=== PATIENT | female | born 1990 | race Caucasian/White ===

== ENCOUNTER 2020-09-20 05:58 | Emergency (ER) | payer BC, SELFPAY ==
[2020-09-20 06:14] VITALS: BP 116/81; PULSE 73; RESP 16; TEMP 36.6; O2SAT 100
--- NOTE | 2020-09-20 06:23 | ED.GENADULT ---
HPI - General Adult General Chief complaint: Anxiety Stated complaint: anxiety Time Seen by Provider: 09/20/20 06:18 History of Present Illness HPI narrative: Patient is a 30-year-old female who presents the emergency department with chief complaint of ingested maggot the patient reports that she was eating stirfry and realized that there was a maggot in the food the patient states that she thinks she may have swallowed it and the patient has no complaint right now other than feeling anxious that she swallowed a maggot. Related Data Allergies Allergy/AdvReac Type Severity Reaction Status Date / Time latex Allergy Intermediate Verified 09/16/19 12:46 dexamethasone Allergy Unknown Unknown Verified 09/16/19 12:46 Sulfa (Sulfonamide Allergy Unknown Unknown Verified 09/16/19 12:46 Antibiotics) Review of Systems Review of Systems: Narrative: A 10 system review of systems was completed on the patient and is negative except for what is stated in the HPI. Nursing and ancillary documentation was reviewed. [facility]LY [facility] Past Medical History Medical History Anemia Angina pectoris, unspecified Migraines Ovarian cyst Social History Social History Smoking status: Never smoker Alcohol intake: never Substance use: never Exam Narrative: Exam Narrative: GENERAL: Well-appearing, well-nourished, and in no acute distress. HEAD: Normocephalic, atraumatic. EYES: PERRLA and EOMI. ENT: Nares clear, no rhinorrhea or epistaxis. Mucous membranes moist. NECK: Supple. CHEST: Clear to auscultation. No respiratory distress. HEART: Regular rate and rhythm. No murmur heard. Normal peripheral pulses. ABDOMEN: Soft, nontender, nondistended, normal active bowel sounds. EXTREMITIES: Normal range of motion. No edema. SKIN: Warm, dry, no rash. NEURO: No focal deficits. Alert and oriented x3. PSYCH: Normal mood and affect. Course Vital Signs Vital signs: Vital Signs Temperature 36.6 C 09/20/20 06:14 Pulse Rate 73 09/20/20 06:14 Respiratory Rate 16 09/20/20 06:14 Blood Pressure 116/81 09/20/20 06:14 Pulse Oximetry 100 09/20/20 06:14 Temperature 36.6 C 09/20/20 06:14 Pulse Rate 73 09/20/20 06:14 Respiratory Rate 16 09/20/20 06:14 Blood Pressure 116/81 09/20/20 06:14 Pulse Oximetry 100 09/20/20 06:14 Medical Decision Making Vital Signs Vital Signs: Vital Signs Temperature 36.6 C 09/20/20 06:14 Pulse Rate 73 09/20/20 06:14 Respiratory Rate 16 09/20/20 06:14 Blood Pressure 116/81 09/20/20 06:14 Pulse Oximetry 100 09/20/20 06:14 Temperature 36.6 C 09/20/20 06:14 Pulse Rate 73 09/20/20 06:14 Respiratory Rate 16 09/20/20 06:14 Blood Pressure 116/81 09/20/20 06:14 Pulse Oximetry 100 09/20/20 06:14 Discharge Plan Discharge Clinical Impression: Ingestion of nontoxic substance Qualifiers: Encounter type: initial encounter Injury intent: accidental or unintentional Qualified Code(s): T65.91XA - Toxic effect of unspecified substance, accidental (unintentional), initial encounter Patient Disposition: Home, Self-Care Condition: Stable Instructions: Antibiotic Form Prescriptions: No Action ibuprofen 800 mg tablet 800 mg PO TID PRN (Reason: pain) Qty: 20 RF: 0 cyclobenzaprine 10 mg tablet 10 mg PO TID PRN (Reason: muscle spasm) Qty: 20 RF: 0 Follow-up/Referrals: PHYSICIAN,RECEIVING LEAD [Primary Care Provider] - Enoc Kingston MD [Physician] - 1 Week Time of Disposition: 06:26
[2020-09-20 06:48] VITALS: BP 118/75; PULSE 90; RESP 18; O2SAT 99
== END 2020-09-20 06:51 | disposition home or self-care (01) ==
LOC: ANHED 06:30
PROVIDERS: Emergency Provider Emergency Medicine
DX: T65.891A Toxic effect of other specified substances, accidental (unintentional), initial encounter (principal); Z86.2 Personal history of diseases of the blood and blood-forming organs and certain disorders involving the immune mechanism
CPT/HCPCS: 99281

== ENCOUNTER 2020-10-10 00:35 | Emergency (ER) | payer BC, SELFPAY ==
[2020-10-10 00:40] VITALS: BP 112/68; PULSE 102; RESP 12; TEMP 36.5; O2SAT 100
--- NOTE | 2020-10-10 00:59 | ED.GENADULT ---
HPI - General Adult General Chief complaint: Skin/Abscess/Foreign Body Stated complaint: Tobi-Wesley Rash Time Seen by Provider: 10/10/20 00:43 Source: RN notes reviewed History of Present Illness HPI narrative: Patient presents to emergency department from home for rash. Patient states that she was started on lamotrigine by her psychiatrist today and took her first dose today she was instructed to watch out for any sort of rashes states this evening she noted a small area of itching over her left elbow she states she looked and had small circular area in the region was concerned this could be the rash had warned her about and came to the ER for further evaluation she states she is only taken 1 dose which was today she denies any fevers or chills denies any chest pain or shortness of breath she denies any lesions in her mouth or groin she denies any other areas of rash other than this 1 spot on her left elbow Related Data Allergies Allergy/AdvReac Type Severity Reaction Status Date / Time latex Allergy Intermediate Verified 09/16/19 12:46 dexamethasone Allergy Unknown Unknown Verified 09/16/19 12:46 Sulfa (Sulfonamide Allergy Unknown Unknown Verified 09/16/19 12:46 Antibiotics) Review of Systems Review of Systems: Narrative: Gen.: Denies fevers or chills Eyes: Denies eye pain or visual change ENT: Denies congestion Respiratory: Denies shortness of breath or cough CV: Denies chest pain or palpitations GI: Denies abdominal pain nausea, emesis Musculoskeletal: Denies back pain or muscle pain Neuro: Denies numbness, tingling, weakness or focal weakness Skin: See HPI Except as documented, all other systems reviewed and negative [facility] Past Medical History Medical History Anemia Angina pectoris, unspecified Migraines Ovarian cyst Social History Social History Smoking status: Never smoker Alcohol intake: never Substance use: never Substance use type: does not use Gender identity (if verbalized by the patient): Female Exam Narrative: Exam Narrative: APPEARANCE: No acute distress, nontoxic, resting in bed EYES: EOMI HEENT: Normocephalic, atraumatic, OMM, no intraoral lesions or lesions on the lip RESPIRATORY: No respiratory distress Clear to auscultation bilaterally with no rhonchi wheezing or rales. CARDIOVASCULAR: Regular rate and rhythm without murmurs rubs or gallops. ABDOMINAL: Soft, nontender, nondistended, MUSCULOSKELETAl: Moves all extremities. No clubbing, cyanosis or edema. NEURO: Awake and alert. Following commands, speech normal, no focal deficits SKIN:: Warm, dry. The left posterior elbow with 1 small 0.5 cm circular area of erythema there is no vesicles or bullous appearance there is no target lesion , it is a simple small raised area no other rashes seen PSYCHIATRIC: Normal affect/mood, Course Course Emergency Course: Discussed with patient results of workup and diagnosis. Discussed need for follow-up with primary care, proper use of medication, and reasons to return to the emergency department. Patient understands and agrees to current treatment plan Vital Signs Vital signs: Vital Signs Temperature 97.7 F 10/10/20 00:40 Pulse Rate 102 H 10/10/20 00:40 Respiratory Rate 12 10/10/20 00:40 Blood Pressure 112/68 10/10/20 00:40 Pulse Oximetry 100 10/10/20 00:40 Temperature 97.7 F 10/10/20 00:40 Pulse Rate 102 H 10/10/20 00:40 Respiratory Rate 12 10/10/20 00:40 Blood Pressure 112/68 10/10/20 00:40 Pulse Oximetry 100 10/10/20 00:40 Medical Decision Making [facility] Narrative Medical decision making narrative: Patient presented for rash concern for Tobi Wesley syndrome took first dose today there is no intraoral lesions or lesions in the groin there is no vesicles or bullae had no target lesions it is a simple small raised red lesion bleed likely an insec
[2020-10-10] MEDS: LORATADINE 10 MG TABLET PO (01:13)
[2020-10-10 01:21] VITALS: BP 109/67; PULSE 91; RESP 18; O2SAT 99
== END 2020-10-10 01:23 | disposition home or self-care (01) ==
PROVIDERS: Emergency Provider Emergency Medicine
DX: R21 Rash and other nonspecific skin eruption (principal); Z86.2 Personal history of diseases of the blood and blood-forming organs and certain disorders involving the immune mechanism
CPT/HCPCS: 99283; A9270

== ENCOUNTER 2020-10-13 14:01 | Emergency (ER) | payer BC, SELFPAY ==
--- NOTE | ~2020-10-13 | CT_ITS ---
EXAMINATION: CT abdomen pelvis w con DATE: 10/13/2020 16:58 INDICATION: Appendicitis. Low abdominal pain. TECHNIQUE: Computed tomography (CT) of the abdomen and pelvis was performed with 100 mL Omnipaque 350 intravenous contrast. Automated exposure control and iterative reconstruction technique were employe d. The dose-length product was 213.24 mGy-cm. COMPARISON: None. FINDINGS: The visualized portions of the lung bases demonstrate minimal atelectasis. No pleural effus ion. Calcifications in the liver and spleen are consistent with old granulomatous disease. The gallbl adder, pancreas, adrenal glands, and left kidney are normal. There is a 7 mm cyst in right kidney. Th ere are no dilated loops of bowel. The appendix is normal. There are no pathologically enlarged lymph nodes. There is trace pelvic ascites. The bones are unremarkable. IMPRESSION: 1. No etiology for the patient's symptoms. Reviewed, dictated and finalized at location A.
--- NOTE | ~2020-10-13 | US_ITS ---
EXAMINATION: US pelvic complete w TV DATE: 10/13/2020 17:50 INDICATION: Bilateral lower pelvic pain TECHNIQUE: Multiple transabdominal and endovaginal sonographic images of the pelvis were obtained. COMPARISON: None. FINDINGS: The anteverted uterus measures 8.9 x 5.7 x 4.3 cm. The endometrial complex measures 13 mm in thickne ss in places with poorly defined margins between the endometrial complex in the junctional zone. Ther e is also heterogeneous myometrial echogenicity with scattered striated pattern of shadowing originat ing the myometrium along with a few 3 mm or smaller subendometrial cysts. Appearance suggests possibi lity of diffuse adenomyosis. The right ovary measures 2.7 x 1.9 x 2.0 cm. 7 mm anechoic follicle in t he right ovary. The left ovary measures 3.5 x 2.0 x 2.1 cm. There is normal vascular flow in the ovar ies. There is no free fluid in the pelvis. IMPRESSION: 1. Heterogeneous appearance of the myometrium with scattered tiny subendometrial cysts suggestive of diffuse adenomyosis. Reviewed, dictated and finalized at location A. IMPRESSION: 1. Heterogeneous appearance of the myometrium with scattered tiny subendometria l cysts suggestive of diffuse adenomyosis.
[2020-10-13 14:12] VITALS: BP 113/72; PULSE 97; RESP 18; TEMP 36.9; O2SAT 100
[2020-10-13 14:51] LABS: Basophils Percent Auto 0.5 % (0.2-1.2); Eosinophils Absolute Auto 0.1 K/mm3 (0-0.3); Eosinophils Percent Auto 0.8 % (0-4.4); Hematocrit 45.4 % (37.0-47.0); Hemoglobin 15.6 g/dL (12.0-15.0); Immature Granulocyte Absolute 0.01 K/mm3 (0.00-0.031); Immature Granulocyte Percent A 0.2 % (0-0.5); Lymphocytes Percent Auto 30.5 % (18.3-44.2); Mean Corpuscular HGB Conc 34.4 g/dl (32-36); Mean Corpuscular Hemoglobin 30.5 pg (26-34); Mean Corpuscular Volume 88.8 fl (80-100); Mean Platelet Volume 9.2 fl (7.4-10.4); Monocytes Absolute Auto 0.4 K/mm3 (0.1-0.6); Monocytes Percent Auto 6.8 % (2.6-8.5); Neutrophils Absolute Auto 3.6 K/mm3 (1.3-6.7); Neutrophils Percent Auto 61.2 % (45.5-73.1); Platelet Count Result 226 k/mm3 (150-375); Red Blood Count 5.11 M/mm3 (4.2-5.4); Red Cell Distribution Width 12.6 % (11.5-14.5); White Blood Count 5.9 K/mm3 (4.5-10.0)
[2020-10-13 15:00] LABS: Alanine Aminotransferase 10 U/L (4-35); Albumin Level 4.5 g/dL (3.5-5.1); Alkaline Phosphatase 53 U/L (38-126); Anion Gap 9 mmol/L (8-16); Aspartate Amino Transferase 26 U/L (14-36); Bilirubin,Total 1.6 mg/dL (0.2-1.3); Blood Urea Nitrogen 8 mg/dL (7-17); Calcium 9.5 mg/dL (8.4-10.2); Carbon Dioxide 26 mmol/L (22-30); Chloride 106 mmol/L (98-107); Estimated CRCL calculation 75 ml/min; Estimated Glomerular Filt Rate > 60; Glucose 69 mg/dL (65-105); Lipase 100 U/L (23-300); Potassium 3.7 mmol/L (3.4-5.0); Sodium 141 mmol/L (137-145)
[2020-10-13 15:21] LABS: Add Urine Microscopic? NO; Appearance Urine Clear (Clear); Bilirubin Urine Negative (Negative); Blood Urine Negative (Negative); Color Urine Yellow (Yellow); Glucose Urine UA Negative (Negative); Ketones Urine Negative (Negative); Leukocyte Esterase Ur Negative LEU/UL (Negative); Nitrate Urine Negative (Negative); Protein Urine Negative (Negative); Specific Grav Ur 1.017 (1.001-1.035); Urobilinogen Urine Negative mg/dL (<2.0)
--- NOTE | 2020-10-13 16:44 | ED.GENADULT ---
HPI - General Adult General Chief complaint: Abdominal Pain Stated complaint: Lower Abd Pain Time Seen by Provider: 10/13/20 16:07 Source: patient, family and RN notes reviewed Mode of arrival: ambulatory Limitations: no limitations History of Present Illness HPI narrative: Patient is a 30-year-old female who presents to emergency department for evaluation of lower abdominal pain in the lower quadrants that intensified today is a sharp stabbing pain denies any vomiting diarrhea rectal bleeding or vaginal discharge. Patient on arrival to emergency department is in the room in no distress but gets bouts of intensifying pain. Patient denies similar occurrence in the past has not taken anything for her symptoms Related Data Allergies Allergy/AdvReac Type Severity Reaction Status Date / Time latex Allergy Intermediate Rash Verified 10/13/20 16:08 dexamethasone Allergy Unknown Unknown Verified 10/13/20 16:08 Sulfa (Sulfonamide Allergy Unknown Unknown Verified 10/13/20 16:08 Antibiotics) Review of Systems Review of Systems: All systems reviewed & are unremarkable except as noted in HPI and below PMFSH Past Medical History Medical History Anemia Angina pectoris, unspecified Migraines Ovarian cyst Social History Social History Smoking status: Never smoker Alcohol intake: never Substance use: never Substance use type: does not use Gender identity (if verbalized by the patient): Female Exam Narrative: Exam Narrative: GENERAL: Well-appearing, well-nourished, uncomfortable and in no acute distress. HEAD: Normocephalic, atraumatic. EYES: PERRLA and EOMI. ENT: Nares clear, no rhinorrhea or epistaxis. Mucous membranes moist. CHEST: Clear to auscultation. No respiratory distress. No wheezes rales or rhonchi HEART: Regular rate and rhythm. No murmur heard. Normal peripheral pulses. ABDOMEN: Soft, tenderness in the right lower quadrant with voluntary guarding, nondistended, normal active bowel sounds. EXTREMITIES: Normal range of motion. No edema. SKIN: Warm, dry, no rash. NEURO: No focal deficits. Alert and oriented x3. Cranial nerves II through XII grossly intact PSYCH: Normal mood and affect. Course Course Emergency Course: Patient evaluated in the emergency department will be discharged with follow-up with gynecology given the ultrasound findings patient agrees with this plan is resting in the room in no distress afebrile nontoxic-appearing without emesis felt appropriate for outpatient reevaluation Vital Signs Vital signs: Vital Signs Temperature 98.5 F 10/13/20 14:12 Pulse Rate 97 10/13/20 14:12 Respiratory Rate 18 10/13/20 14:12 Blood Pressure 113/72 10/13/20 14:12 Pulse Oximetry 100 10/13/20 14:12 Temperature 98.5 F 10/13/20 14:12 Pulse Rate 97 10/13/20 14:12 Respiratory Rate 18 10/13/20 14:12 Blood Pressure 113/72 10/13/20 14:12 Pulse Oximetry 100 10/13/20 14:12 Medical Decision Making MDM Narrative Medical decision making narrative: Patient evaluated emergency department likely the cystic structures seen on ultrasound in the uterus is the cause of her pain she will be referred to gynecology is hemodynamically stable afebrile nontoxic-appearing agreeing with this plan Vital Signs Vital Signs: Vital Signs Temperature 98.5 F 10/13/20 14:12 Pulse Rate 97 10/13/20 14:12 Respiratory Rate 18 10/13/20 14:12 Blood Pressure 113/72 10/13/20 14:12 Pulse Oximetry 100 10/13/20 14:12 Temperature 98.5 F 10/13/20 14:12 Pulse Rate 97 10/13/20 14:12 Respiratory Rate 18 10/13/20 14:12 Blood Pressure 113/72 10/13/20 14:12 Pulse Oximetry 100 10/13/20 14:12 Lab Data Result diagrams: 10/13/20 14:16 10/13/20 14:15 Labs: Lab Results 10/13/20 10/13/20 10/13/20 Range/Units 14:15 14:16 15:14 WBC
[2020-10-13] MEDS: SODIUM CHLORIDE 0.9% IV 1,000 ML 999 ML IV CONT (17:06)
[2020-10-13] MEDS: FAMOTIDINE 20 MG/2 ML VIAL IV PUSH (17:06)
== END 2020-10-13 18:49 | disposition home or self-care (01) ==
PROVIDERS: Emergency Medicine; Emergency Provider Emergency Medicine
DX: R10.2 Pelvic and perineal pain (principal); Z86.2 Personal history of diseases of the blood and blood-forming organs and certain disorders involving the immune mechanism
CPT/HCPCS: 36415; 74177; 76830; 76856; 80053; 81003; 81025; 83690; 85025; 96361; 96365; 96375; 99284; J0131; J7030; Q9967

== ENCOUNTER 2021-10-13 17:16 | Emergency (ER) | payer BC, SELFPAY ==
--- NOTE | ~2021-10-13 | XR_ITS ---
XR chest 2V DATE: 10/13/2021 17:39 INDICATION: Midsternal sharp chest pain today worse on inspiration TECHNIQUE: PA and Lateral views COMPARISON: 03/24/2019 2 view chest FINDINGS: Normal heart size. No hilar or mediastinal enlargement. No pulmonary infiltrate or consolid ation, pleural effusion or pulmonary vascular congestion or pneumothorax. Minimal dextroscoliosis of the thoracic spine. IMPRESSION: No active cardiopulmonary disease Reviewed, dictated and finalized at location A.
[2021-10-13 17:20] VITALS: BP 104/72; PULSE 83; RESP 18; TEMP 37; O2SAT 98
--- NOTE | 2021-10-13 17:23 | ECG_ITS ---
Measurements Intervals [place] Rate: 63 P: 57 NC: 135 QRS: 44 QRSD: 81 T: 41 QT: 386 QTc: 397 Interpretive Statements SINUS RHYTHM COMPARED TO ECG 03/24/2019 15:25:03 NO SIGNIFICANT CHANGES Electronically Signed On 10-13-2021 22:20:43 CDT by Maryan Luna M.D.
[2021-10-13 17:34] LABS: Basophils Percent Auto 0.4 % (0.2-1.2); Eosinophils Absolute Auto 0.1 K/mm3 (0-0.3); Eosinophils Percent Auto 1.4 % (0-4.4); Hematocrit 42.1 % (37.0-47.0); Hemoglobin 13.9 g/dL (12.0-15.0); Immature Granulocyte Absolute 0.01 K/mm3 (0.00-0.031); Immature Granulocyte Percent A 0.2 % (0-0.5); Lymphocytes Absolute Auto 1.92 K/mm3 (0.9-3.2); Lymphocytes Percent Auto 37.1 % (18.3-44.2); Mean Corpuscular Hemoglobin 29.6 pg (26-34); Mean Corpuscular Volume 89.6 fl (80-100); Mean Platelet Volume 8.9 fl (7.4-10.4); Monocytes Absolute Auto 0.4 K/mm3 (0.1-0.6); Monocytes Percent Auto 8.3 % (2.6-8.5); Neutrophils Absolute Auto 2.7 K/mm3 (1.3-6.7); Neutrophils Percent Auto 52.6 % (45.5-73.1); Platelet Count Result 198 k/mm3 (150-375); Red Cell Distribution Width 13.2 % (11.5-14.5); White Blood Count 5.2 K/mm3 (4.5-10.0)
[2021-10-13 17:42] VITALS: PULSE 69
[2021-10-13 17:44] VITALS: BP 111/89; PULSE 71; RESP 15; O2SAT 100
[2021-10-13 17:44] LABS: Alanine Aminotransferase 29 U/L (6-35); Albumin Level 4.4 g/dL (3.5-5.1); Alkaline Phosphatase 52 U/L (38-126); Anion Gap 8 mmol/L (8-16); Aspartate Amino Transferase 40 U/L (14-36); Bilirubin,Total 1.8 mg/dL (0.2-1.3); Blood Urea Nitrogen 7 mg/dL (7-17); Calcium 8.6 mg/dL (8.4-10.2); Carbon Dioxide 24 mmol/L (22-30); Chloride 107 mmol/L (98-107); Estimated CRCL calculation 84 ml/min; Estimated Glomerular Filt Rate > 60; Glucose 75 mg/dL (65-110); Lipase 103 U/L (23-300); Potassium 3.6 mmol/L (3.4-5.0); Sodium 139 mmol/L (137-145)
[2021-10-13 17:47] LABS: Partial Thromboplastin Time 31.3 SECONDS (22.3-36.8)
[2021-10-13 17:56] LABS: Troponin I < 0.012 ng/mL (0.000-0.034)
--- NOTE | 2021-10-13 18:18 | ED.CHESTPAIN ---
HPI - Chest Pain General Chief Complaint: Chest Pain <TG Bonilla Last Filed: 10/13/21 19:39> Stated Complaint: chest pain <TG Bonilla Last Filed: 10/13/21 19:39> Time Seen by Provider: 10/13/21 17:44 <TG Bonilla Last Filed: 10/13/21 19:39> Source: patient <TG Bonilla Last Filed: 10/13/21 19:39> Mode of arrival: ambulatory <TG Bonilla Last Filed: 10/13/21 19:39> Limitations: no limitations <TG Bonilla Last Filed: 10/13/21 19:39> History of Present Illness HPI narrative: This is a 31-year-old female that presents to the emergency department for chest pain today. Reports she was at her son's dentist appointment. She had bent down forward and felt a sharp pain in her middle of her chest. Reports the pain has improved, but been constant since onset. She has not taken anything for pain. Reports family history of coronary artery disease which concerned her and prompted her to be seen. Denies shortness of breath, or lower extremity edema. <TG Bonilla Last Filed: 10/13/21 19:39> Related Data Home Medications: Home Medications Medication Instructions Recorded Confirmed No Home Medications 10/13/21 10/13/21 <TG Bonilla Last Filed: 10/13/21 19:39> Allergies/Adverse Reactions: Allergies Allergy/AdvReac Type Severity Reaction Status Date / Time latex Allergy Intermediate Rash Verified 10/13/20 16:08 dexamethasone Allergy Unknown Anaphylaxis Verified 10/13/21 17:43 Sulfa (Sulfonamide Allergy Unknown Unknown Verified 10/13/20 16:08 Antibiotics) <TG Bonilla Last Filed: 10/13/21 19:39> Review of Systems Review of Systems: CONSTITUTIONAL: Denies fever CARDIOVASCULAR: Reports chest pain. Denies edema. RESPIRATORY: Denies cough or dyspnea. GASTROINTESTINAL: Denies abdominal pain, nausea, vomiting <TG Bonilla Last Filed: 10/13/21 19:39> All systems reviewed & are unremarkable except as noted in HPI and below <Patricia Diaz PA-C - Last Filed: 10/13/21 19:39> PMFSH Past Medical History Medical History: Medical History Anemia Angina pectoris, unspecified Migraines Ovarian cyst <Patricia Diaz PA-C - Last Filed: 10/13/21 19:39> Social History Social History: Social History Smoking status: Never smoker Alcohol intake: never Substance use: never Substance use type: does not use Gender identity (if verbalized by the patient): Female <Patricia Diaz PA-C - Last Filed: 10/13/21 19:39> Exam Narrative: GENERAL: Well-appearing, well-nourished, and in no acute distress. HEAD: Normocephalic, atraumatic. EYES: EOMI. CHEST: Clear to auscultation. No respiratory distress. No wheezes rales or rhonchi. Tender to palpation of the sternum HEART: Regular rate and rhythm. No murmur heard. Normal peripheral pulses. EXTREMITIES: Normal range of motion. No edema. SKIN: Warm, dry, no rash. NEURO: No focal deficits. Alert and oriented x3. PSYCH: Normal mood and affect <Patricia Diaz PA-C - Last Filed: 10/13/21 19:39> Course Vital Signs Vital signs: Vital Signs Temperature 98.6 F 10/13/21 17:20 Pulse Rate 83 10/13/21 17:20 Respiratory Rate 18 10/13/21 17:20 Blood Pressure 104/72 10/13/21 17:20 Pulse Oximetry 98 10/13/21 17:20 Oxygen Delivery Room Air 10/13/21 17:20 Temperature 98.6 F 10/13/21 17:20 Pulse Rate 78 10/13/21 19:48 Respiratory Rate 20 10/13/21 19:48 Blood Pressure 102/76 10/13/21 19:48 Pulse Oximetry 100 10/13/21 19:48 Oxygen Delivery Room Air 10/13/21 17:20 <Patricia Diaz PA-C - Last Filed: 10/13/21 19:39> Vital Signs Temperature 98.6 F 10/13/21 17:20 Pulse Rate 83 10/13/21 17:20 Respiratory Rate 18 10/13/21 1
[2021-10-13 18:51] LABS: D Dimer < 0.27 ug/mL (<0.48)
[2021-10-13 19:48] VITALS: BP 102/76; PULSE 78; RESP 20; O2SAT 100
== END 2021-10-13 19:49 | disposition home or self-care (01) ==
PROVIDERS: Family Medicine; Physician Assistant; Emergency Provider General Practice
DX: R07.9 Chest pain, unspecified (principal); Z86.2 Personal history of diseases of the blood and blood-forming organs and certain disorders involving the immune mechanism
CPT/HCPCS: 36415; 71046; 80053; 83690; 84484; 85025; 85380; 85610; 85730; 93005; 99284

== ENCOUNTER 2021-10-15 04:10 | Emergency (ER) | payer BC, SELFPAY ==
--- NOTE | ~2021-10-15 | XR_ITS ---
EXAMINATION: XR chest 2V DATE: 10/15/2021 05:00 INDICATION: Chest pain. Left shoulder pain. TECHNIQUE: Frontal and lateral views of the chest were obtained. COMPARISON: Chest 2 views 10/13/2021, CT abdomen and pelvis 10/13/2020 FINDINGS: Calcified right lung nodules and calcified right hilar lymph nodes are consistent with old granulomatous disease. No pleural effusion or pneumothorax. The heart size is normal. IMPRESSION: 1. No acute cardiopulmonary disease. Reviewed, dictated and finalized at location A.
[2021-10-15 04:11] VITALS: BP 114/72; PULSE 69; RESP 18; TEMP 36.6; O2SAT 100
--- NOTE | 2021-10-15 04:32 | ECG_ITS ---
Measurements Intervals [place] Rate: 74 P: 41 DC: 131 QRS: 54 QRSD: 84 T: 36 QT: 378 QTc: 421 Interpretive Statements SINUS RHYTHM WITH OCCASIONAL SUPRAVENTRICULAR PREMATURE COMPLEXES COMPARED TO ECG 10/13/2021 17:25:41 NO SIGNIFICANT CHANGES Electronically Signed On 10-15-2021 14:09:20 CDT by Jorje Wilson M.D.
--- NOTE | 2021-10-15 04:38 | ED.CHESTPAIN ---
HPI - Chest Pain General Chief Complaint: Chest Pain Stated Complaint: chest pain left shoulder pain Time Seen by Provider: 10/15/21 04:28 Source: patient History of Present Illness HPI narrative: Patient presents with chest pain and left shoulder pain. Patient reports she was seen a couple days ago for the chest pain recommended she get a delta troponin patient declined and left she has been monitoring her symptoms. Tonight she developed left shoulder pain that radiates down her arm she was concerned to return to the ER for further evaluation. Pain is sharp, constant, no clear aggravating or alleviating factors. She continues report the chest pain. She has any shortness of breath nausea vomiting or diarrhea she denies any fevers, cough, congestion. Related Data Home Medications Medication Instructions Recorded Confirmed No Home Medications 10/13/21 10/13/21 Allergies Allergy/AdvReac Type Severity Reaction Status Date / Time latex Allergy Intermediate Rash Verified 10/15/21 04:45 dexamethasone Allergy Unknown Anaphylaxis Verified 10/15/21 04:45 Sulfa (Sulfonamide Allergy Unknown Unknown Verified 10/15/21 04:45 Antibiotics) Review of Systems Review of Systems: CONSTITUTIONAL: Denies fever, chills, or sweats. EYES: Denies visual changes, redness, or discharge. ENT: Denies rhinorrhea, congestion, sore throat, or otalgia. CARDIOVASCULAR: Denies palpitations, or edema. RESPIRATORY: Denies cough or dyspnea. GASTROINTESTINAL: Denies abdominal pain, nausea, vomiting, or diarrhea. GENITOURINARY: Denies dysuria or hematuria. SKIN: Denies rash or itching. MUSCULOSKELETAL: Denies back pain, or myalgia. NEUROLOGIC: Denies headache, numbness, dizziness, or weakness. PSYCHIATRIC: Denies anxiety or depression. All systems reviewed & are unremarkable except as noted in HPI and below PMFSH Past Medical History Medical History Anemia Angina pectoris, unspecified Migraines Ovarian cyst Social History Social History Smoking status: Never smoker Alcohol intake: never Substance use: never Substance use type: does not use Gender identity (if verbalized by the patient): Female Exam Narrative: GENERAL: Well-appearing, well-nourished, and in no acute distress. HEAD: Normocephalic, atraumatic. EYES: PERRLA and EOMI. ENT: Nares clear, no rhinorrhea or epistaxis. Mucous membranes moist. NECK: Supple. No masses. No JVD CHEST: Clear to auscultation. No respiratory distress. No wheezes rales or rhonchi HEART: Regular rate and rhythm. No murmur heard. Normal peripheral pulses. ABDOMEN: Soft, nontender, nondistended, normal active bowel sounds. EXTREMITIES: Normal range of motion. No edema. SKIN: Warm, dry, no rash. NEURO: No focal deficits. Alert and oriented x3. PSYCH: Normal mood and affect. Course Reevaluation(s) Reevaluation #1: Patient resting comfortably reports large improvement in symptoms results and plan reviewed with patient. Patient is comfortable outpatient plan. Date: 10/15/21 Time: 06:14 Vital Signs Vital signs: Vital Signs Temperature 36.6 C 10/15/21 04:11 Pulse Rate 69 10/15/21 04:11 Respiratory Rate 18 10/15/21 04:11 Blood Pressure 114/72 10/15/21 04:11 Pulse Oximetry 100 10/15/21 04:11 Oxygen Delivery Room Air 10/15/21 04:11 Temperature 36.6 C 10/15/21 04:11 Pulse Rate 74 10/15/21 06:34 Respiratory Rate 18 10/15/21 06:34 Blood Pressure 109/84 10/15/21 06:34 Pulse Oximetry 100 10/15/21 06:34 Oxygen Delivery Room Air 10/15/21 04:31 MDM - Chest Pain MDM Narrative Medical decision making narrative: H&P as above, vss, pt looks clinically well, exam reassuring labs reassuring to include troponin after days of symptoms, img without acute process, additional labs/img considered, symptomatic relief available as needed, on reevaluation pt
[2021-10-15] MEDS: KETOROLAC 15 MG/ML VIAL (*BKC) IV PUSH (04:45)
[2021-10-15 04:47] VITALS: BP 119/88; PULSE 75; RESP 20; O2SAT 100
[2021-10-15 05:25] LABS: Basophils Percent Auto 0.2 % (0.2-1.2); Eosinophils Absolute Auto 0.1 K/mm3 (0-0.3); Eosinophils Percent Auto 0.6 % (0-4.4); Hematocrit 41.3 % (37.0-47.0); Immature Granulocyte Absolute 0.02 K/mm3 (0.00-0.031); Immature Granulocyte Percent A 0.2 % (0-0.5); Lymphocytes Absolute Auto 2.55 K/mm3 (0.9-3.2); Lymphocytes Percent Auto 31.3 % (18.3-44.2); Mean Corpuscular HGB Conc 33.9 g/dl (32-36); Mean Corpuscular Hemoglobin 29.7 pg (26-34); Mean Corpuscular Volume 87.5 fl (80-100); Mean Platelet Volume 9.7 fl (7.4-10.4); Monocytes Absolute Auto 0.6 K/mm3 (0.1-0.6); Monocytes Percent Auto 7.5 % (2.6-8.5); Neutrophils Absolute Auto 4.9 K/mm3 (1.3-6.7); Neutrophils Percent Auto 60.2 % (45.5-73.1); Platelet Count Result 231 k/mm3 (150-375); Red Blood Count 4.72 M/mm3 (4.2-5.4); Red Cell Distribution Width 12.9 % (11.5-14.5); White Blood Count 8.2 K/mm3 (4.5-10.0)
[2021-10-15 05:27] LABS: Appearance Urine Clear (Clear); Bilirubin Urine Negative (Negative); Blood Urine Negative (Negative); Color Urine Yellow (Yellow); Glucose Urine UA Negative (Negative); Ketones Urine Trace mg/dL (Negative); Leukocyte Esterase Ur Negative LEU/UL (Negative); Nitrate Urine Negative (Negative); Protein Urine Negative (Negative); Urobilinogen Urine 0.2 mg/dL (<2.0); pH Urine 5.5 (5.0-9.0)
[2021-10-15 05:30] LABS: Mucus Urine Rare /lpf; RBC Urine 0-2 /hpf (0-2); Squamous Epithelial Cell Urine Few /hpf (Few); WBC Urine 0-3 /hpf
[2021-10-15 05:37] LABS: Alanine Aminotransferase 37 U/L (6-35); Albumin Level 4.4 g/dL (3.5-5.1); Alkaline Phosphatase 62 U/L (38-126); Anion Gap 6 mmol/L (8-16); Aspartate Amino Transferase 49 U/L (14-36); Bilirubin,Total 1.4 mg/dL (0.2-1.3); Blood Urea Nitrogen 12 mg/dL (7-17); Calcium 9.7 mg/dL (8.4-10.2); Carbon Dioxide 26 mmol/L (22-30); Chloride 107 mmol/L (98-107); Estimated CRCL calculation 81 ml/min; Estimated Glomerular Filt Rate > 60; Glucose 81 mg/dL (65-110); Lipase 118 U/L (23-300); Potassium 3.2 mmol/L (3.4-5.0); Sodium 139 mmol/L (137-145)
[2021-10-15 05:48] LABS: Troponin I < 0.012 ng/mL (0.000-0.034)
[2021-10-15 05:52] LABS: Add Urine Microscopic? YES
[2021-10-15 06:14] VITALS: BP 105/70; PULSE 71; RESP 14; O2SAT 99
[2021-10-15 06:34] VITALS: BP 109/84; PULSE 74; RESP 18; O2SAT 100
== END 2021-10-15 06:35 | disposition home or self-care (01) ==
PROVIDERS: Emergency Provider Emergency Medicine
DX: R07.9 Chest pain, unspecified (principal); Z86.2 Personal history of diseases of the blood and blood-forming organs and certain disorders involving the immune mechanism; I49.1 Atrial premature depolarization
CPT/HCPCS: 36415; 71046; 80053; 81001; 81025; 83690; 84484; 85025; 93005; 96374; 99284; J1885

== ENCOUNTER → 2021-12-28 17:40 | Outpatient (CLI) | payer BC, SELFPAY ==
--- NOTE | ~2021-12-28 | XR_ITS ---
EXAM: XR wrist RT min 3V DATE: 12/28/2021 18:11 HISTORY: right wrist pain and tingling fingers for weeks . COMPARISON: None available. FINDINGS: Normal mineralization. No fracture or dislocation. No lytic or blastic lesion. Joint space s are maintained. No erosion or periosteal change. Soft tissues within normal limits. IMPRESSION: Normal right wrist radiograph findings. Reviewed, dictated and finalized at location K.
--- NOTE | ~2021-12-28 | XR_ITS ---
EXAMINATION:XR cervical spine 4-5V DATE: 12/28/2021 18:11 INDICATION: Neck pain TECHNIQUE: AP, lateral, lateral swimmers and odontoid views of the cervical spine are provided. COMPARISON: None FINDINGS: There is reversal of the cervical spine which can be positional or due to muscular spasm. A lignment is normal. The odontoid is intact. No fracture is identified. Vertebral body heights and dis k spaces are normal. Prevertebral soft tissues are normal. IMPRESSION: 1. Reversal of the normal cervical lordosis which may be positional or due to muscular spasm. No acut e osseous abnormality. Reviewed, dictated and finalized at location B. IMPRESSION: 1. Reversal of the normal cervical lordosis which may be positional or due to m uscular spasm. No acute osseous abnormality.
== END ==
PROVIDERS: PCP Physician Assistant; Visit Provider Physician Assistant
DX: M25.531 Pain in right wrist (principal); M54.12 Radiculopathy, cervical region; M53.82 Other specified dorsopathies, cervical region
CPT/HCPCS: 72050; 73110

== ENCOUNTER 2022-11-06 05:24 | Emergency (ER) | payer BC, SELFPAY ==
[2022-11-06 05:25] VITALS: BP 117/71; PULSE 74; RESP 14; TEMP 36.2; O2SAT 100
[2022-11-06 05:40] VITALS: BP 109/70; PULSE 74; RESP 18; TEMP 36.9; O2SAT 100
--- NOTE | 2022-11-06 05:41 | PC.NURSE ---
pt sts that she woke up on 11/05/22 in the am with a tooth ache. pt has a broken 3rd molar with gum swelling noted with drainage. pt sts that she took a norco of her husbands
--- NOTE | 2022-11-06 05:55 | ED.GENADULT ---
HPI - General Adult General Chief complaint: Dental/Oral Stated complaint: dental/jaw pain Time Seen by Provider: 11/06/22 05:42 History of Present Illness HPI narrative: this is a 32-year-old female presenting ED with chief complaint of dental pain. Patient noticed that her top left molar started hurting approximately 2 days ago. She has been taking 400 mg of Motrin twice daily with minimal relief. She did take hydrocodone earlier which helped take the edge off. She has been attempting to get in to see her dentist. She has not noticed any swelling in her mouth, fever chills nausea vomiting diarrhea. Related Data Allergies Allergy/AdvReac Type Severity Reaction Status Date / Time latex Allergy Intermediate Rash Verified 11/06/22 05:25 dexamethasone Allergy Unknown Anaphylaxis Verified 11/06/22 05:25 Sulfa (Sulfonamide Allergy Unknown Unknown Verified 11/06/22 05:25 Antibiotics) [facility] Past Medical History Medical History Anemia Angina pectoris, unspecified Migraines Ovarian cyst Social History Social History Smoking status: Never smoker Alcohol intake: never Substance use: never Substance use type: does not use Gender identity (if verbalized by the patient): Female Exam Narrative: APPEARANCE: No apparent distress. Head: Multiple caries, no evidence of abscess or significant erythema/swelling EYES: EOMI, NOSE: Atraumatic NECK: Trachea midline RESPIRATORY: No increased rate of breathing CARDIOVASCULAR: RRR, ABDOMINAL: Non-distended MUSCULOSKELETAl: No obvious deformities NEURO: Alert. Moving 4/4 extremities SKIN:: Warm, dry. Normal color PSYCHIATRIC: Normal affect Course Vital Signs Vital signs: Vital Signs Temperature 97.1 F L 11/06/22 05:25 Pulse Rate 74 11/06/22 05:25 Respiratory Rate 14 11/06/22 05:25 Blood Pressure 117/71 11/06/22 05:25 Pulse Oximetry 100 11/06/22 05:25 Oxygen Delivery Room Air 11/06/22 05:25 Temperature 98.4 F 11/06/22 05:40 Pulse Rate 74 11/06/22 05:40 Respiratory Rate 18 11/06/22 05:40 Blood Pressure 109/70 11/06/22 05:40 Pulse Oximetry 100 11/06/22 05:40 Oxygen Delivery Room Air 11/06/22 05:25 Medical Decision Making MDM Narrative Medical decision making narrative: -Presentation: 32-year-old female presenting with dental pain. No evidence of abscess on exam. Patient declined dental block. Will treat with oral pain medications antibiotics and given dental follow-up. -DDX includes but is not limited to: Dental pain, dental caries, abscess -Co-morbidities complicating care: none -Social determinants of health: patient works in [employer], lives with her -External Chart Review: none -Hx from independent Sources: at bedside -Independent interpretation of studies: none -Discussion of Management/Consultants: none -Dx tests considered but not ordered: none -Procedures: none -Interventions: 30 mg IM Toradol, [place] 5 mg x 2, Augmentin -Shared decision making / Disposition: patient be discharged with dental follow-up. -RX Motrin, Tylenol, Augmentin Vital Signs Vital Signs: Vital Signs Temperature 97.1 F L 11/06/22 05:25 Pulse Rate 74 11/06/22 05:25 Respiratory Rate 14 11/06/22 05:25 Blood Pressure 117/71 11/06/22 05:25 Pulse Oximetry 100 11/06/22 05:25 Oxygen Delivery Room Air 11/06/22 05:25 Temperature 98.4 F 11/06/22 05:40 Pulse Rate 74 11/06/22 05:40 Respiratory Rate 18 11/06/22 05:40 Blood Pressure 109/70 11/06/22 05:40 Pulse Oximetry 100 11/06/22 05:40 Oxygen Delivery Room Air 11/06/22 05:25 Discharge Plan Discharge Clinical Impression: Toothache Patient Disposition: Home, Self-Care Condition: Stable Instructions: Antibiotic Form, Toothache (ED) Additional Instructions: You were seen in
[2022-11-06] MEDS: HYDROcodone/acetaminophen (*CRX) 5-325 MG TABLET 2 TAB PO (06:06)
[2022-11-06] MEDS: KETOROLAC 30 MG/ML VIAL (*BKC) IM (06:06)
[2022-11-06] MEDS: AMOXICILLIN/CLAVULANATE K 875-125 MG TAB 1 TABLET PO (06:06)
== END 2022-11-06 06:19 | disposition home or self-care (01) ==
PROVIDERS: Emergency Provider Emergency Medicine; PCP Physician Assistant
DX: K08.89 Other specified disorders of teeth and supporting structures (principal)
CPT/HCPCS: 96372; 99283; A9270; J1885

== ENCOUNTER 2023-07-30 16:29 | Emergency (ER) | payer BC, SELFPAY ==
--- NOTE | ~2023-07-30 | CT_ITS ---
EXAMINATION: CT brain wo con DATE: 07/30/2023 17:34 INDICATION: paresthesias . TECHNIQUE: Computed tomography (CT) of the head was performed without intravenous contrast. The mA wa s adjusted according to patient size. Iterative reconstruction technique was employed. The dose-lengt h product was 605.33 mGy-cm. COMPARISON: None. FINDINGS: No acute intracranial hemorrhage or extra-axial fluid collection. No hydrocephalus, mass, or herniation. No acute ischemic infarct. Unremarkable dural venous sinus attenuation. No acute osseous abnormality. Left sphenoid retention cyst/polyp, the remaining aerated spaces are clear. IMPRESSION: No acute intracranial process. Reviewed, dictated and finalized at location K.
--- NOTE | ~2023-07-30 | XR_ITS ---
EXAMINATION: XR chest 2V Exam Date/Time: 07/30/2023 17:05 CDT HISTORY: CP and SOB Comparison: 10/15/2021. RESULT: Lines, tubes, and devices: None. Lungs and pleura: Clear. Cardiomediastinal silhouette: Stable. Other: No acute osseous or upper abdominal finding. IMPRESSION: No acute cardiopulmonary process. Reviewed, dictated and finalized at location K.
--- NOTE | 2023-07-30 16:31 | ECG_ITS ---
Measurements Intervals [place] Rate: 70 P: 31 CO: 133 QRS: 42 QRSD: 86 T: 39 QT: 400 QTc: 433 Interpretive Statements SINUS RHYTHM BASELINE ARTIFACT- I, III, AVR, AVL, AVF NORMAL ECG COMPARED TO ECG 10/15/2021 04:40:06 NO SIGNIFICANT CHANGES Electronically Signed On 07-30-2023 16:51:39 CDT by Steven Santana D.O.
[2023-07-30 16:32] VITALS: BP 132/81; PULSE 82; RESP 16; TEMP 36.4; O2SAT 100
--- NOTE | 2023-07-30 16:57 | ED.GENADULT ---
HPI - General Adult General Chief complaint: Chest Pain Stated complaint: CP, SOB Time Seen by Provider: 07/30/23 16:44 Source: patient and family Mode of arrival: ambulatory Limitations: no limitations History of Present Illness HPI narrative: 33-year-old female presenting with multiple complaints. She has a history of bipolar margo and knows that she is in a manic episode for almost a week now. She is reporting decreased sleep, increased energy, occasional heart racing sensation, like carefully thoughts are racing as well. No suicidal or homicidal thoughts or plans. Concern now is because she was feeling quite anxious earlier today and typically when she gets anxiety attacks she gets numbness and tingling and has some spasm in her hands and she says that occurred on her left side mostly her left arm and has really stopped very much. Feels like her left hand still spasming and she is having pain in left shoulder left upper chest. Has been under lot of stress lately as well. she is quite confident that this is all related to her psychiatric disease but wants to make sure that there is nothing wrong with Her because 1 of her family members is on life support for stroke. Related Data Allergies Allergy/AdvReac Type Severity Reaction Status Date / Time latex Allergy Intermediate Rash Verified 07/30/23 17:21 dexamethasone Allergy Unknown Anaphylaxis Verified 07/30/23 17:21 Sulfa (Sulfonamide Allergy Unknown Unknown Verified 07/30/23 17:21 Antibiotics) Review of Systems Review of Systems: All systems reviewed & are unremarkable except as noted in HPI and below PMFSH Past Medical History Medical History Anemia Angina pectoris, unspecified Migraines Ovarian cyst Social History Social History Smoking status: Never smoker Alcohol intake: never Substance use: never Substance use type: does not use Gender identity (if verbalized by the patient): Female Exam Narrative: Constitutional: Generally well appearing, no acute distress, slightly anxious Head: Atraumatic, no deformities. Eyes: Pupils equal, round, and reactive to light. Neck: Supple, no tracheal deviation, no JVD. ENMT: Mucous membranes moist Cardiovascular: S1, S2 auscultated. No murmurs, rubs, or gallops. No S3/S4. Normal Distal pulses. No peripheral edema. Respiratory: Lung sounds equal. No wheezes, rales, or rhonchi. Gastrointestinal: Abdomen was soft and non-tender. Non-distended. No rebound or guarding. Genitourinary: Deferred Musculoskeletal: Normal muscle tone and bulk. No obvious deformities or tenderness over extremities. Skin: No rashes. Neurological: Strength 5/5 in extremities. Cranial nerves I-XII grossly intact. Distal sensation intact. Mental Status: Awake, alert and oriented x3. Follows commands Course Vital Signs Vital signs: Vital Signs Temperature 36.4 C 07/30/23 16:32 Pulse Rate 82 07/30/23 16:32 Respiratory Rate 16 07/30/23 16:32 Blood Pressure 132/81 07/30/23 16:32 Pulse Oximetry 100 07/30/23 16:32 Temperature 36.4 C 07/30/23 16:32 Pulse Rate 75 07/30/23 18:09 Respiratory Rate 18 07/30/23 18:09 Blood Pressure 104/75 07/30/23 18:09 Pulse Oximetry 100 07/30/23 18:09 Medical Decision Making MDM Narrative Medical decision making narrative: 33-year-old female presenting multiple complaints. History of bipolar disorder and is reporting a manic episode. She has anxiety attacks during her manic episodes and it can lead to a chest pain, weakness, muscle spasms and she is having most of those today. She says she has been worse than normal and she also has a family member who is sick in the ICU on life support and she just wanted to make sure that she was not having a stroke or heart attack. On exam she is well-appearing, may be slightly anxious, but normal vital sig
[2023-07-30 17:33] LABS: Basophils Percent Auto 0.6 % (0.2-1.2); Eosinophils Absolute Auto 0.1 K/mm3 (0-0.3); Eosinophils Percent Auto 1.7 % (0-4.4); Hematocrit 43.4 % (37.0-47.0); Immature Granulocyte Absolute 0.01 K/mm3 (0.00-0.031); Immature Granulocyte Percent A 0.2 % (0-0.5); Lymphocytes Absolute Auto 1.99 K/mm3 (0.9-3.2); Lymphocytes Percent Auto 36.5 % (18.3-44.2); Mean Corpuscular HGB Conc 34.6 g/dl (32-36); Mean Corpuscular Hemoglobin 30.6 pg (26-34); Mean Corpuscular Volume 88.6 fl (80-100); Mean Platelet Volume 9.1 fl (7.4-10.4); Monocytes Absolute Auto 0.4 K/mm3 (0.1-0.6); Monocytes Percent Auto 6.6 % (2.6-8.5); Neutrophils Percent Auto 54.4 % (45.5-73.1); Platelet Count Result 231 k/mm3 (150-375); Red Cell Distribution Width 12.5 % (11.5-14.5); White Blood Count 5.5 K/mm3 (4.5-10.0)
[2023-07-30 17:44] LABS: Prothrombin Time 13.3 Seconds (11.1-14.7)
[2023-07-30 17:45] LABS: Partial Thromboplastin Time 30.1 Seconds (22.3-36.8)
[2023-07-30 17:56] LABS: Troponin I < 0.012 ng/mL (0.000-0.034)
[2023-07-30] MEDS: ASPIRIN 81 MG CHEWABLE TABLET 324 MG PO (18:08)
[2023-07-30 18:09] VITALS: BP 104/75; PULSE 75; RESP 18; O2SAT 100
[2023-07-30 18:13] LABS: Alanine Aminotransferase 14 U/L (6-35); Albumin Level 4.6 g/dL (3.5-5.1); Alkaline Phosphatase 57 U/L (38-126); Anion Gap 8 mmol/L (8-16); Aspartate Amino Transferase 30 U/L (14-36); Bilirubin,Total 2.5 mg/dL (0.2-1.3); Blood Urea Nitrogen 8 mg/dL (7-17); Calcium 9.4 mg/dL (8.4-10.2); Carbon Dioxide 23 mmol/L (22-30); Chloride 106 mmol/L (98-107); Estimated CRCL calculation 95 ml/min; Estimated Glomerular Filt Rate > 60; Glucose 107 mg/dL (65-110); Lipase 86 U/L (23-300); Potassium 3.6 mmol/L (3.4-5.0); Sodium 137 mmol/L (137-145)
[2023-07-30 19:00] VITALS: BP 102/70; PULSE 82; RESP 16; O2SAT 100
== END 2023-07-30 19:00 | disposition home or self-care (01) ==
PROVIDERS: Emergency Provider Emergency Medicine; PCP Physician Assistant
DX: R07.89 Other chest pain (principal); R20.2 Paresthesia of skin; F31.9 Bipolar disorder, unspecified; Z86.2 Personal history of diseases of the blood and blood-forming organs and certain disorders involving the immune mechanism
CPT/HCPCS: 36415; 70450; 71046; 80053; 83690; 84484; 85025; 85610; 85730; 93005; 99284; A9270

== ENCOUNTER 2023-10-30 01:17 | Emergency (ER) | payer BC, SELFPAY ==
[2023-10-30 01:59] VITALS: BP 108/71; PULSE 80; RESP 16; TEMP 36.7; O2SAT 97
--- NOTE | 2023-10-30 02:28 | ED.GENADULT ---
HPI - General Adult General Chief complaint: Extremity Problem,Nontraumatic Stated complaint: bit by a spider on foot Time Seen by Provider: 10/30/23 02:00 History of Present Illness HPI narrative: This is a 33-year-old female presenting with possible bug bite on her foot. She was watching TV and then had the pain on her 2nd toe on her right foot. She then notice redness the area and some redness swelling of her foot. She had some numbness and tingling in her 1st and 2nd toe. She took a Zyrtec which improved the redness. She denies a small dot at the base of her 2nd toe. She did not see a spider. No other symptoms Such as an itchy rash, difficulty breathing nausea vomiting or diarrhea. Related Data Allergies Allergy/AdvReac Type Severity Reaction Status Date / Time latex Allergy Intermediate Rash Verified 07/30/23 17:21 dexamethasone Allergy Unknown Anaphylaxis Verified 07/30/23 17:21 Sulfa (Sulfonamide Allergy Unknown Unknown Verified 07/30/23 17:21 Antibiotics) [facility] Past Medical History Medical History Anemia Angina pectoris, unspecified Migraines Ovarian cyst Social History Social History Smoking status: Never smoker Alcohol intake: never Substance use: never Substance use type: does not use Gender identity (if verbalized by the patient): Female Exam Narrative: APPEARANCE: No apparent distress. Head: atraumatic. EYES: EOMI, NOSE: Atraumatic NECK: Trachea midline RESPIRATORY: No increased rate of breathing CARDIOVASCULAR: RRR, ABDOMINAL: Non-distended MUSCULOSKELETAl: No obvious deformities NEURO: Alert. Moving 4/4 extremities SKIN:: Patient has a small erythematous indurated area at the base of her 2nd toe consistent with a bug bite. PSYCHIATRIC: Normal affect Course Vital Signs Vital signs: Vital Signs Temperature 98.1 F 10/30/23 01:59 Pulse Rate 80 10/30/23 01:59 Respiratory Rate 16 10/30/23 01:59 Blood Pressure 108/71 10/30/23 01:59 Pulse Oximetry 97 10/30/23 01:59 Oxygen Delivery Room Air 10/30/23 01:59 Temperature 98.1 F 10/30/23 01:59 Pulse Rate 80 10/30/23 01:59 Respiratory Rate 16 10/30/23 01:59 Blood Pressure 108/71 10/30/23 01:59 Pulse Oximetry 97 10/30/23 01:59 Oxygen Delivery Room Air 10/30/23 01:59 Medical Decision Making MDM Narrative Medical decision making narrative: -Course: 33-year-old presenting with a bug bite this was sent toe. Patient has a small area of redness but no other findings. No signs of anaphylaxis. No systemic signs of illness. Patient will be discharged follow-up with primary care physician. Given return precautions. -DDX includes but is not limited to: Bug bite, spider bite, Vital Signs Vital Signs: Vital Signs Temperature 98.1 F 10/30/23 01:59 Pulse Rate 80 10/30/23 01:59 Respiratory Rate 16 10/30/23 01:59 Blood Pressure 108/71 10/30/23 01:59 Pulse Oximetry 97 10/30/23 01:59 Oxygen Delivery Room Air 10/30/23 01:59 Temperature 98.1 F 10/30/23 01:59 Pulse Rate 80 10/30/23 01:59 Respiratory Rate 16 10/30/23 01:59 Blood Pressure 108/71 10/30/23 01:59 Pulse Oximetry 97 10/30/23 01:59 Oxygen Delivery Room Air 10/30/23 01:59 Discharge Plan Discharge Clinical Impression: Bug bite Patient Disposition: Home, Self-Care Condition: Stable Instructions: Antibiotic Form, Insect Bite or Sting (ED) Additional Instructions: please follow-up with your primary care physician. Continue take Zyrtec or Benadryl he developed an itchy rash. If you develop blistering, or you believe the bite has become infected please return to ED immediately re-evaluation. Prescriptions: No Action acetaminophen 500 mg tablet 1,000 mg PO TID PRN (Reason: ade) 7 Days Qty: 42 0RF ibuprofen 800 mg tablet 800 mg PO T
== END 2023-10-30 02:35 | disposition home or self-care (01) ==
PROVIDERS: Emergency Provider Emergency Medicine; PCP Physician Assistant
DX: S91.154A Open bite of right lesser toe(s) without damage to nail, initial encounter (principal); W57.XXXA Bitten or stung by nonvenomous insect and other nonvenomous arthropods, initial encounter
CPT/HCPCS: 99281

== ENCOUNTER 2024-01-10 19:43 | Outpatient (RCR) | payer BC, SELFPAY ==
[2024-01-10] MEDS: RHO(D) IMMUNE GLOBULIN 300 MCG/2 ML SYRINGE IM (20:09)
== END 2024-04-09 23:59 | disposition home or self-care (01) ==
LOC: ANHLAB 19:43
PROVIDERS: PCP Nurse Practitioner Family; Visit Provider Obstetrics & Gynecology
DX: Z29.13 Encounter for prophylactic Rho(D) immune globulin (principal); O20.0 Threatened abortion; O36.0190 Maternal care for anti-D [Rh] antibodies, unspecified trimester, not applicable or unspecified; Z3A.00 Weeks of gestation of pregnancy not specified
CPT/HCPCS: 36415; 85461; 86850; 86900; 86901; 90384; 96372; J2790

== ENCOUNTER 2024-02-17 02:39 | Emergency (ER) | payer BC, SELFPAY ==
[2024-02-17 02:45] VITALS: BP 117/64; PULSE 89; RESP 18; TEMP 36.4; O2SAT 100
== END 2024-02-17 03:55 | disposition left against medical advice (07) ==
PROVIDERS: PCP Nurse Practitioner Family
DX: O26.851 Spotting complicating pregnancy, first trimester (principal); Z3A.11 11 weeks gestation of pregnancy
CPT/HCPCS: 99199

== ENCOUNTER 2024-06-15 17:11 | Observation (INO) | payer BC, SELFPAY ==
[2024-06-15] VITALS (19 sets, daily range): BP systolic 110–113; BP diastolic 60–63; PULSE 74–98; O2SAT 99–100; BMI 26.2
--- OUTSIDE RECORDS SUMMARY | 2024-06-15 17:17 | XMS_ITS | Continuity of Care Document ---
Author Organization [facility] Address [address] [place] [address] [place] [address] Phone Care Team Providers Care Zoogler Name Role Phone Alex Woods MD Unavailable Unavailable Allergies, Adverse Reactions, Alerts Substance Reaction Status Criticality Sulfa (Sulfonamide Antibiotics) Active No Information latex Active No Information Procedures Procedure Date OFFICE/OUTPATIENT VISIT, EST OFFICE/OUTPATIENT VISIT, EST OFFICE/OUTPATIENT VISIT, EST PREV VISIT, NEW, AGE 18-39 OFFICE/OUTPATIENT VISIT, NEW Advance Directives Directive Yes / No Effective Date File Name No Information Encounters Encounter Description Practice Location Reason(s) For Visit Diagnoses Date Provider Providers Copied on Encounter OFFICE/OUTPA TIENT VISIT, [facility], [address], [place], [place], [id number], [place] tel:[phone] [facility] sinusitis1 (chief complaint) Acute sinusitisHeadache Chuck Johnson. [address], [place], [place], [id number] , [place]. tel:[phone] Referring Provider: Alex Woods, [address], [place], [place], [id number]. tel:[phone] OFFICE/OUTPA TIENT VISIT, [facility], [address], [place], [place], [id number], [place] tel:[phone] [facility] back pain1 (chief complaint) LumbagoSacroiliitis Chuck Johnson. [address], [place], [place], [id number] , [place]. [phone] Referring Provider: Dedrick Garcia [address], [place], [place], [id number]. tel:[phone] OFFICE/OUTPA TIENT VISIT, EST [facility], [address], [place], [place], [id number], [place] tel:[phone] [facility] brast lump1 (chief complaint) back pain1 (chief complaint) tinea1 (chief complaint) SacroiliitisLump in breastTinea corporis Sep-2 7 Chuck Johnson. [address], [place], [place], [id number] , [place]. [phone] Referring Provider: [facility] [place], [place], [id number]. tel:[phone] PREV VISIT, NEW, AGE 18-39 [facility], [address], [place], [place], [id number], [place] tel:[phone] [facility] PHysical (chief complaint) Encounter for general adult medical exam w abnormal findingsTinea corporisFamily history of malignant neoplasm of ovary 7 Chuck Johnson. [address], [place], [place], [id number] , [place]. tel:[phone] Referring Provider: [facility] Garcia [facility] [place], [place], [id number]. tel:[phone] Family History Family Member Type Diagnosis Age At Onset Father Problem (finding) Unknown Mother Problem (finding) ovarian CA at age 24 Brother Problem (finding) Alive and well Payers Payer name Insurance type Covered constitution party ID Authoriza tion(s) No Information Social History Type Description Quantity Date Captured Comments Alcohol Use Details No Caffeine Use Details Unknown Tobacco Use Status Never smoked tobacco 2016 Smoking Status Never smoker Sex Female Vital Signs Date / Time: Height Weight BMI Pulse Rate Blood Pressure Temperature Respiratory Rate Body Surface Area Head Circumference BMI percentile Pulse Ox Inhaled Ox 6:48 PM 162.56 cm 109.20 lbs 18.7 4 kg/m eter (2) 81 /min 93/55 mm[Hg] 97.8 F 16 /min Chief Complaint And Reason For Visit From encounter dated '04/11/2017 18:34'. sinusitis1 (chief complaint). Description: Pt c/o sinus congestion, sinus pain, sore throat and rather severe sinus and frontal headache for last 5 days Pt went to Er and she received a steroid shot which she had a reaction with rash. pt states that she has frontal headache constantly. Pt also wentto ER and had toraldol shot last night and she woke up with headache again pt feels nausea with headache pt denies any photophobia. Pt denies any head injury. Pt denies any history of migraine. Plan Of Treatment Date Type Action Status Referral Ordered: [facility] ordered Referral Ordered: [facility] [employer] (related to Sacroiliitis) ordered Referral Ordered: LUMBAR XRAY AP AND LAT ONLY ordered Referral Referred To: [facility] [employer] [address] [place] [address], [id number] Ordered: Referrals: [facility] Evaluate and treat ordered Referral Ordered: MAMMOGRAM, BOTH BREASTS ordered History Of Present Illness Encounter Date Complaint History Of Prese nt Illness sinusitis1 Pt c/o sinus con gestion, sinus pain, sore throat and rather severe sinus and frontal headache for last 5 days Pt went to Er and she received a steroid shot which she had a reaction with rash. pt states that she has frontal headache constantly. Pt also went to ER and had toraldol shot last night and she woke up with headache again pt feels nausea with headache pt denies any photophobia. Pt denies any head injury. Pt denies any history of migraine. back pain1 Pt c/o persisten t low back pain with right sciatica and she notices right flank pain since this AM. Pt actually work up by the pain. Pt notices deep sharp pain and dull and deep. Pt denies any fever, chill, urinary symptoms. Pt denies any injury. pt is on prdnisone and ibuprofen but not helping Pt will do xzray tomorrow. Pt has not done PT yet. Pt states that simiar pain occured several months ago and went away after two days. Pt states that turning and sitting and movement hurts. Pt states that it is 10/10 when she moves. brast lump1 Pt notices nonte nder small lump on right breast for one week. Pt feels like a pea. Pt denies any redness or pain around the area. Pt denies any nipple discharge Pt denies family history of breast CA back pain1 Pt c./o chronic intermittent right lower side back pain for at least 5-6 years. pt denies any injury. Pt denies any sciatica or any leg numbness. Pt has dullache daily, worse with movement or standing up for long time Pt denies any loss of bladder control tinea1 Pt states that t he tinea rash resolved with ketocontazole. Pt denies any abd pain PHysical Pt needs annual physical. Pt c/o itchy rash on her back for 4 weeks. Pt denies any similar rash in the past Pt denies any sick contact Pt does not take any medication Pt denies any other complaints Instructions Date Instruction Additional Infor mation Compliant with medication instru ction Related to Headache Assessments Type Assessment Date assessment Acute sinusitis assessment Headache Mental Status Date Cognitive Assessment Orientation - [place] ed to time, place, person, situation.
--- OUTSIDE RECORDS SUMMARY | 2024-06-15 17:17 | XMS_ITS | Data Portability ---
Author Organization 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 Plan of Treatment Reminders Order Date Submit Date Provider Last Modified By Organization Details Last Modified Time Details Appointments 3HR GLUCOSE 2024 08:30A M RN SCHEDULE Not available Not available Not available OB ROUTINE 2024 03:15P M DANIEL VALENCIA MD Not available Not available Not available Lab urinalysi s, dipstick 2024 025 [email or web address] [address], [place], [address], 05/24/2024 13:09:54 Referral None recorded. Procedures None recorded. Surgeries None recorded. Imaging US, obstetric , 2nd or 3rd trimester [email or web address], [facility] [address], [place], [address], 04/18/2024 20:39:40 US, obstetric , follow-up [email or web address], [facility] [address], [place], [address], 05/26/2024 10:25:12 Medication Orders Macrobid 100 mg capsule 2024 025 [facility] [employer] #[id number], [address] [facility], [place], [place], [id number], 05/27/2024 17:21:40 Patient TargetsNo targets recorded. Patient InstructionsNo instructions recorded. Reason for Referral None Reported. Results Created Date Observation Date Name Description Value Unit Range Abnormal Flag Note LastModifiedBy Organization Detail LastModifiedTime 03/20/20 24 03/20/2024 CULTU RE: URINE result report SEE RESULT S BELOW Test: Cultu re: Urine Speci men Sourc e: Urine - Clean Catch Speci men Type: Urine Speci men Date: 03/20 1552 Resul t Date: 03/22 0439 Resul t Statu s: Final resul t Abnor mal: No Resul ting Lab: [facility] [address] [facility] [address] Tel: CULTU RE ----- ----- ----- --- Cultu re resul t (>=3 organ isms prese nt) indic ates possi ble conta minat ion. Repea t cultu re if sympt oms indic ate. Not Available [facility] (Lab) [address] [facility], [place], [address], 03/22/2024 05:42:54 03/20/20 24 03/20/2024 drug scree n, urine Amphetamines : negati ve Not Available [place] [address], [place], [address], 03/20/2024 16:52:47 03/20/20 24 03/20/2024 drug scree n, urine Cannabinoids : negati ve Not Available [place] [address], [place], [address], 03/20/2024 16:52:47 03/20/20 24 03/20/2024 drug scree n, urine Cocaine: negati ve Not Available [place] [address], [place], [address], 03/20/2024 16:52:47 03/20/20 24 03/20/2024 drug scree n, urine Opiates: negati ve Not Available [place] [address], [place], [address], 03/20/2024 16:52:47 03/20/20 24 03/20/2024 drug scree n, urine Phenocyclidi ne: negati ve Not Available [place] [address], [place], [address], 03/20/2024 16:52:47 03/20/20 24 03/20/2024 drug scree n, urine Barbiturates : negati ve Not Available [place] [address], [place], [address], 03/20/2024 16:52:47 03/20/20 24 03/20/2024 drug scree n, urine Benzodiazepi kali: negati ve Not Available [place] [address], [place], [address], 03/20/2024 16:52:47 03/20/20 24 03/20/2024 drug scree n, urine Ethanol: negati ve Not Available [place] [address], [place], [address], 03/20/2024 16:52:47 03/20/20 24 03/20/2024 drug scree n, urine Hallucinogen s: negati ve Not Available [place] [address], [place], [address], 03/20/2024 16:52:47 03/20/20 24 03/20/2024 drug scree n, urine Inhalants: negati ve Not Available [place] [address], [place], [address], 03/20/2024 16:52:47 03/20/20 24 03/20/2024 drug scree n, urine Anabolic Steroids: negati ve Not Available [place] [address], [place], [address], 03/20/2024 16:52:47 03/20/20 24 03/20/2024 drug scree n, urine Other: negati ve Not Available [place] [address], [place], [address], 03/20/2024 16:52:47 05/24/19 25 05/24/2024 CULTU RE: URINE result report SEE RESULT S BELOW abnormal Test: Cultu re: Urine Speci men Sourc e: Urine - Clean Catch Speci men Type: Urine Speci men Date: 2024 1513 Resul t Date: 2024 2304 Resul t Statu s: Final resul t Abnor mal: Yes Resul ting Lab: [facility] [address] [facility] [address] Tel: CULTU RE ----- ----- ----- --- 25,00 0-50, 000 CFU/m l Strep tococ cus agala ctiae (Grou p B) (Abno rmal) Strep tococ cus agala ctiae (Beta strep Group B Strep ) remai ns unive rsall y susce ptibl e to penic illin , cefaz parviz and vanco mycin . If clind amyci n is being consi dered for intra partu m proph ylaxi s, pleas e conta ct the lab withi n 5 days. Not Available [facility] (Lab) [address], [place], [address], 05/26/2024 00:07:53 05/24/1905/24/2024 urina lysis , dipst ick Leukocytes + Not Available [facility] jess[address], [place], [address], 05/24/2024 13:09:23 05/24/19 25 05/24/2024 urina lysis , dipst ick Protein trace Not Available [place] [address], [place], [address], 05/24/2024 13:09:23 05/24/19 25 05/24/2024 urina lysis , dipst ick pH 8 Not Available [place] [address], [place], [address], 05/24/2024 13:09:23 05/24/19 25 05/24/2024 urina lysis , dipst ick Blood ++ Not Available [place] [address], [place], [address], 05/24/2024 13:09:23 05/24/19 25 05/24/2024 urina lysis , dipst ick Specific [place] 1.005 Not Available [facility] serafin [address], [place], [address], 05/24/2024 13:09:23 05/24/19 25 05/24/2024 urina lysis , dipst ick Ketone + Not Available [place] [address], [place], [address], 05/24/2024 13:09:23 05/24/19 25 05/24/2024 urina lysis , dipst ick Appearance cloudy Not Available [facility] [address], [place], [address], 05/24/2024 13:09:23 05/24/19 25 05/24/2024 urina lysis , dipst ick Color yellow Not Available [place] [address], [place], [address], 05/24/2024 13:09:23 06/12/19 25 06/12/2024 HEMAT OCRIT (HCT) HCT 35.1 % (based on docume nted legal sex) 34.0-4 5.0 Not Available [facility] (Lab) [address] [facility], [place], [address], 06/13/2024 12:57:36 06/12/19 25 06/12/2024 HEMOG LOBIN (HGB) HGB 11.9 g/dL (based on docume nted legal sex) 11.6-1 5.4 Not Available [facility] (Lab) [address] [facility], [place], [address], 06/13/2024 12:57:36 06/12/19 25 06/12/2024 HIV 1/2 ANTIG EN/AN TIBOD Y, REFLE X CONFI RMATI ON HIV antigen/anti body Nonrea ctive nonrea ctive HIV-1 antig en and HIV-1 /HIV- 2 antib odies were not detec john. No labor atory evide nce of HIV infec tion. Not Available [facility] (Lab) [address] [facility], [place], [address], 06/13/2024 12:57:37 06/12/19 25 06/12/2024 GTT - GESTA GIULIANA L SCREE N, ACOG OB glucose, 1 hour screen 147 mg/dL 70-135 high Not Available [facility] (Lab) [address] [facility], [place], [address], 06/13/2024 12:57:37 06/12/19 25 06/12/2024 RPR SCREE N, REFLE X TITER /CONF IRMAT ION RPR screen Nonrea ctive nonrea ctive Not Available [facility] (Lab) [address] [facility], [place], [address], 06/13/2024 12:57:38 04/18/20 24 04/18/2024 US, obste tric, 2nd or 3rd trime ster No observ ation record ed. [facility] [address], [place], [address], 04/18/2024 18:41:51 04/18/20 24 04/18/2024 US, obste tric, 2nd or 3rd trime ster No observ ation record ed. [email or web address] [address], [place], [address], 04/18/2024 20:48:05 04/18/20 24 04/18/2024 US, obste tric, 2nd or 3rd trime ster No observ ation record ed. [email or web address], [place], [address], 04/18/2024 20:48:04 05/24/19 25 05/24/2024 US, obste tric, follo w-up No observ ation record ed. [email or web address] Sifuentes [address], [place], [address], 05/24/2024 18:02:28 05/24/19 25 05/24/2024 US, obste tric, follo w-up No observ ation record ed. [email or web address], [place], [address], 05/26/2024 12:00:04 Result Notes None recorded. Problems Name Problem SNOMED Code Status Onset Date Resolution Date Notes Provider Name and Address Organization Details Recorded Time Bipolar disorder 93810770 Active 2020 Haley Alvarez MD [address], [place], [address], [facility] 17:15:10 Uterine adenomyos is 838639142 Active 2020 suspected on US at Haley Alvarez MD [address], [place], [address], [facility] 1 17:15:35 80036868 Active 2023 Kaylyn howe, [facility] 4 17:31:17 Migraine 15463936 Active kristian White MD [address], [place], [address], [place] [facility] 17:48:08 Problem Notes None recorded. Procedures Surgical History Date Name Laterality Status Provider Name and Address Organization Details Recorded Time 11/24/2020 Date of Last Pap Smear completed Zoila Crisostomo [facility] 07/23/2021 09:42:18 Imaging Results Imaging Date Name Status LastModified by Organiz ation Details LastModified Time 04/18/2024 US, obstetric, 2nd or 3rd trimester completed [facility] [address], [place], [address], 04/18/2024 18:41:51 04/18/2024 US, obstetric, 2nd or 3rd trimester completed [email or web address], [place], [address], 04/18/2024 20:48:05 04/18/2024 US, obstetric, 2nd or 3rd trimester completed [email or web address], [place], [address], 04/18/2024 20:48:04 05/24/2024 US, obstetric, follow-up completed [facility] [address], [place], [address], 05/24/2024 18:02:28 05/24/2024 US, obstetric, follow-up completed [email or web address], [place], [address], 05/26/2024 12:00:04 Procedure Notes None recorded. Medical Equipment None Reported. Allergies Allergen ID Allergen Name Allergen Category Reaction Reaction Severity Criticality Documentation Date Start Date Code Code System Note Provider Name and Address Organization Details Recorded Time 01969 latex environme nt,medica tion Not available Not available Not available 10/20/2020 68674 91 RxNorm Faye howe [facility] 17:02:44 12855 Substance with sulfonami de structure and antibacte rial mechanism of action (substanc e) medicatio n Not available Not available Not available 10/20/2020 40362 8003 LYDIA Mckinney [facility] 17:02:50 Medications Name Sig Start Date Stop Date Status Note LastModified by Organization Details LastModified Time celecoxib 200 mg capsule 02/20 completed Not Available Not Available Not Available amoxicillin 500 mg capsule 01/30 completed Not Available Not Available Not Available clindamycin HCl 300 mg capsule 07/23 completed Not Available Not Available Not Available triazolam 0.25 mg tablet 07/23 completed Not Available Not Available Not Available azithromyci n 250 mg tablet 03/22 completed Not Available Not Available Not Available benzonatate 200 mg capsule 07/23 completed Not Available Not Available Not Available hydrocodone 5 mg-acetamin ophen 325 mg tablet 01/30 completed Not Available Not Available Not Available sumatriptan 25 mg tablet 2023 active Not Available Not Available Not Avai lable penicillin V potassium 500 mg tablet 07/23 completed Not Available Not Available Not Available ondansetron 8 mg disintegrat ing tablet Place 1 tablet every 6 hours by transling ual route as needed. active Not Available Not Available No t Available lamotrigine 25 mg tablet 07/23 completed Not Available Not Available Not Available ketorolac 10 mg tablet 02/20 completed Not Available Not Available Not Available Macrobid 100 mg capsule Take 1 capsule every 12 hours by oral route as directed for 7 days. 05/27 completed Not Available Not Available Not Available amoxicillin 875 mg tablet 03/22 completed Not Available Not Available Not Available baclofen 10 mg tablet 02/20 completed Not Available Not Available Not Available cephalexin 500 mg capsule 06/12 completed Not Available Not Available Not Available olopatadine 0.1 % eye drops 02/20 completed Not Available Not Available Not Available diazepam 10 mg tablet 02/20 completed Not Available Not Available Not Available ibuprofen 600 mg tablet 07/23 completed Not Available Not Available Not Available methylpredn isolone 4 mg tablets in a dose pack 02/20 completed Not Available Not Available Not Available albuterol sulfate HFA 90 mcg/actuati on aerosol inhaler 07/23 completed Not Available Not Available Not Available hydroxyzine HCl 10 mg tablet 07/23 completed Not Available Not Available Not Available ondansetron 4 mg disintegrat ing tablet 02/20 completed Not Available Not Available Not Available lamotrigine 100 mg tablet 07/23 completed Not Available Not Available Not Available metoclopram garfield 10 mg tablet Take 1 tablet 4 times a day by oral route as needed. 02/20 completed Not Available Not Available Not Available cyclobenzap rine 5 mg tablet Take 1 tablet 3 times a day by oral route. 07/23 completed Not Available Not Available Not Available lamotrigine 11/24 completed Not Available Not Available Not Available active Not Available Not Avai lable Not Available Fioricet 50 mg-300 mg-40 mg capsule Take 1 capsule every 4 hours by oral route. 2023 active Not Available Not Available Not Avai lable Vitals Date Recorded Body height Body mass index (BMI) Body weight Systolic blood pressure Diastolic blood pressure Provider Name and Address Organization Details Last Updated DateTime 04/18/2024 160.02 cm 24.1 kg/m2 54156.56 232 g 103 mm[Hg] 71 mm[Hg] Kaylyn [facility] 4 18:02:51 Date Recorded Body weight Body mass index (BMI) Body height Systolic blood pressure Diastolic blood pressure Provider Name and Address Organization Details Last Updated DateTime 05/17/2024 90294.83 5014 g 25.2 kg/m2 160.02 cm 99 mm[Hg] 61 mm[Hg] oLrna Damon [facility] 5 16:24:51 Date Recorded Body weight Systolic blood pressure Diastolic blood pressure Provider Name and Address Organization Details Last Updated DateTime 05/24/2024 38074.1165 4 g 115 mm[Hg] 76 mm[Hg] Kaylyn [facility] 05/24/2024 13:08:55 Date Recorded Body height Body mass index (BMI) Body weight Systolic blood pressure Diastolic blood pressure Provider Name and Address Organization Details Last Updated DateTime 06/12/2024 160.02 cm 26.2 kg/m2 87069.67 076 g 94 mm[Hg] 66 mm[Hg] Miguelina Brewster [facility] 14:48:04 Social History Question Answer Notes LastModified by Organizat ion Details LastModified Time Tobacco Smoking Status Never Smoker Faye Metcalf shyam, [facility] 10/20/2020 17:02:06 What Is Your Level Of Alcohol Consumption? None Information not available 10/20/2020 Are You Blind Or Do You Have Difficulty Seeing? No [email or web address] Information n ot available 01/31/2024 What Is Your Level Of Caffeine Consumption? Moderate [email or web address] Information not available 03/20/2024 How Much Tobacco Do You Chew? None [email or web address] Information not available 01/31/2024 In The 14 Days Before Symptom Onset, Have You Had Close Contact With A Laboratory-confirm ed COVID-19 While That Case Was Ill? No [email or web address] Information n ot available 01/31/2024 In The 14 Days Before Symptom Onset, Have You Had Close Contact With A Person Who Is Under Investigation For COVID-19 While That Person Was Ill? No [email or web address] Information not available 01/31/2024 Have You Been To An Area Known To Be High Risk For COVID-19? No [email or web address] Information not available 01/31/2024 Are You Deaf Or Do You Have Serious Difficulty Hearing? No [email or web address] Information not available 01/31/2024 What Type Of Diet Are You Following? REGULAR [email or web address] Information n ot available 01/31/2024 What Is The Highest Grade Or Level Of School You Have Completed Or The Highest Degree You Have Received? 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 No Information not available 01/31/2024 Do You Use Protection During Sex? No [email or web address] Information not available 01/31/2024 Do You Use Your Seat Belt Or Car Seat Routinely? Yes [email or web address] Information not available 01/31/2024 Do You Have Smoke And Carbon Monoxide Detectors In Your Home? Yes [email or web address] Information not available 01/31/2024 How Much Tobacco Do You Smoke? No [email or web address] Information not available 01/31/2024 Do You Feel Stressed (tense, Restless, Nervous, Or Anxious, Or Unable To Sleep At Night)? [id number] Information not available 01/31/2024 Do You Use Any Illicit Or Recreational Drugs? No Information not available 10/20/2020 Do You Use Sunscreen Routinely? No Information not available 01/31/2024 Has Tobacco Cessation Counseling Been Provided? No Information not available 10/20/2020 Have You Used IV Drugs? No [email or web address] Information not available 01/31/2024 Do You Or Have You Ever Used Any Other Forms Of Tobacco Or Nicotine? No Information not available 10/20/2020 Sex: Unknown Functional Status Question Answer Note LastModified by Organization D etails LastModified Time Are you able to walk? YESWOREST [email or web address] Information not available 01/31/2024 What is your exercise level? Moderate [email or web address] Information not available 01/31/2024 Mental Status None recorded. Family History Relationship Description Onset Age of this Age Resolved Age Notes LastModified by Organization Details LastModified Time Mother Asthma [email or web address] Not available 17:11:46 Mother Carcinoma of uterine cervix, invasive [email or web address] Not available 09/2024 14:35:23 Mother Blood coagulation disorder [email or web address] Not available 2020 17:12:05 Mother Hypertensive disorder [email or web address] Not available 2020 17:12:33 Mother Cyst of ovary [email or web address] Not available 09/2024 14:35:23 Mother Seizure disorder [email or web address] Not available 09/2024 14:35:23 Maternal Grandfather Heart disease [email or web address] Not available 2020 17:12:17 Sister Diabetes mellitus [email or web address] Not available 2020 17:12:24 Sister Primary infertility [email or web address] Not available 14:35:23 Sister Uterine prolapse [email or web address] Not available 09/2024 14:35:23 Sister Seizure disorder [email or web address] Not available 09/2024 14:35:23 Medical History Condition Response Allergies (Food, seasonal, environmental ) N Other N Breast Cancer N Drug/Latex Allergies/Reactions Y Blood Transfusion N Dermatologic Disorders N Lung Disease N Defects or Inherited Disease N Breast Problem N Gestational Diabetes N Hematologic disorders N Anesthesia Complications N History of STI N Deep Vein Thrombosis N Polycystic ovary syndrome N Anxiety Disorder N Autoimmune disease N Arthritis N Infertility N Polyps N Acid Reflux (GERD) N History of abnormal pap N Cancer N Stroke N Varicosities N Neurologic/Epilepsy N Endometriosis N High Cholesterol N Headaches Y Fibromyalgia N Kidney Disease N Heart Problems N Kidney or Bladder Problems N Thyroid Problems N GI Problems N Eating Disorder N Anemia Y Art (IVF or FET) N Psychiatric Illness N Ovarian Cancer N Diabetes N Pulmonary (TB, Asthma) N Hepatitis/Liver Disease N No Past Medical History N Eczema N Urinary Tract Infection N Abuse/Domestic Violence N Asthma N Trauma/Violence N Depression/ depression N Heart Disease N Pre-Eclampsia N Hypertension N Osteoporosis N Thrombophilias N Gynecological History Statement/Question Response Date of Last Mammogram Date of LMP 12/06/2023 On BCP's at Conception? N N Was last menstrual period normal Y STIs/STDs N HPV Vaccine N Duration of Flow (days) 5 9 Current Control Method Age at First Child 20 Frequency of Cycle (Q days) 29 Sexually Active? Y Unknown Menses Monthly N Date of DEXA bone scan Age of first menstrual cycle 10 Date of Last Pap Smear 11/24/2020 Sexual Problems? N LMP Definite N Obstetrics History GPAL:G 2 P 1 0 0 1 Type Value Full Term 1 Living 1 Total 2 Past Encounters Encounter ID Performer Location Encounter Start Date Encounter Closed Date Diagnosis/Indication Diagnosis SNOMED-CT Code Diagnosis ICD10 Code Diagnosis Note [id number] MD Maria Singleton [address] [address] 10/20/2020 16:53:51 10/21/2020 16:11:01 Pelvic floor tension 970715383 R29.898 [id number] MD Maria Singleton [address],[place] [address] 11/24/2020 16:34:17 11/24/2020 17:09:48 Gynecologic examination 90786406 Z01.419 [id number] Ric White MD [place] [address],[place] [address] 07/23/2021 09:15:46 07/23/2021 14:21:43 Menorrhagia 681428353 N92.0 Pain in pelvis 50939195 R10.2 I spent over 35 minutes with the patient. We discussed her symptoms in detail. We reviewed radiology reports. We discussed disease processes regarding pelvic pain, ovarian cyst, adenomyosi s. We discussed evaluation and possible treatments of menorrhagi a and pelvic pain. We will proceed with pelvic ultrasound and the patient will return to discuss treatment plan. [id number] Janelle [place] Spencer [place] [address],[place] [address] 07/28/2021 09:42:58 07/28/2021 10:38:00 Pain in pelvis 96373646 R10.2 [id number] Haley Alvarez MD [place] [address],[place] [address] 03/22/2022 17:25:20 03/23/2022 12:05:46 Amenorrhea 05570028 N91.2 Nausea 603098191 R11.0 Stomach cramps 85319450 R10.9 Trying to conceive 97880 9001 Z31.9 [id number] Anastasiia Fe [place] [address],[place] [address] 01/23/2024 14:58:52 01/23/2024 15:16:19 Urinary symptoms 553588365 R39.9 Acute urin ant tract infection 427486458 N39.0 [id number] Valeria Frankel [place] [address],[place] [address] 01/31/2024 11:26:51 01/31/2024 11:51:43 [id number] DANIEL VALENCIA MD [place] [address],[place] [address] 01/31/2024 11:27:10 01/31/2024 15:32:00 Nausea and vomiting 10696541 R11.2 - will trial zofran PRN for nausea Migraine 37132097 G43.90 9 - hx of chronic migraines- has previously tried reglan, naproxen, sumatripta n, compazine, propranolo l, cyclobenza pine, zofran, toradol, exedrin migraines, dilaudid, ibuprofen, and norco with no improvemen t- will trial sumatripta n, tylenol and caffeine- will send neurology referral test positive 208485738 Z32.01 1. Exam today within normal limits.2. Ultrasound today confirms GA and viability. EDC . GC/Mellisa a testing done: will f/u as indicated. 4. ACOG guidelines and plan of care for reviewed with patient. All questions answered.5 . Return to office at 12 weeks for new OB visit6. Will need new OB labs at time of NIPT7. Genetic screening: desires at 10 weeks, orders given today. [id number] Dinorah Sabi [place] [address],[facility] [place] [address] 02/21/2024 16:33:48 02/21/2024 17:08:55 screening 257034006 Z36.82 Z3A.12 [id number] Ric White MD [place] [address] [address] 02/21/2024 16:34:43 02/22/2024 00:38:42 Migraine 82044710 G43.909 Routine an tenatal care 840208961 Z34.90 [id number] Mayda Garibay CNM [place] [address] [address] 03/20/2024 16:34:46 03/20/2024 17:12:20 Routine care 905953046 Z34.92 Gestation period, 16 weeks 99949389 Z3A.16 [id number] Valeria Frankel [place] [address] [address] 04/18/2024 16:26:44 04/18/2024 17:59:14 screening for malformation 905021845 Z36.3 Z3A.20 [id number] Ric White MD [place] [address],[place] [address] 04/18/2024 16:29:40 04/19/2024 10:14:41 Routine care 862581999 Z34.90 [id number] DANIEL VALENCIA MD [place] [address],[place] [address] 05/17/2024 15:52:41 05/20/2024 18:25:26 Routine care 807547286 Z34.91 [id number] [facility] [address],[place] [address] 05/24/2024 12:31:27 05/24/2024 13:18:24 Abdominal pain in 721653596 O99.891 O26.852 Z3A.25 [id number] Ric White MD [place] [address],[place], [place] [address] 05/24/2024 12:32:04 05/24/2024 13:33:54 Urinary symptoms [id number] R39.9 Traumatic injury during [id number] T14.90XA [id number] DANIEL VALENCIA MD [place] [address],[place] [address] 06/12/2024 14:31:43 06/13/2024 14:42:54 Routine care [id number] Z34.91 Health Concerns Section Related Observation LastModified by Organization Detai ls LastModified Time None Recorded Concern Status LastModified by Organization Details LastModified Time None Recorded Advance Directives Directive None Recorded Payers Encounter Date Sequence Insurance Name Policy Number Policy Childs Covered Member ID Childs Member ID Guarantor Name 04/18/2024 1 [place] [id number] Jorje Cantu [id number] Jorje Cantu 05/17/2024 1 [place] [id number] Jorje Cantu [id number] Jorje Cantu 05/24/2024 1 [place] [id number] Jorje Cantu [id number] Jorje Cantu 05/24/2024 1 [place] [id number] Jorje Cantu [id number] Jorje Cantu 06/12/2024 1 [place] [id number] Jorje Cantu [id number] Jorje Cantu OBGyn Episode Ob Episode Information Episode Created Date Number of Fetuses Patient Bloodtype Patient rh Status Prepregnancy Weight lbs Domestic Partner Domestic Partner Phone Father Name Principal Technical Specialist Status 10/21/19 21 1 CLOSED Fetus Data First Name Last Name Admitted to NICU Weight (g) Sex Living Outcome Pediatric Complications Fetus ID Race Codes Race Delivery Type 2919.77 [id number] M [id number] Vaginal Delivery Mark Calculation Initial Mark Date Initial Exam Date Initial Exam Provider Initial Ultrasound Date Last Menstrual Period Date Ultra Sound Weeks Gestation 0 Eighteen To Twenty Week Mark Update Ultra Sound Date Fundal Height At Umbil Quickening Date Ultra Sound Latest Weeks Gestation Final Mark Confirmed By Final Mark Confirmed Date Final Mark Date Ultra Sound Latest Days Gestation 0 0 Menstrual History Last Menstrual Date Menses Monthly On Bcp Conception Prior Menses Frequency Hcg Plus Date Menarche Onset Age Delivery Information Delivery Date Delivery Type Labor Anesthesia Weeks Gestation Incision Type Labor Labor Length Hrs Delivered By Post Complications Tubal Sterilization Discharge Date Comments 0 38 Discharge Information Feeding Method Contraceptive Method Maternal HG B and HCT Levels Ob Episode Information Episode Created Date Number of Fetuses Patient Bloodtype Patient rh Status Prepregnancy Weight lbs Domestic Partner Domestic Partner Phone Father Name Principal Technical Specialist Status 02/21/20 24 1 O Negative OPEN Fetus Data First Name Last Name Admitted to NICU Weight (g) Sex Living Outcome Pediatric Complications Fetus ID Race Codes Race Delivery Type [id number] Problems Problem Notes Problem Name Start Date End Date Resolution Snomed Code Not e Migraine [id number] aura Mark Calculation Initial Mark Date Initial Exam Date Initial Exam Provider Initial Ultrasound Date Last Menstrual Period Date Ultra Sound Weeks Gestation 02/21/2024 01/31/2024 12/06/2023 9 Eighteen To Twenty Week Mark Update Ultra Sound Date Fundal Height At Umbil Quickening Date Ultra Sound Latest Weeks Gestation Final Mark Confirmed By Final Mark Confirmed Date Final Mark Date Ultra Sound Latest Days Gestation 0 [email or web address] 02/21/2024 09/05/19 25 0 Pre- Flowsheet Flowsheet Date 02/21/2024 Bojorquez Score Blood Edema Fundus Height Fundus Units Glucose Ketones Leukocytes Nitrite Labor Signs Protein Cervic Dilation Cervic Effacement Cervic Station Type Weight in lbs Pre/Post Dialysis Refused Weight 128.075502767306 BP Diastolic BP Location Tested BP Systolic BP Type 72 L arm 111 sitting Fetus Heart Rate Present Fetus Movement Comments this patient is a 34-year-ol d 12 parous female at 12 weeks' gestation who presents for initial care. She has a history of term vaginal births. Her medical, surgical, obstetric history is unremarkable. She is vaccinated. She was given precautions recommendations for . We talked about vaccines in . Talked about care in detail. She is having genetic testing. She had a normal 12 week ultrasound. To begin routine care. Flowsheet Date 03/20/2024 Bojorquez Score Blood Edema Fundus Height Fundus Units Glucose Ketones Leukocytes Nitrite Labor Signs Protein Cervic Dilation Cervic Effacement Cervic Station neg none Type Weight in lbs Pre/Post Dialysis Refused 129.734811216308 BP Diastolic BP Location Tested BP Systolic BP Type 76 124 Fetus Heart Rate Present Fetus Movement A Yes Comments Patient is having back pain, pain, pressure and nausea. reviewed precautions , +FM ok for baths, not too hot, will order maternity support belt at 28 weeks f/u here in 4 weeks with anatomy Flowsheet Date 04/18/2024 Bojorquez Score Blood Edema Fundus Height Fundus Units Glucose Ketones Leukocytes Nitrite Labor Signs Protein Cervic Dilation Cervic Effacement Cervic Station Type Weight in lbs Pre/Post Dialysis Refused BP Diastolic BP Location Tested BP Systolic BP Type Fetus Heart Rate Present Fetus Movement Comments Flowsheet Date 04/18/2024 Bojorquez Score Blood Edema Fundus Height Fundus Units Glucose Ketones Leukocytes Nitrite Labor Signs Protein Cervic Dilation Cervic Effacement Cervic Station Type Weight in lbs Pre/Post Dialysis Refused 136.307555941178 BP Diastolic BP Location Tested BP Systolic BP Type 71 L arm 103 sitting Fetus Heart Rate Present A 145 Fetus Movement A Yes Comments migraine - has treatment, re cent musculoskelatal pain after incident with dogno complaints, no problems, routine care, no contractions, no vaginal bleeding, no loss of fluid, no cramping Flowsheet Date 05/17/2024 Bojorquez Score Blood Edema Fundus Height Fundus Units Glucose Ketones Leukocytes Nitrite Labor Signs Protein Cervic Dilation Cervic Effacement Cervic Station Type Weight in lbs Pre/Post Dialysis Refused With clothes 142.723235544414 BP Diastolic BP Location Tested BP Systolic BP Type 61 R arm 99 sitting Fetus Heart Rate Present A 145 Fetus Movement A Yes Comments Doing well, good movem ent. Some BH contractions, not consistent or painful. Discussed symptomatic relief. Discussed GCT and labs for next visit. Patient having episodes consistent with hypoglycemia about 1x per week. Will come in for GCT sooner than 28 weeks if symptoms persist. Patient would also like to discuss hysterectomy. She reports a long history of syspected endometriosis and adenomyosis which has failed medical management with multiple methods of horonal contraception (OCPs, depo, IUD). She does not desire future childbearing. She is interested in hysterectomy as definitive surgical treatment of endometriosis. We discussed risks and benefits of hysterectomy vs tubal ligation and [place]/MyFembree. Discussed timing of hysterectomy. RTC 4 weeks. Flowsheet Date 05/24/2024 Bojorquez Score Blood Edema Fundus Height Fundus Units Glucose Ketones Leukocytes Nitrite Labor Signs Protein Cervic Dilation Cervic Effacement Cervic Station Type Weight in lbs Pre/Post Dialysis Refused BP Diastolic BP Location Tested BP Systolic BP Type Fetus Heart Rate Present Fetus Movement Comments Flowsheet Date 05/24/2024 Bojorquez Score Blood Edema Fundus Height Fundus Units Glucose Ketones Leukocytes Nitrite Labor Signs Protein Cervic Dilation Cervic Effacement Cervic Station Type Weight in lbs Pre/Post Dialysis Refused 142.406213160732 BP Diastolic BP Location Tested BP Systolic BP Type 76 L arm 115 sitting Fetus Heart Rate Present A 144 Fetus Movement A Yes Comments patient had a recent fall, v aginal bleeding, back pain. She has blood in her urine. We agreed to treat for urinary tract infection. She had ultrasound today. Placenta appears normal. She was given instructions and precautions on soreness on her abdomen. Flowsheet Date 06/12/2024 Bojorquez Score Blood Edema Fundus Height Fundus Units Glucose Ketones Leukocytes Nitrite Labor Signs Protein Cervic Dilation Cervic Effacement Cervic Station neg none Type Weight in lbs Pre/Post Dialysis Refused 148.056373915366 BP Diastolic BP Location Tested BP Systolic BP Type 66 L arm 94 sitting Fetus Heart Rate Present A 145 Fetus Movement A Yes Comments Patient c/o slight nausea. R eports some low back pain. No cramping or bleeding. URI, discussed symptomatic relief. Discussed resources. Discussed tdap vaccine. RTC 2 weeks. Menstrual History Last Menstrual Date Menses Monthly On Bcp Conception Prior Menses Frequency Hcg Plus Date Menarche Onset Age 0712/06/2023 Delivery Information Delivery Date Delivery Type Labor Anesthesia Weeks Gestation Incision Type Labor Labor Length Hrs Delivered By Post Complications Tubal Sterilization Discharge Date Comments Discharge Information Feeding Method Contraceptive Method Maternal HG B and HCT Levels
--- OUTSIDE RECORDS SUMMARY | 2024-06-15 17:17 | XMS_ITS | Encounter Summary ---
Author Organization [facility] Healthcare Address [address] [place] [address] Care Team Providers Care Traffic Checker Name Role Phone Bruna Gamino [employer]IDENT[employer] Primary Care Provider [phone] Encounter Details Date Type Department Care Team (Late st Contact Info) Description 01/04/2024 Telephone [facility] Medical Group Internal Medicine at [place] [address] [place] [address] Bruna Gamino, PRESIDENT[employer] [address] [place] [address] Social History Tobacco Use Types Packs/Day Years Used Date Smoking Tobacco: Never Smokeless Tobacco: Never Alcohol Use Standard Drinks/Week Comments Yes 0 (1 standard drink = 0.6 oz pur e alcohol) rarely AUDIT-C Answer Date Recorded Q1: How often do you have a drink containing alc ohol? Monthly or less 12/22/2021 Q2: How many drinks containi ng alcohol do you have on a typical day when you are drinking? 1 or 2 12/22/2021 Q3: How often do you have si x or more drinks on one occasion? 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
--- OUTSIDE RECORDS SUMMARY | 2024-06-15 17:17 | XMS_ITS | Clinical Summary ---
Author Organization [facility] [address] [facility] Address [address] [place] [address] Care Team Providers Care Risk And Insurance Manager Name Role Phone Bruna Gamino NP Primary Care Provider [phone] Allergies Active Allergy Reactions Criticality Noted Date Comments Latex Unknown 10/18/2018 Sulfamethoxazole-Trimethoprim Unknown 2018 Medications cetirizine (ZyrTEC) 10 mg tablet Take 1 tablet (10 mg total) by mouth daily Active diazePAM (VALIUM) 10 mg tablet 3 Active ondansetron ODT (ZOFRAN-ODT) 4 mg disintegrating tabletIndications: Migraine without status migrainosus, not intractable, unspecified migraine type Take 1 tablet (4 mg total) by mouth every 8 (eight) hours as needed for nausea or vomiting 20 tablet 1 4 Active baclofen (LIORESAL) 10 mg tabletIndications: Muscle pain Take 1 tablet (10 mg total) by mouth 2 (two) times a day 20 tablet 1 4 Active olopatadine (PATANOL) 0.1 % ophthalmic solutionIndication s:Allergic Conjunctivitis Administer 1 drop into both eyes 2 (two) times a day as needed for allergies 15 mL 1 4 025 Active celecoxib (CeleBREX) 200 mg capsuleIndications :Chronic bilateral low back pain with bilateral sciatica TAKE 1 CAPSULE(200 MG) BY MOUTH DAILY 30 capsule 4 Active Active Problems Problem Noted Date Diagnosed Date Dry eyes 06/27/2023 Infertility, female 05/23/2023 Migraine without status migrainosus, not intract able 05/19/2023 Overview (05/19/2023): Take Toradol infrequently as needed for severe migraines. Follow-up in 1 month for further evaluation. Zofran as needed for nausea Muscle pain 05/19/2023 Overview (05/19/2023): Baclofen 1/2-1 tablet as needed twice daily for muscle pain Fibroids 11/22/2022 Chronic pelvic pain in female 10/19/2022 BMI 22.0-22.9, adult 08/24/2022 Screening for cholesterol level 02/16/2022 Chronic bilateral low back pain with bilateral s ciatica 12/22/2021 Assessment & Plan (12/22/2021 2:21 PM CDT): Advised mri ls spine and referral to pain management. She declines at this time. She wants to continue with chiropractor, will have xray results sent here. She was advised of symptoms of cauda equina syndrome and to report to ER if these occur. Wrist pain, right 12/16/2021 Assessment & Plan (12/22/2021 2:20 PM CDT): Continue with brace R wrist She will call to arrange appt with Dr. Torres - referral paperwork given to patient. She will complete xrays - will notify pt of results as they become available. Assessment & Plan (12/16/2021 2:48 PM CDT): We discussed that unfortunately this is difficult to evaluate by video. She has an in person appt in the next week that she will keep. We will evaluate her further with a xray of the right wrist, will fax order to [facility]. Will notify her of these results as they become available. Advised her to continue using the thumb spica. Advised attempts at modifying behaviors of looking down and scrolling as often. Encouraged ibuprofen 600mg q6h prn pain. Will refer to Dr. Torres for further evaluation and treatment. Cervical radiculopathy 12/16/2021 Assessment & Plan (12/22/2021 2:21 PM CDT): Xray c spine order given to patient, will notify her of results as they become available. Assessment & Plan (12/16/2021 2:48 PM CDT): We discussed that unfortunately this is difficult to evaluate by video. She has an in person appt in the next week that she will keep. We will evaluate her further with a xray of the c spine, will fax order to [facility]. Will notify her of these results as they become available. De Quervain's disease (tenosynovitis) 11/11/2021 Assessment & Plan (11/11/2021 10:40 PM CDT): Her current symptoms seem most consistent with deeper veins tenosynovitis. Discussed the difference between a thumb spica and a cock-up splint. She will consider getting 1 off Visibiz. Continue icing and anti-inflammatory. Avoid repetition which may be her video game. If she does not notice improvement in the next month or so can consider physical therapy versus referral to [facility]. COVID-19 05/27/2021 Assessment & Plan (05/27/2021 5:48 PM WET PAN MIXER): Patient has just started mdp, wanting to see if symptoms improve with that and proventil today. She agrees to report to the er if symptoms are not improving or if they worsen. She will continue to monitor her po2 and report to the er if running <90% on RA. She will f/u on Monday if not improving. 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 She will try prior to flying, will let us know if ineffective. Adenomyosis 10/20/2020 Assessment & Plan (12/01/2020 5:27 PM CDT): We discussed at length condition. She was encouraged to discuss fertility concerns with leoncio as he is over 50yo and has had a vasectomy. We discussed starting with his referral/evaluation and then making decisions based upon the urologist's consult. Bipolar disorder 10/20/2020 Assessment & Plan (12/01/2020 5:27 PM CDT): She will continue with care per psychiatry Migraine without aura and wi thout status migrainosus, not intractable 10/19/2018 Allergic reaction 10/19/2018 Amenorrhea 10/19/2018 Latex allergy 12/11/2017 Resolved Problems Problem Noted Date Diagnosed Date Resolved Date Endometriosis 08/24/2022 05/23/2023 BMI 20.0-20.9, adult 02/16/2022 023 Assessment & Plan (02/16/2022 4:04 PM CDT): Weight/BMI is in healthy range. Continue healthy lifestyle to maintain. BMI 20.0-20.9, adult 12/22/2021 022 Cough 05/21/2021 12/22/2021 Assessment & Plan (05/21/2021 3:28 PM WET PAN MIXER): Will send patient to [facility] for Covid-19 testing. The patient was advised to quarantine at least 10 days from symptom onset, but this determination will depend on result of testing. They were advised to contact us in the next 72h if they have not heard results of testing. They were advised to report to the ER if worsening. Adult BMI <19 kg/sq m 12/01/20202021 Assessment & Plan (12/01/2020 2:38 PM CDT): Weight/BMI is in healthy range. Continue healthy lifestyle to maintain. Immunizations Name Administration Dates Next Due Influenza, Unspecified 06/27/2023(Deferr ed: Patient Refused),05/18/2023(Deferred: Patient Refused),05/08/2023(Deferred: Patient Refused),05/08/2023(Deferred: Patient Refused),08/24/2022(Deferred: Patient Refused),06/09/2021(Deferred: Patient Refused),02/06/2020 Pfizer SARS-CoV-2 Monovalent Vaccination (12+ Yrs) PURPLE 08/24/2020,08/06/2020 Tdap 12/11/2017 Medical History Medical History Date Comments Fracture, hip (CMS/HCC) (HCC) Bipolar 2 disorder (CMS/HCC) (HCC) Adenomyosis Headache Family History Medical History Relation Name Comments Skin cancer Maternal Grandfather Arthritis Maternal Grandmother Migraines Maternal Grandmother Arthritis Mother Breast cancer Mother Diabetes Mother Heart disease Mother Hypertension Mother Migraines Mother Ovarian cancer Mother Seizures Mother Stroke Mother Asthma Other sibling Stroke Other sibling Relation Name Status Comments Brother Alive Father Alive Maternal Grandfather Maternal Grandmother Mother Alive Other Sister Alive Social History Tobacco Use Types Packs/Day Years [...] on file Legal Sex Female 12:50 AM WET PAN MIXER Gender Identity Not on file Sexual Orientation Not on file Occupation Industry Job Start Date Job End Date 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-employed Not on file Not on file Not on file Obstetrics History Para Term AB IAB SAB Ectopic Multiple Livin g Live Births 1 1 1 Date Outcome GA Total Labor Labor/2nd/3rd Weight Sex Type Anes PTL Shala A1 A5 Name Clin Term Last Filed Vital Signs Vital Sign Reading Time Taken Comments Blood Pressure 112/68 06/27/2023 2:40 PM WET PAN MIXER Pulse 65 06/27/2023 2:40 PM WET PAN MIXER Temperature 36.9 C (98.4 F) 06/27/2023 2:40 PM WET PAN MIXER Respiratory Rate 16 10/19/2018 11:42 AM CDT Oxygen Saturation 99% 06/27/2023 2:40 PM WET PAN MIXER Inhaled Oxygen Concentration - - Weight 59.6 kg (131 lb 8 oz) 06/27/2023 2:40 PM WET PAN MIXER Height 162.6 cm (5' 4 ) 06/27/2023 2:40 PM WET PAN MIXER Body Mass Index 22.57 06/27/2023 2:40 PM WET PAN MIXER Plan of Treatment Health Maintenance Due Date Last Done Comments Cervical Cancer Screening 1991 Hepatitis C Screening 1991 Varicella Vaccines (1 of 2 - 13+ 2-dose series) 01/07/2004 Hepatitis B Screening 2009 Regular Well Visit/Exam 18-64 02/16/2023 02/16/2022 Covid-19 Vaccine ( season) 2024 08/24/2020, 08/06/2020 Influenza Vaccine (#1) 2024 02/06/2020 Depression Screening 06/27/2024 06/27/2023, 05/18/2023, 08/24/2022, Additional history exists DTaP/Tdap/Td Vaccine (2 - Td or Tdap) 12/12/2027 12/11/2017 HPV Vaccines Aged Out No longer eligi ble based on patient's age to complete this topic Pneumococcal vaccine <65 Aged Out No longer eligible based on patient's age to complete this topic Insurance [employer] OOS BLUE ACCESS OOS Care Teams Risk And Insurance Manager Relationship Specialty Start Date End Date Bruna Gamino NP PCP - General Internal Medicine 02/04/22
--- OUTSIDE RECORDS SUMMARY | 2024-06-15 17:17 | XMS_ITS | Continuity of Care Document ---
Author Organization [facility] Address [address] [facility] [address] [place] [address] Phone Care Team Providers Care Mold Carpenter Name Role Phone Muehl MPT CMPT, Dilshad Unavailable Unavailable Procedures Procedure Date PT Evaluation Low Complexity Therapeutic Exercise Manual Therapy Advance Directives Directive Yes / No Effective Date File Name No Information Encounters Encounter Description Practice Location Reason(s) For Visit Diagnoses Date Provider Providers Copied on Encounter [facility] [address], [id number], tel:[phone] [place] No Information Feb-0 2201 7 Muehl Dilshad. [address] [facility], [address], [facility], [place]. tel:[phone] [facility], [address] [place] [address], [id number], tel:[phone] [place] Low back painThoracogenic scoliosis, thoracolumbar region Jan-2 7 Muehl Dilshad. [address] [facility], [facility] [address], [place], [address], [place]. tel:[phone] Referring Provider: Alex Woods, [address] [facility] [place], [address]. tel:[phone] Family History Family Member Type Diagnosis Age At Onset No Information Payers Payer name Insurance type Covered green party ID Authoriza [id number]) RUST [id number] Social History Type Description Quantity Date Captured Comments Sex Female Smoking Status No Information Chief Complaint And Reason For Visit No Information Reason For Referral Reason For Referral No Information History Of Present Illness Encounter Date Complaint History Of Prese nt Illness No Information Functional Status Date Functional Assessmen t No Information Instructions Date Instruction Additional Infor mation No Information Assessments Type Assessment Date No Information Patient Care Teams Name Effective Dates (start - stop) Status Members No Information
--- OUTSIDE RECORDS SUMMARY | 2024-06-15 17:17 | XMS_ITS | Referral Summary ---
Author Organization [facility] [address] [facility] Address [address] [place] [address] Care Team Providers Care Lead Programmer Analyst Name Role Phone Bruna Gamino NP Primary Care Provider [phone] Allergies Active Allergy Reactions Criticality Noted Date [...] the right wrist, will fax order to [facility] care. Will notify her of these [...] the c spine, will fax order to [facility]. Will notify her of these results as they become available. De Quervain's disease (tenosynovitis) 11/11/2021 Assessment & Plan (11/11/2021 10:40 PM CDT): Her current symptoms seem most consistent with deeper veins tenosynovitis. Discussed the difference between a thumb spica and a cock-up splint. She will consider getting 1 off [employer]. Continue icing and anti-inflammatory. Avoid repetition which may be her video game. If she does not notice improvement in the next month or so can consider physical therapy versus referral to Hand Ortho. COVID-19 05/27/2021 Assessment & Plan (05/27/2021 5:48 PM DEALER RELATIONSHIP MANAGER): Patient has just started mdp, wanting to [...] 12/22/2021 Assessment & Plan (05/21/2021 3:28 PM DEALER RELATIONSHIP MANAGER): Will send patient to [place] for Covid-19 testing. 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 Not on file Not on file Not on file Last Filed Vital Signs Vital Sign Reading Time Taken Comments Blood Pressure 112/68 06/27/2023 2:40 PM DEALER RELATIONSHIP MANAGER Pulse 65 06/27/2023 2:40 PM DEALER RELATIONSHIP MANAGER Temperature 36.9 C (98.4 F) 06/27/2023 2:40 PM DEALER RELATIONSHIP MANAGER Respiratory Rate 16 10/19/2018 11:42 AM CDT Oxygen Saturation 99% 06/27/2023 2:40 PM DEALER RELATIONSHIP MANAGER Inhaled Oxygen Concentration - - Weight 59.6 kg (131 lb 8 oz) 06/27/2023 2:40 PM DEALER RELATIONSHIP MANAGER Height 162.6 cm (5' 4 ) 06/27/2023 2:40 PM DEALER RELATIONSHIP MANAGER Body Mass Index 22.57 06/27/2023 2:40 PM DEALER RELATIONSHIP MANAGER Plan of Treatment Not on file Insurance [employer] ACCESS OOS [employer] ACC[employer] OOS Care Teams Lead Programmer Analyst Relationship Specialty Start Date End Date Bruna Gamino NP PCP - General Internal Medicine 02/04/22
--- OUTSIDE RECORDS SUMMARY | 2024-06-15 17:17 | XMS_ITS | Encounter Summary ---
Author Organization [facility] Care Team Providers Care Cna Per Diem Name Role Phone Mohamud Reyes MD Primary Care Provider [phone] Hansa Schulte Primary Care Provider [phone] Mohamud Reyes MD Primary Care Provider [phone] Bruna Gamino NP Primary Care Provider [phone] Encounter Details Date Type Department Care Team (Latest Contact Info) Description 05/29/2018 Orders Only [facility] Provider, MD Corin [address] [place] [id number] Social History Tobacco Use Types Packs/Day Years Used Date Smoking Tobacco: Never Assessed Comments Unknown Sex and Gender Information Value Date Recorded Sex Assigned at Not on file Legal Sex Female 12:50 AM PUBLIC AFFAIRS MANAGER Gender Identity Not on file Sexual Orientation Not on file documented as of this encounter Plan of Treatment Not on file documented as of this encounter Procedures Procedure Name Priority Date/Time Associated Diagnosis Comments SCAN - LABS 05/30/2018 12:00 AM PUBLIC AFFAIRS MANAGER documented in this encounter Results * SCAN - LABS (05/30/2018 12:00 AM PUBLIC AFFAIRS MANAGER) Narrative 05/30/2018 12:00 AM PUBLIC AFFAIRS MANAGER Ordered by an unspecified provider. Historical Provider Final Res ult documented in this encounter Visit Diagnoses Not on filedocumented in this encounter Additional Health Concerns Infection Onset Date Last Indicated Resolved Time COVID: Suspected 05/21/2021 05/21/2021 05/21/2021 6:55 PM PUBLIC AFFAIRS MANAGER COVID19 05/21/2021 05/21/2021 05/31/2021 3:05 AM PUBLIC AFFAIRS MANAGER COVID: Recovered Comment:Added based on recent COVID infection. 05/31/2021 08/01/2021 09/28/2021 3:07 AM C DT documented as of this encounter Care Teams Cna Per Diem Relationship Specialty Start Date End Date Mohamud Reyes MD PCP - General Family Medicine 07/27/18 11/22/20 Hansa Schulte PA PCP - General Circus Trainer 11/23/20 01/25/22 Mohamud Reyes MD PCP - General Family Medicine 01/26/22 02/03/22 Bruna Gamino NP PCP - General Internal Medicine 02/04/22 documented as of this encounter
[2024-06-15 17:34] LABS: Add Urine Microscopic? YES; Appearance Urine Clear (Clear); Bacteria Urine None Seen /hpf; Bilirubin Urine Negative (Negative); Blood Urine Negative (Negative); Color Urine Yellow (Yellow); Glucose Urine UA Negative (Negative); Ketones Urine Negative (Negative); Leukocyte Esterase Ur Trace LEU/UL (Negative); Nitrate Urine Negative (Negative); Non Pathogenic Casts 0-2; Protein Urine Negative (Negative); RBC Urine 0-2 /hpf (0-2); Specific Grav Ur 1.011 (1.001-1.035); Squamous Epithelial Cell Urine None Seen /hpf (Few); Urobilinogen Urine 0.2 mg/dL (<2.0); WBC Urine 0-5 /hpf (0-3); pH Urine 6.5 (5.0-9.0)
--- NOTE | 2024-06-15 18:03 | OBADM ---
This patient, Shayna Cantu, admitted to the OB room OB Post 115 for observation. Patient/family oriented to hospital policies and general routines including ID bracelet, bed and alarms, visiting hours, pain management, procedures, bathroom and other care routines, personal items, smoking policy, room service/diet, and visiting hours. Patient/Family are encouraged to report perceived risks to care and to ask questions if they do not understand what they are told or what they should do.
[2024-06-15] MEDS: NIFEdipine 10 MG CAPSULE PO (21:51)
--- NOTE | 2024-07-14 21:18 | PM.OBTRLD ---
OB - Triage/Final Diagnosis Visit Information Comments/Additional reasons for admission: I have assessed the risk for this patient, Shayna Cantu, and determined that she would benefit from observation care. Evaluation Laboratory results: Laboratory Tests 06/15/24 17:23 Urine Color Yellow Urine Appearance Clear Urine pH 6.5 Ur Specific [place] 1.011 Urine Protein Negative Urine Glucose (UA) Negative Urine Ketones Negative Ur Blood (Man) Negative Urine Nitrate Negative Urine Bilirubin Negative Urine Urobilinogen 0.2 Leukocyte Esterase Rfl Trace H Urine RBC 0-2 Urine WBC 0-5 Ur Squamous Epith Cells None seen Urine Bacteria None seen Urine Casts 0-2 Final Diagnosis (1) False labor: Code(s): O47.9 - False labor, unspecified Status: Acute
== END 2024-06-15 23:55 | disposition home or self-care (01) ==
PROVIDERS: Obstetrics & Gynecology; Admitting Provider Obstetrics & Gynecology; PCP Nurse Practitioner Family; Visit Provider Obstetrics & Gynecology
DX: O47.03 False labor before 37 completed weeks of gestation, third trimester (principal); Z3A.28 28 weeks gestation of pregnancy
CPT/HCPCS: 81001; A9270; G0378; G0379

== ENCOUNTER 2024-06-20 14:23 | Outpatient (RCR) | payer BC, SELFPAY ==
[2024-06-21] MEDS: RHO(D) IMMUNE GLOBULIN 300 MCG/2 ML SYRINGE IM (16:27)
== END 2024-09-18 23:59 | disposition home or self-care (01) ==
LOC: ANHLAB 14:23
PROVIDERS: PCP Nurse Practitioner Family; Visit Provider Obstetrics & Gynecology
DX: O36.0130 Maternal care for anti-D [Rh] antibodies, third trimester, not applicable or unspecified (principal)
CPT/HCPCS: 36415; 85461; 86850; 86900; 86901; 90384; 96372; J2790

== ENCOUNTER 2024-07-03 11:29 | Observation (INO) | payer BC, SELFPAY ==
[2024-07-03 12:22] VITALS: BP 110/61; PULSE 84
[2024-07-03 12:30] VITALS: BP 101/60; PULSE 84
[2024-07-03 12:32] LABS: Basophils Percent Auto 0.3 % (0.2-1.2); Eosinophils Absolute Auto 0.1 K/mm3 (0-0.3); Eosinophils Percent Auto 0.5 % (0-4.4); Hematocrit 34.2 % (37.0-47.0); Hemoglobin 11.6 g/dL (12.0-15.0); Immature Granulocyte Absolute 0.12 K/mm3 (0.00-0.031); Immature Granulocyte Percent A 1.1 % (0-0.5); Lymphocytes Absolute Auto 1.78 K/mm3 (0.9-3.2); Lymphocytes Percent Auto 16.9 % (18.3-44.2); Mean Corpuscular HGB Conc 33.9 g/dl (32-36); Mean Corpuscular Hemoglobin 31.8 pg (26-34); Mean Corpuscular Volume 93.7 fl (80-100); Mean Platelet Volume 9.1 fl (7.4-10.4); Monocytes Absolute Auto 0.6 K/mm3 (0.1-0.6); Monocytes Percent Auto 5.7 % (2.6-8.5); Neutrophils Percent Auto 75.5 % (45.5-73.1); Platelet Count Result 234 k/mm3 (150-375); Red Blood Count 3.65 M/mm3 (4.2-5.4); Red Cell Distribution Width 13.2 % (11.5-14.5); White Blood Count 10.6 K/mm3 (4.5-10.0)
[2024-07-03 12:35] LABS: Add Urine Microscopic? NO; Appearance Urine Clear (Clear); Bilirubin Urine Negative (Negative); Blood Urine Negative (Negative); Color Urine Yellow (Yellow); Glucose Urine UA Negative (Negative); Ketones Urine Negative (Negative); Leukocyte Esterase Ur Negative LEU/UL (Negative); Nitrate Urine Negative (Negative); Protein Urine Negative (Negative); Specific Grav Ur 1.017 (1.001-1.035); Urobilinogen Urine 0.2 mg/dL (<2.0)
[2024-07-03 12:45] VITALS: BP 105/61; PULSE 89
[2024-07-03 12:49] LABS: Alanine Aminotransferase 18 U/L (6-35); Albumin Level 3.1 g/dL (3.5-5.1); Alkaline Phosphatase 99 U/L (38-126); Anion Gap 11 mmol/L (4-12); Aspartate Amino Transferase 31 U/L (14-36); Bilirubin,Total 1.1 mg/dL (0.2-1.3); Blood Urea Nitrogen 5 mg/dL (7-17); Calcium 8.5 mg/dL (8.4-10.2); Carbon Dioxide 17 mmol/L (22-30); Chloride 108 mmol/L (98-107); Estimated Glomerular Filt Rate > 60; Glucose 93 mg/dL (65-110); Potassium 3.5 mmol/L (3.4-5.0); Sodium 136 mmol/L (137-145); Uric Acid 2.3 mg/dL (2.5-7.5)
[2024-07-03 13:00] VITALS: BP 104/63; PULSE 76
[2024-07-03 13:15] VITALS: BP 103/64; PULSE 84
--- OUTSIDE RECORDS SUMMARY | 2024-07-03 13:28 | XMS_ITS | Clinical Summary ---
Author Organization [facility] [address] [facility] Address [address] [place] [address] Care Team Providers Care Home Care Liaison Name Role Phone Bruna Gamino NP Primary Care Provider [phone] Allergies Active Allergy Reactions Criticality Noted Date [...] the right wrist, will fax order to [facility] care. Will notify her of these results [...] the c spine, will fax order to [facility]. Will notify her of these results as they become available. De Quervain's disease (tenosynovitis) 11/11/2021 Assessment & Plan (11/11/2021 10:40 PM CDT): Her current symptoms seem most consistent with deeper veins tenosynovitis. Discussed the difference between a thumb spica and a cock-up splint. She will consider getting 1 off [employer]. Continue icing and anti-inflammatory. Avoid repetition which may be her video game. If she does not notice improvement in the next month or so can consider physical therapy versus referral to Hand Ortho. COVID-19 05/27/2021 Assessment & Plan (05/27/2021 5:48 PM SUPERVISOR PRODUCT INSPECTION): Patient has just started mdp, wanting to [...] 12/22/2021 Assessment & Plan (05/21/2021 3:28 PM SUPERVISOR PRODUCT INSPECTION): Will send patient to [place] for Covid-19 testing. The patient was advised [...] range. Continue healthy lifestyle to maintain. Immunizations Immunization Administration Dates Next Due Influenza, Unspecified 06/27/2023(Deferr [...] on file Legal Sex Female 12:50 AM SUPERVISOR PRODUCT INSPECTION Gender Identity Not on file Sexual Orientation [...] Comments Blood Pressure 112/68 06/27/2023 2:40 PM SUPERVISOR PRODUCT INSPECTION Pulse 65 06/27/2023 2:40 PM SUPERVISOR PRODUCT INSPECTION Temperature 36.9 C (98.4 F) 06/27/2023 2:40 PM SUPERVISOR PRODUCT INSPECTION Respiratory Rate 16 10/19/2018 11:42 AM CDT Oxygen Saturation 99% 06/27/2023 2:40 PM SUPERVISOR PRODUCT INSPECTION Inhaled Oxygen Concentration - - Weight 59.6 kg (131 lb 8 oz) 06/27/2023 2:40 PM SUPERVISOR PRODUCT INSPECTION Height 162.6 cm (5' 4 ) 06/27/2023 2:40 PM SUPERVISOR PRODUCT INSPECTION Body Mass Index 22.57 06/27/2023 2:40 PM SUPERVISOR PRODUCT INSPECTION Plan of Treatment Health Maintenance Due Date [...] patient's age to complete this topic Insurance [employer] OOS BLUE ACCESS OOS Care Teams Home Care Liaison Relationship Specialty Start Date End Date Bruna Gamino NP PCP - General Internal Medicine 02/04/22
--- OUTSIDE RECORDS SUMMARY | 2024-07-03 13:28 | XMS_ITS | Referral Summary ---
Author Organization [facility] [address] [facility] Address [address] [place] [address] Care Team Providers Care Water Aerobics Instructor Name Role Phone Bruna Gamino NP Primary Care Provider [phone] Allergies Active Allergy Reactions Criticality Noted Date [...] the right wrist, will fax order to [facility] care. Will notify her of [...] the c spine, will fax order to [facility]. Will notify her of these results as they become available. De Quervain's disease (tenosynovitis) 11/11/2021 Assessment & Plan (11/11/2021 10:40 PM CDT): Her current symptoms seem most consistent with deeper veins tenosynovitis. Discussed the difference between a thumb spica and a cock-up splint. She will consider getting 1 off [employer]. Continue icing and anti-inflammatory. Avoid repetition which may be her video game. If she does not notice improvement in the next month or so can consider physical therapy versus referral to Hand Ortho. COVID-19 05/27/2021 Assessment & Plan (05/27/2021 5:48 PM BUSINESS ANALYST SALES OPERATIONS): Patient has just started mdp, wanting to [...] 12/22/2021 Assessment & Plan (05/21/2021 3:28 PM BUSINESS ANALYST SALES OPERATIONS): Will send patient to [place] for Covid-19 testing. 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 Not on file Not on file Not on file Last Filed Vital Signs Vital Sign Reading Time Taken Comments Blood Pressure 112/68 06/27/2023 2:40 PM BUSINESS ANALYST SALES OPERATIONS Pulse 65 06/27/2023 2:40 PM BUSINESS ANALYST SALES OPERATIONS Temperature 36.9 C (98.4 F) 06/27/2023 2:40 PM BUSINESS ANALYST SALES OPERATIONS Respiratory Rate 16 10/19/2018 11:42 AM CDT Oxygen Saturation 99% 06/27/2023 2:40 PM BUSINESS ANALYST SALES OPERATIONS Inhaled Oxygen Concentration - - Weight 59.6 kg (131 lb 8 oz) 06/27/2023 2:40 PM BUSINESS ANALYST SALES OPERATIONS Height 162.6 cm (5' 4 ) 06/27/2023 2:40 PM BUSINESS ANALYST SALES OPERATIONS Body Mass Index 22.57 06/27/2023 2:40 PM BUSINESS ANALYST SALES OPERATIONS Plan of Treatment Not on file Insurance [employer] ACCESS OOS [employer] ACC[employer] OOS Care Teams Water Aerobics Instructor Relationship Specialty Start Date End Date Bruna Gamino NP PCP - General Internal Medicine 02/04/22
--- OUTSIDE RECORDS SUMMARY | 2024-07-03 13:28 | XMS_ITS | Data Portability ---
Author Organization [facility] Address [address] [place] [address] [place] [address] Care Team Providers Care Pcts Name Role Phone FAROOQ DAWKINSZABETH Primary Care Provider [phone] Assessment No assessment recorded. Plan of Treatment Reminders Order Date Submit Date Provider Last Modified By Organization Details Last Modified Time Details Appointments U/S OB GROWTH 2024 02:00P M ULTRASOUND Not available Not available Not available OB ROUTINE 2024 02:30P M DANIEL VALENCIA MD Not available Not available Not available Lab urinaly sis, dipstic k 2024 025 [email or web address] [place], [address], [place], [address], 05/24/2024 13:09:54 Referral None recorde d. Procedures None recorde d. Surgeries None recorde d. Imaging US, obstetr ic, follow- up 2024 025 [email or web address] [place], [address], [place], [address], 05/26/2024 10:25:12 Medication Orders flucona zole 150 mg tablet 2024 025 [facility] #[id number], [address], [place], [place], [id number], 06/24/2024 16:41:14 Macrobi d 100 mg capsule 2024 025 [employer] #[id number], [address], [place], [place], [id number], 05/27/2024 17:21:40 Patient TargetsNo targets recorded. Patient InstructionsNo instructions recorded. Reason for Referral None Reported. Results Created Date Observation Date Name Description Value Unit Range Abnormal Flag Note LastModifiedBy Organization Detail LastModifiedTime 05/24/1905/24/2024 CULTU RE: URINE result report SEE RESULT S BELOW abnormal Test: Cultu re: Urine Speci men Sourc e: Urine - Clean Catch Speci men Type: Urine Speci men Date: 2024 1513 Resul t Date: 2024 2304 Resul t Statu s: Final resul t Abnor mal: Yes Gladys lux Lab: [facility] [address] [facility] [place] [address] Tel: CULTU RE ----- ----- ----- --- [...] lab withi n 5 days. Not Available [facility] (Lab) [address], [place], [address], 05/26/2024 00:07:53 05/24/19 25 05/24/2024 urina lysis , dipst ick Leukocytes + Not Available [address], [place], [address], 05/24/2024 13:09:23 05/24/19 25 05/24/2024 urina lysis , dipst ick Protein trace Not Available [address], [place], [address], 05/24/2024 13:09:23 05/24/19 25 05/24/2024 urina lysis , dipst ick pH 8 Not Available [place] [address], [place], [address], 05/24/2024 13:09:23 05/24/19 25 05/24/2024 urina lysis , dipst ick Blood ++ Not Available [place] [address], [place], [address], 05/24/2024 13:09:23 05/24/19 25 05/24/2024 urina lysis , dipst ick Specific Pelzer 1.005 Not Available [facility] [address], [place], [address], 05/24/2024 13:09:23 05/24/19 25 05/24/2024 urina lysis , dipst ick Ketone + Not Available [place] [address], [place], [address], 05/24/2024 13:09:23 05/24/19 25 05/24/2024 urina lysis , dipst ick Appearance cloudy Not Available [facility] jess[address], [place], [address], 05/24/2024 13:09:23 05/24/19 25 05/24/2024 urina lysis , dipst ick Color yellow Not Available [place] [address], [place], [address], 05/24/2024 13:09:23 06/12/19 25 06/12/2024 HEMAT OCRIT (HCT) HCT 35.1 % (based on docume nted legal sex) 34.0-4 5.0 Not Available [facility] (Lab) [address], [place], [address], 06/13/2024 12:57:36 06/12/19 25 06/12/2024 HEMOG LOBIN (HGB) HGB 11.9 g/dL (based on docume nted legal sex) 11.6-1 5.4 Not Available [facility] (Lab) [address], [place], [address], 06/13/2024 12:57:36 06/12/19 25 06/12/2024 HIV 1/2 ANTIG EN/AN TIBOD Y, REFLE X CONFI RMATI ON HIV antigen/anti body Nonrea ctive nonrea ctive HIV-1 antig en and HIV-1 /HIV- 2 antib odies were not detec john. No labor atory evide nce of HIV infec tion. Not Available [facility] (Lab) [address], [place], [address], 06/13/2024 12:57:37 06/12/19 25 06/12/2024 GTT - GESTA GIULIANA L SCREE N, ACOG OB glucose, 1 hour screen 147 mg/dL 70-135 high Not Available [facility] (Lab) [address], [place], [address], 06/13/2024 12:57:37 06/12/19 25 06/12/2024 RPR SCREE N, REFLE X TITER /CONF IRMAT ION RPR screen Nonrea ctive nonrea ctive Not Available [facility] (Lab) [address], [place], [address], 06/13/2024 12:57:38 06/18/19 25 06/18/2024 GTT - GESTA GIULIANA L, 3 HOUR, ACOG glucose, fasting acog 65 mg/dL 70-94 low Not Available [facility] (Lab) [address], [place], [address], 06/19/2024 05:00:08 06/18/19 25 06/18/2024 GTT - GESTA GIULIANA L, 3 HOUR, ACOG glucose, 1 hour acog 70 mg/dL 70-179 Not Available [facility] (Lab) [address], [place], [address], 06/19/2024 05:00:08 06/18/19 25 06/18/2024 GTT - GESTA GIULIANA L, 3 HOUR, ACOG glucose, 2 hour acog 79 mg/dL 70-154 Not Available [facility] (Lab) [address], [place], [address], 06/19/2024 05:00:08 06/18/19 25 06/18/2024 GTT - GESTA GIULIANA L, 3 HOUR, ACOG glucose, 3 hour acog 44 mg/dL 70-139 critical low M-Res ult verif ied by repea t rosi sis Not Available [facility] (Lab) [address], [place], [address], 06/19/2024 05:00:08 04/18/20 24 04/18/2024 US, obste tric, 2nd or 3rd trime ster No observ ation record ed. [facility] [address], [place], [address], 04/18/2024 18:41:51 04/18/20 24 04/18/2024 US, obste tric, 2nd or 3rd trime ster No observ ation record ed. [email or web address], [place], [address], 04/18/2024 20:48:05 04/18/20 24 04/18/2024 US, obste tric, 2nd or 3rd trime ster No observ ation record ed. [email or web address], [place], [address], 04/18/2024 20:48:04 05/24/19 25 05/24/2024 US, obste tric, follo w-up No observ ation record ed. [facility] [address], [place], [address], 05/24/2024 18:02:28 05/24/19 25 05/24/2024 US, obste tric, follo w-up No observ ation record ed. [email or web address] [address], [place], [address], 05/26/2024 12:00:04 Result Notes None recorded. Problems Name Problem SNOMED Code Status Onset Date Resolution Date Notes Provider Name and Address Organization Details Recorded Time Bipolar disorder 11047494 Active 2020 Haley Alvarez MD [address], [place], [address], [facility] 17:15:10 Uterine adenomyos is 060115720 Active 2020 suspected on US at Haley Alvarez MD [address], [place], [address], [facility] 1 17:15:35 72565594 Active 2023 Kaylyn howe, [facility] 4 17:31:17 Migraine 01647177 Active aura Ric White MD [address], [place], [address], [facility] 4 17:48:08 Problem Notes None recorded. Procedures Surgical History Date Name Laterality Status Provider Name and Address Organization Details Recorded Time 11/24/2020 Date of Last Pap Smear completed Zoila Crisostomo [facility] 07/23/2021 09:42:18 Imaging Results Imaging Date Name Status LastModified by Organiz ation Details LastModified Time 04/18/2024 US, obstetric, 2nd or 3rd trimester completed [facility] [address], [place], [address], 04/18/2024 18:41:51 04/18/2024 US, obstetric, 2nd or 3rd trimester completed [email or web address], [place], [address], 04/18/2024 20:48:05 04/18/2024 US, obstetric, 2nd or 3rd trimester completed [email or web address], [place], [address], 04/18/2024 20:48:04 05/24/2024 US, obstetric, follow-up completed [facility] [address], [place], [address], 05/24/2024 18:02:28 05/24/2024 US, obstetric, follow-up completed [email or web address], [place], [address], 05/26/2024 12:00:04 Procedure Notes None recorded. Medical Equipment None Reported. Allergies Allergen ID Allergen Name Allergen Category Reaction Reaction Severity Criticality Documentation Date Start Date Code Code System Note Provider Name and Address Organization Details Recorded Time 34810 latex environme nt,medica tion Not available Not available Not available 10/20/2020 04444 91 RxNorm Faye Metcalf [facility] 17:02:44 65166 Substance with sulfonami de structure and antibacte rial mechanism of action (substanc e) medicatio n Not available Not available Not available 10/20/2020 63648 8003 SNOMED Faye Metcalf [facility] 17:02:50 Medications Name Sig Start Date [...] completed Not Available Not Available Not Available fluconazole 150 mg tablet Take 1 tablet by oral route. 2024 active Not Available Not Available Not Avai lable benzonatate 200 mg capsule 07/23 completed Not [...] Not Available Not Available Not Available amoxicillin 400 mg/5 mL oral suspension active Not Available Not Available N ot Available diazepam 10 mg tablet 02/20 completed [...] Not Avai lable Vitals Date Recorded Body weight Body mass index (BMI) Body height Systolic blood pressure Diastolic blood pressure Provider Name and Address Organization Details Last Updated DateTime 05/17/2024 52934.83 5014 g 25.2 kg/m2 160.02 cm 99 mm[Hg] 61 mm[Hg] Lornabety Wilburnney [facility] 16:24:51 Date Recorded Body weight Systolic blood pressure Diastolic blood pressure Provider Name and Address Organization Details Last Updated DateTime 05/24/2024 08308.1165 4 g 115 mm[Hg] 76 mm[Hg] Kaylyn Deo [facility] 05/24/2024 13:08:55 Date Recorded Body height Body mass index (BMI) Body weight Systolic blood pressure Diastolic blood pressure Provider Name and Address Organization Details Last Updated DateTime 06/12/2024 160.02 cm 26.2 kg/m2 20081.67 076 g 94 mm[Hg] 66 mm[Hg] [facility] 14:48:04 Date Recorded Body height Body mass index (BMI) Body weight Systolic blood pressure Diastolic blood pressure Provider Name and Address Organization Details Last Updated DateTime 06/24/2024 160.02 cm 26.9 kg/m2 82892.04 g 114 mm[Hg] 69 mm[Hg] Mgiuelina Brewster [facility] 16:19:55 Social History Question Answer Notes LastModified by Organizat ion Details LastModified Time Tobacco Smoking Status Never Smoker Faye howe [facility] 10/20/2020 17:02:06 What Is Your Level Of Alcohol Consumption? None Information not available 10/20/2020 Are You Blind Or Do You Have Difficulty Seeing? No [email or web address] Information n ot available 01/31/2024 What Is Your Level Of Caffeine Consumption? Moderate [email or web address] Information not available 03/20/2024 How Much Tobacco Do You Chew? None [email or web address] Information not available 01/31/2024 In The 14 Days Before Symptom Onset, Have You Had Close Contact With A Laboratory-confirm ed COVID-19 While That Case Was Ill? No [email or web address] Information n ot available 01/31/2024 In The 14 Days Before Symptom Onset, Have You Had Close Contact With A Person Who Is Under Investigation For COVID-19 While That Person Was Ill? No [email or web address] Information not available 01/31/2024 Have You Been To An Area Known To Be High Risk For COVID-19? No [email or web address] Information not available 01/31/2024 Are You Deaf Or Do You Have Serious Difficulty Hearing? No [email or web address] Information not available 01/31/2024 What Type Of Diet Are You Following? REGULAR Information n ot available 01/31/2024 What Is The Highest Grade Or Level Of School You Have Completed Or The Highest Degree You Have Received? 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 No [email or web address] Information not available 01/31/2024 Do You Use Protection During Sex? No [email or web address] Information not available 01/31/2024 Do You Use Your Seat Belt Or Car Seat Routinely? Yes [email or web address] Information not available 01/31/2024 Do You Have Smoke And Carbon Monoxide Detectors In Your Home? Yes [email or web address] Information not available 01/31/2024 How Much Tobacco Do You Smoke? No [email or web address] Information not available 01/31/2024 Do You Feel Stressed (tense, Restless, Nervous, Or Anxious, Or Unable To Sleep At Night)? FM2966-4 [email or web address] Information not available 01/31/2024 Do You Use Any Illicit Or Recreational Drugs? No Information not available 10/20/2020 Do You Use Sunscreen Routinely? No [email or web address] Information not available 01/31/2024 Has Tobacco Cessation Counseling Been Provided? No Information not available 10/20/2020 Have You Used IV Drugs? No [email or web address] Information not available 01/31/2024 Do You Or Have You Ever Used Any Other Forms Of Tobacco Or Nicotine? No Information not available 10/20/2020 Sex: Unknown Functional Status Question Answer Note LastModified by Organization D etails LastModified Time Are you able to walk? YESWOREST [email or web address] Information not available 01/31/2024 What is your exercise level? Moderate [email or web address] Information not available 01/31/2024 Mental Status None recorded. Family History Relationship Description Onset Age of this Age Resolved Age Notes LastModified by Organization Details LastModified Time Mother Asthma [email or web address] Not available 17:11:46 Mother Carcinoma of uterine cervix, invasive [email or web address] Not available 06/08 16:15:13 Mother Blood coagulation disorder [email or web address] Not available 2020 17:12:05 Mother Hypertensive disorder [email or web address] Not available 2020 17:12:33 Mother Cyst of ovary [email or web address] Not available 06/08 16:15:13 Mother Seizure disorder [email or web address] Not available 06/08 16:15:13 Maternal Grandfather Heart disease [email or web address] Not available 2020 17:12:17 Sister Diabetes mellitus [email or web address] Not available 2020 17:12:24 Sister Primary infertility [email or web address] Not available 16:15:13 Sister Uterine prolapse [email or web address] Not available 06/08 16:15:13 Sister Seizure disorder [email or web address] Not available 06/08 16:15:13 Medical History Condition Response Other N Blood Transfusion N Dermatologic Disorders N Gestational Diabetes N Anxiety Disorder N Autoimmune disease N Arthritis N Polyps N Infertility N Acid Reflux (GERD) N Cancer N Varicosities N Stroke N Neurologic/Epilepsy N Fibromyalgia N Headaches Y Kidney Disease N Heart Problems N Kidney or Bladder Problems N Eating Disorder N Art (IVF or FET) N Hepatitis/Liver Disease N No Past Medical History N Urinary Tract Infection N Asthma N Trauma/Violence N Thrombophilias N Allergies (Food, seasonal, environmental ) N Breast Cancer N Drug/Latex Allergies/Reactions Y Lung Disease N Defects or Inherited Disease N Breast Problem N Hematologic disorders N Anesthesia Complications N History of STI N Deep Vein Thrombosis N Polycystic ovary syndrome N History of abnormal pap N Endometriosis N High Cholesterol N Thyroid Problems N GI Problems N Anemia Y Psychiatric Illness N Ovarian Cancer N Diabetes N Pulmonary (TB, Asthma) N Eczema N Abuse/Domestic Violence N Depression/ depression N Heart Disease N Pre-Eclampsia N Hypertension N Osteoporosis N Gynecological History Statement/Question Response Date of [...] SNOMED-CT Code Diagnosis ICD10 Code Diagnosis Note [id number] Haley Alvarez MD [place] [address] [address] 10/20/2020 16:53:51 10/21/2020 16:11:01 Pelvic floor tension 015883222 R29.898 [id number] Haley Alvarez MD [place] [address],[place] [address] 11/24/2020 16:34:17 11/24/2020 17:09:48 Gynecologic examination 85546428 Z01.419 [id number] Ric White MD [place] [address],[place] [address] 07/23/2021 09:15:46 07/23/2021 14:21:43 Menorrhagia 816209123 N92.0 Pain in pelvis 65900117 R10.2 I spent over 35 minutes with the patient. We discussed her symptoms in detail. We reviewed radiology reports. We discussed disease processes regarding pelvic pain, ovarian cyst, adenomyosi s. We discussed evaluation and possible treatments of menorrhagi a and pelvic pain. We will proceed with pelvic ultrasound and the patient will return to discuss treatment plan. [id number] Janelle Stern [place] [address],[place] [address] 07/28/2021 09:42:58 07/28/2021 10:38:00 Pain in pelvis 41945740 R10.2 [id number] Haley Alvarez MD [place] [address],[place] [address] 03/22/2022 17:25:20 03/23/2022 12:05:46 Amenorrhea 96562156 N91.2 Nausea 981122364 R11.0 Stomach cramps 19102693 R10.9 Trying to conceive 77422 9001 Z31.9 [id number] Anastasiia Miramontes [place] [address],[place] [address] 01/23/2024 14:58:52 01/23/2024 15:16:19 Urinary symptoms 684517110 R39.9 Acute urin ant tract infection 112940583 N39.0 [id number] Valeria Frankel [place] [address],[place] [address] 01/31/2024 11:26:51 01/31/2024 11:51:43 [id number] DANIEL VALENCIA MD [place] [address] [address] 01/31/2024 11:27:10 01/31/2024 15:32:00 Nausea and vomiting 47590270 R11.2 - will trial zofran PRN for nausea Migraine 67550037 G43.90 9 - hx of chronic migraines- has previously tried reglan, naproxen, sumatripta n, compazine, propranolo l, cyclobenza pine, zofran, toradol, exedrin migraines, dilaudid, ibuprofen, and norco with no improvemen t- will trial sumatripta n, tylenol and caffeine- will send neurology referral test positive 323023729 Z32.01 1. Exam today within normal limits.2. Ultrasound today confirms GA and viability. EDC . GC/Clamydi a testing done: will f/u as indicated. 4. ACOG guidelines and plan of care for reviewed with patient. All questions answered.5 . Return to office at 12 weeks for new OB visit6. Will need new OB labs at time of NIPT7. Genetic screening: desires at 10 weeks, orders given today. [id number] Dinorah Celestin [place] [address],[place] [address] 02/21/2024 16:33:48 02/21/2024 17:08:55 screening 201350373 Z36.82 Z3A.12 [id number] Ric White MD [place] [address],[place] [address] 02/21/2024 16:34:43 02/22/2024 00:38:42 Migraine 36342303 G43.909 Routine an tenatal care 751564394 Z34.90 [id number] Mayda Garibay [facility] [address],[place] [address] 03/20/2024 16:34:46 03/20/2024 17:12:20 Routine care 220696975 Z34.92 Gestation period, 16 weeks 52050593 Z3A.16 [id number] Valeria [facility] [address],[place] [address] 04/18/2024 16:26:44 04/18/2024 17:59:14 screening for malformation 919973396 Z36.3 Z3A.20 [id number] Ric White MD [place] [address],[place] [address] 04/18/2024 16:29:40 04/19/2024 10:14:41 Routine care 992731765 Z34.90 [id number] DANIEL VALENCIA MD [place] [address],[place] [address] 05/17/2024 15:52:41 05/20/2024 18:25:26 Routine care 806942824 Z34.91 [id number] Dinorah Celestin [place] [address],[place] [address] 05/24/2024 12:31:27 05/24/2024 13:18:24 Abdominal pain in 950611747 O99.891 O26.852 Z3A.25 [id number] Ric White MD [place] [address],[place] [address] 05/24/2024 12:32:04 05/24/2024 13:33:54 Urinary symptoms 783442246 R39.9 Traumatic injury during 846696244 T14.90XA [id number] DANIEL VALENCIA MD [place] [address],[place] [address] 06/12/2024 14:31:43 06/13/2024 14:42:54 Routine care 462724801 Z34.91 [id number] DANIEL VALENCIA MD [place] [address],[place] [address] 06/24/2024 16:15:04 06/26/2024 03:31:51 Candidiasis of vagina 65700242 B37.31 Routine an tenatal care 462279887 Z34.91 - continue [facility] Concerns Section Related Observation LastModified by Organization Detai ls LastModified Time None Recorded Concern Status LastModified by Organization Details LastModified Time None Recorded Advance Directives Directive None Recorded Payers Encounter Date Sequence Insurance Name Policy Number Policy Childs Covered Member ID Childs Member ID Guarantor Name 05/17/2024 1 [place] [id number] Jorje Cantu [id number] Jorje Cantu 05/24/2024 1 [place] [id number] Jorje Cantu [id number] Jorje Cantu 05/24/2024 1 [place] [id number] Jorje Cantu [id number] Jorje aCntu 06/12/2024 1 [place] [id number] Jorje Cantu [id number] Jorje Cantu 06/24/2024 1 [place] [id number] Jorje Cantu [id number] Jorje Cantu OBGyn Episode Ob Episode Information Episode Created Date Number of Fetuses Patient Bloodtype Patient rh Status Prepregnancy Weight lbs Domestic Partner Domestic Partner Phone Father Name Transmission Worker Status 10/21/19 21 1 CLOSED Fetus Data First Name Last Name Admitted to NICU Weight (g) Sex Living Outcome Pediatric Complications Fetus ID Race Codes Race Delivery Type 2919.77 1704 M [id number] Vaginal Delivery Mark Calculation Initial Mark Date [...] Domestic Partner Domestic Partner Phone Father Name Transmission Worker Status 02/21/20 24 1 O Negative OPEN Fetus Data First Name Last Name Admitted to NICU Weight (g) Sex Living Outcome Pediatric Complications Fetus ID Race Codes Race Delivery Type [id number] Problems Problem Notes Problem Name Start Date End Date Resolution Snomed Code Not e Migraine 30607287 aura Mark Calculation Initial Mark Date Initial [...] Weight in lbs Pre/Post Dialysis Refused Weight 128.432676269951 BP Diastolic BP Location Tested BP Systolic [...] Type Weight in lbs Pre/Post Dialysis Refused 129.618844307808 BP Diastolic BP Location Tested BP Systolic [...] Type Weight in lbs Pre/Post Dialysis Refused 136.672263765283 BP Diastolic BP Location Tested BP Systolic [...] in lbs Pre/Post Dialysis Refused With clothes 142.769249586816 BP Diastolic BP Location Tested BP Systolic [...] Type Weight in lbs Pre/Post Dialysis Refused 142.124576409855 BP Diastolic BP Location Tested BP Systolic [...] Type Weight in lbs Pre/Post Dialysis Refused 148.150003437025 BP Diastolic BP Location Tested BP Systolic BP Type 66 L arm 94 sitting Fetus Heart Rate Present A 145 Fetus Movement A Yes Comments Patient c/o slight nausea. R eports some low back pain. No cramping or bleeding. URI, discussed symptomatic relief. Discussed resources. Discussed tdap vaccine. RTC 2 weeks. Flowsheet Date 06/24/2024 Bojorquez Score Blood Edema Fundus Height Fundus Units Glucose Ketones Leukocytes Nitrite Labor Signs Protein Cervic Dilation Cervic Effacement Cervic Station neg none Type Weight in lbs Pre/Post Dialysis Refused Weight 152.059412137545 BP Diastolic BP Location Tested BP Systolic BP Type 69 L arm 114 sitting Fetus Heart Rate Present A 140 Fetus Movement A Yes Comments Patient c/o of hip pain, try ing to wear belly band more. Also concerned she may have a yeast infection, increased discharge and some pruritis. Will send diflucan. Passed 3h GTT, received Rhogam. Good movement. No cramping or bleeding. RTC 2 weeks. Menstrual History Last Menstrual [...]
--- OUTSIDE RECORDS SUMMARY | 2024-07-03 13:28 | XMS_ITS | Encounter Summary ---
Author Organization [facility] Facility Care Team Providers Care Editor Index Name Role Phone Mohamud Reyes MD Primary Care Provider [phone] aHnsa Schulte Primary Care Provider [phone] Mohamud Reyes MD Primary Care Provider [phone] Bruna Gamino NP Primary Care Provider [phone] Encounter Details Date Type Department Care Team (Latest Contact Info) Description 05/29/2018 Orders Only [facility]IN[facility] Provider, MD Corin [address] [place] [id number] Social History Tobacco Use Types Packs/Day Years Used Date Smoking Tobacco: Never Assessed Comments Unknown Sex and Gender Information Value Date Recorded Sex Assigned at Not on file Legal Sex Female 12:50 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 Historical Provider Final Res ult documented in this encounter Visit Diagnoses Not on filedocumented in this encounter Additional Health Concerns Infection Onset Date Last Indicated Resolved Time COVID: Suspected 05/21/2021 05/21/2021 05/21/2021 6:55 PM IT DATA ARCHITECT COVID19 05/21/2021 05/21/2021 05/31/2021 3:05 AM IT DATA ARCHITECT COVID: Recovered Comment:Added based on recent COVID infection. 05/31/2021 08/01/2021 09/28/2021 3:07 AM C DT documented as of this encounter Care Teams Editor Index Relationship Specialty Start Date End Date Mohamud Reyes MD PCP - General Family Medicine 07/27/18 11/22/20 Hansa Schulte PA PCP - General Fortune Teller 11/23/20 01/25/22 Mohamud Reyes MD PCP - General Family Medicine 01/26/22 02/03/22 Bruna Gamino NP PCP - General Internal Medicine 02/04/22 documented as of this encounter
--- OUTSIDE RECORDS SUMMARY | 2024-07-03 13:28 | XMS_ITS | Encounter Summary ---
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
--- NOTE | 2024-07-05 02:25 | PM.OBTRLD ---
OB - Triage/Final Diagnosis Visit Information Comments/Additional reasons for admission: I have assessed the risk for this patient, Shayna Cantu, and determined that she would benefit from observation care. Evaluation Laboratory results: Laboratory Tests 07/03/24 12:10 WBC 10.6 H RBC 3.65 L Hgb 11.6 L D Hct 34.2 L MCV 93.7 MCH 31.8 MCHC 33.9 RDW 13.2 Plt Count 234 MPV 9.1 Immature Gran % (Auto) 1.1 H Neut % (Auto) 75.5 H Lymph % (Auto) 16.9 L [place] % (Auto) 5.7 Eos % (Auto) 0.5 Baso % (Auto) 0.3 Lymph # (Auto) 1.78 [place] # (Auto) 0.6 Eos # (Auto) 0.1 Baso # (Auto) 0.0 Abs Immat Gran (auto) 0.12 H Absolute Neuts (auto) 8.0 H Absolute Nucleated RBC 0.000 Nucleated RBC % 0.0 Sodium 136 L Potassium 3.5 Chloride 108 H Carbon Dioxide 17 L Anion Gap 11 BUN 5 L Creatinine 0.35 L Estim Creat Clear Calc Not Reportable Estimated GFR > 60 Glucose 93 Uric Acid 2.3 L Calcium 8.5 Total Bilirubin 1.1 AST 31 ALT 18 Alkaline Phosphatase 99 Total Protein 6.0 L Albumin 3.1 L Urine Color Yellow Urine Appearance Clear Urine pH 6.0 Ur Specific [place] 1.017 Urine Protein Negative Urine Glucose (UA) Negative Urine Ketones Negative Ur Blood (Man) Negative Urine Nitrate Negative Urine Bilirubin Negative Urine Urobilinogen 0.2 Leukocyte Esterase Rfl Negative Final Diagnosis (1) Vaginal discharge during : Code(s): O26.899 - Other specified related conditions, unspecified trimester; N89.8 - Other specified noninflammatory disorders of vagina Status: Acute (2) Headache: Code(s): R51.9 - Headache, unspecified Status: Acute
== END 2024-07-03 13:36 | disposition home or self-care (01) ==
PROVIDERS: Admitting Provider Obstetrics & Gynecology; PCP Nurse Practitioner Family; Visit Provider Obstetrics & Gynecology
DX: O26.893 Other specified pregnancy related conditions, third trimester (principal); N89.8 Other specified noninflammatory disorders of vagina; R51.9 Headache, unspecified; Z3A.31 31 weeks gestation of pregnancy
CPT/HCPCS: 36415; 80053; 81003; 84550; 85025; G0378; G0379

== ENCOUNTER 2024-07-10 18:32 | Observation (INO) | payer BC, SELFPAY ==
[2024-07-10] VITALS (47 sets, daily range): BP systolic 108–121; BP diastolic 55–67; PULSE 66–100; O2SAT 99–100
--- OUTSIDE RECORDS SUMMARY | 2024-07-10 18:38 | XMS_ITS | Continuity of Care Document ---
Author Organization [facility] Address [address] [facility] [address] [place] [address] Phone Care Team Providers Care Computer Mechanic Name Role Phone Muehl MPT CMPT, Dilshad Unavailable Unavailable Procedures Procedure Date PT Evaluation Low Complexity Therapeutic Exercise Manual Therapy Advance Directives Directive Yes / No Effective Date File Name No Information Encounters Encounter Description Practice Location Reason(s) For Visit Diagnoses Date Provider Providers Copied on Encounter [facility] [address], [id number], tel:[phone] [place] No Information Feb-0 2201 7 Muehl Dilshad. [address] [facility], [address], [facility], [place]. tel:[phone] [facility], [address] [place] [address], [id number], tel:[phone] [place] Low back painThoracogenic scoliosis, thoracolumbar region Jan-2 6 7 Muehl Dilshad. [address] [facility], [facility] [address], [address], [place]. tel:[phone] Referring Provider: Alex Woosd, [address] [facility] [place], [address]. tel:[phone] Family History Family Member Type Diagnosis Age At Onset No Information Payers Payer name Insurance type Covered democrat ID Authoriza tigregory(s) [facility] [id number] Social History Type Description Quantity Date Captured [...]
--- OUTSIDE RECORDS SUMMARY | 2024-07-10 18:38 | XMS_ITS | Referral Summary ---
Author Organization [facility] [address] [facility] Address [address] [place] [address] Care Team Providers Care Sourcing Manager Name Role Phone Bruna Gamino NP Primary Care Provider [phone] Allergies Active Allergy Reactions Criticality Noted Date [...] the right wrist, will fax order to [facility]. Will notify her of these [...] the c spine, will fax order to [facility]. Will notify her of these results as they become available. De Quervain's disease (tenosynovitis) 11/11/2021 Assessment & Plan (11/11/2021 10:40 PM CDT): Her current symptoms seem most consistent with deeper veins tenosynovitis. Discussed the difference between a thumb spica and a cock-up splint. She will consider getting 1 off [facility]. Continue icing and anti-inflammatory. Avoid repetition which may be her video game. If she does not notice improvement in the next month or so can consider physical therapy versus referral to [facility]. COVID-19 05/27/2021 Assessment & Plan (05/27/2021 5:48 PM DIRECTOR REGULATORY COMPLIANCE): Patient has just started [employer], wanting to [...] 12/22/2021 Assessment & Plan (05/21/2021 3:28 PM DIRECTOR REGULATORY COMPLIANCE): Will send patient to [place] for Covid-19 testing. 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 Not on file Not on file Not on file Last Filed Vital Signs Vital Sign Reading Time Taken Comments Blood Pressure 112/68 06/27/2023 2:40 PM DIRECTOR REGULATORY COMPLIANCE Pulse 65 06/27/2023 2:40 PM DIRECTOR REGULATORY COMPLIANCE Temperature 36.9 C (98.4 F) 06/27/2023 2:40 PM DIRECTOR REGULATORY COMPLIANCE Respiratory Rate 16 10/19/2018 11:42 AM CDT Oxygen Saturation 99% 06/27/2023 2:40 PM DIRECTOR REGULATORY COMPLIANCE Inhaled Oxygen Concentration - - Weight 59.6 kg (131 lb 8 oz) 06/27/2023 2:40 PM DIRECTOR REGULATORY COMPLIANCE Height 162.6 cm (5' 4 ) 06/27/2023 2:40 PM DIRECTOR REGULATORY COMPLIANCE Body Mass Index 22.57 06/27/2023 2:40 PM DIRECTOR REGULATORY COMPLIANCE Plan of Treatment Not on file Insurance [employer] ACC[employer] OOS [employer]OS Care Teams Sourcing Manager Relationship Specialty Start Date End Date Bruna Gamino NP PCP - General Internal Medicine 02/04/22
--- OUTSIDE RECORDS SUMMARY | 2024-07-10 18:38 | XMS_ITS | Data Portability ---
Author Organization [facility] Address [address] [place] [address] [place] [address] Care Team Providers Care Jewel Hole Cornerer Name Role Phone JUANCHO MICAH Primary Care Provider Assessment No assessment recorded. Plan of Treatment Reminders Order Date Submit Date Provider Last Modified By Organization Details Last Modified Time Details Appointments OB ROUTINE 2024 03:30P Nicola VALENCIA MD Not available Not available Not available Lab None recorded. Referral None recorded. Procedures None recorded. Surgeries None recorded. Imaging US, obstetric , follow-up 2024 [address], [address], [place], [address], 07/08/2024 22:39:45 US, obstetric , follow-up [address] [facility] [address], [address], [place], [address], 05/26/2024 10:25:12 Medication Orders fluconazo le 150 mg tablet 2024 025 [id number], [address] [facility], [place], [place], [id number], 06/24/2024 16:41:14 Patient TargetsNo targets recorded. Patient InstructionsNo instructions [...] Final resul t Abnor mal: Yes Resul cassig Lab: [facility] [address] [facility] [address] Tel: CULTU RE ----- ----- ----- --- [...] lab withi n 5 days. Not Available [facility] (Lab) [address], [place], [address], 05/26/2024 00:07:53 05/24/19 25 05/24/2024 urina lysis , dipst ick Leukocytes + Not Available [facility] [address], [place], [address], 05/24/2024 13:09:23 05/24/19 25 05/24/2024 urina lysis , dipst ick Protein trace Not Available [facility] [address], [place], [address], 05/24/2024 13:09:23 05/24/19 25 05/24/2024 urina lysis , dipst ick pH 8 Not Available [facility] [address], [place], [address], 05/24/2024 13:09:23 05/24/19 25 05/24/2024 urina lysis , dipst ick Blood ++ Not Available [facility] [address], [place], [address], 05/24/2024 13:09:23 05/24/19 25 05/24/2024 urina lysis , dipst ick Specific [place] 1.005 Not Available [facility] serafin [address], [place], [address], 05/24/2024 13:09:23 05/24/19 25 05/24/2024 urina lysis , dipst ick Ketone + Not Available [facility] [address], [place], [address], 05/24/2024 13:09:23 05/24/19 25 05/24/2024 urina lysis , dipst ick Appearance cloudy [facility] [address], [place], [address], 05/24/2024 13:09:23 05/24/19 25 05/24/2024 urina lysis , dipst ick Color yellow Not Available [facility] [address], [place], [address], 05/24/2024 13:09:23 06/12/19 25 06/12/2024 HEMAT OCRIT (HCT) HCT 35.1 % (based on docume nted legal sex) 34.0-4 5.0 Not Available [facility] (Lab) [address], [place], [address], 06/13/2024 12:57:36 06/12/19 25 06/12/2024 HEMOG LOBIN (HGB) HGB 11.9 g/dL (based on docume nted legal sex) 11.6-1 5.4 Not Available [facility] (Lab) [address], [place], [address], 06/13/2024 12:57:36 02/05/20 25 06/12/2024 HIV 1/2 ANTIG EN/AN TIBOD Y, REFLE X CONFI RMATI ON HIV antigen/anti body Nonrea ctive nonrea ctive HIV-1 antig en and HIV-1 /HIV- 2 antib odies were not detec john. No labor atory evide nce of HIV infec tion. Not Available [facility] (Lab) [address] [facility], [place], [address], 06/13/2024 12:57:37 06/12/19 25 06/12/2024 GTT - GESTA GIULIANA L SCREE N, ACOG OB glucose, 1 hour screen 147 mg/dL 70-135 high Not Available [facility] (Lab) [address] [facility], [place], [address], 06/13/2024 12:57:37 06/12/19 25 06/12/2024 RPR SCREE N, REFLE X TITER /CONF IRMAT ION RPR screen Nonrea ctive nonrea ctive Not Available [facility] (Lab) [address] [facility], [place], [address], 06/13/2024 12:57:38 06/18/19 25 06/18/2024 GTT - GESTA GIULIANA L, 3 HOUR, ACOG glucose, fasting acog 65 mg/dL 70-94 low Not Available [facility] (Lab) [address] [place], [address], 06/19/2024 05:00:08 06/18/19 25 06/18/2024 GTT - GESTA GIULIANA L, 3 HOUR, ACOG glucose, 1 hour acog 70 mg/dL 70-179 Not Available [facility] (Lab) [address] [facility], [place], [address], 06/19/2024 05:00:08 06/18/19 25 06/18/2024 GTT - GESTA GIULIANA L, 3 HOUR, ACOG glucose, 2 hour acog 79 mg/dL 70-154 Not Available [facility] (Lab) [address] [facility], [place], [address], 06/19/2024 05:00:08 06/18/19 25 06/18/2024 GTT - GESTA GIULIANA L, 3 HOUR, ACOG glucose, 3 hour acog 44 mg/dL 70-139 critical low M-Res ult verif ied by repea t rosi sis Not Available [facility] (Lab) [address] [facility], [place], [address], 06/19/2024 05:00:08 05/24/19 25 05/24/2024 US, obste tric, follo w-up No observ ation [facility] [address], [place], [address], 05/24/2024 18:02:28 05/24/19 25 05/24/2024 US, obste tric, follo w-up No observ ation record ed. [email or web address] [facility] [address], [place], [address], 05/26/2024 12:00:04 07/09/19 25 07/08/2024 , obste tric, follo w-up No observ ation record ed. [email or web address] [facility] [address], [place], [address], 07/08/2024 17:19:07 07/09/19 25 07/08/2024 US, obste tric, follo w-up No observ ation record ed. [address], [place], [address], 07/08/2024 22:23:50 Result Notes None recorded. Problems Name Problem SNOMED Code Status Onset Date Resolution Date Notes Provider Name and Address Organization Details Recorded Time Bipolar disorder 80125033 Active 2020 Haley Alvarez MD [address], [place], [address], [facility] 1 17:15:10 Uterine adenomyos is 108254755 Active 2020 suspected on US at CORINA Alvarez MD [address], [place], [address], [facility] 1 17:15:35 67609235 Active 2023 Kaylyn Deo null, [facility] 4 17:31:17 Migraine 83797854 Active kristian White MD [address], [place], [address], [facility] 4 17:48:08 Problem Notes None recorded. Procedures Surgical History Date Name Laterality Status Provider Name and Address Organization Details Recorded Time 11/24/2020 Date of Last Pap Smear completed Zoila Crisostomo [facility] 07/23/2021 09:42:18 Imaging Results Imaging Date Name Status LastModified by Organiz ation Details LastModified Time 05/24/2024 US, obstetric, follow-up completed eduardo [facility] [address], [place], [address], 05/24/2024 18:02:28 05/24/2024 US, obstetric, follow-up completed [email or web address] [address], [place], [address], 05/26/2024 12:00:04 07/08/2024 US, obstetric, follow-up completed roxi [facility] [address], [place], [address], 07/08/2024 17:19:07 07/08/2024 US, obstetric, follow-up completed [email or web address] [address], [place], [address], 07/08/2024 22:23:50 Procedure Notes None recorded. Medical Equipment None Reported. Allergies Allergen ID Allergen Name Allergen Category Reaction Reaction Severity Criticality Documentation Date Start Date Code Code System Note Provider Name and Address Organization Details Recorded Time 89118 latex environme nt,medica tion Not available Not available Not available 10/20/2020 99183 91 RxNorm Faye howe, [facility] 17:02:44 06291 Substance with sulfonami de structure and antibacte rial mechanism of action (substanc e) medicatio n Not available Not available Not available 10/20/2020 97160 8003 SNOMED Faye Tea [facility], [facility] 17:02:50 Medications Name Sig Start Date [...] tablet Take 1 tablet by oral route. active Not Available Not Available No t Available benzonatate 200 mg capsule 07/23 completed [...] Avai lable Vitals Date Recorded Body weight Systolic blood pressure Diastolic blood pressure Provider Name and Address Organization Details Last Updated DateTime 05/24/2024 55943.1165 4 g 115 mm[Hg] 76 mm[Hg] Kaylyn Desouza [facility] 05/24/2024 13:08:55 Date Recorded Body height Body mass index (BMI) Body weight Systolic blood pressure Diastolic blood pressure Provider Name and Address Organization Details Last Updated DateTime 06/12/2024 160.02 cm 26.2 kg/m2 38901.67 076 g 94 mm[Hg] 66 mm[Hg] Miguelina [facility] 5 14:48:04 Date Recorded Body height Body mass index (BMI) Body weight Systolic blood pressure Diastolic blood pressure Provider Name and Address Organization Details Last Updated DateTime 06/24/2024 160.02 cm 26.9 kg/m2 17146.04 g 114 mm[Hg] 69 mm[Hg] [facility] 16:19:55 Date Recorded Body height Body mass index (BMI) Body weight Systolic blood pressure Diastolic blood pressure Provider Name and Address Organization Details Last Updated DateTime 07/08/2024 160.02 cm 27.8 kg/m2 05917 g 114 mm[Hg] 75 mm[Hg] [facility] 15:52:50 Social History Question Answer Notes LastModified by Organizat ion Details LastModified Time Tobacco Smoking Status Never Smoker Faye Metcalf [facility] 10/20/2020 17:02:06 What Is Your Level Of Alcohol Consumption? None Information not available 10/20/2020 Are You Blind Or Do You Have Difficulty Seeing? No [email or web address] Information n ot available 01/31/2024 What Is Your Level Of Caffeine Consumption? Moderate [email or web address] Information not available 03/20/2024 How Much Tobacco Do You Chew? None [email or web address] Information not available 01/31/2024 In The 14 Days Before Symptom Onset, Have You Had Close Contact With A Laboratory-confirm ed COVID-19 While That Case Was Ill? No Information n ot available 01/31/2024 In The 14 Days Before Symptom Onset, Have You Had Close Contact With A Person Who Is Under Investigation For COVID-19 While That Person Was Ill? No Information not available 01/31/2024 Have You Been To An Area Known To Be High Risk For COVID-19? No [email or web address] Information not available 01/31/2024 Are You Deaf Or Do You Have Serious Difficulty Hearing? No [email or web address] Information not available 01/31/2024 What Type Of Diet Are You Following? REGULAR [email or web address] Information n ot available 01/31/2024 What Is The Highest Grade Or Level Of School You Have Completed Or The Highest Degree You Have Received? 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 No Information not available 01/31/2024 Do You Use Protection During Sex? No [email or web address] Information not available 01/31/2024 Do You Use Your Seat Belt Or Car Seat Routinely? Yes [email or web address] Information not available 01/31/2024 Do You Have Smoke And Carbon Monoxide Detectors In Your Home? Yes [email or web address] Information not available 01/31/2024 How Much Tobacco Do You Smoke? No [email or web address] Information not available 01/31/2024 Do You Feel Stressed (tense, Restless, Nervous, Or Anxious, Or Unable To Sleep At Night)? [id number] [email or web address] Information not available 01/31/2024 Do You Use Any Illicit Or Recreational Drugs? No Information not available 10/20/2020 Do You Use Sunscreen Routinely? No Information not available 01/31/2024 Has Tobacco Cessation Counseling Been Provided? No Information not available 10/20/2020 Have You Used IV Drugs? No Information not available 01/31/2024 Do You Or Have You Ever Used Any Other Forms Of Tobacco Or Nicotine? No Information not available 10/20/2020 Sex: Unknown Functional Status Question Answer Note LastModified by Organization D etails LastModified Time Are you able to walk? [email or web address] Information not available 01/31/2024 What is your exercise level? Moderate [email or web address] Information not available 01/31/2024 Mental Status None recorded. Family History Relationship Description Onset Age of this Age Resolved Age Notes LastModified by Organization Details LastModified Time Mother Asthma [email or web address] Not available 17:11:46 Mother Carcinoma of uterine cervix, invasive [email or web address] Not available 07/2024 14:54:14 Mother Blood coagulation disorder [email or web address] Not available 2020 17:12:05 Mother Hypertensive disorder [email or web address] Not available 2020 17:12:33 Mother Cyst of ovary [email or web address] Not available 07/2024 14:54:14 Mother Seizure disorder [email or web address] Not available 07/2024 14:54:14 Maternal Grandfather Heart disease [email or web address] Not available 2020 17:12:17 Sister Diabetes mellitus [email or web address] Not available 2020 17:12:24 Sister Primary infertility [email or web address] Not available 14:54:14 Sister Uterine prolapse [email or web address] Not available 07/2024 14:54:14 Sister Seizure disorder [email or web address] Not available 07/2024 14:54:14 Medical History Condition Response Other N Blood [...] SNOMED-CT Code Diagnosis ICD10 Code Diagnosis Note [id number] Haley Alvarez MD [facility] [address] [address] 10/20/2020 16:53:51 10/21/2020 16:11:01 Pelvic floor tension 630823888 R29.898 [id number] Haley Alvarez MD [facility] [address],[place] [address] 11/24/2020 16:34:17 11/24/2020 17:09:48 Gynecologic examination 31179508 Z01.419 [id number] Ric White MD [facility] [address],[place] [address] 07/23/2021 09:15:46 07/23/2021 14:21:43 Menorrhagia 225084485 N92.0 Pain in pelvis 03735296 R10.2 I spent over 35 minutes with the patient. We discussed her symptoms in detail. We reviewed radiology reports. We discussed disease processes regarding pelvic pain, ovarian cyst, adenomyosi s. We discussed evaluation and possible treatments of menorrhagi a and pelvic pain. We will proceed with pelvic ultrasound and the patient will return to discuss treatment plan. [id number] Janelle Stern [facility] [address],[place] [address] 07/28/2021 09:42:58 07/28/2021 10:38:00 Pain in pelvis 92464938 R10.2 [id number] Haley Alvarez MD [facility] [address],[place] [address] 03/22/2022 17:25:20 03/23/2022 12:05:46 Amenorrhea 18160348 N91.2 Nausea 153947142 R11.0 Stomach cramps 12439858 R10.9 Trying to conceive 35910 9001 Z31.9 [id number] Anastasiia Cardenasse [facility] [address],[place] [address] 01/23/2024 14:58:52 01/23/2024 15:16:19 Urinary symptoms 413453614 R39.9 Acute urin ant tract infection 552456746 N39.0 [id number] Valeria Frankel [facility] [address],[place] [address] 01/31/2024 11:26:51 01/31/2024 11:51:43 [id number] DANIEL VALENCIA MD [facility] [address],[place] [address] 01/31/2024 11:27:10 01/31/2024 15:32:00 Nausea and vomiting 71526901 R11.2 - will trial zofran PRN for nausea Migraine 70934524 G43.90 9 - hx of chronic migraines- has previously tried reglan, naproxen, sumatripta n, compazine, propranolo l, cyclobenza pine, zofran, toradol, exedrin migraines, dilaudid, ibuprofen, and norco with no improvemen t- will trial sumatripta n, tylenol and caffeine- will send neurology referral test positive 112733818 Z32.01 1. Exam today within normal limits.2. [...] desires at 10 weeks, orders given today. [id number] Dinorah Sabi [facility] [address],[place] [address] 02/21/2024 16:33:48 02/21/2024 17:08:55 screening 102283683 Z36.82 Z3A.12 [id number] Ric White MD [facility] [address],[place] [address] 02/21/2024 16:34:43 02/22/2024 00:38:42 Migraine 01319722 G43.909 Routine an tenatal care 708486809 Z34.90 [id number] Mayda Garibay CNM [facility] [address],[place] [address] 03/20/2024 16:34:46 03/20/2024 17:12:20 Routine care 027525527 Z34.92 Gestation period, 16 weeks 12211831 Z3A.16 [id number] Valeria Frankel [facility] [address],[place] [address] 04/18/2024 16:26:44 04/18/2024 17:59:14 screening for malformation 968187853 Z36.3 Z3A.20 [id number] Ric White MD [facility] [address],[place] [address] 04/18/2024 16:29:40 04/19/2024 10:14:41 Routine care 705136255 Z34.90 [id number] DANIEL VALENCIA MD [facility] [address],[place] [address] 05/17/2024 15:52:41 05/20/2024 18:25:26 Routine care 810006505 Z34.91 [id number] Dinorah [facility] [address],[place] [address] 05/24/2024 12:31:27 05/24/2024 13:18:24 Abdominal pain in 315496413 O99.891 O26.852 Z3A.25 [id number] Ric White MD [facility] [address],[place] [address] 05/24/2024 12:32:04 05/24/2024 13:33:54 Urinary symptoms 060403945 R39.9 Traumatic injury during 695866807 T14.90XA [id number] DANIEL VALENCIA MD [facility] [address],[place] [address] 06/12/2024 14:31:43 06/13/2024 14:42:54 Routine care 201777104 Z34.91 [id number] DANIEL VALENCIA MD [facility] [address],[place] [address] 06/24/2024 16:15:04 06/26/2024 03:31:51 Candidiasis of vagina 05459367 B37.31 Routine an tenatal care 201187628 Z34.91 - continue PNV [id number] Valeria Frankel [facility] [address] [address] 07/08/2024 14:54:02 07/08/2024 15:52:50 Uterine size for dates discrepancy 328165187 O26.843 Z3A.31 Health Concerns Section Related Observation LastModified by Organization Detai ls LastModified Time None Recorded Concern Status LastModified by Organization Details LastModified Time None Recorded Advance Directives Directive None Recorded Payers Encounter Date Sequence Insurance Name Policy Number Policy Childs Covered Member ID Childs Member ID Guarantor Name 05/24/2024 1 [place] [id number] Jorje Cantu [id number] Jorje Cantu 06/12/2024 1 [place] [id number] Jorje Cantu [id number] Jorje Cantu 06/24/2024 1 [place] [id number] Jorje Cantu [id number] Jorje Cantu 07/08/2024 1 [place] [id number] Jorje Cantu [id number] Jorje Cantu OBGyn Episode Ob Episode Information Episode Created Date Number of Fetuses Patient Bloodtype Patient rh Status Prepregnancy Weight lbs Domestic Partner Domestic Partner Phone Father Name Coagulating Operator Status 10/21/19 21 1 CLOSED Fetus Data First Name Last Name Admitted to NICU Weight (g) Sex Living Outcome Pediatric Complications Fetus ID Race Codes Race Delivery Type 2919.77 1704 M [id number] Vaginal Delivery Mark Calculation Initial Mark Date [...] Domestic Partner Domestic Partner Phone Father Name Coagulating Operator Status 02/21/20 24 1 O Negative OPEN Fetus Data First Name Last Name Admitted to NICU Weight (g) Sex Living Outcome Pediatric Complications Fetus ID Race Codes Race Delivery Type [id number] Problems Problem Notes Problem Name Start Date End Date Resolution Snomed Code Not e Migraine [id number] aura Mark Calculation Initial Mark Date Initial [...] Gestation 0 [email or web address] 02/21/2024 09/05/19 25 0 Pre-zoya Flowsheet Flowsheet Date 02/21/2024 Bojorquez Score Blood Edema Fundus Height Fundus Units Glucose Ketones Leukocytes Nitrite Labor Signs Protein Cervic Dilation Cervic Effacement Cervic Station Type Weight in lbs Pre/Post Dialysis Refused Weight 128.723210891908 BP Diastolic BP Location Tested BP Systolic [...] Type Weight in lbs Pre/Post Dialysis Refused 129.344301621520 BP Diastolic BP Location Tested BP Systolic [...] Type Weight in lbs Pre/Post Dialysis Refused 136.529827090633 BP Diastolic BP Location Tested BP Systolic [...] in lbs Pre/Post Dialysis Refused With clothes 142.407246155747 BP Diastolic BP Location Tested BP Systolic [...] Type Weight in lbs Pre/Post Dialysis Refused 142.897801698066 BP Diastolic BP Location Tested BP Systolic [...] Type Weight in lbs Pre/Post Dialysis Refused 148.306220640784 BP Diastolic BP Location Tested BP Systolic [...] Weight in lbs Pre/Post Dialysis Refused Weight 152.948218439693 BP Diastolic BP Location Tested BP Systolic [...] No cramping or bleeding. RTC 2 weeks. Flowsheet Date 07/08/2024 Bojorquez Score Blood Edema Fundus Height Fundus Units Glucose Ketones Leukocytes Nitrite Labor Signs Protein Cervic Dilation Cervic Effacement Cervic Station Type Weight in lbs Pre/Post Dialysis Refused BP Diastolic BP Location Tested BP Systolic BP Type Fetus Heart Rate Present Fetus Movement Comments Flowsheet Date 07/08/2024 Bojorquez Score Blood Edema Fundus Height Fundus Units Glucose Ketones Leukocytes Nitrite Labor Signs Protein Cervic Dilation Cervic Effacement Cervic Station neg trace Type Weight in lbs Pre/Post Dialysis Refused Weight 157.729696096102 BP Diastolic BP Location Tested BP Systolic BP Type 75 L arm 114 sitting Fetus Heart Rate Present A Present Fetus Movement A Yes Comments Patient c/o of slight nausea , headaches, and swelling in legs. Some BH contractions. Losing mucous plug. Baby active. EFW 56%, normal UMBERTO. Would like EIL 09/04 at 0001. Discussed preadmission. RTC 2 weeks. Menstrual History Last Menstrual [...]
--- OUTSIDE RECORDS SUMMARY | 2024-07-10 18:38 | XMS_ITS | Encounter Summary ---
Author Organization [facility] Healthcare Address [address] [place] [address] Care Team Providers Care Database Programmer Name Role Phone Bruna Gamino [employer] DRAIN TECHNICIAN Primary Care Provider [phone] Encounter Details Date Type Department Care Team (Late st Contact Info) Description 01/04/2024 Telephone [facility] Medical Group Internal Medicine at [place] [address] [place] [address] Bruna Gamino, SEWER AND DRAIN TECHNICIAN [address] [place] [address] Social History Tobacco Use Types [...] on file Legal Sex Female 12:50 AM GRAD INTERN Gender Identity Not on file Sexual Orientation Not on file 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
--- OUTSIDE RECORDS SUMMARY | 2024-07-10 18:38 | XMS_ITS | Encounter Summary ---
Author Organization [facility] Facility Care Team Providers Care Molder Meat Name Role Phone Mohamud Reyes MD Primary Care Provider [phone] Hansa Schulte Primary Care Provider [phone] Mohamud Reyes MD Primary Care Provider [phone] Bruna Gamino NP Primary Care Provider [phone] Encounter Details Date Type Department Care Team (Latest Contact Info) Description 05/29/2018 Orders Only [facility]INCONV Provider, MD Corin [address] [place] [id number] Social History Tobacco Use Types Packs/Day Years Used Date Smoking Tobacco: Never Assessed Comments Unknown Sex and Gender Information Value Date Recorded Sex Assigned at Not on file Legal Sex Female 12:50 AM HOSPITAL ACCOUNT LIAISON Gender Identity Not on file Sexual Orientation Not on file documented as of this encounter Plan of Treatment Not on file documented as of this encounter Procedures Procedure Name Priority Date/Time Associated Diagnosis Comments SCAN - LABS 05/30/2018 12:00 AM HOSPITAL ACCOUNT LIAISON documented in this encounter Results * SCAN - LABS (05/30/2018 12:00 AM HOSPITAL ACCOUNT LIAISON) Narrative 05/30/2018 12:00 AM HOSPITAL ACCOUNT LIAISON Ordered by an unspecified provider. Historical Provider Final Res ult documented in this encounter Visit Diagnoses Not on filedocumented in this encounter Additional Health Concerns Infection Onset Date Last Indicated Resolved Time COVID: Suspected 05/21/2021 05/21/2021 05/21/2021 6:55 PM HOSPITAL ACCOUNT LIAISON COVID19 05/21/2021 05/21/2021 05/31/2021 3:05 AM HOSPITAL ACCOUNT LIAISON COVID: Recovered Comment:Added based on recent COVID infection. 05/31/2021 08/01/2021 09/28/2021 3:07 AM C DT documented as of this encounter Care Teams Molder Meat Relationship Specialty Start Date End Date Mohamud Reyes MD PCP - General Family Medicine 07/27/18 11/22/20 Hansa Schulte PA PCP - General Stock Plan Administrator 11/23/20 01/25/22 Mohamud Reyes MD PCP - General Family Medicine 01/26/22 02/03/22 Bruna Gamino NP PCP - General Internal Medicine 02/04/22 documented as of this encounter
--- OUTSIDE RECORDS SUMMARY | 2024-07-10 18:38 | XMS_ITS | Continuity of Care Document ---
Author Organization [facility] Address [address] [place] [address] [place] [address] Phone Care Team Providers Care Sheet Metal Worker Supervisor Name Role Phone Alex Woods MD Unavailable [...] Providers Copied on Encounter OFFICE/OUTPA TIENT VISIT, [facility], [address], [place], [place], [address], [place] tel:[phone] [facility] sinusitis1 (chief complaint) Acute sinusitisHeadache Chuck Johnson. [address], [place], [place], [address] , [place]. tel:[phone] Referring Provider: Alex Woods, [address], [place], [place], [id number]. tel:[phone] OFFICE/OUTPA TIENT VISIT, [facility], [address], [place], [place], [address], [place] tel:[phone] [facility] back pain1 (chief complaint) LumbagoSacroiliitis Chuck Johnson. [address], [place], [place], [address] , [place]. [phone] Referring Provider: Dedrick Garcia [address], [place], [place], [id number]. tel:[phone] OFFICE/OUTPA TIENT VISIT, EST [facility], [address], [place], [place], [address], [place] tel:[phone] [facility] brast lump1 (chief complaint) back pain1 (chief complaint) tinea1 (chief complaint) SacroiliitisLump in breastTinea corporis Sep-2 7 Chuck Johnson. [address], [place], [place], [address] , [place]. [phone] Referring Provider: Dedrick Garcia [facility] [address], [place], [place], [id number]. tel:[phone] PREV VISIT, NEW, AGE 18-39 [facility], [address], [place], [place], [address], [place] tel:[phone] [facility] PHysical (chief complaint) Encounter for general adult medical exam w abnormal findingsTinea corporisFamily history of malignant neoplasm of ovary 7 Chuck Johnson. [address], [place], [place], [address] , [place]. tel:[phone] Referring Provider: Dedrick Garcia [facility] [address], [place], [place], [id number]. tel:[phone] Family History Family Member Type Diagnosis Age At Onset Father Problem (finding) Unknown Mother Problem (finding) ovarian CA at age 24 Brother Problem (finding) Alive and well Payers Payer name Insurance type Covered green party ID Authoriza tion(s) No Information Social [...] Referral Ordered: [place] [facility] ordered Referral Ordered: [facility] (related to Sacroiliitis) ordered Referral Ordered: LUMBAR XRAY AP AND LAT ONLY ordered Referral Referred To: [facility] [address] [place] [address], [id number] Ordered: Referrals: [facility] Evaluate and treat ordered Referral Ordered: MAMMOGRAM, [...] that it is 10/10 when she moves. tinea1 Pt states that t he tinea rash resolved with ketocontazole. Pt denies any abd pain back pain1 Pt c./o chronic intermittent right lower side back pain for at least 5-6 years. pt denies any injury. Pt denies any sciatica or any leg numbness. Pt has dullache daily, worse with movement or standing up for long time Pt denies any loss of bladder control brast lump1 Pt notices nonte nder small lump on right breast for one week. Pt feels like a pea. Pt denies any redness or pain around the area. Pt denies any nipple discharge Pt denies family history of breast CA PHysical Pt needs annual physical. Pt c/o [...] Mental Status Date Cognitive Assessment Orientation - [place] ed to time, place, person, situation.
--- OUTSIDE RECORDS SUMMARY | 2024-07-10 18:38 | XMS_ITS | Clinical Summary ---
Author Organization [facility] [address] [facility] Address [address] [place] [address] Care Team Providers Care Studio Operation Engineer Name Role Phone Bruna Gamino NP Primary Care Provider [phone] Allergies Active Allergy Reactions Criticality Noted Date [...] the right wrist, will fax order to [facility]. Will notify her of these [...] splint. She will consider getting 1 off [email or web address]. Continue icing and anti-inflammatory. Avoid repetition which may be her video game. If she does not notice improvement in the next month or so can consider physical therapy versus referral to [facility]. COVID-19 05/27/2021 Assessment & Plan (05/27/2021 5:48 PM DRILL RIG OPERATOR HELPER): Patient has just started mdp, wanting to [...] 12/22/2021 Assessment & Plan (05/21/2021 3:28 PM DRILL RIG OPERATOR HELPER): Will send patient to [place] for Covid-19 testing. The patient was advised [...] History Medical History Date Comments Fracture, hip (HCC) Bipolar 2 disorder (HCC) Adenomyosis Headache Family History Medical History [...] on file Legal Sex Female 12:50 AM DRILL RIG OPERATOR HELPER Gender Identity Not on file Sexual Orientation [...] Comments Blood Pressure 112/68 06/27/2023 2:40 PM DRILL RIG OPERATOR HELPER Pulse 65 06/27/2023 2:40 PM DRILL RIG OPERATOR HELPER Temperature 36.9 C (98.4 F) 06/27/2023 2:40 PM DRILL RIG OPERATOR HELPER Respiratory Rate 16 10/19/2018 11:42 AM CDT Oxygen Saturation 99% 06/27/2023 2:40 PM DRILL RIG OPERATOR HELPER Inhaled Oxygen Concentration - - Weight 59.6 kg (131 lb 8 oz) 06/27/2023 2:40 PM DRILL RIG OPERATOR HELPER Height 162.6 cm (5' 4 ) 06/27/2023 2:40 PM DRILL RIG OPERATOR HELPER Body Mass Index 22.57 06/27/2023 2:40 PM DRILL RIG OPERATOR HELPER Plan of Treatment Health Maintenance Due Date [...] patient's age to complete this topic Insurance [employer] OOS BLUE ACCESS OOS Care Teams Studio Operation Engineer Relationship Specialty Start Date End Date Bruna Gamino NP PCP - General Internal Medicine 02/04/22
--- NOTE | 2024-07-10 19:32 | OBADM ---
This patient, Shayna Cantu, admitted to the OB room OB Post 113 for observation. Patient/family oriented to hospital policies and general routines including ID bracelet, bed and alarms, visiting hours, pain management, procedures, bathroom and other care routines, personal items, smoking policy, room service/diet, and visiting hours. Patient/Family are encouraged to report perceived risks to care and to ask questions if they do not understand what they are told or what they should do.
[2024-07-10 19:35] LABS: Add Urine Microscopic? YES; Appearance Urine Cloudy (Clear); Bacteria Urine None Seen /hpf; Bilirubin Urine Negative (Negative); Blood Urine Negative (Negative); Color Urine Yellow (Yellow); Glucose Urine UA Negative (Negative); Ketones Urine Negative (Negative); Leukocyte Esterase Ur Negative LEU/UL (Negative); Nitrate Urine Negative (Negative); Non Pathogenic Casts 0-2; Protein Urine Negative (Negative); RBC Urine 0-2 /hpf (0-2); Specific Grav Ur 1.014 (1.001-1.035); Squamous Epithelial Cell Urine None Seen /hpf (Few); Urobilinogen Urine 0.2 mg/dL (<2.0); WBC Urine 0-5 /hpf (0-3); pH Urine 6.5 (5.0-9.0)
[2024-07-10] MEDS: LACTATED RINGERS 1,000 ML 999 ML IV CONT (21:28)
[2024-07-10] MEDS: TERBUTALINE SULFATE 1 MG/ML VIAL 0.25 MG SUB-Q (21:32)
[2024-07-11 00:01] VITALS: PULSE 86; O2SAT 100
[2024-07-11 00:05] VITALS: PULSE 95; O2SAT 100
[2024-07-11 00:10] VITALS: PULSE 86; O2SAT 100
[2024-07-11 00:15] VITALS: PULSE 87; O2SAT 100
--- NOTE | 2024-07-12 20:21 | PM.OBTRLD ---
OB - Triage/Final Diagnosis Visit Information Date of evaluation: 07/10/24 Reason for evaluation: threatened labor Comments/Additional reasons for admission: I have assessed the risk for this patient, Shayna Cantu, and determined that she would benefit from observation care. Evaluation Laboratory results: Laboratory Tests 07/10/24 18:58 Urine Color Yellow Urine Appearance Cloudy H Urine pH 6.5 Ur Specific [place] 1.014 Urine Protein Negative Urine Glucose (UA) Negative Urine Ketones Negative Ur Blood (Man) Negative Urine Nitrate Negative Urine Bilirubin Negative Urine Urobilinogen 0.2 Leukocyte Esterase Rfl Negative Urine RBC 0-2 Urine WBC 0-5 Ur Squamous Epith Cells None seen Urine Bacteria None seen Urine Casts 0-2
== END 2024-07-11 00:35 | disposition home or self-care (01) ==
PROVIDERS: Advanced Practice Midwife; Admitting Provider Obstetrics & Gynecology; PCP Nurse Practitioner Family; Visit Provider Obstetrics & Gynecology
DX: O47.03 False labor before 37 completed weeks of gestation, third trimester (principal); Z3A.32 32 weeks gestation of pregnancy
CPT/HCPCS: 81001; 84112; 96360; 96372; G0378; G0379; J3105; J7120

== ENCOUNTER 2024-07-16 15:53 | Observation (INO) | payer BC, SELFPAY ==
--- NOTE | 2024-07-16 16:00 | OBADM ---
This patient, Shayna Cantu, admitted to the OB room OB Post 112 for observation. Patient/family oriented to hospital policies and general routines including ID bracelet, bed and alarms, visiting hours, pain management, procedures, bathroom and other care routines, personal items, smoking policy, room service/diet, and visiting hours. Patient/Family are encouraged to report perceived risks to care and to ask questions if they do not understand what they are told or what they should do.
[2024-07-16 16:30] VITALS: BP 105/63; PULSE 103
[2024-07-16 16:45] VITALS: BP 116/65; PULSE 92
[2024-07-16 17:00] VITALS: BP 105/64; PULSE 95
[2024-07-16 17:15] VITALS: BP 100/66; PULSE 95
--- OUTSIDE RECORDS SUMMARY | 2024-07-16 17:53 | XMS_ITS | Encounter Summary ---
Author Organization [facility] Address [address] [place] [address] Care Team Providers Care Manager User Experience Name Role Phone Bruna Gamino TECHNICAL SOLUTION ARCHITECT Primary Care Provider [phone] Encounter Details Date Type Department Care Team (Late st Contact Info) Description 01/04/2024 Telephone [facility] [place] [address] [place] [address] Bruna Gamino, TECHNICAL SOLUTION ARCHITECT [address] [place] [address] Social History Tobacco Use Types [...] on file Legal Sex Female 12:50 AM COIL WINDING MACHINES SET UP MECHANIC Gender Identity Not on file Sexual Orientation Not on file Occupation Industry Job Start Date Job End 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
--- OUTSIDE RECORDS SUMMARY | 2024-07-16 17:53 | XMS_ITS | Referral Summary ---
Author Organization [facility] [address] [facility] Address [address] [place] [address] Care Team Providers Care Foreign Law Consultant Name Role Phone Bruna Gamino NP Primary Care Provider [phone] Allergies Active Allergy Reactions Criticality Noted Date [...] the right wrist, will fax order to [facility]. Will notify her of these [...] the c spine, will fax order to [facility]. Will notify her of these results as they become available. De Quervain's disease (tenosynovitis) 11/11/2021 Assessment & Plan (11/11/2021 10:40 PM CDT): Her current symptoms seem most consistent with deeper veins tenosynovitis. Discussed the difference between a thumb spica and a cock-up splint. She will consider getting 1 off [facility]. Continue icing and anti-inflammatory. Avoid repetition which may be her video game. If she does not notice improvement in the next month or so can consider physical therapy versus referral to [facility]. COVID-19 05/27/2021 Assessment & Plan (05/27/2021 5:48 PM METAL FINISH INSPECTOR): Patient has just started mdp, wanting to [...] 12/22/2021 Assessment & Plan (05/21/2021 3:28 PM METAL FINISH INSPECTOR): Will send patient to [place] for Covid-19 testing. 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-employed Not on file Not on file Not on file Last Filed Vital Signs Vital Sign Reading Time Taken Comments Blood Pressure 112/68 06/27/2023 2:40 PM METAL FINISH INSPECTOR Pulse 65 06/27/2023 2:40 PM METAL FINISH INSPECTOR Temperature 36.9 C (98.4 F) 06/27/2023 2:40 PM METAL FINISH INSPECTOR Respiratory Rate 16 10/19/2018 11:42 AM CDT Oxygen Saturation 99% 06/27/2023 2:40 PM METAL FINISH INSPECTOR Inhaled Oxygen Concentration - - Weight 59.6 kg (131 lb 8 oz) 06/27/2023 2:40 PM METAL FINISH INSPECTOR Height 162.6 cm (5' 4 ) 06/27/2023 2:40 PM METAL FINISH INSPECTOR Body Mass Index 22.57 06/27/2023 2:40 PM METAL FINISH INSPECTOR Plan of Treatment Not on file Insurance [employer] ACCESS OOS [employer] OOS Care Teams Foreign Law Consultant Relationship Specialty Start Date End Date Bruna Gamino NP PCP - General Internal Medicine 02/04/22
--- OUTSIDE RECORDS SUMMARY | 2024-07-16 17:54 | XMS_ITS | Clinical Summary ---
Author Organization [facility] [address] [facility] Address [address] [place] [address] Care Team Providers Care Lens Mounter Name Role Phone Bruna Gamino NP Primary Care Provider [phone] Allergies Active Allergy Reactions Criticality Noted Date [...] the right wrist, will fax order to [facility]. Will notify her of these results [...] the c spine, will fax order to [facility]. Will notify her of these results as they become available. De Quervain's disease (tenosynovitis) 11/11/2021 Assessment & Plan (11/11/2021 10:40 PM CDT): Her current symptoms seem most consistent with deeper veins tenosynovitis. Discussed the difference between a thumb spica and a cock-up splint. She will consider getting 1 off [employer]. Continue icing and anti-inflammatory. Avoid repetition which may be her video game. If she does not notice improvement in the next month or so can consider physical therapy versus referral to [facility]. COVID-19 05/27/2021 Assessment & Plan (05/27/2021 5:48 PM COAT PADDER): Patient has just started mdp, wanting to [...] 12/22/2021 Assessment & Plan (05/21/2021 3:28 PM COAT PADDER): Will send patient to [place] for Covid-19 testing. The patient was advised [...] on file Legal Sex Female 12:50 AM COAT PADDER Gender Identity Not on file Sexual Orientation [...] Comments Blood Pressure 112/68 06/27/2023 2:40 PM COAT PADDER Pulse 65 06/27/2023 2:40 PM COAT PADDER Temperature 36.9 C (98.4 F) 06/27/2023 2:40 PM COAT PADDER Respiratory Rate 16 10/19/2018 11:42 AM CDT Oxygen Saturation 99% 06/27/2023 2:40 PM COAT PADDER Inhaled Oxygen Concentration - - Weight 59.6 kg (131 lb 8 oz) 06/27/2023 2:40 PM COAT PADDER Height 162.6 cm (5' 4 ) 06/27/2023 2:40 PM COAT PADDER Body Mass Index 22.57 06/27/2023 2:40 PM COAT PADDER Plan of Treatment Health Maintenance Due Date [...] patient's age to complete this topic Insurance [employer] OOS BLUE ACCESS OOS Care Teams Lens Mounter Relationship Specialty Start Date End Date Bruna Gamino NP PCP - General Internal Medicine 02/04/22
--- OUTSIDE RECORDS SUMMARY | 2024-07-16 17:54 | XMS_ITS | Data Portability ---
Author Organization 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 Plan of Treatment Reminders Order Date Submit Date Provider Last Modified By Organization Details Last Modified Time Details Appointments OB ROUTINE 2024 03:30P Nicola VALENCIA MD Not available Not available Not available INDUCTION 2024 12:00A Nicola VALENCIA MD Not available Not available Not available Lab None recorded. Referral None recorded. Procedures None recorded. Surgeries None recorded. Imaging US, obstetric , follow-up [id number] [facility] [address], [place], [address], 07/08/2024 22:39:45 US, obstetric , follow-up [address] [facility] [address], [place], [address], 05/26/2024 10:25:12 Medication Orders fluconazo le 150 mg tablet 2024 025 [id number], [address] [facility], [place], [place], [id number], 06/24/2024 16:41:14 Patient TargetsNo targets recorded. Patient InstructionsNo instructions recorded. Reason for Referral None Reported. Results Created Date Observation Date Name Description Value Unit Range Abnormal Flag Note LastModifiedBy Organization Detail LastModifiedTime 05/24/19 25 05/24/2024 CULTU RE: URINE result report SEE RESULT S BELOW abnormal Test: Cultu re: Urine Speci men Sourc e: Urine - Clean Catch Speci men Type: Urine Speci men Date: 2024 1513 Resul t Date: 2024 2304 Resul t Statu s: Final resul t Abnor mal: Yes Resul ting Lab: [facility] [address] [facility] [address] Tel: CULTU RE ----- ----- ----- --- [...] lab withi n 5 days. Not Available [facility] (Lab) [address] [facility], [place], [address], 05/26/2024 00:07:53 05/24/19 25 05/24/2024 urina lysis , dipst ick Leukocytes + Not Available [facility] [address], [place], [address], 05/24/2024 13:09:23 05/24/19 25 05/24/2024 urina lysis , dipst ick Protein trace Not Available [place] [address], [place], [address], 05/24/2024 13:09:23 05/24/19 25 05/24/2024 urina lysis , dipst ick pH 8 Not Available [place] [address], [place], [address], 05/24/2024 13:09:23 05/24/19 25 05/24/2024 urina lysis , dipst ick Blood ++ Not Available [place] [address], [place], [address], 05/24/2024 13:09:23 05/24/19 25 05/24/2024 urina lysis , dipst ick Specific [place] 1.005 [facility] [address], [place], [address], 05/24/2024 13:09:23 05/24/19 25 05/24/2024 urina lysis , dipst ick Ketone + Not Available [place] [address], [place], [address], 05/24/2024 13:09:23 05/24/19 25 05/24/2024 urina lysis , dipst ick Appearance cloudy Not Available [facility] jessica [address], [place], [address], 05/24/2024 13:09:23 05/24/19 25 05/24/2024 urina lysis , dipst ick Color yellow Not Available [place] [address], [place], [address], 05/24/2024 13:09:23 06/12/19 25 06/12/2024 HEMAT OCRIT (HCT) HCT 35.1 % (based on docume nted legal sex) 34.0-4 5.0 Not Available [facility] (Lab) [address], [place], [address], 06/13/2024 12:57:36 06/12/19 25 06/12/2024 HEMOG LOBIN (HGB) HGB 11.9 g/dL (based on docume nted legal sex) 11.6-1 5.4 Not Available [facility] (Lab) [address], [place], [address], 06/13/2024 12:57:36 06/12/19 25 06/12/2024 HIV 1/2 ANTIG EN/AN TIBOD Y, REFLE X CONFI RMATI ON HIV antigen/anti body Nonrea ctive nonrea ctive HIV-1 antig en and HIV-1 /HIV- 2 antib odies were not detec john. No labor atory evide nce of HIV infec tion. Not Available [facility] (Lab) [address] [facility], [place], [address], 06/13/2024 12:57:37 06/12/19 25 06/12/2024 GTT - GESTA GIULIANA L SCREE N, ACOG OB glucose, 1 hour screen 147 mg/dL 70-[address] [facility] (Lab) [address] [place], [address], 06/13/2024 12:57:37 06/12/19 25 06/12/2024 RPR SCREE N, REFLE X TITER /CONF IRMAT ION RPR screen Nonrea ctive nonrea ctive Not Available [facility] (Lab) [address] [place], [address], 06/13/2024 12:57:38 06/18/19 25 06/18/2024 GTT - GESTA GIULIANA L, 3 HOUR, ACOG glucose, fasting acog 65 mg/dL 70-[address] [facility] (Lab) [address] [place], [address], 06/19/2024 05:00:08 06/18/19 25 06/18/2024 GTT - GESTA GIULIANA L, 3 HOUR, ACOG glucose, 1 hour acog 70 mg/dL 70-[address] [facility] (Lab) [address] [place], [address], 06/19/2024 05:00:08 06/18/19 25 06/18/2024 GTT - GESTA GIULIANA L, 3 HOUR, ACOG glucose, 2 hour acog 79 mg/dL 70-[address] [facility] (Lab) [address] [facility], [place], [address], 06/19/2024 05:00:08 06/18/19 25 06/18/2024 GTT - GESTA GIULIANA L, 3 HOUR, ACOG glucose, 3 hour acog 44 mg/dL 70-139 critical low M-Res ult verif ied by repea t rosi sis Not Available [facility] (Lab) [address] [facility], [place], [address], 06/19/2024 05:00:08 05/24/19 25 05/24/2024 US, obste tric, follo w-up No observ [facility]ion [facility] [address], [place], [address], 05/24/2024 18:02:28 05/24/19 25 05/24/2024 US, obste tric, follo w-up No observ ation record ed. [email or web address] [address], [place], [address], 05/26/2024 12:00:04 07/09/19 25 07/08/2024 US, obste tric, follo w-up No observ ation record ed. [email or web address] [place] [address], [place], [address], 07/08/2024 17:19:07 07/09/19 25 07/08/2024 US, obste tric, follo w-up No observ ation record ed. [email or web address] [address], [place], [address], 07/08/2024 22:23:50 Result Notes None recorded. Problems Name Problem SNOMED Code Status Onset Date Resolution Date Notes Provider Name and Address Organization Details Recorded Time Bipolar disorder 76947334 Active 2020 Haley Alvarez MD [address], [place], [address], [place] [facility] 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 1 17:15:35 03619565 Active 2023 Kaylyn Desouza null, [facility] 4 17:31:17 Migraine 77037522 Active kristian White MD [address], [place], [address], [facility] 4 17:48:08 Problem Notes None recorded. Procedures Surgical History Date Name Laterality Status Provider Name and Address Organization Details Recorded Time 11/24/2020 Date of Last Pap Smear completed Zoila Crisostomo [facility] 07/23/2021 09:42:18 Imaging Results Imaging Date Name Status LastModified by Organiz [facility] Details LastModified Time 05/24/2024 US, obstetric, follow-up completed [email or web address] [place] [address], [place], [address], 05/24/2024 18:02:28 05/24/2024 US, obstetric, follow-up completed [email or web address] [address], [place], [address], 05/26/2024 12:00:04 07/08/2024 US, obstetric, follow-up completed [email or web address] [place] [address], [place], [address], 07/08/2024 17:19:07 07/08/2024 US, obstetric, follow-up completed [address], [place], [address], 07/08/2024 22:23:50 Procedure Notes None recorded. Medical Equipment None Reported. Allergies Allergen ID Allergen Name Allergen Category Reaction Reaction Severity Criticality Documentation Date Start Date Code Code System Note Provider Name and Address Organization Details Recorded Time 45364 latex environme nt,medica tion Not available Not available Not available 10/20/2020 46648 91 RxNorm Faye Metcalf shyam, [facility] 17:02:44 55273 Substance with sulfonami de structure and antibacte rial mechanism of action (substanc e) medicatio n Not available Not available Not available 10/20/2020 23514 8003 SNOMED Fayesudheer Metcalf shyam, [facility] 17:02:50 Medications Name Sig Start [...] Address Organization Details Last Updated DateTime 05/24/2024 78053.1165 4 g 115 mm[Hg] 76 mm[Hg] Kaylyn Desouza [facility] 05/24/2024 13:08:55 Date Recorded Body height Body mass index (BMI) Body weight Systolic blood pressure Diastolic blood pressure Provider Name and Address Organization Details Last Updated DateTime 06/12/2024 160.02 cm 26.2 kg/m2 22383.67 076 g 94 mm[Hg] 66 mm[Hg] [facility] 14:48:04 Date Recorded Body height Body mass index (BMI) Body weight Systolic blood pressure Diastolic blood pressure Provider Name and Address Organization Details Last Updated DateTime 06/24/2024 160.02 cm 26.9 kg/m2 42560.04 g 114 mm[Hg] 69 mm[Hg] [facility] 16:19:55 Date Recorded Body height Body mass index (BMI) Body weight Systolic blood pressure Diastolic blood pressure Provider Name and Address Organization Details Last Updated DateTime 07/08/2024 160.02 cm 27.8 kg/m2 25960 g 114 mm[Hg] 75 mm[Hg] [facility] 15:52:50 Social History Question Answer Notes LastModified by Organizat ion Details LastModified Time Tobacco Smoking Status Never Smoker [facility] 10/20/2020 17:02:06 What Is Your Level Of Alcohol Consumption? None Information not available 10/20/2020 Are You Blind Or Do You Have Difficulty Seeing? No Information n ot available 01/31/2024 What Is Your Level Of Caffeine Consumption? Moderate [email or web address] Information not available 03/20/2024 How Much Tobacco Do You Chew? None [email or web address] Information not available 01/31/2024 In The 14 Days Before Symptom Onset, Have You Had Close Contact With A Laboratory-confirm ed COVID-19 While That Case Was Ill? No [email or web address] Information n ot available 01/31/2024 In The 14 Days Before Symptom Onset, Have You Had Close Contact With A Person Who Is Under Investigation For COVID-19 While That Person Was Ill? No [email or web address] Information not available 01/31/2024 Have You Been To An Area Known To Be High Risk For COVID-19? No [email or web address] Information not available 01/31/2024 Are You Deaf Or Do You Have Serious Difficulty Hearing? No [email or web address] Information not available 01/31/2024 What Type Of Diet Are You Following? REGULAR [email or web address] Information n ot available 01/31/2024 What Is The Highest Grade Or Level Of School You Have Completed Or The Highest Degree You Have Received? 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 No [email or web address] Information not available 01/31/2024 Do You Use Protection During Sex? No [email or web address] Information not available 01/31/2024 Do You Use Your Seat Belt Or Car Seat Routinely? Yes Information not available 01/31/2024 Do You Have Smoke And Carbon Monoxide Detectors In Your Home? Yes [email or web address] Information not available 01/31/2024 How Much Tobacco Do You Smoke? No [email or web address] Information not available 01/31/2024 Do You Feel Stressed (tense, Restless, Nervous, Or Anxious, Or Unable To Sleep At Night)? [id number] Information not available 01/31/2024 Do You Use Any Illicit Or Recreational Drugs? No Information not available 10/20/2020 Do You Use Sunscreen Routinely? No [email or web address] Information not available 01/31/2024 Has Tobacco Cessation Counseling Been Provided? No Information not available 10/20/2020 Have You Used IV Drugs? No [email or web address] Information not available 01/31/2024 Do You Or Have You Ever Used Any Other Forms Of Tobacco Or Nicotine? No Information not available 10/20/2020 Sex: Unknown Functional Status Question Answer Note LastModified by Organization D etails LastModified Time Are you able to walk? YESWOREST [email or web address] Information not available 01/31/2024 What is your exercise level? Moderate [email or web address] Information not available 01/31/2024 Mental Status None [...] SNOMED-CT Code Diagnosis ICD10 Code Diagnosis Note [id number] Haley Alvarez MD [place] [address],[place] [address] 10/20/2020 16:53:51 10/21/2020 16:11:01 Pelvic floor tension 026169305 R29.898 29120 Haley Alvarez MD [place] [address],[place] [address] 11/24/2020 16:34:17 11/24/2020 17:09:48 Gynecologic examination 77564832 Z01.419 00834 Ric White MD [place] [address],[place] [address] 07/23/2021 09:15:46 07/23/2021 14:21:43 Menorrhagia 949768349 N92.0 Pain in pelvis 37721310 R10.2 I spent over 35 minutes with the patient. We discussed her symptoms in detail. We reviewed radiology reports. We discussed disease processes regarding pelvic pain, ovarian cyst, adenomyosi s. We discussed evaluation and possible treatments of menorrhagi a and pelvic pain. We will proceed with pelvic ultrasound and the patient will return to discuss treatment plan. [address] Janelle Stern [place] [address],[place] [address] 07/28/2021 09:42:58 07/28/2021 10:38:00 Pain in pelvis 97121326 R10.2 [id number] Haley Alvarez MD [place] [address],[place] [address] 03/22/2022 17:25:20 03/23/2022 12:05:46 Amenorrhea 83371584 N91.2 Nausea 880815862 R11.0 Stomach cramps 60291381 R10.9 Trying to conceive 18349 9001 Z31.9 091117 Anastasiia Miramontes [place] [address],[place] [address] 01/23/2024 14:58:52 01/23/2024 15:16:19 Urinary symptoms 555674127 R39.9 Acute urin ant tract infection 162641023 N39.0 610943 Valeria Frankel [place] [address],[place] [address] 01/31/2024 11:26:51 01/31/2024 11:51:43 [id number] DANIEL VALENCIA MD [place] [address],[place] [address] 01/31/2024 11:27:10 01/31/2024 15:32:00 Nausea and vomiting 92218921 R11.2 - will trial zofran PRN for nausea Migraine 34925509 G43.90 9 - hx of chronic migraines- has previously tried reglan, naproxen, sumatripta n, compazine, propranolo l, cyclobenza pine, zofran, toradol, exedrin migraines, dilaudid, ibuprofen, and norco with no improvemen t- will trial sumatripta n, tylenol and caffeine- will send neurology referral test positive 399362337 Z32.01 1. Exam today within normal limits.2. [...] desires at 10 weeks, orders given today. [id number] Dinorah Celestin [place] [address],[place] [address] 02/21/2024 16:33:48 02/21/2024 17:08:55 screening 053520323 Z36.82 Z3A.12 [id number] Ric White MD [place] [address],[place] [address] 02/21/2024 16:34:43 02/22/2024 00:38:42 Migraine 01986794 G43.909 Routine an tenatal care 616792786 Z34.90 [id number] Mayda SoumyaRadha Garibay CNM [place] [address],[place] [address] 03/20/2024 16:34:46 03/20/2024 17:12:20 Routine care 369945710 Z34.92 Gestation period, 16 weeks 07636374 Z3A.16 546073 Valeria Frankel [place] [address],[place] [address] 04/18/2024 16:26:44 04/18/2024 17:59:14 screening for malformation 646584894 Z36.3 Z3A.20 [id number] Ric White MD [place] [address],[place] [address] 04/18/2024 16:29:40 04/19/2024 10:14:41 Routine care 061237285 Z34.90 297792 DANIEL VALENCIA MD [place] [address],[place] [address] 05/17/2024 15:52:41 05/20/2024 18:25:26 Routine care 122799621 Z34.91 291549 [facility] [address],[place] [address] 05/24/2024 12:31:27 05/24/2024 13:18:24 Abdominal pain in 674962409 O99.891 O26.852 Z3A.25 148088 Ric White MD [place] [address],[place] [address] 05/24/2024 12:32:04 05/24/2024 13:33:54 Urinary symptoms 692095809 R39.9 Traumatic injury during 422303358 T14.90XA [id number] DANIEL VALENCIA MD [place] [address],[place] [address] 06/12/2024 14:31:43 06/13/2024 14:42:54 Routine care 800803287 Z34.91 525483 DANIEL VALENCIA MD [place] [address],[facility] [place] [address] 06/24/2024 16:15:04 06/26/2024 03:31:51 Candidiasis of vagina 65409503 B37.31 Routine an tenatal care 552612229 Z34.91 - continue PNV [id number] Valeria Frankel [place] [address],[place] [address] 07/08/2024 14:54:02 07/08/2024 15:52:50 Uterine size for dates discrepancy 144468128 O26.843 Z3A.31 [id number] DANIEL VALENCIA MD [place] [address],[place] [address] 07/08/2024 14:54:26 07/11/2024 09:36:05 Routine care 026079602 Z34.91 - continue [facility] Health Concerns Section Related Observation LastModified by Organization Detai ls LastModified Time None Recorded Concern Status LastModified by Organization Details LastModified Time None Recorded Advance Directives Directive None Recorded Payers Encounter Date Sequence Insurance Name Policy Number Policy Childs Covered Member ID Childs Member ID Guarantor Name 05/24/2024 1 [place] [id number] Jorje Cantu [id number] Jorje Cantu 06/12/2024 1 [place] [id number] Jorje Cantu [id number] Jorje Cantu 06/24/2024 1 [place] [id number] Jorje Cantu [id number] Jorje Cantu 07/08/2024 1 [place] [id number] Jorje Cantu [id number] Jorje Cantu 07/08/2024 1 [place] [id number] Jorje Cantu [id number] Jorje Cantu OBGyn Episode Ob Episode Information Episode Created Date Number of Fetuses Patient Bloodtype Patient rh Status Prepregnancy Weight lbs Domestic Partner Domestic Partner Phone Father Name State Farm Agent Status 10/21/19 21 1 CLOSED Fetus Data First Name Last Name Admitted to NICU Weight (g) Sex Living Outcome Pediatric Complications Fetus ID Race Codes Race Delivery Type 2919.77 [id number] M [id number] Vaginal Delivery Mark Calculation Initial Mark Date [...] Domestic Partner Domestic Partner Phone Father Name State Farm Agent Status 02/21/20 24 1 O Negative OPEN Fetus Data First Name Last Name Admitted to NICU Weight (g) Sex Living Outcome Pediatric Complications Fetus ID Race Codes Race Delivery Type [id number] Problems Problem Notes Problem Name Start Date End Date Resolution Snomed Code Not e Migraine 21689365 aura Mark Calculation Initial Mark Date Initial [...] Weight in lbs Pre/Post Dialysis Refused Weight 128.693127177421 BP Diastolic BP Location Tested BP Systolic [...] Type Weight in lbs Pre/Post Dialysis Refused 129.119423976072 BP Diastolic BP Location Tested BP Systolic [...] Type Weight in lbs Pre/Post Dialysis Refused 136.279770928410 BP Diastolic BP Location Tested BP Systolic [...] in lbs Pre/Post Dialysis Refused With clothes 142.445490982852 BP Diastolic BP Location Tested BP Systolic [...] Type Weight in lbs Pre/Post Dialysis Refused 142.755628121128 BP Diastolic BP Location Tested BP Systolic [...] Type Weight in lbs Pre/Post Dialysis Refused 148.362171861835 BP Diastolic BP Location Tested BP Systolic [...] Weight in lbs Pre/Post Dialysis Refused Weight 152.632210655407 BP Diastolic BP Location Tested BP Systolic [...] Weight in lbs Pre/Post Dialysis Refused Weight 157.151790398263 BP Diastolic BP Location Tested BP Systolic [...]
--- OUTSIDE RECORDS SUMMARY | 2024-07-16 17:54 | XMS_ITS | Continuity of Care Document ---
Author Organization [facility] Address [address] [place] [address] [place] [address] Phone Care Team Providers Care Medical Secretary Teacher Name Role Phone Alex Woods MD Unavailable [...] Providers Copied on Encounter OFFICE/OUTPA TIENT VISIT, [facility], [address], [place], [place], [address], [place] tel:[phone] [facility] sinusitis1 (chief complaint) Acute sinusitisHeadache Chuck Johnson. [address], [place], [place], [address] , [place]. tel:[phone] Referring Provider: Alex Woods, [address], [place], [place], [address]. tel:[phone] OFFICE/OUTPA TIENT VISIT, [facility], [address], [place], [place], [address], [place] tel:[phone] [facility] back pain1 (chief complaint) LumbagoSacroiliitis Chuck Johnson. [address], [place], [place], [address] , [place]. [phone] Referring Provider: Dedrick [address], [place], [place], [address]. tel:[phone] OFFICE/OUTPA TIENT VISIT, EST [facility], [address], [place], [place], [address], [place] tel:[phone] [facility] brast lump1 (chief complaint) back pain1 (chief complaint) tinea1 (chief complaint) SacroiliitisLump in breastTinea corporis Sep-2 7 Chuck Johnson. [address], [place], [place], [address] , [place]. [phone] Referring Provider: Dedrick Garcia [facility] [address], [place], [place], [address]. tel:[phone] PREV VISIT, NEW, AGE 18-39 [facility], [address], [place], [place], [address], [place] tel:[phone] [facility] PHysical (chief complaint) Encounter for general adult medical exam w abnormal findingsTinea corporisFamily history of malignant neoplasm of ovary 7 Chuck Johnson. [address], [place], [place], [address] , [place]. tel:[phone] Referring Provider: Dedrick Garcia [facility] [address], [place], [place], [address]. tel:[phone] Family History Family Member Type Diagnosis Age [...] Referral Ordered: US KIDNEY ordered Referral Ordered: [facility] (related to Sacroiliitis) ordered Referral Ordered: LUMBAR XRAY AP AND LAT ONLY ordered Referral Referred To: [facility] [address] [place] [address], [address] Ordered: Referrals: [facility]. Evaluate and treat ordered Referral Ordered: MAMMOGRAM, [...] Mental Status Date Cognitive Assessment Orientation - [place] ed to time, place, person, situation.
--- OUTSIDE RECORDS SUMMARY | 2024-07-16 17:54 | XMS_ITS | Encounter Summary ---
Author Organization [facility] Care Team Providers Care Airplane Electrician Name Role Phone Mohamud Reyse MD Primary Care Provider [phone] Hansa Schulte Primary Care Provider [phone] Mohamud Reyes MD Primary Care Provider [phone] Bruna Gamino NP Primary Care Provider [phone] Encounter Details Date Type Department Care Team (Latest Contact Info) Description 05/29/2018 Orders Only [facility]INCONV Provider, MD Corin [address] [place] [address] Social History Tobacco Use Types Packs/Day Years Used Date Smoking Tobacco: Never Assessed Comments Unknown Sex and Gender Information Value Date Recorded Sex Assigned at Not on file Legal Sex Female 12:50 AM NET SOFTWARE ARCHITECT Gender Identity Not on file Sexual Orientation Not on file documented as of this encounter Plan of Treatment Not on file documented as of this encounter Procedures Procedure Name Priority Date/Time Associated Diagnosis Comments SCAN - LABS 05/30/2018 12:00 AM NET SOFTWARE ARCHITECT documented in this encounter Results * SCAN - LABS (05/30/2018 12:00 AM NET SOFTWARE ARCHITECT) Narrative 05/30/2018 12:00 AM NET SOFTWARE ARCHITECT Ordered by an unspecified provider. Historical Provider Final Res ult documented in this encounter Visit Diagnoses Not on filedocumented in this encounter Additional Health Concerns Infection Onset Date Last Indicated Resolved Time COVID: Suspected 05/21/2021 05/21/2021 05/21/2021 6:55 PM NET SOFTWARE ARCHITECT COVID19 05/21/2021 05/21/2021 05/31/2021 3:05 AM NET SOFTWARE ARCHITECT COVID: Recovered Comment:Added based on recent COVID infection. 05/31/2021 08/01/2021 09/28/2021 3:07 AM C DT documented as of this encounter Care Teams Airplane Electrician Relationship Specialty Start Date End Date Mohamud Reyes MD PCP - General Family Medicine 07/27/18 11/22/20 Hansa Schulte PA PCP - General Senior Electrical Engineer 11/23/20 01/25/22 Mohamud Reyes MD PCP - General Family Medicine 01/26/22 02/03/22 Bruna Gamino NP PCP - General Internal Medicine 02/04/22 documented as of this encounter
--- OUTSIDE RECORDS SUMMARY | 2024-07-16 17:54 | XMS_ITS | Continuity of Care Document ---
Author Organization [facility] Address [address] [facility] [address] [place] [address] Phone Care Team Providers Care Slasher Machine Operator Name Role Phone Muehl MPT CMPT, Dilshad Unavailable Unavailable Procedures Procedure Date PT Evaluation Low Complexity Therapeutic Exercise Manual Therapy Advance Directives Directive Yes / No Effective Date File Name No Information Encounters Encounter Description Practice Location Reason(s) For Visit Diagnoses Date Provider Providers Copied on Encounter [facility] [address], [id number], tel:[phone] [place] No Information Feb-0 2201 7 Muehl Dilshad. [address] [facility], [address], [facility], [place]. tel:[phone] [facility], [address] [place] [address], [id number], tel:[phone] [place] Low back painThoracogenic scoliosis, thoracolumbar region Jan-2 6 7 Muehl Dilshad. [address] [facility], [facility] [address], [place], [address], [place]. tel:[phone] Referring Provider: Alex Woods, [address] [facility] [place], [address]. tel:[phone] Family History Family Member Type Diagnosis Age At Onset No Information Payers Payer name Insurance type Covered alliance party ID Authoriza tigregory(s) [facility] [id number] Social History Type Description Quantity Date Captured [...]
[2024-07-16 18:29] LABS: OBXCEM ROM Plus Negative (Negative)
== END 2024-07-16 17:40 ==
LOC: ANHOBPP 15:58
PROVIDERS: Admitting Provider Obstetrics & Gynecology; PCP Nurse Practitioner Family; Visit Provider Obstetrics & Gynecology
DX: O47.03 False labor before 37 completed weeks of gestation, third trimester (principal); Z3A.32 32 weeks gestation of pregnancy
CPT/HCPCS: 84112; G0378; G0379

== ENCOUNTER 2024-07-24 16:44 | Outpatient (RCR) | payer BC, SELFPAY ==
--- NOTE | ~2024-07-24 | US_ITS ---
EXAMINATION: US OB BPP wo non-stress DATE: 07/24/2024 18:57 CDT INDICATION: Decreased movement TECHNIQUE: Real-time transabdominal obstetric ultrasound. FINDINGS: 2 para 1 Estimated date of delivery is given as 09/04/2024. There is a single intrauterine gestation in vertex presentation. The placenta is posterior without placenta previa. cardiac activity and movement is noted with a heart rate of 140 beats per minute. The deepest vertical pocket measures 2.8 cm. Biophysical profile: breathin of 2 movement: 2 of 2 tone: 2 of 2 Amniotic fluid pocket: 2 of 2 Total score: 8 of 8 IMPRESSION: 1. Single intrauterine gestation in vertex presentation. 2: Total biophysical profile score of 8 out of 8. Reviewed, dictated and finalized at location A.
[2024-07-24 18:02] VITALS: BP 103/50; PULSE 86
== END 2024-09-10 18:01 | disposition home or self-care (01) ==
LOC: ANHOBOP 16:44
PROVIDERS: PCP Nurse Practitioner Family; Visit Provider Obstetrics & Gynecology
DX: O36.8130 Decreased fetal movements, third trimester, not applicable or unspecified (principal); Z3A.34 34 weeks gestation of pregnancy
CPT/HCPCS: 59025; 76819

== ENCOUNTER 2024-07-30 17:48 | Observation (INO) | payer BC, SELFPAY ==
[2024-07-30] VITALS (31 sets, daily range): BP systolic 108–127; BP diastolic 60–71; PULSE 77–102; TEMP 37.3; O2SAT 98–100; BMI 27.3
--- NOTE | 2024-07-30 18:41 | PC.NURSE ---
Called Dr. White, update on pt, abdominal pain, cramping, diarrhea, contractions, and stinging, burning, and vaginal pressure that has subsided. Orders received to administer 1000 ml LR bolus, up to three doses of terbutaline, and perform SVE.
[2024-07-30 18:42] LABS: Add Urine Microscopic? NO; Appearance Urine Clear (Clear); Bilirubin Urine Negative (Negative); Blood Urine Negative (Negative); Color Urine Yellow (Yellow); Glucose Urine UA Negative (Negative); Ketones Urine Trace mg/dL (Negative); Leukocyte Esterase Ur Negative LEU/UL (Negative); Nitrate Urine Negative (Negative); Protein Urine Negative (Negative); Specific Grav Ur 1.014 (1.001-1.035); pH Urine 6.5 (5.0-9.0)
--- OUTSIDE RECORDS SUMMARY | 2024-07-30 18:59 | XMS_ITS | Referral Summary ---
Author Organization [facility] [address] [facility] Address [address] [place] [address] Care Team Providers Care Choir Singer Name Role Phone Bruna Gamino WIRELINE OPERATOR Primary Care Provider [phone] Encounters Date Type Department Care Team Description 07/24/2024 Orders Only [facility] Information Management [address] [place] [address] Bruna Gamino NP from Last 3 Months Allergies Active Allergy Reactions Criticality Noted Date [...] the right wrist, will [facility] to [facility]. Will notify her of these results [...] the c spine, will fax order to [facility]. Will notify her of these results as they become available. De Quervain's disease (tenosynovitis) 11/11/2021 Assessment & Plan (11/11/2021 10:40 PM CDT): Her current symptoms seem most consistent with deeper veins tenosynovitis. Discussed the difference between a thumb spica and a cock-up splint. She will consider getting 1 off [employer]. Continue icing and anti-inflammatory. Avoid repetition which may be her video game. If she does not notice improvement in the next month or so can consider physical therapy versus referral to [facility]. COVID-19 05/27/2021 Assessment & Plan (05/27/2021 5:48 PM TRACK INSPECTOR): Patient has just started mdp, wanting [...] 12/22/2021 Assessment & Plan (05/21/2021 3:28 PM TRACK INSPECTOR): Will send patient to [place] for Covid-19 testing. 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 Not on file Not on file Not on file Last Filed Vital Signs Vital Sign Reading Time Taken Comments Blood Pressure 112/68 06/27/2023 2:40 PM TRACK INSPECTOR Pulse 65 06/27/2023 2:40 PM TRACK INSPECTOR Temperature 36.9 C (98.4 F) 06/27/2023 2:40 PM TRACK INSPECTOR Respiratory Rate 16 10/19/2018 11:42 AM CDT Oxygen Saturation 99% 06/27/2023 2:40 PM TRACK INSPECTOR Inhaled Oxygen Concentration - - Weight 59.6 kg (131 lb 8 oz) 06/27/2023 2:40 PM TRACK INSPECTOR Height 162.6 cm (5' 4 ) 06/27/2023 2:40 PM TRACK INSPECTOR Body Mass Index 22.57 06/27/2023 2:40 PM TRACK INSPECTOR Plan of Treatment Not on file Procedures Procedure Name Priority Date/Time Associated Diagnosis Comments SCAN - RADIOLOGY/IMAGING 07/24/2024 from Last 3 Months Results * SCAN - RADIOLOGY/IMAGING (07/24/2024) Anatomical Region Laterality Modality Other Bruna Gamino NP Final Result from Last 3 Months Insurance Alexis Bittar OOS Alexis [employer] OOS Care Teams Choir Singer Relationship Specialty Start Date End Date Bruna Gamino, FAVIOLA PCP - General Internal Medicine 02/04/22
--- OUTSIDE RECORDS SUMMARY | 2024-07-30 18:59 | XMS_ITS | Encounter Summary ---
Author Organization [facility] Facility Care Team Providers Care Civil Engineering Designer Name Role Phone Mohamud Reyes MD Primary Care Provider [phone] Hansa Schulte Primary Care Provider [phone] Mohamud Reyes MD Primary Care Provider [phone] Bruna Gamino NP Primary Care Provider [phone] Encounter Details Date Type Department Care Team (Latest Contact Info) Description 05/29/2018 Orders Only [facility] Provider, MD Corin [address] [place] [address] Social History Tobacco Use Types Packs/Day Years Used Date Smoking Tobacco: Never Assessed Comments Unknown Sex and Gender Information Value Date Recorded Sex Assigned at Not on file Legal Sex Female 12:50 AM VEGETABLE FARM WORKER Gender Identity Not on file Sexual Orientation Not on file documented as of this encounter Plan of Treatment Not on file documented as of this encounter Procedures Procedure Name Priority Date/Time Associated Diagnosis Comments SCAN - LABS 05/30/2018 12:00 AM VEGETABLE FARM WORKER documented in this encounter Results * SCAN - LABS (05/30/2018 12:00 AM VEGETABLE FARM WORKER) Narrative 05/30/2018 12:00 AM VEGETABLE FARM WORKER Ordered by an unspecified provider. Historical Provider Final Res ult documented in this encounter Visit Diagnoses Not on filedocumented in this encounter Additional Health Concerns Infection Onset Date Last Indicated Resolved Time COVID: Suspected 05/21/2021 05/21/2021 05/21/2021 6:55 PM VEGETABLE FARM WORKER COVID19 05/21/2021 05/21/2021 05/31/2021 3:05 AM VEGETABLE FARM WORKER COVID: Recovered Comment:Added based on recent COVID infection. 05/31/2021 08/01/2021 09/28/2021 3:07 AM C DT documented as of this encounter Care Teams Civil Engineering Designer Relationship Specialty Start Date End Date Mohamud Reyes MD PCP - General Family Medicine 07/27/18 11/22/20 Hansa Schulte PA PCP - General Oracle Developer 11/23/20 01/25/22 Mohamud Reyes MD PCP - General Family Medicine 01/26/22 02/03/22 Bruna Gamino NP PCP - General Internal Medicine 02/04/22 documented as of this encounter
--- OUTSIDE RECORDS SUMMARY | 2024-07-30 18:59 | XMS_ITS | Clinical Summary ---
Author Organization [facility] [address] [facility] Address [address] [place] [address] Care Team Providers Care Lithographic Stripper Name Role Phone Bruna Gamino NP Primary Care Provider [phone] Allergies Active Allergy Reactions Criticality Noted Date [...] the right wrist, will fax order to [facility]. Will notify her of these [...] the c spine, will fax order to [facility]. Will notify her of these results as they become available. De Quervain's disease (tenosynovitis) 11/11/2021 Assessment & Plan (11/11/2021 10:40 PM CDT): Her current symptoms seem most consistent with deeper veins tenosynovitis. Discussed the difference between a thumb spica and a cock-up splint. She will consider getting 1 off [employer]. Continue icing and anti-inflammatory. Avoid repetition which may be her video game. If she does not notice improvement in the next month or so can consider physical therapy versus referral to [facility]. COVID-19 05/27/2021 Assessment & Plan (05/27/2021 5:48 PM DANCE PROFESSOR): Patient has just started mdp, wanting to [...] 12/22/2021 Assessment & Plan (05/21/2021 3:28 PM DANCE PROFESSOR): Will send patient to [place] for Covid-19 testing. The patient was advised [...] healthy range. Continue healthy lifestyle to maintain. Encounters Date Type Department Care Team Description 07/24/2024 Orders Only [facility] Health Information Management [address] [place] [address] Bruna Gamino NP from Last 3 Months Immunizations Immunization Administration Dates Next Due Influenza, [...] on file Legal Sex Female 12:50 AM DANCE PROFESSOR Gender Identity Not on file Sexual Orientation [...] Comments Blood Pressure 112/68 06/27/2023 2:40 PM DANCE PROFESSOR Pulse 65 06/27/2023 2:40 PM DANCE PROFESSOR Temperature 36.9 C (98.4 F) 06/27/2023 2:40 PM DANCE PROFESSOR Respiratory Rate 16 10/19/2018 11:42 AM CDT Oxygen Saturation 99% 06/27/2023 2:40 PM DANCE PROFESSOR Inhaled Oxygen Concentration - - Weight 59.6 kg (131 lb 8 oz) 06/27/2023 2:40 PM DANCE PROFESSOR Height 162.6 cm (5' 4 ) 06/27/2023 2:40 PM DANCE PROFESSOR Body Mass Index 22.57 06/27/2023 2:40 PM DANCE PROFESSOR Plan of Treatment Health Maintenance Due Date [...] on patient's age to complete this topic Procedures Procedure Name Priority Date/Time Associated Diagnosis Comments SCAN - RADIOLOGY/IMAGING 07/24/2024 from Last 3 Months Results * SCAN - RADIOLOGY/IMAGING (07/24/2024) Anatomical Region Laterality Modality Other Bruna Gamino NP Final Result from Last 3 Months Insurance [employer] OOS BLUE ACCESS OOS Care Teams Lithographic Stripper Relationship Specialty Start Date End Date Bruna Gamino NP PCP - General Internal Medicine 02/04/22
--- OUTSIDE RECORDS SUMMARY | 2024-07-30 18:59 | XMS_ITS | Encounter Summary ---
Author Organization [facility] Address [address] [place] [address] Care Team Providers Care Tin Flipper Name Role Phone Bruna Gamino FARMWORKER CRANBERRY Primary Care Provider [phone] Encounter Details Date Type Department Care Team (Late st Contact Info) Description 01/04/2024 Telephone [facility] Internal Medicine at [place] [address] [place] [address] Bruna Gamino, FARMWORKER CRANBERRY [address] [place] [address] Social History Tobacco Use Types [...] on file Legal Sex Female 12:50 AM VB NET DEVELOPER Gender Identity Not on file Sexual Orientation Not on file Occupation Industry Job Start Date Job End 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
--- OUTSIDE RECORDS SUMMARY | 2024-07-30 19:00 | XMS_ITS | Continuity of Care Document ---
Author Organization [facility] Address [address] [address] [place] [address] Phone Care Team Providers Care Outsole Tacker Name Role Phone Alex Woods MD Unavailable [...] Providers Copied on Encounter OFFICE/OUTPA TIENT VISIT, [facility], [address], [place], [place], [id number], [place] tel:[phone] [facility] sinusitis1 (chief complaint) Acute sinusitisHeadache Chuck Johnson. [address], [place], [place], [id number] , [place]. tel:[phone] Referring Provider: Alex Woods, [address], [place], [place], [id number]. tel:[phone] OFFICE/OUTPA TIENT VISIT, [facility], [address], [place], [place], [id number], [place] tel:[phone] [facility] back pain1 (chief complaint) LumbagoSacroiliitis Chuck Johnson. [address], [place], [place], [id number] , [place]. [phone] Referring Provider: Dedrick Garcia [address], [place], [place], [id number]. tel:[phone] OFFICE/OUTPA TIENT VISIT, EST [facility], [address], [place], [place], [id number], [place] tel:[phone] [facility] brast lump1 (chief complaint) back pain1 (chief complaint) tinea1 (chief complaint) SacroiliitisLump in breastTinea corporis Sep-2 7 Chuck Johnson. [address], [place], [place], [id number] , [place]. [phone] Referring Provider: Dedrick Garcia [facility] [address], [place], [place], [id number]. tel:[phone] PREV VISIT, NEW, AGE 18-39 [facility], [address], [place], [place], [id number], [place] tel:[phone] [facility] PHysical (chief complaint) Encounter for general adult medical exam w abnormal findingsTinea corporisFamily history of malignant neoplasm of ovary 7 Chuck Johnson. [address], [place], [place], [id number] , [place]. tel:[phone] Referring Provider: Dedrick Garcia [facility] [address], [place], [place], [id number]. tel:[phone] Family History Family Member Type Diagnosis Age At Onset Father Problem (finding) Unknown Mother Problem (finding) ovarian CA at age 24 Brother Problem (finding) Alive and well Payers Payer name Insurance type Covered alliance party ID Authoriza tion(s) No Information Social [...] Referral Ordered: [place] [facility] ordered Referral Ordered: [email or web address] (related to Sacroiliitis) ordered Referral Ordered: LUMBAR XRAY AP AND LAT ONLY ordered Referral Referred To: [email or web address] [address] [place] [address], [address] Ordered: Referrals: [email or web address]. Evaluate and treat ordered Referral Ordered: MAMMOGRAM, [...] Mental Status Date Cognitive Assessment Orientation - [place] ed to time, place, person, situation.
--- OUTSIDE RECORDS SUMMARY | 2024-07-30 19:00 | XMS_ITS | Data Portability ---
Author Organization [facility] Address [address] [place] [address] [place] [address] Care Team Providers Care Carbonizer Name Role Phone JUANCHO MICAH Primary Care Provider [phone] Assessment No assessment recorded. Plan of Treatment Reminders Order Date Submit Date Provider Last Modified By Organization Details Last Modified Time Details Appointments OB ROUTINE 2024 04:15P Nicola VALENCIA MD Not available Not available Not available INDUCTION 2024 12:00A Nicola VALENCIA MD Not available Not available Not available Lab None recorded. Referral None recorded. Procedures None recorded. Surgeries None recorded. Imaging US, obstetric , follow-up 2024 025 [email or web address] [facility] [address], [place], [address], 07/08/2024 22:39:45 Medication Orders fluconazo le 150 mg tablet 2024 025 [id number], [address], [place], [place], [id number], 06/24/2024 16:41:14 Patient TargetsNo targets recorded. Patient [...] Final resul t Abnor mal: Yes Gladys cassijenae Lab: [facility] [address] [facility] [address] Tel: CULTU RE ----- ----- ----- --- [...] lab withi n 5 days. Not Available [facility] (Lab) [address], [place], [address], 05/26/2024 00:07:53 05/24/19 25 05/24/2024 urina lysis , dipst ick Leukocytes + [facility] [address], [place], [address], 05/24/2024 13:09:23 05/24/19 25 05/24/2024 urina lysis , dipst ick Protein trace Not Available [facility] [address], [place], [address], 05/24/2024 13:09:23 05/24/19 25 05/24/2024 urina lysis , dipst ick pH 8 Not Available [facility] [address], [place], [address], 05/24/2024 13:09:23 05/24/19 25 05/24/2024 urina lysis , dipst ick Blood ++ Not Available [facility] [address], [place], [address], 05/24/2024 13:09:23 05/24/19 25 05/24/2024 urina lysis , dipst ick Specific [place] 1.005 Not Available [facility] serafin [address], [place], [address], 05/24/2024 13:09:23 05/24/19 25 05/24/2024 urina lysis , dipst ick Ketone + Not Available [facility] [address], [place], [address], 05/24/2024 13:09:23 05/24/19 25 05/24/2024 urina lysis , dipst ick Appearance cloudy Not Available [facility] [address], [place], [address], 05/24/2024 13:09:23 05/24/19 25 05/24/2024 urina lysis , dipst ick Color yellow Not Available [facility] [address], [place], [address], 05/24/2024 13:09:23 06/12/19 25 06/12/2024 HEMAT OCRIT (HCT) HCT 35.1 % (based on docume nted legal sex) 34.0-4 5.0 Not Available [facility] (Lab) [address], [place], [address], 06/13/2024 12:57:36 06/12/19 25 06/12/2024 HEMOG LOBIN (HGB) HGB 11.9 g/dL (based on docume nted legal sex) 11.6-1 5.4 Not Available [facility] (Lab) [address], [place], [address], 06/13/2024 12:57:36 06/12/19 25 06/12/2024 HIV 1/2 ANTIG EN/AN TIBOD Y, REFLE X CONFI RMATI ON HIV antigen/anti body Nonrea ctive nonrea ctive HIV-1 antig en and HIV-1 /HIV- 2 antib odies were not detec john. No labor atory evide nce of HIV infec tion. Not Available [facility] (Lab) [address] [facility], [place], [address], 06/13/2024 12:57:37 06/12/19 25 06/12/2024 GTT - GESTA GIULIANA L SCREE N, ACOG OB glucose, 1 hour screen 147 mg/dL 70-135 high Not Available [facility] (Lab) [address] [facility], [place], [address], 06/13/2024 12:57:37 06/12/19 25 06/12/2024 RPR SCREE N, REFLE X TITER /CONF IRMAT ION RPR screen Nonrea ctive nonrea ctive Not Available [facility] (Lab) [address] [facility], [place], [address], 06/13/2024 12:57:38 06/18/19 25 06/18/2024 GTT - GESTA GIULIANA L, 3 HOUR, ACOG glucose, fasting acog 65 mg/dL 70-94 low Not Available [facility] (Lab) [address] [place], [address], 06/19/2024 05:00:08 06/18/19 25 06/18/2024 GTT - GESTA GIULIANA L, 3 HOUR, ACOG glucose, 1 hour acog 70 mg/dL 70-179 Not Available [facility] (Lab) [address] [place], [address], 06/19/2024 05:00:08 06/18/19 25 06/18/2024 GTT - GESTA GIULIANA L, 3 HOUR, ACOG glucose, 2 hour acog 79 mg/dL 70-154 Not Available [facility] (Lab) [address] [place], [address], 06/19/2024 05:00:08 06/18/19 25 06/18/2024 GTT - GESTA GIULIANA L, 3 HOUR, ACOG glucose, 3 hour acog 44 mg/dL 70-139 critical low M-Res ult verif ied by rosie elias rosi sis Not Available [facility] (Lab) [address] [facility], [place], [address], 06/19/2024 05:00:08 05/24/19 25 05/24/2024 US, obste tric, follo w-up No observ ation record ed. [facility] [address], [place], [address], 05/24/2024 18:02:28 05/24/19 25 05/24/2024 US, obste tric, follo w-up No observ ation record ed. [email or web address], [place], [address], 05/26/2024 12:00:04 07/09/19 25 07/08/2024 US, obste tric, follo w-up No observ ation record ed. [email or web address] [facility] [address], [place], [address], 07/08/2024 17:19:07 07/09/19 25 07/08/2024 US, obste tric, follo w-up No observ ation record ed. [email or web address] [address], [place], [address], 07/08/2024 22:23:50 07/25/19 25 07/24/2024 imagi ng/di agnos tic resul t No observ ation record ed. [address] [facility], [place], [address], 07/26/2024 18:13:59 07/25/19 25 07/24/2024 imagi ng/di agnos tic resul t No observ ation record ed. [facility] [address], [place], [address], 07/26/2024 20:08:10 Result Notes None recorded. Problems Name Problem SNOMED Code Status Onset Date Resolution Date Notes Provider Name and Address Organization Details Recorded Time Bipolar disorder 75654650 Active 2020 Haley Alvarez MD [address], [place], [address], [facility] 1 17:15:10 Uterine adenomyos is 196861224 Active 2020 suspected on US at Haley Alvarez MD [address], [place], [address], [facility] 1 17:15:35 50800045 Active 2023 Kaylyn Desouza [facility], [facility] 4 17:31:17 Migraine 44603065 Active kristian White MD [address], [place], [address], [facility] 4 17:48:08 Problem Notes None recorded. Procedures Surgical History Date Name Laterality Status Provider Name and Address Organization Details Recorded Time 11/24/2020 Date of Last Pap Smear completed Zoila Crisostomo [facility] 07/23/2021 09:42:18 Imaging Results Imaging Date Name Status LastModified by Organiz ation Details LastModified Time 05/24/2024 US, obstetric, follow-up completed [email or web address] [facility] [address], [place], [address], 05/24/2024 18:02:28 05/24/2024 US, obstetric, follow-up completed [email or web address], [place], [address], 05/26/2024 12:00:04 07/08/2024 US, obstetric, follow-up completed [email or web address] [place] [address] [address], [place], [address], 07/08/2024 17:19:07 07/08/2024 US, obstetric, follow-up completed [email or web address], [place], [address], 07/08/2024 22:23:50 07/24/2024 imaging/diag nostic result completed [place] [address], [place], [address], 07/26/2024 18:13:59 07/24/2024 imaging/diag nostic result active [facility] [address] [facility] [address], [place], [address], 07/26/2024 20:08:10 Procedure Notes None recorded. Medical Equipment None Reported. Allergies Allergen ID Allergen Name Allergen Category Reaction Reaction Severity Criticality Documentation Date Start Date Code Code System Note Provider Name and Address Organization Details Recorded Time 42107 latex environme nt,medica tion Not available Not available Not available 10/20/2020 60449 91 RxNorm Faye howe, [facility] 17:02:44 04401 Substance with sulfonami de structure and antibacte rial mechanism of action (substanc e) medicatio n Not available Not available Not available 10/20/2020 85351 8003 [facility]ED [facility] 17:02:50 Medications Name Sig Start Date [...] Available amoxicillin 400 mg/5 mL oral suspension 07/24 completed Not Available Not Available Not Available [...] Updated DateTime 06/12/2024 160.02 cm 26.2 kg/m2 43502.67 076 g 94 mm[Hg] 66 mm[Hg] [facility] 14:48:04 Date Recorded Body height Body mass index (BMI) Body weight Systolic blood pressure Diastolic blood pressure Provider Name and Address Organization Details Last Updated DateTime 06/24/2024 160.02 cm 26.9 kg/m2 53019.04 g 114 mm[Hg] 69 mm[Hg] [facility] 16:19:55 Date Recorded Body height Body mass index (BMI) Body weight Systolic blood pressure Diastolic blood pressure Provider Name and Address Organization Details Last Updated DateTime 07/08/2024 160.02 cm 27.8 kg/m2 79127 g 114 mm[Hg] 75 mm[Hg] [facility] 15:52:50 Date Recorded Body height Body mass index (BMI) Body weight Systolic blood pressure Diastolic blood pressure Provider Name and Address Organization Details Last Updated DateTime 07/24/2024 160.02 cm 28 kg/m2 15111.59 g 106 mm[Hg] 66 mm[Hg] [facility] 16:40:03 Social History Question Answer Notes LastModified by Organizat ion Details LastModified Time Tobacco Smoking Status Never [facility]oker [facility] 10/20/2020 17:02:06 What Is Your Level Of Alcohol Consumption? None Information not available 10/20/2020 Are You Blind Or Do You Have Difficulty Seeing? No [email or web address] Information n ot available 01/31/2024 What Is Your Level Of Caffeine Consumption? Moderate Information not available 03/20/2024 How Much Tobacco Do You Chew? None [email or web address] Information not available 01/31/2024 In The 14 Days Before Symptom Onset, Have You Had Close Contact With A Laboratory-confirm ed COVID-19 While That Case Was Ill? No [email or web address] Information n ot available 01/31/2024 In The 14 Days Before Symptom Onset, Have You Had Close Contact With A Person Who Is Under Investigation For COVID-19 While That Person Was Ill? No [email or web address] Information not available 01/31/2024 Have You Been To An Area Known To Be High Risk For COVID-19? No [email or web address] Information not available 01/31/2024 Are You Deaf Or Do You Have Serious Difficulty Hearing? No [email or web address] Information not available 01/31/2024 What Type Of Diet Are You Following? REGULAR [email or web address] Information n ot available 01/31/2024 What Is The Highest Grade Or Level Of School You Have Completed Or The Highest Degree You Have Received? 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 No [email or web address] Information not available 01/31/2024 Do You Use Protection During Sex? No [email or web address] Information not available 01/31/2024 Do You Use Your Seat Belt Or Car Seat Routinely? Yes [email or web address] Information not available 01/31/2024 Do You Have Smoke And Carbon Monoxide Detectors In Your Home? Yes [email or web address] Information not available 01/31/2024 How Much Tobacco Do You Smoke? No Information not available 01/31/2024 Do You Feel Stressed (tense, Restless, Nervous, Or Anxious, Or Unable To Sleep At Night)? XL2623-7 Information not available 01/31/2024 Do You Use Any Illicit Or Recreational Drugs? No Information not available 10/20/2020 Do You Use Sunscreen Routinely? No [email or web address] Information not available 01/31/2024 Has Tobacco Cessation Counseling Been Provided? No Information not available 10/20/2020 Have You Used IV Drugs? No [email or web address] Information not available 01/31/2024 Do You Or Have You Ever Used Any Other Forms Of Tobacco Or Nicotine? No Information not available 10/20/2020 Sex: Unknown Functional Status Question Answer Note LastModified by Organization D etails LastModified Time Are you able to walk? [email or web address] Information not available 01/31/2024 What is your exercise level? Moderate [email or web address] Information not available 01/31/2024 Mental Status None recorded. Family History Relationship Description Onset Age of this Age Resolved Age Notes LastModified by Organization Details LastModified Time Mother Asthma [email or web address] Not available 17:11:46 Mother Carcinoma of uterine cervix, invasive [email or web address] Not available 07/06 16:22:51 Mother Blood coagulation disorder [email or web address] Not available 2020 17:12:05 Mother Hypertensive disorder [email or web address] Not available 2020 17:12:33 Mother Cyst of ovary [email or web address] Not available 07/06 16:22:51 Mother Seizure disorder [email or web address] Not available 07/06 16:22:51 Maternal Grandfather Heart disease [email or web address] Not available 2020 17:12:17 Sister Diabetes mellitus [email or web address] Not available 2020 17:12:24 Sister Primary infertility [email or web address] Not available 16:22:51 Sister Uterine prolapse [email or web address] Not available 07/06 16:22:51 Sister Seizure disorder [email or web address] Not available 07/06 16:22:51 Medical History Condition Response Allergies (Food, seasonal, environmental ) N Other N Drug/Latex Allergies/Reactions Y Breast Cancer N Blood Transfusion N Lung Disease N Dermatologic Disorders N Defects or Inherited Disease N Breast Problem N Gestational Diabetes N Hematologic disorders N Anesthesia Complications N History of STI N Deep Vein Thrombosis N Polycystic ovary syndrome N Anxiety Disorder N Autoimmune disease N Arthritis N Polyps N Infertility N History of abnormal pap N Acid Reflux (GERD) N Cancer N Varicosities N Stroke N Neurologic/Epilepsy N Endometriosis N High Cholesterol N Headaches Y Fibromyalgia N Kidney Disease N Heart Problems N Thyroid Problems N Kidney or Bladder Problems N GI Problems N Eating Disorder [...] SNOMED-CT Code Diagnosis ICD10 Code Diagnosis Note [id number] Haley Alvarez MD [facility] [address] [address] 10/20/2020 16:53:51 10/21/2020 16:11:01 Pelvic floor tension 958104019 R29.898 30980 Haley Alvarez MD [facility] [address] [address] 11/24/2020 16:34:17 11/24/2020 17:09:48 Gynecologic examination 01216055 Z01.419 53736 Ric White MD [facility] [address] [address] 07/23/2021 09:15:46 07/23/2021 14:21:43 Menorrhagia 747139861 N92.0 Pain in pelvis 33444783 R10.2 I spent over 35 minutes with the patient. We discussed her symptoms in detail. We reviewed radiology reports. We discussed disease processes regarding pelvic pain, ovarian cyst, adenomyosi s. We discussed evaluation and possible treatments of menorrhagi a and pelvic pain. We will proceed with pelvic ultrasound and the patient will return to discuss treatment plan. [address] Janelle Stern [facility] [address],[place] [address] 07/28/2021 09:42:58 07/28/2021 10:38:00 Pain in pelvis 31731831 R10.2 [id number] Haley Alvarez MD [facility] [address],[place] [address] 03/22/2022 17:25:20 03/23/2022 12:05:46 Amenorrhea 49600666 N91.2 Nausea 134362119 R11.0 Stomach cramps 78879294 R10.9 Trying to conceive 31225 9001 Z31.9 423447 Anastasiia Miramontes [facility] [address],[place] [address] 01/23/2024 14:58:52 01/23/2024 15:16:19 Urinary symptoms 722029611 R39.9 Acute urin ant tract infection 426090510 N39.0 164205 Valeria Frankel [facility] [address],[place] [address] 01/31/2024 11:26:51 01/31/2024 11:51:43 [id number] DANIEL VALENCIA MD [facility] [address],[place] [address] 01/31/2024 11:27:10 01/31/2024 15:32:00 Nausea and vomiting 70523257 R11.2 - will trial zofran PRN for nausea Migraine 99561986 G43.90 9 - hx of chronic migraines- has previously tried reglan, naproxen, sumatripta n, compazine, propranolo l, cyclobenza pine, zofran, toradol, exedrin migraines, dilaudid, ibuprofen, and norco with no improvemen t- will trial sumatripta n, tylenol and caffeine- will send neurology referral test positive 618984513 Z32.01 1. Exam today within normal limits.2. Ultrasound today confirms GA and viability. EDC 4/30/253. GC/Clamydi a testing done: will f/u as indicated. 4. ACOG guidelines and plan of care for reviewed with patient. All questions answered.5 . Return to office at 12 weeks for new OB visit6. Will need new OB labs at time of NIPT7. Genetic screening: desires at 10 weeks, orders given today. [id number] [facility] [address],[place] [address] 02/21/2024 16:33:48 02/21/2024 17:08:55 screening 685685175 Z36.82 Z3A.12 [id number] Ric White MD [facility] [address],[place] [address] 02/21/2024 16:34:43 02/22/2024 00:38:42 Migraine 95523536 G43.909 Routine an tenatal care 614482624 Z34.90 [id number] Mayda Garibay [facility] [address],[place] [address] 03/20/2024 16:34:46 03/20/2024 17:12:20 Routine care 776870343 Z34.92 Gestation period, 16 weeks 99266741 Z3A.16 [id number] Valeria [facility] [address],[place] [address] 04/18/2024 16:26:44 04/18/2024 17:59:14 screening for malformation 374303975 Z36.3 Z3A.20 [id number] Ric White MD [facility] [address],[place] [address] 04/18/2024 16:29:40 04/19/2024 10:14:41 Routine care 630654422 Z34.90 [id number] DANIEL VALENCIA MD [facility] [address],[place] [address] 05/17/2024 15:52:41 05/20/2024 18:25:26 Routine care 412097924 Z34.91 [id number] Dinorah [facility] [address],[place] [address] 05/24/2024 12:31:27 05/24/2024 13:18:24 Abdominal pain in 227123737 O99.891 O26.852 Z3A.25 [id number] Ric White MD [facility] [address],[place] [address] 05/24/2024 12:32:04 05/24/2024 13:33:54 Urinary symptoms 597451163 R39.9 Traumatic injury during 901505361 T14.90XA [id number] DANIEL VALENCIA MD [facility] [address],[place] [address] 06/12/2024 14:31:43 06/13/2024 14:42:54 Routine care 045971904 Z34.91 [id number] DANIEL VALENCIA MD [facility] [address],[place] [address] 06/24/2024 16:15:04 06/26/2024 03:31:51 Candidiasis of vagina 75503340 B37.31 Routine an tenatal care 978569122 Z34.91 - continue PNV [id number] Valeria [facility] [address],[place] [address] 07/08/2024 14:54:02 07/08/2024 15:52:50 Uterine size for dates discrepancy 419276407 O26.843 Z3A.31 [id number] DANIEL VALENCIA MD [facility] [address],[place] [address] 07/08/2024 14:54:26 07/11/2024 09:36:05 Routine care 455616543 Z34.91 - continue PNV [id number] DANIEL VALENCIA MD [facility] [address],[place] [address] 07/24/2024 16:22:43 07/24/2024 17:48:09 Uterine contractions present 582549089 O80 Gestation period, 34 weeks 41000998 Z3A.34 Health Concerns Section Related Observation LastModified by Organization Detai ls LastModified Time None Recorded Concern Status LastModified by Organization Details LastModified Time None Recorded Advance Directives Directive None Recorded Payers Encounter Date Sequence Insurance Name Policy Number Policy Childs Covered Member ID Childs Member ID Guarantor Name 06/12/2024 1 [place] [id number] Jorje Cantu [id number] Jorje Cantu 06/24/2024 1 [place] [id number] Jorje Cantu [id number] Jorje Morilloams 07/08/2024 1 [place] [id number] Jorje Cantu [id number] Jorje Morilloams 07/08/2024 1 [place] [id number] Jorje Morilloams [id number] Jorje Cantu 07/24/2024 1 [place] [id number] Jorje Cantu [id number] Jroje Cantu OBGyn Episode Ob Episode Information Episode Created Date Number of Fetuses Patient Bloodtype Patient rh Status Prepregnancy Weight lbs Domestic Partner Domestic Partner Phone Father Name Rope Maker Status 10/21/19 21 1 CLOSED Fetus Data First Name Last Name Admitted to NICU Weight (g) Sex Living Outcome Pediatric Complications Fetus ID Race Codes Race Delivery Type 2919.77 1704 M [id number] Vaginal Delivery Mark Calculation Initial Mark Date [...] Domestic Partner Domestic Partner Phone Father Name Rope Maker Status 02/21/20 24 1 O Negative OPEN Fetus Data First Name Last Name Admitted to NICU Weight (g) Sex Living Outcome Pediatric Complications Fetus ID Race Codes Race Delivery Type [id number] Problems Problem Notes Problem Name Start Date End Date Resolution Snomed Code Not e Migraine 46747473 aura Mark Calculation Initial Mark Date Initial [...] Weight in lbs Pre/Post Dialysis Refused Weight 128.775623604539 BP Diastolic BP Location Tested BP Systolic [...] Type Weight in lbs Pre/Post Dialysis Refused 129.594445611584 BP Diastolic BP Location Tested BP Systolic [...] Type Weight in lbs Pre/Post Dialysis Refused 136.540475232443 BP Diastolic BP Location Tested BP Systolic [...] in lbs Pre/Post Dialysis Refused With clothes 142.573502771060 BP Diastolic BP Location Tested BP Systolic [...] Type Weight in lbs Pre/Post Dialysis Refused 142.764282298184 BP Diastolic BP Location Tested BP Systolic [...] Type Weight in lbs Pre/Post Dialysis Refused 148.921149181282 BP Diastolic BP Location Tested BP Systolic [...] Weight in lbs Pre/Post Dialysis Refused Weight 152.204170889691 BP Diastolic BP Location Tested BP Systolic [...] Weight in lbs Pre/Post Dialysis Refused Weight 157.033689970007 BP Diastolic BP Location Tested BP Systolic BP Type 75 L arm 114 sitting Fetus Heart Rate Present A Present Fetus Movement A Yes Comments Patient c/o of slight nausea , headaches, and swelling in legs. Some BH contractions. Losing mucous plug. Baby active. EFW 56%, normal UMBERTO. Would like EIL 09/04 at 0001. Discussed preadmission. RTC 2 weeks. Flowsheet Date 07/24/2024 Bojorquez Score Blood Edema Fundus Height Fundus Units Glucose Ketones Leukocytes Nitrite Labor Signs Protein Cervic Dilation Cervic Effacement Cervic Station neg trace 1cm 50% -3 Type Weight in lbs Pre/Post Dialysis Refused Weight 158.907425059693 BP Diastolic BP Location Tested BP Systolic BP Type 66 L arm 106 sitting Fetus Heart Rate Present A 135 Fetus Movement A Yes Comments Patient states has been havi ng consistent, painful contractions, slight nausea, swelling in legs. Has had a headache for the past few days. Also reports decreased movement. SVE 1cm and thick, will send to L&D for NST/BPP for DFM. RTC 2 weeks. Menstrual History Last Menstrual [...]
--- OUTSIDE RECORDS SUMMARY | 2024-07-30 19:00 | XMS_ITS | Continuity of Care Document ---
Author Organization [facility] Address [address] [facility] [address] [place] [address] Phone Care Team Providers Care Financial Sales Representative Name Role Phone Muehl MPT CMPT, Dilshad Unavailable Unavailable Procedures Procedure Date PT Evaluation Low Complexity Therapeutic Exercise Manual Therapy Advance Directives Directive Yes / No Effective Date File Name No Information Encounters Encounter Description Practice Location Reason(s) For Visit Diagnoses Date Provider Providers Copied on Encounter [facility] [address], [id number], tel:[phone] [place] No Information Feb-0 2201 7 Muehl Dilshad. [address] [facility], [address], [facility], [place]. tel:[phone] [facility], [address] [place] [address], [id number], tel:[phone] [place] Low back painThoracogenic scoliosis, thoracolumbar region Jan-2 6 7 Muehl Dilshad. [address] [facility], [facility] [address], [address], [place]. tel:[phone] Referring Provider: Alex Woods, [address] [facility] [place], [address]. tel:[phone] Family History Family Member Type Diagnosis Age At Onset No Information Payers Payer name Insurance type Covered green party ID Authoriza tigregory(s) [facility] [id number] Social History Type Description Quantity Date Captured [...]
[2024-07-30] MEDS: LACTATED RINGERS 1,000 ML 999 ML IV CONT (19:10)
[2024-07-30] MEDS: TERBUTALINE SULFATE 1 MG/ML VIAL 0.25 MG SUB-Q (19:15)
--- NOTE | 2024-07-30 20:15 | PC.NURSE ---
Called Dr. White, update on pt, cervical exam, 1000 ml LR bolus, one dose of terbutaline, urinalysis, and three contractions the last hour. Orders received to discharge pt with instructions to keep next scheduled appointment and when to return to the unit.
--- NOTE | 2024-07-30 20:36 | PC.NURSE ---
Pt discharged with instructions to keep next scheduled appointment and when to return to the unit, pt verbalizes understanding.
--- NOTE | 2024-08-25 08:36 | P.PNOB_ITS ---
OB - Triage/Final Diagnosis Visit Information Comments/Additional reasons for admission: I have assessed the risk for this patient, Shayna Cantu, and determined that she would benefit from observation care. Evaluation Laboratory results: Laboratory Tests 07/30/24 18:30 Urine Color Yellow Urine Appearance Clear Urine pH 6.5 Ur Specific [place] 1.014 Urine Protein Negative Urine Glucose (UA) Negative Urine Ketones Trace H Ur Blood (Man) Negative Urine Nitrate Negative Urine Bilirubin Negative Urine Urobilinogen 1.0 Leukocyte Esterase Rfl Negative Final Diagnosis (1) False labor: Code(s): O47.9 - False labor, unspecified Status: Acute
== END 2024-07-30 20:36 | disposition home or self-care (01) ==
PROVIDERS: Admitting Provider Obstetrics & Gynecology; PCP Nurse Practitioner Family; Visit Provider Obstetrics & Gynecology
DX: O47.03 False labor before 37 completed weeks of gestation, third trimester (principal); Z3A.34 34 weeks gestation of pregnancy
CPT/HCPCS: 81003; 96360; 96372; G0378; G0379; J3105; J7120

== ENCOUNTER 2024-08-12 01:08 | Observation (INO) | payer BC, SELFPAY ==
--- OUTSIDE RECORDS SUMMARY | 2024-08-12 03:20 | XMS_ITS | Referral Summary ---
Author Organization [facility] [address] [facility] Address [address] [place] [address] Care Team Providers Care Search Engine Optimizer Name Role Phone Bruna Gamino BAND TUMBLER Primary Care Provider [phone] Encounters Date Type Department Care Team Description 07/24/2024 Orders Only [facility] Health Information Management [address] [place] [id number] Bruna Gamino NP from Last 3 Months [...] c spine, will fax order to [facility]. Will notify her of these results as they become available. De Quervain's disease (tenosynovitis) 11/11/2021 Assessment & Plan (11/11/2021 10:40 PM CDT): Her current symptoms seem most consistent with deeper veins tenosynovitis. Discussed the difference between a thumb spica and a cock-up splint. She will consider getting 1 off [employer]. Continue icing and anti-inflammatory. Avoid repetition which may be her video game. If she does not notice improvement in the next month or so can consider physical therapy versus referral to Hand Orth[facility]. 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 Not on file Not on file Not on file Last Filed Vital Signs Vital Sign Reading Time Taken Comments Blood Pressure 112/68 06/27/2023 2:40 PM OFFSET PRESS ASSISTANT Pulse 65 06/27/2023 2:40 PM OFFSET PRESS ASSISTANT Temperature 36.9 C (98.4 F) 06/27/2023 2:40 PM OFFSET PRESS ASSISTANT Respiratory Rate 16 10/19/2018 11:42 AM CDT Oxygen Saturation 99% 06/27/2023 2:40 PM OFFSET PRESS ASSISTANT Inhaled Oxygen Concentration - - Weight 59.6 kg (131 lb 8 oz) 06/27/2023 2:40 PM OFFSET PRESS ASSISTANT Height 162.6 cm (5' 4 ) 06/27/2023 2:40 PM OFFSET PRESS ASSISTANT Body Mass Index 22.57 06/27/2023 2:40 PM OFFSET PRESS ASSISTANT Plan of Treatment Not on file Procedures Procedure Name Priority Date/Time Associated Diagnosis Comments SCAN - RADIOLOGY/IMAGING 07/24/2024 from Last 3 Months Results * SCAN - RADIOLOGY/IMAGING (07/24/2024) Anatomical Region Laterality Modality Other Bruna Gamino NP Final Result from Last 3 Months Insurance NPC III OOS NPC III OOS Care Teams Search Engine Optimizer Relationship Specialty Start Date End Date Bruna Gamino, FAVIOLA PCP - General Internal Medicine 02/04/22
--- OUTSIDE RECORDS SUMMARY | 2024-08-12 03:20 | XMS_ITS | Clinical Summary ---
Author Organization [facility] [address] [facility] Address [address] [place] [address] Care Team Providers Care Hydrographical Technical Officer Name Role Phone Bruna Gamino NP Primary Care Provider [phone] Allergies Active Allergy Reactions Criticality Noted Date [...] the right wrist, will fax order to [facility]. Will notify her of [...] the c spine, will fax order to [facility]. Will notify her of these results as they become available. De Quervain's disease (tenosynovitis) 11/11/2021 Assessment & Plan (11/11/2021 10:40 PM CDT): Her current symptoms seem most consistent with deeper veins tenosynovitis. Discussed the difference between a thumb spica and a cock-up splint. She will consider getting 1 off [employer]. Continue icing and anti-inflammatory. Avoid repetition which may be her video game. If she does not notice improvement in the next month or so can consider physical therapy versus referral to Hand Orth[facility]. 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 The patient was advised [...] Department Care Team Description 07/24/[address] [facility] Health Information Management [address] [place] [id number] Bruna Gamino NP from Last 3 Months [...] on file Legal Sex Female 12:50 AM GIFTED PROGRAM TEACHER Gender Identity Not on file Sexual Orientation [...] Comments Blood Pressure 112/68 06/27/2023 2:40 PM GIFTED PROGRAM TEACHER Pulse 65 06/27/2023 2:40 PM GIFTED PROGRAM TEACHER Temperature 36.9 C (98.4 F) 06/27/2023 2:40 PM GIFTED PROGRAM TEACHER Respiratory Rate 16 10/19/2018 11:42 AM CDT Oxygen Saturation 99% 06/27/2023 2:40 PM GIFTED PROGRAM TEACHER Inhaled Oxygen Concentration - - Weight 59.6 kg (131 lb 8 oz) 06/27/2023 2:40 PM GIFTED PROGRAM TEACHER Height 162.6 cm (5' 4 ) 06/27/2023 2:40 PM GIFTED PROGRAM TEACHER Body Mass Index 22.57 06/27/2023 2:40 PM GIFTED PROGRAM TEACHER Plan of Treatment Health Maintenance Due Date [...] Final Result from Last 3 Months Insurance [place] OOS BLUE ACCESS OOS Care Teams Hydrographical Technical Officer Relationship Specialty Start Date End Date Bruna Gamino NP PCP - General Internal Medicine 02/04/22
--- OUTSIDE RECORDS SUMMARY | 2024-08-12 03:20 | XMS_ITS | Data Portability ---
Author Organization [facility] Address [address] [place] [address] [place] [address] Care Team Providers Care Partner Manager Name Role Phone JUANCHO MICAH Primary Care Provider Assessment No assessment recorded. Plan of Treatment Reminders Order Date Submit Date Provider Last Modified By Organization Details Last Modified Time Details Appointments OB ROUTINE 2024 01:15P Nicola VALENCIA MD Not available Not available Not available OB ROUTINE 2024 03:15P Nicola VALENCIA MD Not available Not available Not available OB ROUTINE 2024 04:00P Nicola VALENCIA MD Not available Not available Not available INDUCTION 2024 12:00A Nicola VALENCIA MD Not available Not available Not available Lab None recorded. Referral None recorded. Procedures None recorded. Surgeries None recorded. Imaging US, obstetric , follow-up 2024 025 [email or web address] [place], [address], [place], [address], 07/08/2024 22:39:45 Medication Orders fluconazo le 150 mg tablet 2024 025 [id number], [address], [place], [place], [id number], 06/24/2024 16:41:14 Patient TargetsNo targets recorded. Patient [...] Final resul t Abnor mal: Yes Resul jose j Lab: [facility] [address] [facility] [address] Tel: [phone] CULTU RE ----- ----- ----- --- 25,00 [...] lab withi n 5 days. Not Available [facility] (Lab) [address], [place], [address], 05/26/2024 00:07:53 05/24/19 25 05/24/2024 urina lysis , dipst ick Leukocytes + Not Available [facility] l[facility] [address], [place], [address], 05/24/2024 13:09:23 05/24/19 25 05/24/2024 urina lysis , dipst ick Protein trace Not Available [place] [address], [place], [address], 05/24/2024 13:09:23 05/24/19 25 05/24/2024 urina lysis , dipst ick pH 8 Not Available [place] [address], [place], [address], 05/24/2024 13:09:23 05/24/19 25 05/24/2024 urina lysis , dipst ick Blood ++ Not Available [place] [address], [place], [address], 05/24/2024 13:09:23 05/24/19 25 05/24/2024 urina lysis , dipst ick Specific [place] 1.005 Not Available [facility] serafin [address], [place], [address], 05/24/2024 13:09:23 05/24/19 25 05/24/2024 urina lysis , dipst ick Ketone + Not Available [place] [address], [place], [address], 05/24/2024 13:09:23 05/24/19 25 05/24/2024 urina lysis , dipst ick Appearance cloudy [facility] [address], [place], [address], 05/24/2024 13:09:23 05/24/19 25 05/24/2024 urina lysis , dipst ick Color yellow Not Available [place] [address], [place], [address], 05/24/2024 13:09:23 06/12/19 25 06/12/2024 HEMAT OCRIT (HCT) HCT 35.1 % (based on docume nted legal sex) 34.0-4 5.0 Not Available [facility] (Lab) [address], [place], [address], 06/13/2024 12:57:36 06/12/19 25 06/12/2024 HEMOG LOBIN (HGB) HGB 11.9 g/dL (based on docume nted legal sex) 11.6-1 5.4 Not Available [facility] (Lab) [address], [place], [address], 06/13/2024 12:57:36 06/12/19 25 06/12/2024 HIV 1/2 ANTIG EN/AN TIBOD Y, REFLE X CONFI RMATI ON HIV antigen/anti body Nonrea ctive nonrea ctive HIV-1 antig en and HIV-1 /HIV- 2 antib odies were not detec john. No labor atory evide nce of HIV infec tion. Not Available [facility] (Lab) [address] [facility], [place], [address], 06/13/2024 12:57:37 06/12/19 25 06/12/2024 GTT - GESTA GIULIANA L SCREE N, ACOG OB glucose, 1 hour screen 147 mg/dL 70-135 high Not Available [facility] (Lab) [address] [place], [address], 06/13/2024 12:57:37 06/12/19 25 06/12/2024 RPR SCREE N, REFLE X TITER /CONF IRMAT ION RPR screen Nonrea ctive nonrea ctive Not Available [facility] (Lab) [address] [facility], [place], [address], 06/13/2024 12:57:38 06/18/19 25 06/18/2024 GTT - GESTA GIULIANA L, 3 HOUR, ACOG glucose, fasting acog 65 mg/dL 70-94 low Not Available [facility] (Lab) [address] [place], [address], 06/19/2024 05:00:08 06/18/19 25 06/18/2024 GTT - GESTA GIULIANA L, 3 HOUR, ACOG glucose, 1 hour acog 70 mg/dL 70-179 Not Available [facility] (Lab) [address] [place], [address], 06/19/2024 05:00:08 06/18/19 25 06/18/2024 GTT - GESTA GIULIANA L, 3 HOUR, ACOG glucose, 2 hour acog 79 mg/dL 70-154 Not Available [facility] (Lab) [address] [facility], [place], [address], 06/19/2024 05:00:08 06/18/19 25 06/18/2024 GTT - GESTA GIULIANA L, 3 HOUR, ACOG glucose, 3 hour acog 44 mg/dL 70-139 critical low M-Res ult verif ied by repea t rosi sis Not Available [facility] (Lab) [address] [facility], [place], [address], 06/19/2024 05:00:08 05/24/19 25 05/24/2024 US, obste tric, follo w-up No observ ation record ed. [email or web address] [address], [place], [address], 05/24/2024 18:02:28 05/24/19 25 05/24/2024 US, obste tric, follo w-up No observ ation record ed. [email or web address], [place], [address], 05/26/2024 12:00:04 07/09/19 25 07/08/2024 US, obste tric, follo w-up No observ ation record ed. [email or web address] [place] [address], [place], [address], 07/08/2024 17:19:07 07/09/19 25 07/08/2024 US, obste tric, follo w-up No observ ation record ed. [email or web address] [address], [place], [address], 07/08/2024 22:23:50 07/25/19 25 07/24/2024 imagi ng/di agnos tic resul t No observ ation record ed. [facility] [address], [place], [address], 07/26/2024 18:13:59 07/25/19 25 07/24/2024 imagi ng/di agnos tic resul t No observ ation record ed. [facility] [address], [place], [address], 08/09/2024 04:02:47 Result Notes None recorded. Problems Name Problem SNOMED Code Status Onset Date Resolution Date Notes Provider Name and Address Organization Details Recorded Time Bipolar disorder 71150787 Active 2020 Haley Alvarez MD [address], [place], [address], [facility] 1 17:15:10 Uterine adenomyos is 697224522 Active 2020 suspected on US at Haley Alvarez MD [address], [place], [address], [facility] 1 17:15:35 56909174 Active 2023 Kaylyn Desouza null, [facility] 4 17:31:17 Migraine 56470907 Active aura Ric White MD [address], [place], [address], [facility] 4 17:48:08 Problem Notes None recorded. Procedures Surgical History Date Name Laterality Status Provider Name and Address Organization Details Recorded Time 11/24/2020 Date of Last Pap Smear completed Zoila Crisostomo [facility] 07/23/2021 09:42:18 Imaging Results Imaging Date Name Status LastModified by Organiz ation Details LastModified Time 05/24/2024 US, obstetric, follow-up completed [email or web address] Sifuentes [address], [place], [address], 05/24/2024 18:02:28 05/24/2024 US, obstetric, follow-up completed [email or web address], [place], [address], 05/26/2024 12:00:04 07/08/2024 US, obstetric, follow-up completed [email or web address] [place] [address], [place], [address], 07/08/2024 17:19:07 07/08/2024 US, obstetric, follow-up completed [email or web address] [address], [place], [address], 07/08/2024 22:23:50 07/24/2024 imaging/diag nostic result completed [facility] [address], [place], [address], 07/26/2024 18:13:59 07/24/2024 imaging/diag nostic result active [facility] [address], [place], [address], 08/09/2024 04:02:47 Procedure Notes None recorded. Medical Equipment None Reported. Allergies Allergen ID Allergen Name Allergen Category Reaction Reaction Severity Criticality Documentation Date Start Date Code Code System Note Provider Name and Address Organization Details Recorded Time 86926 latex environme nt,medica tion Not available Not available Not available 10/20/2020 00086 91 RxNorm Faye howe [facility] 17:02:44 24612 Substance with sulfonami de structure and antibacte rial mechanism of action (substanc e) medicatio n Not available Not available Not available 10/20/2020 26715 8003 SNOMED Faye Tea howe [facility] 17:02:50 Medications Name Sig Start [...] Updated DateTime 06/24/2024 160.02 cm 26.9 kg/m2 55910.04 g 114 mm[Hg] 69 mm[Hg] [facility] 16:19:55 Date Recorded Body height Body mass index (BMI) Body weight Systolic blood pressure Diastolic blood pressure Provider Name and Address Organization Details Last Updated DateTime 07/08/2024 160.02 cm 27.8 kg/m2 26512 g 114 mm[Hg] 75 mm[Hg] [facility] 15:52:50 Date Recorded Body height Body mass index (BMI) Body weight Systolic blood pressure Diastolic blood pressure Provider Name and Address Organization Details Last Updated DateTime 07/24/2024 160.02 cm 28 kg/m2 62024.59 g 106 mm[Hg] 66 mm[Hg] Miguelina [facility] 5 16:40:03 Date Recorded Body height Body mass index (BMI) Body weight Systolic blood pressure Diastolic blood pressure Provider Name and Address Organization Details Last Updated DateTime 08/07/2024 160.02 cm 28.3 kg/m2 91830.78 g 111 mm[Hg] 74 mm[Hg] JUAN Westfall [facility] 5 17:13:04 Social History Question Answer Notes LastModified by Organizat ion Details LastModified Time Tobacco Smoking Status Never Smoker Faye Sidhuashley [facility], [facility] 10/20/2020 17:02:06 What Is Your Level Of Alcohol Consumption? None Information not available 10/20/2020 Are You Blind Or Do You Have Difficulty Seeing? No [email or web address] Information n ot available 01/31/2024 What Is Your Level Of Caffeine Consumption? Moderate [email or web address] Information not available 03/20/2024 How Much Tobacco Do You Chew? None [email or web address] Information not available 01/31/2024 In The 14 Days Before Symptom Onset, Have You Had Close Contact With A Laboratory-confirm ed COVID-19 While That Case Was Ill? No [email or web address] Information n ot available 01/31/2024 In The 14 Days Before Symptom Onset, Have You Had Close Contact With A Person Who Is Under Investigation For COVID-19 While That Person Was Ill? No [email or web address] Information not available 01/31/2024 Have You Been To An Area Known To Be High Risk For COVID-19? No [email or web address] Information not available 01/31/2024 Are You Deaf Or Do You Have Serious Difficulty Hearing? No [email or web address] Information not available 01/31/2024 What Type Of Diet Are You Following? REGULAR [email or web address] Information n ot available 01/31/2024 What Is The Highest Grade Or Level Of School You Have Completed Or The Highest Degree You Have Received? 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 No [email or web address] Information not available 01/31/2024 Do You Use Protection During Sex? No [email or web address] Information not available 01/31/2024 Do You Use Your Seat Belt Or Car Seat Routinely? Yes [email or web address] Information not available 01/31/2024 Do You Have Smoke And Carbon Monoxide Detectors In Your Home? Yes [email or web address] Information not available 01/31/2024 How Much Tobacco Do You Smoke? No Information not available 01/31/2024 Do You Feel Stressed (tense, Restless, Nervous, Or Anxious, Or Unable To Sleep At Night)? XY4210-2 [email or web address] Information not available 01/31/2024 Do You Use Any Illicit Or Recreational Drugs? No Information not available 10/20/2020 Do You Use Sunscreen Routinely? No [email or web address] Information not available 01/31/2024 Has Tobacco Cessation Counseling Been Provided? No Information not available 10/20/2020 Have You Used IV Drugs? No [email or web address] Information not available 01/31/2024 Do You Or Have You Ever Used Any Other Forms Of Tobacco Or Nicotine? No Information not available 10/20/2020 Sex: Unknown Functional Status Question Answer Note LastModified by Organization D etails LastModified Time Are you able to walk? YESWOREST [email or web address] Information not available 01/31/2024 What is your exercise level? Moderate [email or web address] Information not available 01/31/2024 Mental Status None recorded. Family History Relationship Description Onset Age of this Age Resolved Age Notes LastModified by Organization Details LastModified Time Mother Asthma [email or web address] Not available 17:11:46 Mother Carcinoma of uterine cervix, invasive [email or web address] Not available 06/2024 16:59:09 Mother Blood coagulation disorder [email or web address] Not available 2020 17:12:05 Mother Hypertensive disorder [email or web address] Not available 2020 17:12:33 Mother Cyst of ovary [email or web address] Not available 06/2024 16:59:09 Mother Seizure disorder [email or web address] Not available 06/2024 16:59:09 Maternal Grandfather Heart disease [email or web address] Not available 2020 17:12:17 Sister Diabetes mellitus [email or web address] Not available 2020 17:12:24 Sister Primary infertility [email or web address] Not available 16:59:09 Sister Uterine prolapse [email or web address] Not available 06/2024 16:59:09 Sister Seizure disorder [email or web address] Not available 06/2024 16:59:09 Medical History Condition Response Allergies (Food, seasonal, environmental ) N Other N Breast Cancer N Blood Transfusion N Drug/Latex Allergies/Reactions Y Dermatologic Disorders N Lung Disease N Defects or Inherited Disease N Breast Problem N Gestational Diabetes N Hematologic disorders N Anesthesia Complications N History of STI N Deep Vein Thrombosis N Polycystic ovary syndrome N Anxiety Disorder N Autoimmune disease N Arthritis N Polyps N Infertility N Acid Reflux (GERD) N History of abnormal pap N Cancer N Varicosities N Stroke N Neurologic/Epilepsy N Endometriosis N High Cholesterol N Fibromyalgia N Headaches Y Kidney Disease N Heart Problems N Thyroid [...] SNOMED-CT Code Diagnosis ICD10 Code Diagnosis Note [id number] Haley Alvarez MD [place] [address] [address] 10/20/2020 16:53:51 10/21/2020 16:11:01 Pelvic floor tension 601893470 R29.898 58736 Haley Alvarez MD [place] [address] [address] 11/24/2020 16:34:17 11/24/2020 17:09:48 Gynecologic examination 80962072 Z01.419 79337 Ric White MD [place] [address] [address] 07/23/2021 09:15:46 07/23/2021 14:21:43 Menorrhagia 789784704 N92.0 Pain in pelvis 93745881 R10.2 I spent over 35 minutes with the patient. We discussed her symptoms in detail. We reviewed radiology reports. We discussed disease processes regarding pelvic pain, ovarian cyst, adenomyosi s. We discussed evaluation and possible treatments of menorrhagi a and pelvic pain. We will proceed with pelvic ultrasound and the patient will return to discuss treatment plan. 28616 Janelle Stern [place] [address],[place] [address] 07/28/2021 09:42:58 07/28/2021 10:38:00 Pain in pelvis 74343260 R10.2 [id number] Haley Alvarez MD [place] [address],[place] [address] 03/22/2022 17:25:20 03/23/2022 12:05:46 Amenorrhea 21003898 N91.2 Nausea 362341765 R11.0 Stomach cramps 93755422 R10.9 Trying to conceive 55281 9001 Z31.9 859343 Ansatasiia [facility] [address],[place] [address] 01/23/2024 14:58:52 01/23/2024 15:16:19 Urinary symptoms 055519303 R39.9 Acute urin ant tract infection 778449672 N39.0 549083 Valeria Frankel [place] [address],[place] [address] 01/31/2024 11:26:51 01/31/2024 11:51:43 387882 DANIEL VALENCIA MD [place] [address],[place] [address] 01/31/2024 11:27:10 01/31/2024 15:32:00 Nausea and vomiting 88234549 R11.2 - will trial zofran PRN for nausea Migraine 03826881 G43.90 9 - hx of chronic migraines- has previously tried reglan, naproxen, sumatripta n, compazine, propranolo l, cyclobenza pine, zofran, toradol, exedrin migraines, dilaudid, ibuprofen, and norco with no improvemen t- will trial sumatripta n, tylenol and caffeine- will send neurology referral test positive 567561141 Z32.01 1. Exam today within normal limits.2. [...] desires at 10 weeks, orders given today. [id number] [facility] [address],[place] [address] 02/21/2024 16:33:48 02/21/2024 17:08:55 screening 852967407 Z36.82 Z3A.12 112135 Ric White MD [place] [address],[place] [address] 02/21/2024 16:34:43 02/22/2024 00:38:42 Migraine 34792133 G43.909 Routine an tenatal care 924686676 Z34.90 430042 [facility] [address],[place] [address] 03/20/2024 16:34:46 03/20/2024 17:12:20 Routine care 720356724 Z34.92 Gestation period, 16 weeks 13874242 Z3A.16 218615 Valeria [facility] [address],[place] [address] 04/18/2024 16:26:44 04/18/2024 17:59:14 screening for malformation 051505410 Z36.3 Z3A.20 433160 Ric White MD [place] [address],[place] [address] 04/18/2024 16:29:40 04/19/2024 10:14:41 Routine care 388476728 Z34.90 [id number] DANIEL VALENCIA MD [place] [address],[place] [address] 05/17/2024 15:52:41 05/20/2024 18:25:26 Routine care 716900614 Z34.91 [id number] Dinorah Celestin [place] [address],[place] [address] 05/24/2024 12:31:27 05/24/2024 13:18:24 Abdominal pain in 527880767 O99.891 O26.852 Z3A.25 488267 Ric White MD [place] [address],[place] [address] 05/24/2024 12:32:04 05/24/2024 13:33:54 Urinary symptoms 339026575 R39.9 Traumatic injury during 410173612 T14.90XA 193386 DANIEL VALENCIA MD [place] [address],[place] [address] 06/12/2024 14:31:43 06/13/2024 14:42:54 Routine care 951892757 Z34.91 399048 DANIEL VALENCIA MD [place] [address],[place] [address] 06/24/2024 16:15:04 06/26/2024 03:31:51 Candidiasis of vagina 55786397 B37.31 Routine an tenatal care 346518711 Z34.91 - continue PNV [id number] Valeria [facility] [address],[place] [address] 07/08/2024 14:54:02 07/08/2024 15:52:50 Uterine size for dates discrepancy 653735769 O26.843 Z3A.31 377043 DANIEL VALENCIA MD [place] [address],[place] [address] 07/08/2024 14:54:26 07/11/2024 09:36:05 Routine care 750472178 Z34.91 - continue PNV 853237 DANIEL VALENCIA MD [place] [address],[place] [address] 07/24/2024 16:22:43 07/24/2024 17:48:09 Uterine contractions present 122147232 O80 Gestation period, 34 weeks 09113282 Z3A.34 099016 DANIEL VALENCIA MD [place] [address] [address] 08/07/2024 16:58:41 08/09/2024 00:41:23 Routine care 525255045 Z34.91 - continue [facility] Health Concerns Section Related Observation LastModified by Organization Detai ls LastModified Time None Recorded Concern Status LastModified by Organization Details LastModified Time None Recorded Advance Directives Directive None Recorded Payers Encounter Date Sequence Insurance Name Policy Number Policy Childs Covered Member ID Childs Member ID Guarantor Name 06/24/2024 1 [place] [id number] Jorje Cantu [id number] Jorje Cantu 07/08/2024 1 [place] [id number] Jorje Cantu [id number] Jorje Cantu 07/08/2024 1 [place] [id number] Jorje Cantu [id number] Jorje Cantu 07/24/2024 1 [place] [id number] Jorje Cantu [id number] Jorje Cantu 08/07/2024 1 [place] [id number] Jorje Cantu [id number] Jorje Cantu OBGyn Episode Ob Episode Information Episode Created Date Number of Fetuses Patient Bloodtype Patient rh Status Prepregnancy Weight lbs Domestic Partner Domestic Partner Phone Father Name Industrial Property Appraiser Status 10/21/19 21 1 CLOSED Fetus Data First Name Last Name Admitted to NICU Weight (g) Sex Living Outcome Pediatric Complications Fetus ID Race Codes Race Delivery Type 2919.77 1704 M [id number] Vaginal Delivery Mark Calculation Initial Mark Date [...] Domestic Partner Domestic Partner Phone Father Name Industrial Property Appraiser Status 02/21/20 24 1 O Negative OPEN Fetus Data First Name Last Name Admitted to NICU Weight (g) Sex Living Outcome Pediatric Complications Fetus ID Race Codes Race Delivery Type [id number] Problems Problem Notes Problem Name Start Date End Date Resolution Snomed Code Not e Migraine 07089516 aura Mark Calculation Initial Mark Date Initial [...] Weight in lbs Pre/Post Dialysis Refused Weight 128.805158110320 BP Diastolic BP Location Tested BP Systolic [...] Type Weight in lbs Pre/Post Dialysis Refused 129.064846004096 BP Diastolic BP Location Tested BP Systolic [...] Type Weight in lbs Pre/Post Dialysis Refused 136.843374056740 BP Diastolic BP Location Tested BP Systolic [...] in lbs Pre/Post Dialysis Refused With clothes 142.120596846984 BP Diastolic BP Location Tested BP Systolic [...] Type Weight in lbs Pre/Post Dialysis Refused 142.394965335458 BP Diastolic BP Location Tested BP Systolic [...] Type Weight in lbs Pre/Post Dialysis Refused 148.110162123212 BP Diastolic BP Location Tested BP Systolic [...] Weight in lbs Pre/Post Dialysis Refused Weight 152.617795880837 BP Diastolic BP Location Tested BP Systolic [...] Weight in lbs Pre/Post Dialysis Refused Weight 157.184917603182 BP Diastolic BP Location Tested BP Systolic [...] Weight in lbs Pre/Post Dialysis Refused Weight 158.319671699910 BP Diastolic BP Location Tested BP Systolic [...] for NST/BPP for DFM. RTC 2 weeks. Flowsheet Date 08/07/2024 Bojorquez Score Blood Edema Fundus Height Fundus Units Glucose Ketones Leukocytes Nitrite Labor Signs Protein Cervic Dilation Cervic Effacement Cervic Station 1cm 60% -3 Type Weight in lbs Pre/Post Dialysis Refused Weight 160.368312794301 BP Diastolic BP Location Tested BP Systolic BP Type 74 L arm 111 sitting Fetus Heart Rate Present A 140 Fetus Movement A Yes Comments pt reports good moveme nt. Irregular contractions. No bleeding. Discussed labor precautions. GBS collected, SVE performed. RTC 1 week. Menstrual History Last Menstrual Date Menses Monthly [...]
--- OUTSIDE RECORDS SUMMARY | 2024-08-12 03:20 | XMS_ITS | Encounter Summary ---
Author Organization [facility] Facility Care Team Providers Care Planer Hand Name Role Phone Mohamud Reyes MD Primary Care Provider [phone] Hansa Schulte Primary Care Provider [phone] Mohamud Reyes MD Primary Care Provider [phone] Bruna Gamino NP Primary Care Provider [phone] Encounter Details Date Type Department Care Team (Latest Contact Info) Description 05/29/2018 Orders Only [facility] CLINCONV Provider, MD Corin [address] [place] [address] Social History Tobacco Use Types Packs/Day Years Used Date Smoking Tobacco: Never Assessed Comments Unknown Sex and Gender Information Value Date Recorded Sex Assigned at Not on file Legal Sex Female 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 us Historical Provider Final Res ult documented in this encounter Visit Diagnoses Not on filedocumented in this encounter Additional Health Concerns Infection Onset Date Last Indicated Resolved Time COVID: Suspected 05/21/2021 05/21/2021 05/21/2021 6:55 PM HEALTH CENTER MANAGER COVID19 05/21/2021 05/21/2021 05/31/2021 3:05 AM HEALTH CENTER MANAGER COVID: Recovered Comment:Added based on recent COVID infection. 05/31/2021 08/01/2021 09/28/2021 3:07 AM C DT documented as of this encounter Care Teams Planer Hand Relationship Specialty Start Date End Date Mohamud Reyes MD PCP - General Family Medicine 07/27/18 11/22/20 Hansa Schulte PA PCP - General Sap Payroll Consultant 11/23/20 01/25/22 Mohamud Reyes MD PCP - General Family Medicine 01/26/22 02/03/22 Bruna Gamino NP PCP - General Internal Medicine 02/04/22 documented as of this encounter
--- OUTSIDE RECORDS SUMMARY | 2024-08-12 03:20 | XMS_ITS | Encounter Summary ---
Author Organization [facility] Healthcare Address [address] [place] [address] Care Team Providers Care Assembled Wood Products Repairer Name Role Phone Bruna Gamino MOTOR VEHICLE OPERATOR ROAD SUPERVISOR Primary Care Provider [phone] Encounter Details Date Type Department Care Team (Late st Contact Info) Description 01/04/2024 Telephone [facility] Medical Group Internal Medicine at [place] [address] [place] [address] Bruna Gamino, MOTOR VEHICLE OPERATOR ROAD SUPERVISOR [address] [place] [address] Social History Tobacco Use Types [...] on file Legal 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
--- OUTSIDE RECORDS SUMMARY | 2024-08-12 03:20 | XMS_ITS | Continuity of Care Document ---
Author Organization [facility] Address [address] [place] [address] [place] [address] Phone Care Team Providers Care Surveillance Dual Rate Officer Name Role Phone Alex Woods MD Unavailable [...] Providers Copied on Encounter OFFICE/OUTPA TIENT VISIT, [facility], [address], [place], [place], [id number], [place] tel:[phone] [facility] sinusitis1 (chief complaint) Acute sinusitisHeadache Chuck Johnson. [address], [address], [place], [place], [address] , [place]. tel:[phone] Referring Provider: Alex Woods, [address], [place], [place], [id number]. tel:[phone] OFFICE/OUTPA TIENT VISIT, [facility], [address], [place], [place], [id number], [place] tel:[phone] [facility] back pain1 (chief complaint) LumbagoSacroiliitis Chuck Johnson. [address], [place], [place], [id number] , [place]. [phone] Referring Provider: Dedrick Garcia [address], [place], [place], [id number]. tel:[phone] OFFICE/OUTPA TIENT VISIT, EST [facility], [address], [place], [place], [address], [place] tel:[phone] [facility] brast lump1 (chief complaint) back pain1 (chief complaint) tinea1 (chief complaint) SacroiliitisLump in breastTinea corporis Sep-2 7 Chuck Johnson. [address], [place], [place], [address] , [place]. [phone] Referring Provider: Dedrick Garcia [facility] [address], [place], [place], [id number]. tel:[phone] PREV VISIT, NEW, AGE 18-39 [facility], [address], [place], [place], [id number], [place] tel:[phone] [facility] PHysical (chief complaint) Encounter for general adult medical exam w abnormal findingsTinea corporisFamily history of malignant neoplasm of ovary 7 Chuck Johnson. [address], [address], [place], [place], [address] , [place]. tel:[phone] Referring Provider: Dedrick Garcia [facility] [address], [place], [place], [id number]. tel:[phone] Family History Family Member Type Diagnosis Age [...] Referral Ordered: [facility] KIDNEY ordered Referral Ordered: [facility] (related to Sacroiliitis) ordered Referral Ordered: LUMBAR XRAY AP AND LAT ONLY ordered Referral Referred To: [facility] [address] [place] [address], [id number] Ordered: Referrals: [facility]. Evaluate and treat ordered Referral Ordered: MAMMOGRAM, [...] Mental Status Date Cognitive Assessment Orientation - [place] ed to time, place, person, situation.
--- NOTE | 2024-08-12 03:33 | OBADM ---
This patient, Shayna Cantu, admitted to the OB room Labor/Delivery/Recovery 105 for observation. Patient/family oriented to hospital policies and general routines including ID bracelet, bed and alarms, visiting hours, pain management, procedures, bathroom and other care routines, personal items, smoking policy, room service/diet, and visiting hours. Patient/Family are encouraged to report perceived risks to care and to ask questions if they do not understand what they are told or what they should do.
--- NOTE | 2024-09-04 09:36 | PM.OBTRLD ---
OB - Triage/Final Diagnosis Visit Information Comments/Additional reasons for admission: I have assessed the risk for this patient, Shayna Cantu, and determined that she would benefit from observation care. Final Diagnosis (1) False labor: Code(s): O47.9 - False labor, unspecified Status: Acute
== END 2024-08-12 03:33 | disposition home or self-care (01) ==
PROVIDERS: Admitting Provider Obstetrics & Gynecology; PCP Nurse Practitioner Family; Visit Provider Obstetrics & Gynecology
DX: O47.03 False labor before 37 completed weeks of gestation, third trimester (principal); Z3A.36 36 weeks gestation of pregnancy
CPT/HCPCS: G0378; G0379

== ENCOUNTER 2024-08-22 01:56 | Observation (INO) | payer BC, SELFPAY ==
--- OUTSIDE RECORDS SUMMARY | 2024-08-22 04:09 | XMS_ITS | Encounter Summary ---
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
--- OUTSIDE RECORDS SUMMARY | 2024-08-22 04:09 | XMS_ITS | Encounter Summary ---
Author Organization [facility] Facility Care Team Providers Care Party Plan Sales Unit Advisor Name Role Phone Mohamud Reyes MD Primary Care Provider [phone] Hansa Schulte Primary Care Provider [phone] Mohamud Reyes MD Primary Care Provider [phone] Bruna Gamino NP Primary Care Provider [phone] Encounter Details Date Type Department Care Team (Latest Contact Info) Description 05/29/2018 Orders Only [facility] CLINCONV Provider, MD Corin [address] [place] [address] Social History Tobacco Use Types Packs/Day Years Used Date Smoking Tobacco: Never Assessed Comments Unknown Sex and Gender Information Value Date Recorded Sex Assigned at Not on file Legal Sex Female 12:50 AM LIFE GUARD Gender Identity Not on file Sexual Orientation Not on file documented as of this encounter Plan of Treatment Not on file documented as of this encounter Procedures Procedure Name Priority Date/Time Associated Diagnosis Comments SCAN - LABS 05/30/2018 12:00 AM LIFE GUARD documented in this encounter Results * SCAN - LABS (05/30/2018 12:00 AM LIFE GUARD) Narrative 05/30/2018 12:00 AM LIFE GUARD Ordered by an unspecified provider. us Historical Provider Final Res ult documented in this encounter Visit Diagnoses Not on filedocumented in this encounter Additional Health Concerns Infection Onset Date Last Indicated Resolved Time COVID: Suspected 05/21/2021 05/21/2021 05/21/2021 6:55 PM LIFE GUARD COVID19 05/21/2021 05/21/2021 05/31/2021 3:05 AM LIFE GUARD COVID: Recovered Comment:Added based on recent COVID infection. 05/31/2021 08/01/2021 09/28/2021 3:07 AM C DT documented as of this encounter Care Teams Party Plan Sales Unit Advisor Relationship Specialty Start Date End Date Mohamud Reyes MD PCP - General Family Medicine 07/27/18 11/22/20 Hansa Schulte PA PCP - General Animal Impersonator 11/23/20 01/25/22 Mohamud Reyes MD PCP - General Family Medicine 01/26/22 02/03/22 Bruna Gamino NP PCP - General Internal Medicine 02/04/22 documented as of this encounter
--- OUTSIDE RECORDS SUMMARY | 2024-08-22 04:09 | XMS_ITS | Clinical Summary ---
Author Organization [facility] [place] [address] [facility] Address [address] [place] [address] Care Team Providers Care Oncology Rep Specialist Name Role Phone Bruna Gamino NP Primary Care Provider [phone] Allergies Active Allergy Reactions Criticality Noted Date [...] the right wrist, will fax order to [facility]. Will notify her of these results [...] spine, will fax order to [facility]. Will notify her of these results as they become available. De Quervain's disease (tenosynovitis) 11/11/2021 Assessment & Plan (11/11/2021 10:40 PM CDT): Her current symptoms seem most consistent with deeper veins tenosynovitis. Discussed the difference between a thumb spica and a cock-up splint. She will consider getting 1 off [employer]. Continue icing and anti-inflammatory. Avoid repetition which may be her video game. If she does not notice improvement in the next month or so can consider physical therapy versus referral to Hand Ortho. 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 The patient was advised [...] Department Care Team Description 07/24/2024 Orders Only [facility] [place] Information Management [address] [place] [address] Bruna Gamino NP from Last 3 Months [...] on file Legal Sex Female 12:50 AM TRADE MARK ATTORNEY Gender Identity Not on file Sexual Orientation [...] Comments Blood Pressure 112/68 06/27/2023 2:40 PM TRADE MARK ATTORNEY Pulse 65 06/27/2023 2:40 PM TRADE MARK ATTORNEY Temperature 36.9 C (98.4 F) 06/27/2023 2:40 PM TRADE MARK ATTORNEY Respiratory Rate 16 10/19/2018 11:42 AM CDT Oxygen Saturation 99% 06/27/2023 2:40 PM TRADE MARK ATTORNEY Inhaled Oxygen Concentration - - Weight 59.6 kg (131 lb 8 oz) 06/27/2023 2:40 PM TRADE MARK ATTORNEY Height 162.6 cm (5' 4 ) 06/27/2023 2:40 PM TRADE MARK ATTORNEY Body Mass Index 22.57 06/27/2023 2:40 PM TRADE MARK ATTORNEY Plan of Treatment Health Maintenance Due Date [...] Final Result from Last 3 Months Insurance [employer] BLUE [employer] OOS Care Teams Oncology Rep Specialist Relationship Specialty Start Date End Date Bruna Gamino NP PCP - General Internal Medicine 02/04/22
--- OUTSIDE RECORDS SUMMARY | 2024-08-22 04:09 | XMS_ITS | Continuity of Care Document ---
Author Organization [facility] Address [address] [place] [address] [place] [address] Phone Care Team Providers Care Container Washer Name Role Phone Alex Woods MD Unavailable [...] Providers Copied on Encounter OFFICE/OUTPA TIENT VISIT, [facility], [address], [place], [place], [id number], [place] tel:[phone] [facility] sinusitis1 (chief complaint) Acute sinusitisHeadache Chuck Johnson. [address], [place], [place], [address] , [place]. tel:[phone] Referring Provider: Alex Woods, [address], [place], [place], [id number]. tel:[phone] OFFICE/OUTPA TIENT VISIT, [facility], [address], [place], [place], [id number], [place] tel:[phone] [facility] back pain1 (chief complaint) LumbagoSacroiliitis Chuck Johnson. [address], [place], [place], [address] , [place]. [phone] Referring Provider: Dedrick Garcia [address], [place], [place], [address]. tel:[phone] OFFICE/OUTPA TIENT VISIT, EST [facility], [address], [place], [place], [address], [place] tel:[phone] [facility] brast lump1 (chief complaint) back pain1 (chief complaint) tinea1 (chief complaint) SacroiliitisLump in breastTinea corporis Sep-2 7 Chuck Johnson. [address], [place], [place], [address] , [place]. [phone] Referring Provider: Dedrick Garcia [facility], [place], [place], [id number]. tel:[phone] PREV VISIT, NEW, AGE 18-39 [facility], [address], [place], [place], [address], [place] tel:[phone] [facility] PHysical (chief complaint) Encounter for general adult medical exam w abnormal findingsTinea corporisFamily history of malignant neoplasm of ovary 7 Chuck Johnson. [address], [place], [place], [address] , [place]. tel:[phone] Referring Provider: Dedrick Garcia [facility] [address], [place], [place], [address]. tel:[phone] Family History Family Member Type Diagnosis Age At Onset Father Problem (finding) Unknown Mother Problem (finding) ovarian CA at age 24 Brother Problem (finding) Alive and well Payers Payer name Insurance type Covered republican ID Authoriza tion(s) No Information Social History [...] Referral Ordered: [place] KIDNEY ordered Referral Ordered: [facility] (related to Sacroiliitis) ordered Referral Ordered: LUMBAR XRAY AP AND LAT ONLY ordered Referral Referred To: [facility] [address] [place] [address], [address] Ordered: Referrals: [facility]. Evaluate and treat ordered Referral Ordered: MAMMOGRAM, [...] Mental Status Date Cognitive Assessment Orientation - [place] ed to time, place, person, situation.
--- OUTSIDE RECORDS SUMMARY | 2024-08-22 04:09 | XMS_ITS | Referral Summary ---
Author Organization [facility] [address] [facility] Address [address] [place] [address] Care Team Providers Care Automotive Window Tinter Name Role Phone Bruna Gamino SOCIAL MEDIA MARKETING MANAGER Primary Care Provider [phone] Encounters Date Type Department Care Team Description 07/24/2024 Orders Only [facility] Health Information Management [address] [place] [address] Bruna Gamino NP from Last 3 Months [...] will fax order to [facility]. Will notify her of these results as they become available. De Quervain's disease (tenosynovitis) 11/11/2021 Assessment & Plan (11/11/2021 10:40 PM CDT): Her current symptoms seem most consistent with deeper veins tenosynovitis. Discussed the difference between a thumb spica and a cock-up splint. She will consider getting 1 off [employer]. Continue icing and anti-inflammatory. Avoid repetition which may be her video game. If she does not notice improvement in the next month or so can consider physical therapy versus referral to Hand Ortho. 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 Not on file Not on file Not on file Last Filed Vital Signs Vital Sign Reading Time Taken Comments Blood Pressure 112/68 06/27/2023 2:40 PM DEVELOPMENT MECHANIC Pulse 65 06/27/2023 2:40 PM DEVELOPMENT MECHANIC Temperature 36.9 C (98.4 F) 06/27/2023 2:40 PM DEVELOPMENT MECHANIC Respiratory Rate 16 10/19/2018 11:42 AM CDT Oxygen Saturation 99% 06/27/2023 2:40 PM DEVELOPMENT MECHANIC Inhaled Oxygen Concentration - - Weight 59.6 kg (131 lb 8 oz) 06/27/2023 2:40 PM DEVELOPMENT MECHANIC Height 162.6 cm (5' 4 ) 06/27/2023 2:40 PM DEVELOPMENT MECHANIC Body Mass Index 22.57 06/27/2023 2:40 PM DEVELOPMENT MECHANIC Plan of Treatment Not on file Procedures Procedure Name Priority Date/Time Associated Diagnosis Comments SCAN - RADIOLOGY/IMAGING 07/24/2024 from Last 3 Months Results * SCAN - RADIOLOGY/IMAGING (07/24/2024) Anatomical Region Laterality Modality Other Bruna Gamino NP Final Result from Last 3 Months Insurance [employer] O[employer] Care Teams Automotive Window Tinter Relationship Specialty Start Date End Date Bruna Gamino, FAVIOLA PCP - General Internal Medicine 02/04/22
--- OUTSIDE RECORDS SUMMARY | 2024-08-22 04:11 | XMS_ITS | Data Portability ---
Author Organization [facility] Address [address] [place] [address] [place] [address] Care Team Providers Care Research Nurse Name Role Phone MICAH DAWKINS Primary Care Provider Assessment Encounter Date Assessment Date Assessment LastModified by Organization Details LastModified Time 08/13/2024 08/13/2024 Patient is __36_weeks . Discussed plan. Not available 08/13/2024 13:08:13 Plan of Treatment Reminders Order Date Submit Date Provider Last Modified By Organization Details Last Modified Time Details Appointments OB ROUTINE 2024 01:15P Nicola WHITE MD Not available Not available Not available OB ROUTINE 2024 11:45A Nicola Garibay CNM Not available Not available Not available INDUCTION 2024 12:01A Nicola Garibay CNM Not available Not available Not available Lab None recorded. Referral None recorded. Procedures None recorded. Surgeries None recorded. Imaging US, obstetric , follow-up 2024 025 [email or web address] [place], [address], [place], [address], 07/08/2024 22:39:45 Medication Orders None recorded. Patient TargetsNo targets recorded. Patient InstructionsNo instructions recorded. Reason for Referral None Reported. Results Created Date Observation Date Name Description Value Unit Range Abnormal Flag Note LastModifiedBy Organization Detail LastModifiedTime 06/12/1906/12/2024 HEMAT OCRIT (HCT) HCT 35.1 % (based on docume nted legal sex) 34.0-4 5.0 Not Available [facility] (Lab) [address] [facility], [place], [address], 06/13/2024 12:57:36 06/12/19 25 06/12/2024 HEMOG LOBIN (HGB) HGB 11.9 g/dL (based on docume nted legal sex) 11.6-1 5.4 Not Available [facility] (Lab) [address], [place], [address], 06/13/2024 12:57:36 06/12/19 25 06/12/2024 HIV 1/2 ANTIG EN/AN TIBOD Y, REFLE X CONFI RMATI ON HIV antigen/anti body Nonrea ctive nonrea ctive HIV-1 antig en and HIV-1 /HIV- 2 antib odies were not detec john. No labor atory evide nce of HIV infec tion. Not Available [facility] (Lab) [address], [place], [address], 06/13/2024 12:57:37 06/12/19 25 06/12/2024 GTT - GESTA GIULIANA L SCREE N, ACOG OB glucose, 1 hour screen 147 mg/dL 70-135 high Not Available [facility] (Lab) [address] [place], [address], 06/13/2024 12:57:37 06/12/19 25 06/12/2024 RPR SCREE N, REFLE X TITER /CONF IRMAT ION RPR screen Nonrea ctive nonrea ctive Not Available [facility] (Lab) [address] [place], [address], 06/13/2024 12:57:38 06/18/19 25 06/18/2024 GTT - GESTA GIULIANA L, 3 HOUR, ACOG glucose, fasting acog 65 mg/dL 70-94 low Not Available [facility] (Lab) [address] [place], [address], 06/19/2024 05:00:08 06/18/19 25 06/18/2024 GTT - GESTA GIULIANA L, 3 HOUR, ACOG glucose, 1 hour acog 70 mg/dL 70-179 Not Available [facility] (Lab) [address] [place], [address], 06/19/2024 05:00:08 06/18/19 25 06/18/2024 GTT - GESTA GIULIANA L, 3 HOUR, ACOG glucose, 2 hour acog 79 mg/dL 70-154 Not Available [facility] (Lab) [address] [place], [address], 06/19/2024 05:00:08 06/18/19 25 06/18/2024 GTT - GESTA GIULIANA L, 3 HOUR, ACOG glucose, 3 hour acog 44 mg/dL 70-139 critical low M-Res ult verif ied by repea t rosi sis Not Available [facility] (Lab) [address] [place], [address], 06/19/2024 05:00:08 08/08/19 25 08/07/2024 CULTU RE: GROUP B STREP SCREE N, REFLE X SUSCE PTIBI LITY result report SEE RESULT S BELOW abnormal Test: Cultu re: Group B Strep , Refle x Susce ptibi lity ([facility] ) Speci men Sourc e: Vagin a/Rec sean Speci men Type: Vagin al/Re ctal Speci men Date: 025 1730 Resul t Date: 025 1526 Resul t Statu s: Final resul t Abnor mal: Yes Gladys lux Lab: [facility] [address] [facility] [address] Tel: CULTU RE ----- ----- ----- --- Posit christina for Strep tococ cus agala ctiae (Grou p B) (Abno rmal) Clind amyci n susce ptibl e, eryth romyc in resis tant. The clind ирина n induc tion test ( D-t est ) is negat christina, there fore clind ирина n shoul d be clini trevor effec tive again st this isola te. Not Available [facility] (Lab) [address] [facility], [place], [address], 08/11/2024 16:30:22 07/09/19 25 07/08/2024 US, obste tric, follo w-up No observ ation record ed. [email or web address] [place] [address] [place], [address], 07/08/2024 17:19:07 07/09/19 25 07/08/2024 US, obste tric, follo w-up No observ ation record ed. [email or web address] [address], [place], [address], 07/08/2024 22:23:50 07/25/19 25 07/24/2024 imagi ng/di agnos tic resul t No observ ation record ed. [place] [address], [place], [address], 07/26/2024 18:13:59 07/25/19 25 07/24/2024 imagi ng/di agnos tic resul t No observ ation record ed. [facility] [address], [place], [address], 08/12/2024 16:34:19 Result Notes None recorded. Problems Name Problem SNOMED Code Status Onset Date Resolution Date Notes Provider Name and Address Organization Details Recorded Time Bipolar disorder 70450851 Active 2020 Haley Alvarez MD [address], [place], [address], [place] [facility] 17:15:10 Uterine adenomyo sis 915108209 Active 2020 suspected on US at Haley Alvarez MD [address], [place], [address], [facility] 1 17:15:35 Pregnanc y 84514684 Active 2023 Kaylyn Desouza null, [facility] 4 17:31:17 Migraine 11808713 Active josea Ric White MD [address], [place], [address], [facility] 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 5 18:18:47 Group B Streptoc occus carrier 89566896052 03 Active + amp in labor Aisha Cramer [place], [facility] 5 18:18:47 Problem Notes None recorded. Procedures Surgical History Date Name Laterality Status Provider Name and Address Organization Details Recorded Time 11/24/2020 Date of Last Pap Smear completed Zoila Crisostomo [facility] 07/23/2021 09:42:18 Imaging Results Imaging Date Name Status LastModified by Organiz ation Details LastModified Time 07/08/2024 US, obstetric, follow-up completed [email or web address] [place] [address], [place], [address], 07/08/2024 17:19:07 07/08/2024 US, obstetric, follow-up completed [email or web address] [facility], [place], [address], 07/08/2024 22:23:50 07/24/2024 imaging/diag nostic result completed [facility] [address] [facility] [address] [place], [address], 07/26/2024 18:13:59 07/24/2024 imaging/diag nostic result completed [facility] [address], [place], [address], 08/12/2024 16:34:19 Procedure Notes None recorded. Medical Equipment None Reported. Allergies Allergen ID Allergen Name Allergen Category Reaction Reaction Severity Criticality Documentation Date Start Date Code Code System Note Provider Name and Address Organization Details Recorded Time 20804 latex environme nt,medica tion Not available Not available Not available 10/20/2020 60414 91 RxNorm Faye Metcalf [facility] 17:02:44 03151 Substance with sulfonami de structure and antibacte rial mechanism of action (substanc e) medicatio n Not available Not available Not available 10/20/2020 79725 8003 SNOMED Faye Metcalf [facility] 17:02:50 Medications Name Sig Start Date [...] tablet Take 1 tablet by oral route. 08/13 completed Not Available Not Available Not Available [...] capsule every 4 hours by oral route. 08/13 completed Not Available Not Available Not Available Vitals Date Recorded Body height Body mass index (BMI) Body weight Systolic blood pressure Diastolic blood pressure Provider Name and Address Organization Details Last Updated DateTime 07/08/2024 160.02 cm 27.8 kg/m2 99341 g 114 mm[Hg] 75 mm[Hg] Miguelina Brewster [facility] 15:52:50 Date Recorded Body height Body mass index (BMI) Body weight Systolic blood pressure Diastolic blood pressure Provider Name and Address Organization Details Last Updated DateTime 07/24/2024 160.02 cm 28 kg/m2 31800.59 g 106 mm[Hg] 66 mm[Hg] Miguelina Narcisa [facility] 5 16:40:03 Date Recorded Body height Body mass index (BMI) Body weight Systolic blood pressure Diastolic blood pressure Provider Name and Address Organization Details Last Updated DateTime 08/07/2024 160.02 cm 28.3 kg/m2 53260.78 g 111 mm[Hg] 74 mm[Hg] JUAN Westfall [facility] 17:13:04 Date Recorded Body height Body mass index (BMI) Body weight Systolic blood pressure Diastolic blood pressure Provider Name and Address Organization Details Last Updated DateTime 08/13/2024 160.02 cm 28.7 kg/m2 90140.96 g 113 mm[Hg] 71 mm[Hg] Zahra Henry [facility] 5 12:25:50 Social History Question Answer Notes LastModified by Organizat ion Details LastModified Time Tobacco Smoking Status Never Smoker Faye Sidhuashley howe [facility] 10/20/2020 17:02:06 What Is Your Level Of Alcohol Consumption? None Information not available 10/20/2020 Are You Blind Or Do You Have Difficulty Seeing? No Information n ot available 01/31/2024 What Is Your Level Of Caffeine Consumption? Moderate [email or web address] Information not available 03/20/2024 How Much Tobacco Do You Chew? None [email or web address] Information not available 01/31/2024 In The 14 Days Before Symptom Onset, Have You Had Close Contact With A Laboratory-confirm ed COVID-19 While That Case Was Ill? No [email or web address] Information n ot available 01/31/2024 In The 14 Days Before Symptom Onset, Have You Had Close Contact With A Person Who Is Under Investigation For COVID-19 While That Person Was Ill? No [email or web address] Information not available 01/31/2024 Have You Been To An Area Known To Be High Risk For COVID-19? No [email or web address] Information not available 01/31/2024 Are You Deaf Or Do You Have Serious Difficulty Hearing? No [email or web address] Information not available 01/31/2024 What Type Of Diet Are You Following? REGULAR [email or web address] Information n ot available 01/31/2024 What Is The Highest Grade Or Level Of School You Have Completed Or The Highest Degree You Have Received? 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 No [email or web address] Information not available 01/31/2024 Do You Use Protection During Sex? No [email or web address] Information not available 01/31/2024 Do You Use Your Seat Belt Or Car Seat Routinely? Yes [email or web address] Information not available 01/31/2024 Do You Have Smoke And Carbon Monoxide Detectors In Your Home? Yes [email or web address] Information not available 01/31/2024 How Much Tobacco Do You Smoke? No [email or web address] Information not available 01/31/2024 Do You Feel Stressed (tense, Restless, Nervous, Or Anxious, Or Unable To Sleep At Night)? [id number] Information not available 01/31/2024 Do You Use Any Illicit Or Recreational Drugs? No Information not available 10/20/2020 Do You Use Sunscreen Routinely? No [email or web address] Information not available 01/31/2024 Has Tobacco Cessation Counseling Been Provided? No Information not available 10/20/2020 Have You Used IV Drugs? No [email or web address] Information not available 01/31/2024 Do You Or Have You Ever Used Any Other Forms Of Tobacco Or Nicotine? No Information not available 10/20/2020 Sex: Unknown Functional Status Question Answer Note LastModified by Organizat ion Details LastModified Time Do you have difficulty walking or climbing stairs? No [email or web address] Information not available 08/13/2024 Are you able to walk? YESWOREST [email or web address] Information not available 01/31/2024 Are you able to care for yourself? Yes [email or web address] Information not available 08/13/2024 Do you have difficulty dressing or bathing? No [email or web address] Information not available 08/13/2024 What is your exercise level? Moderate [email or web address] Information not available 01/31/2024 Mental Status None [...] SNOMED-CT Code Diagnosis ICD10 Code Diagnosis Note 25005 Haley Alvarez MD [place] [address] [address] 10/20/2020 16:53:51 10/21/2020 16:11:01 Pelvic floor tension 956438315 R29.898 13500 Haley Alvarez MD [place] [address] [address] 11/24/2020 16:34:17 11/24/2020 17:09:48 Gynecologic examination 42595542 Z01.419 11896 Ric White MD [place] [address],[facility] [place] [address] 07/23/2021 09:15:46 07/23/2021 14:21:43 Menorrhagia 595604149 N92.0 Pain in pelvis 71100766 R10.2 I spent over 35 minutes with the patient. We discussed her symptoms in detail. We reviewed radiology reports. We discussed disease processes regarding pelvic pain, ovarian cyst, adenomyosi s. We discussed evaluation and possible treatments of menorrhagi a and pelvic pain. We will proceed with pelvic ultrasound and the patient will return to discuss treatment plan. [address] Janelle Stern [place] [address],[facility] [place] [address] 07/28/2021 09:42:58 07/28/2021 10:38:00 Pain in pelvis 37177755 R10.2 [id number] Haley Alvarez MD [place] [address],[place] [address] 03/22/2022 17:25:20 03/23/2022 12:05:46 Amenorrhea 68021541 N91.2 Nausea 116752877 R11.0 Stomach cramps 98070560 R10.9 Trying to conceive 71005 9001 Z31.9 [id number] Anastasiia Miramontes [place] [address],[place] [address] 01/23/2024 14:58:52 01/23/2024 15:16:19 Urinary symptoms 798533979 R39.9 Acute urin ant tract infection 486867800 N39.0 [id number] Valeria Frankel [place] [address],[place] [address] 01/31/2024 11:26:51 01/31/2024 11:51:43 [id number] DANIEL VALENCIA MD [place] [address],[place] [address] 01/31/2024 11:27:10 01/31/2024 15:32:00 Nausea and vomiting 70349684 R11.2 - will trial zofran PRN for nausea Migraine 11757717 G43.90 9 - hx of chronic migraines- has previously tried reglan, naproxen, sumatripta n, compazine, propranolo l, cyclobenza pine, zofran, toradol, exedrin migraines, dilaudid, ibuprofen, and norco with no improvemen t- will trial sumatripta n, tylenol and caffeine- will send neurology referral test positive 414388522 Z32.01 1. Exam today within normal limits.2. [...] desires at 10 weeks, orders given today. Dinorah [facility] [address],[place] [address] 02/21/2024 16:33:48 02/21/2024 17:08:55 screening 562991876 Z36.82 Z3A.12 [id number] Ric White MD [place] [address],[place] [address] 02/21/2024 16:34:43 02/22/2024 00:38:42 Migraine 51316658 G43.909 Routine an tenatal care 784141341 Z34.90 [id number] Mayda Garibay [facility] [address],[place] [address] 03/20/2024 16:34:46 03/20/2024 17:12:20 Routine care 002076005 Z34.92 Gestation period, 16 weeks 49400140 Z3A.16 284638 [facility] [address],[place] [address] 04/18/2024 16:26:44 04/18/2024 17:59:14 screening for malformation 287148931 Z36.3 Z3A.20 [id number] Ric White MD [place] [address],[place] [address] 04/18/2024 16:29:40 04/19/2024 10:14:41 Routine care 898560505 Z34.90 [id number] DANIEL VALENCIA MD [place] [address],[place] [address] 05/17/2024 15:52:41 05/20/2024 18:25:26 Routine care 890612233 Z34.91 [id number] [facility] [address],[place] [address] 05/24/2024 12:31:27 05/24/2024 13:18:24 Abdominal pain in 993710433 O99.891 O26.852 Z3A.25 [id number] Ric White MD [place] [address],[place] [address] 05/24/2024 12:32:04 05/24/2024 13:33:54 Urinary symptoms 588448861 R39.9 Traumatic injury during 218426068 T14.90XA 232312 DANIEL VALENCIA MD [place] [address],[place] [address] 06/12/2024 14:31:43 06/13/2024 14:42:54 Routine care 782812425 Z34.91 534315 DANIEL VALENCIA MD [place] [address],[place] [address] 06/24/2024 16:15:04 06/26/2024 03:31:51 Candidiasis of vagina 24025444 B37.31 Routine an tenatal care 437593548 Z34.91 - continue PNV [id number] Valeria Frankel [place] [address],[place] [address] 07/08/2024 14:54:02 07/08/2024 15:52:50 Uterine size for dates discrepancy 207818648 O26.843 Z3A.31 100414 DANIEL VALENCIA MD [place] [address],[place] [address] 07/08/2024 14:54:26 07/11/2024 09:36:05 Routine care 155152673 Z34.91 - continue PNV [id number] MD Maria BALDERAS [address],[place] [address] 07/24/2024 16:22:43 07/24/2024 17:48:09 Uterine contractions present 378478970 O80 Gestation period, 34 weeks 98893604 Z3A.34 [id number] DANIEL VALENCIA MD [place] [address],[place] [address] 08/07/2024 16:58:41 08/09/2024 00:41:23 Routine care 373278879 Z34.91 - continue PNV 534102 Mayda Garibay, [facility] [address],[place] [address] 08/13/2024 11:42:00 08/13/2024 13:09:29 Gestation period, 36 weeks 55750990 Z3A.36 Health Concerns Section Related Observation LastModified by Organization Detai ls LastModified Time None Recorded Concern Status LastModified by Organization Details LastModified Time None Recorded Advance Directives Directive None Recorded Payers Encounter Date Sequence Insurance Name Policy Number Policy Childs Covered Member ID Childs Member ID Guarantor Name 07/08/2024 1 [place] [id number] Jorje Cantu [id number] Jorje Cantu 07/08/2024 1 [place] [id number] Jorje Cantu [id number] Jorje Morilloams 07/24/2024 1 [place] [id number] Jorje Cantu [id number] Jorje Cantu 08/07/2024 1 [place] [id number] Jorje Cantu [id number] Jorje Morilloams 08/13/2024 1 [place] [id number] Jorje Cantu [id number] Jorje Cantu OBGyn Episode Ob Episode Information Episode Created Date Number of Fetuses Patient Bloodtype Patient rh Status Prepregnancy Weight lbs Domestic Partner Domestic Partner Phone Father Name Medical Practitioners Status 10/21/19 21 1 CLOSED Fetus Data First Name Last Name Admitted to NICU Weight (g) Sex Living Outcome Pediatric Complications Fetus ID Race Codes Race Delivery Type 2919.77 1704 M [id number] Vaginal Delivery Mark Calculation Initial Mark Date [...] Domestic Partner Domestic Partner Phone Father Name Medical Practitioners Status 02/21/20 24 1 O Negative OPEN Fetus Data First Name Last Name Admitted to NICU Weight (g) Sex Living Outcome Pediatric Complications Fetus ID Race Codes Race Delivery Type [id number] Problems Problem Notes Problem Name Start Date End Date Resolution Snomed Code Not e Group B Streptococcus carrier 8410385213844 + amp in labor Migraine 59497689 aura Mark Calculation Initial Mark Date Initial [...] Weight in lbs Pre/Post Dialysis Refused Weight 128.879585597064 BP Diastolic BP Location Tested BP Systolic [...] Type Weight in lbs Pre/Post Dialysis Refused 129.817253959949 BP Diastolic BP Location Tested BP Systolic [...] Type Weight in lbs Pre/Post Dialysis Refused 136.799899457209 BP Diastolic BP Location Tested BP Systolic [...] in lbs Pre/Post Dialysis Refused With clothes 142.703900885841 BP Diastolic BP Location Tested BP Systolic [...] Type Weight in lbs Pre/Post Dialysis Refused 142.835999751321 BP Diastolic BP Location Tested BP Systolic [...] Type Weight in lbs Pre/Post Dialysis Refused 148.227944733275 BP Diastolic BP Location Tested BP Systolic [...] Weight in lbs Pre/Post Dialysis Refused Weight 152.313229814011 BP Diastolic BP Location Tested BP Systolic [...] Weight in lbs Pre/Post Dialysis Refused Weight 157.815098562764 BP Diastolic BP Location Tested BP Systolic [...] Weight in lbs Pre/Post Dialysis Refused Weight 158.843763193608 BP Diastolic BP Location Tested BP Systolic [...] Weight in lbs Pre/Post Dialysis Refused Weight 160.949888309177 BP Diastolic BP Location Tested BP Systolic BP Type 74 L arm 111 sitting Fetus Heart Rate Present A 140 Fetus Movement A Yes Comments pt reports good moveme nt. Irregular contractions. No bleeding. Discussed labor precautions. GBS collected, SVE performed. RTC 1 week. Flowsheet Date 08/13/2024 Bojorquez Score Blood Edema Fundus Height Fundus Units Glucose Ketones Leukocytes Nitrite Labor Signs Protein Cervic Dilation Cervic Effacement Cervic Station neg trace 35 cm 1cm Type Weight in lbs Pre/Post Dialysis Refused Weight 162.635234905355 BP Diastolic BP Location Tested BP Systolic BP Type 71 113 Fetus Heart Rate Present A 156 Fetus Movement A Yes Comments Patient is having pain, cont ractions, discharge muscus with some blood, swelling and nausea. IOL 09/04 will keep as scheduled, precautions and education, labor precautions f/u one week Menstrual History Last Menstrual Date Menses Monthly [...]
== END 2024-08-22 04:10 | disposition home or self-care (01) ==
PROVIDERS: Admitting Provider Obstetrics & Gynecology; PCP Nurse Practitioner Family; Visit Provider Obstetrics & Gynecology
DX: O47.9 False labor, unspecified (principal); Z3A.00 Weeks of gestation of pregnancy not specified
CPT/HCPCS: G0378; G0379

== ENCOUNTER 2024-09-04 00:01 | Inpatient (IN) | payer BC, SELFPAY ==
[2024-09-04] VITALS (147 sets, daily range): BP systolic 76–168; BP diastolic 32–149; PULSE 56–280; RESP 12–20; TEMP 36.1–36.7; O2SAT 87–100; BMI 28.9
--- NOTE | ~2024-09-04 | CT_ITS ---
EXAMINATION: CTA abdomen pelvis DATE: 09/05/2024 07:43 INDICATION: Possible hemorrhage in the abdomen. Evaluate for active hemorrhage. TECHNIQUE: Computed tomographic angiography (CTA) of the abdomen was performed without and with 100 m L Omnipaque-350 intravenous contrast. The dose-length product was 805.73 mGy-cm. Maximum intensity pr ojection 3D-reconstructions of the aorta and other arteries were constructed by the technologist on a separate workstation. Automated exposure control and iterative reconstruction technique were cecilia barrientos. COMPARISON: None. FINDINGS: ABDOMEN CTA: Lung bases are unremarkable. Heart size normal. No significant pleural or pericardial effusion. Fatty infiltration of the liver. There are calcified granulomas of the liver and spleen. There is heteroge neous appearance to the spleen, likely related to contrast bolus timing. The pancreas, adrenal glands and kidneys are unremarkable. No acute osseous abnormality. There is fluid surrounding the spleen, l iver extending into the pelvis. Fluid in the abdomen and pelvis is hyperdense, suspicious for hemorrh age. No active site of bleeding is identified. The endometrium is indistinct and heterogeneous with e nlarged uterus. No active bleeding identified within the uterus. The abdominal aorta is normal calibe r. The celiac axis, SMA, renal arteries and FLAQUITA are patent. Bladder is unremarkable. Nonobstructive b owel gas pattern. IMPRESSION: 1. Moderate hyperdense fluid in the abdomen and pelvis, possibly hemorrhage. No active site of hemorr james is identified. 2: Enlarged uterus, likely postgravid. Reviewed, dictated and finalized at location A. IMPRESSION: 1. Moderate hyperdense fluid in the abdomen and pelvis, possibly hemorrhage. No active site of hemorrhage is identified. 2: Enlarged uterus, likely postgravid.
--- NOTE | ~2024-09-04 | CT_ITS ---
Non-contrast CT scan of the Abdomen and Pelvis Clinical indication: Abdominal pain Technique: 2.5 mm axial scans were obtained through the abdomen and pelvis without intravenous or or al contrast. Dose reduction technique was used on this scan by utilizing automated exposure control a nd iterative reconstruction technique. The dose-length product (DLP) was 756.91 mGy-cm. COMPARISON: 10/13/2020 Findings: Images through the lung bases reveal no abnormalities. There is no evidence of renal or ureteral calculi. The kidneys and the ureters are nondilated. The liver, spleen, pancreas, gallbladder, and adrenals appear normal. There is no aortic aneurysm. There is no evidence of bowel obstruction. Images through the pelvis were performed. Uterus is diffusely enlarged, 202). There is amorphous area of hyperdensity centrally towards the liver in segment measuring approximately 5.2 x 4.3 cm, compati ble with blood products present within the lower uterine segment/cervix. There is also moderate hemor rhagic ascites in the pelvis and left paracolic gutter region. Impression: Enlarged presumed uterus with 5.2 x 4.3 cm area of blood products at the lower uterine seg ment/cervix. Moderate hemorrhagic ascites in the pelvis and left paracolic gutter. If there is concern for active bleeding, consider CT angiogram as indicated. Reviewed, dictated and finalized at [facility]. Impression: Enlarged presumed uterus with 5.2 x 4.3 cm area of blood products at the lower uterine segment/cervix. Moderate hemorrhagic ascites in the pelvis and left paracolic gutter. If there is concern for active bleeding, consider CT angiogram as indicated.
--- OUTSIDE RECORDS SUMMARY | 2024-09-04 00:07 | XMS_ITS | Encounter Summary ---
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
--- OUTSIDE RECORDS SUMMARY | 2024-09-04 00:07 | XMS_ITS | Referral Summary ---
Author Organization [facility] [address] [facility] Address [address] [place] [address] Care Team Providers Care Photo Colorer Name Role Phone Bruna Gamino PRESCRIPTIONIST Primary Care Provider [phone] Encounters Date Type Department Care Team Description 07/24/2024 Orders Only [facility] Health Information Management [address] [place] [address] Bruna Gamino NP from Last 3 Months [...] c spine, will fax order to [facility]. Will notify her of these results as they become available. De Quervain's disease (tenosynovitis) 11/11/2021 Assessment & Plan (11/11/2021 10:40 PM CDT): Her current symptoms seem most consistent with deeper veins tenosynovitis. Discussed the difference between a thumb spica and a cock-up splint. She will consider getting 1 off [place]. Continue icing and anti-inflammatory. Avoid repetition which may be her video game. If she does not notice improvement in the next month or so can consider physical therapy versus referral to [facility]. COVID-19 05/27/2021 Assessment & Plan (05/27/2021 5:48 PM CHIEF WELLNESS OFFICER): Patient has just started [employer], wanting to [...] 12/22/2021 Assessment & Plan (05/21/2021 3:28 PM CHIEF WELLNESS OFFICER): Will send patient to [place] for Covid-19 testing. 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 Not on file Not on file Not on file Last Filed Vital Signs Vital Sign Reading Time Taken Comments Blood Pressure 112/68 06/27/2023 2:40 PM CHIEF WELLNESS OFFICER Pulse 65 06/27/2023 2:40 PM CHIEF WELLNESS OFFICER Temperature 36.9 C (98.4 F) 06/27/2023 2:40 PM CHIEF WELLNESS OFFICER Respiratory Rate 16 10/19/2018 11:42 AM CDT Oxygen Saturation 99% 06/27/2023 2:40 PM CHIEF WELLNESS OFFICER Inhaled Oxygen Concentration - - Weight 59.6 kg (131 lb 8 oz) 06/27/2023 2:40 PM CHIEF WELLNESS OFFICER Height 162.6 cm (5' 4) 06/27/2023 2:40 PM CHIEF WELLNESS OFFICER Body Mass Index 22.57 06/27/2023 2:40 PM CHIEF WELLNESS OFFICER Plan of Treatment Not on file Procedures Procedure Name Priority Date/Time Associated Diagnosis Comments SCAN - RADIOLOGY/IMAGING 07/24/2024 from Last 3 Months Results * SCAN - RADIOLOGY/IMAGING (07/24/2024) Anatomical Region Laterality Modality Other Bruna Gamino NP Final Result from Last 3 Months Insurance [employer] OOS [employer] Care Teams Photo Colorer Relationship Specialty Start Date End Date Bruna Gamino, FAVIOLA PCP - General Internal Medicine 02/04/22
--- OUTSIDE RECORDS SUMMARY | 2024-09-04 00:08 | XMS_ITS | Continuity of Care Document ---
Author Organization [facility] Address [address] [place] [address] [place] [address] Phone Care Team Providers Care Product Design Manager Name Role Phone Alex Woods MD Unavailable [...] Providers Copied on Encounter OFFICE/OUTPA TIENT VISIT, [facility], [address], [place], [place], [id number], [place] tel:[phone] [facility] sinusitis1 (chief complaint) Acute sinusitisHeadache Chuck Johnson. [address], [place], [place], [id number] , [place]. tel:[phone] Referring Provider: Alex Woods, [address], [place], [place], [id number]. tel:[phone] OFFICE/OUTPA TIENT VISIT, [facility], [address], [place], [place], [id number], [place] tel:[phone] [facility] back pain1 (chief complaint) LumbagoSacroiliitis Chuck Johnson. [address], [place], [place], [id number] , [place]. [phone] Referring Provider: Dedrick Garcia [address], [place], [place], [id number]. tel:[phone] OFFICE/OUTPA TIENT VISIT, EST [facility], [address], [place], [place], [id number], [place] tel:[phone] [facility] brast lump1 (chief complaint) back pain1 (chief complaint) tinea1 (chief complaint) SacroiliitisLump in breastTinea corporis Sep-2 7 Chuck Johnson. [address], [place], [place], [address] , [place]. [phone] Referring Provider: Dedrick Garcia [facility] [address], [place], [place], [id number]. tel:[phone] PREV VISIT, NEW, AGE 18-39 [facility], [address], [place], [place], [address], [place] tel:[phone] [facility] PHysical (chief complaint) Encounter for general adult medical exam w abnormal findingsTinea corporisFamily history of malignant neoplasm of ovary 7 Chuck Johnson. [address], [place], [place], [address] , [place]. tel:[phone] Referring Provider: Dedrick Garcia [facility] [address], [place], [place], [id number]. tel:[phone] Family History Family Member Type Diagnosis Age [...] Referral Ordered: US KIDNEY ordered Referral Ordered: [facility] (related to Sacroiliitis) ordered Referral Ordered: LUMBAR XRAY AP AND LAT ONLY ordered Referral Referred To: [facility] [address] [place] [address], [id number] Ordered: Referrals: [facility]. Evaluate and treat ordered Referral Ordered: MAMMOGRAM, [...] Mental Status Date Cognitive Assessment Orientation - Hepzibah ed to time, place, person, situation.
--- OUTSIDE RECORDS SUMMARY | 2024-09-04 00:08 | XMS_ITS | Encounter Summary ---
Author Organization [facility] Facility Care Team Providers Care Fourth Grade Teacher Name Role Phone Mohamud Reyes MD Primary Care Provider Hansa Schulte Primary Care Provider [phone] Mohamud Reyes MD Primary Care Provider [phone] Bruna Gamino NP Primary Care Provider [phone] Encounter Details Date Type Department Care Team (Latest Contact Info) Description 05/29/2018 Orders Only [facility] Provider, MD Corin [address] [place] [address] Social History Tobacco Use Types Packs/Day Years Used Date Smoking Tobacco: Never Assessed Comments Unknown Sex and Gender Information Value Date Recorded Sex Assigned at Not on file Legal Sex Female 12:50 AM APPLICATIONS SYSTEMS ENGINEER Gender Identity Not on file Sexual Orientation Not on file documented as of this encounter Plan of Treatment Not on file documented as of this encounter Procedures Procedure Name Priority Date/Time Associated Diagnosis Comments SCAN - LABS 05/30/2018 12:00 AM APPLICATIONS SYSTEMS ENGINEER documented in this encounter Results * SCAN - LABS (05/30/2018 12:00 AM APPLICATIONS SYSTEMS ENGINEER) Narrative 05/30/2018 12:00 AM APPLICATIONS SYSTEMS ENGINEER Ordered by an unspecified provider. us Historical Provider Final Res ult documented in this encounter Visit Diagnoses Not on filedocumented in this encounter Additional Health Concerns Infection Onset Date Last Indicated Resolved Time COVID: Suspected 05/21/2021 05/21/2021 05/21/2021 6:55 PM APPLICATIONS SYSTEMS ENGINEER COVID19 05/21/2021 05/21/2021 05/31/2021 3:05 AM APPLICATIONS SYSTEMS ENGINEER COVID: Recovered Comment:Added based on recent COVID infection. 05/31/2021 08/01/2021 09/28/2021 3:07 AM C DT documented as of this encounter Care Teams Fourth Grade Teacher Relationship Specialty Start Date End Date Mohamud Reyes MD PCP - General Family Medicine 07/27/18 11/22/20 Hansa Schulte PA PCP - General Stratigraphy Teacher 11/23/20 01/25/22 Mohamud Reyes MD PCP - General Family Medicine 01/26/22 02/03/22 Bruna Gamino NP PCP - General Internal Medicine 02/04/22 documented as of this encounter
--- OUTSIDE RECORDS SUMMARY | 2024-09-04 00:08 | XMS_ITS | Continuity of Care Document ---
Author Organization [facility] Address [address] [facility] [address] [place] [address] Phone Care Team Providers Care Programming Manager Name Role Phone Muehl MPT CMPT, Dilshad Unavailable Unavailable Procedures Procedure Date PT Evaluation Low Complexity Therapeutic Exercise Manual Therapy Advance Directives Directive Yes / No Effective Date File Name No Information Encounters Encounter Description Practice Location Reason(s) For Visit Diagnoses Date Provider Providers Copied on Encounter [facility] [address], [id number], tel:[phone] [place] No Information Feb-0 2201 7 Muehl Dilshad. [address] [facility], [address], [facility], [place]. tel:[phone] [facility], [address] [place] [address], [id number], tel:[phone] [place] Low back painThoracogenic scoliosis, thoracolumbar region Jan-2 6 7 Muehl Dilshad. [address] [facility], [facility] [address], [address], [place]. tel:[phone] Referring Provider: Alex Woods, [address] [facility] [place], [address]. tel:[phone] Family History Family Member Type Diagnosis Age At Onset No Information Payers Payer name Insurance type Covered alliance party ID Authoriza tigregory(s) [facility] [id number] Social History Type Description Quantity Date Captured [...]
--- OUTSIDE RECORDS SUMMARY | 2024-09-04 00:08 | XMS_ITS | Data Portability ---
Author Organization [facility] [place] Address [address] [place] [address] Care Team Providers Care Research Attorney Name Role Phone MICAH DAWKINS Primary Care Provider [phone] Assessment Encounter Date Assessment Date Assessment LastModified by Organization Details LastModified Time 08/13/2024 08/13/2024 Patient is __36_weeks . Discussed plan. [email or web address] Not available 08/13/2024 13:08:13 08/23/2024 08/23/2024 Patient is ___weeks . Discussed plan. [email or web address] Not available 08/23/2024 14:22:04 08/27/2024 08/27/2024 Patient is __39_weeks . Discussed plan. [email or web address] Not available 08/28/2024 12:45:07 Plan of Treatment Reminders Order Date Submit Date Provider Last Modified By Organization Details Last Modified Time Details Appointments INDUCTION 2024 12:01A Nicola Garibay CNM Not available Not available Not available Lab None recorded. Referral None recorded. Procedures None recorded. Surgeries None recorded. Imaging None recorded. Medication Orders None recorded. Patient TargetsNo targets recorded. Patient InstructionsNo instructions recorded. Reason for Referral None Reported. Results Created Date Observation Date Name Description Value Unit Range Abnormal Flag Note LastModifiedBy Organization Detail LastModifiedTime 08/08/1908/07/2024 CULTU RE: GROUP B STREP SCREE N, REFLE X SUSCE PTIBI LITY result report SEE RESULT S BELOW abnormal Test: Cultu re: Group B Strep , Refle x Susce ptibi lity ([facility]/ [facility]/K H/VWH ) Speci men Sourc e: Vagin a/Rec sean Speci men Type: Vagin al/Re ctal Speci men Date: 025 1730 Resul t Date: 025 1526 Resul t Statu s: Final resul t Abnor mal: Yes Resul cassig Lab: [facility] [address] [facility] [address] Tel: CULTU RE ----- ----- ----- --- Posit christina for Strep tococ cus agala ctiae (Grou p B) (Abno rmal) Clind amyci n susce ptibl e, eryth romyc in resis tant. The clind amyci n induc tion test (D-t est) is negat christina, there fore clind amyci n shoul d be clini trevor effec tive again st this isola te. Not Available [facility] (Lab) [address], [place], [address], 08/11/2024 16:30:22 07/09/19 25 07/08/2024 US, obste tric, follo w-up No observ ation record ed. [email or web address], [place], [address], 07/08/2024 17:19:07 07/09/19 25 07/08/2024 US, obste tric, follo w-up No observ ation record ed. [email or web address], [place], [address], 07/08/2024 22:23:50 07/25/19 25 07/24/2024 imagi ng/di agnos tic resul t No observ ation record ed. [facility] [address], [place], [address], 07/26/2024 18:13:59 07/25/19 25 07/24/2024 imagi ng/di agnos tic resul t No observ ation record ed. [facility] [address], [place], [address], 08/12/2024 16:34:19 08/28/19 25 08/27/2024 non-s tress test No observ ation record ed. [address], [place], [address], 08/29/2024 09:46:58 Result Notes None recorded. Problems Name Problem SNOMED Code Status Onset Date Resolution Date Notes Provider Name and Address Organization Details Recorded Time Bipolar disorder 16262470 Active 2020 Haley Alvarez MD [address], [place], [address], [facility] 1 17:15:10 Uterine adenomyo sis 068087217 Active 2020 suspected on US at Haley Alvarez MD [address], [place], [address], [facility] 1 17:15:35 Pregnanc y 29124457 Active 2023 Kaylyn Desouza null, [facility] 4 17:31:17 Migraine 27693444 Active [email or web address] Ric White MD [address], [place], [address], [facility] 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 5 18:18:47 Group B Streptoc occus carrier 10555509507 03 Active + amp in labor Aisha Shoaib howe, [facility] 5 18:18:47 Problem Notes None recorded. Procedures Surgical History Date Name Laterality Status Provider Name and Address Organization Details Recorded Time 11/24/2020 Date of Last Pap Smear completed Zoila Crisostomo [facility] 07/23/2021 09:42:18 Imaging Results Imaging Date Name Status LastModified by Organiz ation Details LastModified Time 07/08/2024 US, obstetric, follow-up completed [email or web address] [place] [address], [place], [address], 07/08/2024 17:19:07 07/08/2024 US, obstetric, follow-up completed [email or web address], [place], [address], 07/08/2024 22:23:50 07/24/2024 imaging/diag nostic result completed [address] [facility], [place], [address], 07/26/2024 18:13:59 07/24/2024 imaging/diag nostic result completed [facility] [address] [place] [address] [place] [address], [address], 08/12/2024 16:34:19 08/27/2024 non-stress test completed [address] [facility], [place], [address], 08/29/2024 09:46:58 Procedure Notes None recorded. Medical Equipment None Reported. Allergies Allergen ID Allergen Name Allergen Category Reaction Reaction Severity Criticality Documentation Date Start Date Code Code System Note Provider Name and Address Organization Details Recorded Time 03107 latex environme nt,medica tion Not available Not available Not available 10/20/2020 76831 91 RxNorm Faye Metcalf shyam [facility] 17:02:44 60936 Substance with sulfonami de structure and antibacte rial mechanism of action (substanc e) medicatio n Not available Not available Not available 10/20/2020 37387 8003 SNOMED Faye howe [facility] 17:02:50 Medications Name Sig Start Date Stop Date Status Note LastModified by Organization Details LastModified Time celecoxib 200 mg capsule 10/16 /2024 completed Not Available Not Available Not Available [...] sulfate HFA 90 mcg/actuati on aerosol inhaler 03/18 /2022 completed Not Available Not Available Not Available [...] Updated DateTime 07/24/2024 160.02 cm 28 kg/m2 17752.59 g 106 mm[Hg] 66 mm[Hg] Miguelina Brewster [facility] 5 16:40:03 Date Recorded Body height Body mass index (BMI) Body weight Systolic blood pressure Diastolic blood pressure Provider Name and Address Organization Details Last Updated DateTime 08/07/2024 160.02 cm 28.3 kg/m2 65582.78 g 111 mm[Hg] 74 mm[Hg] JUAN Westfall [facility] 5 17:13:04 Date Recorded Body height Body mass index (BMI) Body weight Systolic blood pressure Diastolic blood pressure Provider Name and Address Organization Details Last Updated DateTime 08/13/2024 160.02 cm 28.7 kg/m2 85145.96 g 113 mm[Hg] 71 mm[Hg] Zahra Henry [facility] 5 12:25:50 Date Recorded Body weight Systolic blood pressure Diastolic blood pressure Provider Name and Address Organization Details Last Updated DateTime 08/23/2024 17990.5563 1 g 107 mm[Hg] 70 mm[Hg] JUAN Westfall [facility] 08/23/2024 14:23:18 Date Recorded Body weight Body mass index (BMI) Body height Systolic blood pressure Diastolic blood pressure Provider Name and Address Organization Details Last Updated DateTime 08/27/2024 19423.96 394 g 28.7 kg/m2 160.02 cm 119 mm[Hg] 78 mm[Hg] Zahra Henry [facility] 13:38:04 Social History Question Answer Notes LastModified by Organizat ion Details LastModified Time Tobacco Smoking Status Never Smoker Faye howe, [facility] 10/20/2020 17:02:06 What Is Your Level Of Alcohol Consumption? None Information not available 10/20/2020 Are You Blind Or Do You Have Difficulty Seeing? No [email or web address] Information n ot available 01/31/2024 What Is Your Level Of Caffeine Consumption? Moderate Information not available 03/20/2024 How Much Tobacco Do You Chew? None [email or web address] Information not available 01/31/2024 In The 14 Days Before Symptom Onset, Have You Had Close Contact With A Laboratory-confirm ed COVID-19 While That Case Was Ill? No Information n ot available 01/31/2024 In The 14 Days Before Symptom Onset, Have You Had Close Contact With A Person Who Is Under Investigation For COVID-19 While That Person Was Ill? No [email or web address] Information not available 01/31/2024 Have You Been To An Area Known To Be High Risk For COVID-19? No [email or web address] Information not available 01/31/2024 Are You Deaf Or Do You Have Serious Difficulty Hearing? No [email or web address] Information not available 01/31/2024 What Type Of Diet Are You Following? REGULAR [email or web address] Information n ot available 01/31/2024 What Is The Highest Grade Or Level Of School You Have Completed Or The Highest Degree You Have Received? 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 No [email or web address] Information not available 01/31/2024 Do You Use Protection During Sex? No [email or web address] Information not available 01/31/2024 Do You Use Your Seat Belt Or Car Seat Routinely? Yes Information not available 01/31/2024 Do You Have Smoke And Carbon Monoxide Detectors In Your Home? Yes [email or web address] Information not available 01/31/2024 How Much Tobacco Do You Smoke? No Information not available 01/31/2024 Do You Feel Stressed (tense, Restless, Nervous, Or Anxious, Or Unable To Sleep At Night)? [id number] [email or web address] Information not available 01/31/2024 Do You Use Any Illicit Or Recreational Drugs? No Information not available 10/20/2020 Do You Use Sunscreen Routinely? No [email or web address] Information not available 01/31/2024 Has Tobacco Cessation Counseling Been Provided? No Information not available 10/20/2020 Have You Used IV Drugs? No [email or web address] Information not available 01/31/2024 Do You Or Have You Ever Used Any Other Forms Of Tobacco Or Nicotine? No Information not available 10/20/2020 Sex: Unknown Functional Status Question Answer Note LastModified by Organizat ion Details LastModified Time Do you have difficulty walking or climbing stairs? No [email or web address] Information not available 08/13/2024 Are you able to walk? YESWOREST [email or web address] Information not available 01/31/2024 Are you able to care for yourself? Yes [email or web address] Information not available 08/13/2024 Do you have difficulty dressing or bathing? No [email or web address] Information not available 08/13/2024 What is your exercise level? Moderate Information not available 01/31/2024 Mental Status None [...] SNOMED-CT Code Diagnosis ICD10 Code Diagnosis Note [id number] Haley Alvarez MD [place] [address],[place] [address] 10/20/2020 16:53:51 10/21/2020 16:11:01 Pelvic floor tension 028933602 R29.898 [id number] Haley Alvarez MD [place] [address],[place] [address] 11/24/2020 16:34:17 11/24/2020 17:09:48 Gynecologic examination 41148775 Z01.419 [id number] Ric White MD [place] [address],[place] [address] 07/23/2021 09:15:46 07/23/2021 14:21:43 Menorrhagia 571978263 N92.0 Pain in pelvis 82442536 R10.2 I spent over 35 minutes with the patient. We discussed her symptoms in detail. We reviewed radiology reports. We discussed disease processes regarding pelvic pain, ovarian cyst, adenomyosi s. We discussed evaluation and possible treatments of menorrhagi a and pelvic pain. We will proceed with pelvic ultrasound and the patient will return to discuss treatment plan. [id number] Janelle Stern [place] [address],[place] [address] 07/28/2021 09:42:58 07/28/2021 10:38:00 Pain in pelvis 79073089 R10.2 [id number] Haley Alvarez MD [place] [address],[place] [address] 03/22/2022 17:25:20 03/23/2022 12:05:46 Amenorrhea 25519194 N91.2 Nausea 604053544 R11.0 Stomach cramps 23773292 R10.9 Trying to conceive 76199 9001 Z31.9 [id number] Anastasiia Miramontes [place] [address],[place] [address] 01/23/2024 14:58:52 01/23/2024 15:16:19 Urinary symptoms 104353452 R39.9 Acute urin ant tract infection 987018889 N39.0 [id number] Valeria Frankel [place] [address],[place] [address] 01/31/2024 11:26:51 01/31/2024 11:51:43 [id number] DANIEL VALENCIA MD [place] [address],[place] [address] 01/31/2024 11:27:10 01/31/2024 15:32:00 Nausea and vomiting 20806801 R11.2 - will trial zofran PRN for nausea Migraine 59323264 G43.90 9 - hx of chronic migraines- has previously tried reglan, naproxen, sumatripta n, compazine, propranolo l, cyclobenza pine, zofran, toradol, exedrin migraines, dilaudid, ibuprofen, and norco with no improvemen t- will trial sumatripta n, tylenol and caffeine- will send neurology referral test positive 294561975 Z32.01 1. Exam today within normal limits.2. [...] desires at 10 weeks, orders given today. [id number] Dinorah Celestin [place] [address],[place] [address] 02/21/2024 16:33:48 02/21/2024 17:08:55 screening 203915056 Z36.82 Z3A.12 [id number] Ric White MD [place] [address],[place] [address] 02/21/2024 16:34:43 02/22/2024 00:38:42 Migraine 21848226 G43.909 Routine an tenatal care 725685024 Z34.90 [id number] [facility] [address],[place] [address] 03/20/2024 16:34:46 03/20/2024 17:12:20 Routine care 955700918 Z34.92 Gestation period, 16 weeks 61091540 Z3A.16 [id number] Valeria Frankel [place] [address],[place] [address] 04/18/2024 16:26:44 04/18/2024 17:59:14 screening for malformation 868351811 Z36.3 Z3A.20 [id number] Ric White MD [place] [address],[place] [address] 04/18/2024 16:29:40 04/19/2024 10:14:41 Routine care 852647666 Z34.90 [id number] DANIEL VALENCIA MD [place] [address],[place] [address] 05/17/2024 15:52:41 05/20/2024 18:25:26 Routine care 375027336 Z34.91 [id number] [facility] [address],[place] [address] 05/24/2024 12:31:27 05/24/2024 13:18:24 Abdominal pain in 667133408 O99.891 O26.852 Z3A.25 [id number] Rci White MD [place] [address],[place] [address] 05/24/2024 12:32:04 05/24/2024 13:33:54 Urinary symptoms 012564818 R39.9 Traumatic injury during 343622227 T14.90XA [id number] DANIEL VALENCIA MD [place] [address],[place] [address] 06/12/2024 14:31:43 06/13/2024 14:42:54 Routine care 475940446 Z34.91 [id number] DANIEL VALENCIA MD [place] [address],[place] [address] 06/24/2024 16:15:04 06/26/2024 03:31:51 Candidiasis of vagina 89479148 B37.31 Routine an tenatal care 864222943 Z34.91 - continue PNV [id number] Valeria Frankel [place] [address],[place] [address] 07/08/2024 14:54:02 07/08/2024 15:52:50 Uterine size for dates discrepancy 654532698 O26.843 Z3A.31 [id number] DANIEL VALENCIA MD [place] [address],[place] [address] 07/08/2024 14:54:26 07/11/2024 09:36:05 Routine care 058824309 Z34.91 - continue PNV [id number] DANIEL VALENCIA MD [place] [address],[place] [address] 07/24/2024 16:22:43 07/24/2024 17:48:09 Uterine contractions present 915817086 O80 Gestation period, 34 weeks 03016372 Z3A.34 [id number] DANIEL VALENCIA MD [place] [address],[place] [address] 08/07/2024 16:58:41 08/09/2024 00:41:23 Routine care 668755472 Z34.91 - continue PNV [id number] Mayda Garibay [facility] [address],[place] [address] 08/13/2024 11:42:00 08/13/2024 13:09:29 Gestation period, 36 weeks 56624155 Z3A.36 [id number] Ric White MD [place] [address],[place] [address] 08/23/2024 14:17:08 08/23/2024 14:34:09 care status 492343963 Z34.80 [id number] [facility] [address],[place] [address] 08/27/2024 12:46:40 08/28/2024 13:45:09 Gestation period, 39 weeks 24734057 Z3A.39 Health Concerns Section Related Observation LastModified by Organization Detai ls LastModified Time None Recorded Concern Status LastModified by Organization Details LastModified Time None Recorded Advance Directives Directive None Recorded Payers Encounter Date Sequence Insurance Name Policy Number Policy Childs Covered Member ID Childs Member ID Guarantor Name 07/24/2024 1 [place] [id number] Jorje Cantu [id number] Jorje Morilloams 08/07/2024 1 [place] [id number] Jorje Morilloams [id number] Jorje Cantu 08/13/2024 1 [place] [id number] Jorje Cantu [id number] Jorje Cantu 08/23/2024 1 [place] [id number] Jorej Cantu [id number] Jorje Cantu 08/27/2024 1 [place] [id number] Jorje Cantu [id number] Jorje Cantu OBGyn Episode Ob Episode Information Episode Created Date Number of Fetuses Patient Bloodtype Patient rh Status Prepregnancy Weight lbs Domestic Partner Domestic Partner Phone Father Name Commercial Credit Reviewer Status 10/21/19 21 1 CLOSED Fetus Data First Name Last Name Admitted to NICU Weight (g) Sex Living Outcome Pediatric Complications Fetus ID Race Codes Race Delivery Type 2919.77 1704 M [id number] Vaginal Delivery Mark Calculation Initial Mark Date [...] Domestic Partner Domestic Partner Phone Father Name Commercial Credit Reviewer Status 02/21/20 24 1 O Negative OPEN Fetus Data First Name Last Name Admitted to NICU Weight (g) Sex Living Outcome Pediatric Complications Fetus ID Race Codes Race Delivery Type [id number] Problems Problem Notes Problem Name Start Date End Date Resolution Snomed Code Not e Group B Streptococcus carrier 2021610910309 + amp in labor Migraine 02803383 aura Mark Calculation Initial Mark Date Initial [...] Weight in lbs Pre/Post Dialysis Refused Weight 128.715464414641 BP Diastolic BP Location Tested BP Systolic [...] Type Weight in lbs Pre/Post Dialysis Refused 129.532717647437 BP Diastolic BP Location Tested BP Systolic [...] Type Weight in lbs Pre/Post Dialysis Refused 136.034496335031 BP Diastolic BP Location Tested BP Systolic [...] in lbs Pre/Post Dialysis Refused With clothes 142.008977222336 BP Diastolic BP Location Tested BP Systolic [...] Type Weight in lbs Pre/Post Dialysis Refused 142.614503058804 BP Diastolic BP Location Tested BP Systolic [...] Type Weight in lbs Pre/Post Dialysis Refused 148.582705929550 BP Diastolic BP Location Tested BP Systolic [...] Weight in lbs Pre/Post Dialysis Refused Weight 152.329282875268 BP Diastolic BP Location Tested BP Systolic [...] Weight in lbs Pre/Post Dialysis Refused Weight 157.725579969769 BP Diastolic BP Location Tested BP Systolic [...] Weight in lbs Pre/Post Dialysis Refused Weight 158.206662873061 BP Diastolic BP Location Tested BP Systolic [...] Weight in lbs Pre/Post Dialysis Refused Weight 160.651616551016 BP Diastolic BP Location Tested BP Systolic [...] Weight in lbs Pre/Post Dialysis Refused Weight 162.552413684960 BP Diastolic BP Location Tested BP Systolic BP Type 71 113 Fetus Heart Rate Present A 156 Fetus Movement A Yes Comments Patient is having pain, cont ractions, discharge muscus with some blood, swelling and nausea. IOL 09/04 will keep as scheduled, precautions and education, labor precautions f/u one week Flowsheet Date 08/23/2024 Bojorquez Score Blood Edema Fundus Height Fundus Units Glucose Ketones Leukocytes Nitrite Labor Signs Protein Cervic Dilation Cervic Effacement Cervic Station trace trace neg 1cm 50% -3 Type Weight in lbs Pre/Post Dialysis Refused 163.837113543205 BP Diastolic BP Location Tested BP Systolic BP Type 70 L arm 107 sitting Fetus Heart Rate Present Fetus Movement A Yes Comments pt is have a little pain. pt stated she has lost her muscus plug a little swelling in legs and feet Flowsheet Date 08/27/2024 Bojorquez Score Blood Edema Fundus Height Fundus Units Glucose Ketones Leukocytes Nitrite Labor Signs Protein Cervic Dilation Cervic Effacement Cervic Station neg trace Type Weight in lbs Pre/Post Dialysis Refused 162.946173146461 BP Diastolic BP Location Tested BP Systolic BP Type 78 119 Fetus Heart Rate Present Fetus Movement A Yes Comments Patient has had upset stomac h with loose stools, contractions, discharge, swelling and pressure. ok for imodium, doing well +FM, cervix 1 cm, education and precautions f/u IOL as scheduled Menstrual History Last Menstrual Date Menses Monthly [...]
--- OUTSIDE RECORDS SUMMARY | 2024-09-04 00:08 | XMS_ITS | Clinical Summary ---
Author Organization [facility] [address] [facility] Address [address] [place] [address] Care Team Providers Care Form Raiser Name Role Phone Bruna Gamino NP Primary Care Provider [phone] Allergies Active Allergy Reactions Criticality Noted Date [...] the right wrist, will fax order to [facility]. Will notify her of these [...] the c spine, will fax order to [facility]. Will notify her of these results as they become available. De Quervain's disease (tenosynovitis) 11/11/2021 Assessment & Plan (11/11/2021 10:40 PM CDT): Her current symptoms seem most consistent with deeper veins tenosynovitis. Discussed the difference between a thumb spica and a cock-up splint. She will consider getting 1 off [employer]. Continue icing and anti-inflammatory. Avoid repetition which may be her video game. If she does not notice improvement in the next month or so can consider physical therapy versus referral to [facility]. COVID-19 05/27/2021 Assessment & Plan (05/27/2021 5:48 PM BOTTOM IRONER): Patient has just started mdp, wanting to [...] 12/22/2021 Assessment & Plan (05/21/2021 3:28 PM BOTTOM IRONER): Will send patient to [place] for Covid-19 testing. The patient was advised [...] Department Care Team Description 07/24/2024 Orders Only [facility] Information Management [address] [place] [id number] Bruna Gamino NP from Last 3 Months [...] on file Legal Sex Female 12:50 AM BOTTOM IRONER Gender Identity Not on file Sexual Orientation [...] Comments Blood Pressure 112/68 06/27/2023 2:40 PM BOTTOM IRONER Pulse 65 06/27/2023 2:40 PM BOTTOM IRONER Temperature 36.9 C (98.4 F) 06/27/2023 2:40 PM BOTTOM IRONER Respiratory Rate 16 10/19/2018 11:42 AM CDT Oxygen Saturation 99% 06/27/2023 2:40 PM BOTTOM IRONER Inhaled Oxygen Concentration - - Weight 59.6 kg (131 lb 8 oz) 06/27/2023 2:40 PM BOTTOM IRONER Height 162.6 cm (5' 4) 06/27/2023 2:40 PM BOTTOM IRONER Body Mass Index 22.57 06/27/2023 2:40 PM BOTTOM IRONER Plan of Treatment Health Maintenance Due Date [...] Final Result from Last 3 Months Insurance [employer] OOS BLUE ACCESS OOS Care Teams Form Raiser Relationship Specialty Start Date End Date Bruna Gamino NP PCP - General Internal Medicine 02/04/22
--- NOTE | 2024-09-04 00:10 | LDADM ---
This patient, Shayna Cantu, was admitted to Labor/Delivery/Recovery 108 on 09/04/24 at 00:01. Plans for labor, pain management and were discussed with patient. Patient/family oriented to hospital policies and general routines including ID bracelet, bed and alarms, visiting hours, pain management, procedures, bathroom and other care routines, personal items, smoking policy, room service/diet and guest tray routines, security routines, and visiting hours. Patient/Family are encouraged to report perceived risks to care and to ask questions if they do not understand what they are told or what they should do. See OBIX for further documentation.
[2024-09-04 00:43] LABS: Basophils Percent Auto 0.3 % (0.2-1.2); Eosinophils Absolute Auto 0.1 K/mm3 (0-0.3); Eosinophils Percent Auto 0.9 % (0-4.4); Hematocrit 35.2 % (37.0-47.0); Hemoglobin 11.7 g/dL (12.0-15.0); Immature Granulocyte Absolute 0.12 K/mm3 (0.00-0.031); Immature Granulocyte Percent A 1.1 % (0-0.5); Lymphocytes Absolute Auto 2.18 K/mm3 (0.9-3.2); Lymphocytes Percent Auto 20.9 % (18.3-44.2); Mean Corpuscular HGB Conc 33.2 g/dl (32-36); Mean Corpuscular Hemoglobin 30.2 pg (26-34); Mean Platelet Volume 9.4 fl (7.4-10.4); Monocytes Absolute Auto 0.9 K/mm3 (0.1-0.6); Monocytes Percent Auto 8.5 % (2.6-8.5); Neutrophils Absolute Auto 7.1 K/mm3 (1.3-6.7); Neutrophils Percent Auto 68.3 % (45.5-73.1); Platelet Count Result 242 k/mm3 (150-375); Red Blood Count 3.87 M/mm3 (4.2-5.4); Red Cell Distribution Width 13.9 % (11.5-14.5); White Blood Count 10.4 K/mm3 (4.5-10.0)
[2024-09-04] MEDS: miSOPROStol 25 MCG TABLET 50 MCG BUCCAL ×2 (01:20→05:48)
[2024-09-04 01:23] LABS: Syphilis IgG/IgM Antibody Negative (Negative)
[2024-09-04 01:37] LABS: HIV 1/2 Ab P24 Ag Result Negative (Negative)
--- NOTE | 2024-09-04 06:24 | WPDANESEPP ---
Anes - Eval Pre Procedure Procedure: labor pain management Date/Time: 09/04/24 06:24 Surgeon: Christopher Preop Diagnosis: pain during labor Pre Op Diagnosis: IOL Patient Data Age: 34 Gender: F Height: 1.6 m Weight: 74 kg Last Vital Signs Pulse 67 09/04/24 06:00 BP 91/53 L 09/04/24 06:00 Pulse Ox 99 09/04/24 06:09 O2 Del Method Room Air 09/04/24 00:10 Allergies Allergy/AdvReac Type Severity Reaction Status Date / Time latex Allergy Intermediate Rash Verified 08/05/24 14:30 dexamethasone Allergy Unknown Anaphylaxis Verified 08/05/24 14:30 Sulfa (Sulfonamide Allergy Unknown Unknown Verified 08/05/24 14:30 Antibiotics) Home Medications ?Medication ?Instructions ?Recorded ?Confirmed ?Type acetaminophen 500 mg tablet 1,000 mg (2 x 500 mg) PO TID PRN 11/06/22 09/04/24 Rx ade 7 days #42 tabs sumatriptan succinate 25 mg tablet 25 mg PO 07/10/24 History ondansetron 8 mg disintegrating 8 mg PO Q12H PRN nausea and 07/30/24 08/05/24 History tablet vomiting pediatric multivitamin no.7-folic tablet PO 09/04/24 History acid 100 mcg chewable tablet (Flintstones Tab Chew) Laboratory Tests 09/04/24 09/04/24 00:19 00:20 WBC 10.4 H K/mm3 (4.5-10.0) RBC 3.87 L M/mm3 (4.2-5.4) Hgb 11.7 L g/dL (12.0-15.0) Hct 35.2 L % (37.0-47.0) MCV 91.0 fl (80-100) MCH 30.2 pg (26-34) MCHC 33.2 g/dl (32-36) RDW 13.9 % (11.5-14.5) Plt Count 242 k/mm3 (150-375) MPV 9.4 fl (7.4-10.4) Immature Gran % (Auto) 1.1 H % (0-0.5) Neut % (Auto) 68.3 % (45.5-73.1) Lymph % (Auto) 20.9 % (18.3-44.2) Caroline % (Auto) 8.5 % (2.6-8.5) Eos % (Auto) 0.9 % (0-4.4) Baso % (Auto) 0.3 % (0.2-1.2) Lymph # (Auto) 2.18 K/mm3 (0.9-3.2) Caroline # (Auto) 0.9 H K/mm3 (0.1-0.6) Eos # (Auto) 0.1 K/mm3 (0-0.3) Baso # (Auto) 0.0 K/mm3 (0.0-0.1) Abs Immat Gran (auto) 0.12 H K/mm3 (0.00-0.031) Absolute Neuts (auto) 7.1 H K/mm3 (1.3-6.7) Absolute Nucleated RBC 0.000 K/mm3 (0.0-0.012) Nucleated RBC % 0.0 % (0.0-0.2) Syphilis IgG/IgM Ab Negative (Negative) HIV 1&2 Ab/P24 Ag 4thGn Negative (Negative) Blood Type O Negative Antibody Screen Positive Antibody Identification Inconclusive Antigen Identification TNP RHONDA, IgG Interpret Not Performed RHONDA, Poly Interpret Negative RHONDA, Complement Interp Not Performed Patient hx anesthesia problems: none Family hx anesthesia problems: none Results Review: All pre-operative results and documents have been reviewed as part of the pre-operative evaluation. [facility] Past Medical History Medical History Angina pectoris, unspecified Anemia Ovarian cyst Migraines Family History Family History Other Cancer Hyperglycemia Hypertension Migraines Social History Social History Smoking status: Never smoker Second hand tobacco smoke exposure: No Alcohol intake: never Substance use: never Substance use type: does not use Do You Feel Safe in your Home?: Yes Lack of Transportation: No Lack of Food: Never True Current Housing: I Have Housing Concerned About Future Housing: No Difficulty Paying Gas/Electric Bills: No Difficulty Paying for Meds: No Currently Unemployed: No Education: High School Diploma/GED Difficulty w/ Childcare or Family Care: No Gender identity (if verbalized by the patient): Female Spiritual care concerns: No Exam Day of Procedure 09/04/24 06:24
--- NOTE | 2024-09-04 07:29 | WPDOBADMIT ---
Obstetrics - Admit Note Admission Note: record reviewed. No pertinent additions to the history and/or any subsequent changes in the physical findings that are not consistent with the expected course of the were found. Additions to the history and/or subsequent changes in the physical findings follow. IOL, discussed options, plan epidural and then AROM
[2024-09-04] MEDS: fentaNYL CITRATE INJ (*CRX) 100 MCG/2 ML VIAL IV PUSH (07:59)
[2024-09-04] MEDS: LACTATED RINGERS 1,000 ML 125 ML IV CONT (07:59)
[2024-09-04] MEDS: AMPICILLIN 2 GM/NS 100 ML 2 GM/100 ML BAG IVPB (08:27)
[2024-09-04] MEDS: LACTATED RINGERS 1,000 ML 100 ML IV CONT (10:53)
--- NOTE | 2024-09-04 11:37 | P.PCNOB_ITS ---
OB - Vaginal Delivery Note Procedure Delivery date: 09/04/24 Intrapartal Events: Decelerations Induction method: Per Misoprostol Protocol Delivery augmentation: Rupture of Membranes Delivery monitor: External FHT and External Uterine Route of delivery: Indication for instrumentation: nonreassuring FHR tracing Episiotomy description: None Laceration Description: Other (clitoral barton- 2 sutures) Delivery repair: vicryl Specimen: No Quantitative Blood Loss (ml): 80 Anesthesia type: Epidural Disposition: Floor [place] Baby Date of : 09/04/24 Time of : 11:13 Gestational Age by Date: 40 gender: Male presentation: vertex position: Left Occiput Anterior Placenta delivery description: Spontaneous Cord Vessel Description: 3 Vessels and Clamped/Cut score one minute: 1 score five minutes: 3 score ten minutes: 5 Narrative: called to bs, FHR in the 60's, AROM, meconium fluid, SVE 10/100/+1 station, unable to push due to epidural. discussed risks and benefits of vacuum, dr. bolton called and at bs, vacuum placed and once contraction started pumped to green and pulled x 3 contractions, no pop offs and vacuum released. FHR back to baseline, continued to push and delivered without further complication
[2024-09-04] MEDS: OXYTOCIN 30 UNITS/NS 500 ML 30 UNITS/500 ML BAG 125 UNITS IV CONT (11:51)
[2024-09-04] MEDS: ACETAMINOPHEN 325 MG TABLET 650 MG PO ×2 (12:34→19:00)
[2024-09-04] MEDS: PHENYLEPHRINE 1,000 MCG/10 ML SYRINGE 100 MCG IV PUSH (14:42)
[2024-09-04] MEDS: HYDROcodone/acetaminophen (*CRX) 5-325 MG TABLET 1 TAB PO ×2 (14:45→23:45)
[2024-09-04] MEDS: BENZOCAINE 20% AER SPR (*SP) 56 GM CAN 1 SPRAY TOPICAL (15:40)
[2024-09-04] MEDS: WITCH HAZEL 40 PADS 1 PAD TOPICAL (15:40)
[2024-09-04] MEDS: SIMETHICONE 80 MG TAB.CHEW PO ×2 (16:03→19:00)
[2024-09-04] MEDS: CYCLOBENZAPRINE HCL 5 MG TABLET PO (16:22)
--- NOTE | 2024-09-04 17:00 | PC.NURSE ---
Patient transferred to post room #279 via wheelchair. Support person present. Oriented to unit, room, information board, admission packet given, mother prefers not to go over at this time, and security measures. Patient verbalizes understanding.
[2024-09-04] MEDS: IBUPROFEN 600 MG TABLET PO (17:23)
[2024-09-04] MEDS: LANOLIN (LANSINOH) 7.5 GM CREAM 1 APPLIC TOPICAL (17:27)
[2024-09-04] MEDS: diazePAM INJ (*CRX) 10 MG/2 ML SYRINGE 2 MG IV PUSH (20:20)
--- NOTE | 2024-09-04 20:46 | PC.NURSE ---
Addendum entered by Aaliyah Leone RN 09/05/24 05:27: 0519 - Pratibha Easton RN informed this RN that Mayda Garibay called to order CMP 0520 - Mayda Garibay CNM contacted this RN to order 1 mg Dilaudid. Addendum entered by Aaliyah Leone RN 09/05/24 05:18: 5- Toradol given. Patient still complaining of muscular pain and pressure. 0143- Mayda Garibay CNM called this RN for an update. Patient still unable to lay down and in pain but has been up walking, eating, drinking, and talking. Mayda ordered a urinalysis, STAT CT of the pelvis and abdomen without contrast, and IVF to run at 150. This RN began the fluids and put orders into computer. This RN provided patient with specimen cup and informed her of the CT scan orders. Patient nervous about getting the CT done due to pain. 0230 - This RN contacted radiology for an estimated time to come down. Radiology had another patient in the room at this time and stated they would call me back. 0252 - Patient called the desk with pain complaints, states it is tender to the touch on her abdomen. RN entered the room, administered mylicon, and had the patient hold her gown up. There was no bruising noted. Patient agreed to allow this RN to gently feel her abdomen at this time. This RN could not complete a full assessment but did note that the right side of the abdomen felt firm compared to the rest of the abdomen. Vital signs were taken at this time and were: 108 HR, 133/58 BP, 100% SpO2. 0308 - CT notified this RN they were ready for the patient. This RN requested the patient ride in a wheelchair but patient stated she would be in too much pain if she sat. This RN walked the patient to CT Patient stated she had to use the restroom at 0316 and provided urine sample. This RN tubed sample to lab at 0405. 0440- Pratibha Easton RN informed this RN that Dr. White called and requested another set of vitals. The patient requested more pain medication. This RN jacqui ordered labs, provided norco 5 and motrin, and took vital signs 107 HR, 109/87 BP, 99% SpO2, 98.1 temp, and 18 respirations. Patient refused fundal assessment. 499 - Pratibha Easton RN stated that she spoke with Dr. White about the results of the CT and he wants to pass along for [facility] radiologists to read the CT scan in the morning and call him with the results. Original Note: 1899 - Patient called nurses station with complaints of pain. This RN entered the room and spoke with the patient about her pain. Patient stated that for hours during labor she was experiencing muscle spasms and was sore from this. She also stated that when she attempts to lay in bed or sit back in the chair it feels like her muscles lock up. This RN gave the patient Tylenol and Mylicon. The patient requested that I contact Mayda Garibay CNM for further pain management. 1906 - This RN called Mayda Garibay CNM and forwarded the above information. Mayda Garibay asked that I discuss and educate the patient on three options for pain: flexaril 5 mg, Valium 2mg IVP, or Toradol 30 mg IVP. The patient chose valium. This RN put the orders in and obtained from pharmacy. 2019 - Patient received valium sitting on the bedside. This RN stayed with the patient for 10 minutes. Patient stated muscles were still locking up when she attempted to lay down. This RN came back after leaving for a few moments and attempted to assist patient in the bed. Patient still complaining of cramping pain and is unable to lay down. 2043 - This RN attempted to call Mayda Garibay CNM 2049 - Mayda Garibay called this RN back. This RN updated Mayda on patient's condition. Mayda ordered a one time dose of toradol 30 mg IVP and [place] 5 mg PO q4 PRN.
[2024-09-04] MEDS: KETOROLAC 30 MG/ML VIAL (*BKC) IV PUSH (21:15)
[2024-09-05] VITALS (15 sets, daily range): BP systolic 109–133; BP diastolic 58–87; PULSE 93–120; RESP 11–19; TEMP 36.2–37.3; O2SAT 96–100
[2024-09-05] MEDS: SIMETHICONE 80 MG TAB.CHEW PO ×4 (00:45→20:41)
[2024-09-05] MEDS: DEXTROSE 5%/0.45% SOD CHL 1,000 ML 150 ML IV CONT (02:00)
[2024-09-05] MEDS: HYDROcodone/acetaminophen (*CRX) 5-325 MG TABLET 1 TAB PO (04:40)
[2024-09-05] MEDS: IBUPROFEN 600 MG TABLET PO (04:40)
[2024-09-05 05:09] LABS: Hematocrit 27.9 % (37.0-47.0); Hemoglobin 8.9 g/dL (12.0-15.0)
--- NOTE | 2024-09-05 05:22 | PC.NURSE ---
0427-CT report received from radiology. RN notified CNM of results, CNM gave orders to notify MD. 0428-RN notified MD of CT results. MD gave orders to obtain a fresh set of vital signs. 0442- RN notified MD with updated vital signs, BP: 109/87 HR:107 RR:18 02: 99%, temp: 98.1. RN also notified MD of pain medications given, MD gave orders to [facility] the [facility] they get on at 0600. 0516- RN notified CNM of patient's lab results, CNM gave orders to obtain CMP.
[2024-09-05] MEDS: HYDROmorphone HCL INJ (*CRX) 1 MG/ML SYR IV PUSH ×3 (05:40→12:12)
[2024-09-05 05:42] LABS: Bacteria Urine None Seen /hpf; RBC Urine >100 /hpf (0-2); Squamous Epithelial Cell Urine Moderate /hpf (Few); WBC Urine 51-100 /hpf (0-3)
[2024-09-05 05:54] LABS: Add Urine Microscopic? YES; Appearance Urine Cloudy (Clear); Bilirubin Urine Negative (Negative); Blood Urine 3+ (Negative); Glucose Urine UA Negative (Negative); Ketones Urine Trace mg/dL (Negative); Leukocyte Esterase Ur 2+ LEU/UL (Negative); Nitrate Urine Negative (Negative); Protein Urine 2+ mg/dL (Negative); Specific Grav Ur 1.017 (1.001-1.035); Urobilinogen Urine 0.2 mg/dL (<2.0); pH Urine 5.5 (5.0-9.0)
[2024-09-05 05:55] LABS: Color Urine Light Amber (Yellow)
[2024-09-05 06:10] LABS: Alanine Aminotransferase 15 U/L (6-35); Albumin Level 2.9 g/dL (3.5-5.1); Alkaline Phosphatase 121 U/L (38-126); Anion Gap 6 mmol/L (4-12); Aspartate Amino Transferase 28 U/L (14-36); Bilirubin,Total 0.7 mg/dL (0.2-1.3); Blood Urea Nitrogen 5 mg/dL (7-17); Calcium 8.5 mg/dL (8.4-10.2); Carbon Dioxide 22 mmol/L (22-30); Chloride 107 mmol/L (98-107); Estimated CRCL calculation 131 ml/min; Estimated Glomerular Filt Rate > 60; Glucose 97 mg/dL (65-110); Potassium 3.5 mmol/L (3.4-5.0); Sodium 135 mmol/L (137-145)
--- NOTE | 2024-09-05 07:56 | PC.NURSE ---
0730-To CT via wheelchair. Patient tolerated well.
--- NOTE | 2024-09-05 07:56 | PC.NURSE ---
0745-Patient returned from CT via wheelchair.
--- NOTE | 2024-09-05 08:30 | PC.NURSE ---
Patient expresses interest in pumping for her who is currently at [facility] - however, she is currently in a great amount of pain and does not wish to begin that process at this time. She will be having surgery this afternoon and would like to discuss pumping once she returns from surgery and pain is managed.
--- NOTE | 2024-09-05 09:05 | P.PNOB_ITS ---
OB - PN: Subj Subjective Date/time seen: 09/05/24 09:05 Interval history: pp day 1 reviewed labs/ CT with pt and dr. bolton notified of blood in pelvis pain managed with IV Dilaudid unable to exam abd due to pain VSS stable, cmp stable rpt CBC OB - PN: Obj Data Labs 09/05/24 04:37 09/05/24 05:47 Labs: Laboratory Results - last 24 hr 09/05/24 09/05/24 09/05/24 03:16 04:37 05:47 Hgb 8.9 L Hct 27.9 L Sodium 135 L Potassium 3.5 Chloride 107 Carbon Dioxide 22 Anion Gap 6 BUN 5 L Creatinine 0.49 L Estim Creat Clear Calc 131 Estimated GFR > 60 Glucose 97 Calcium 8.5 Total Bilirubin 0.7 AST 28 ALT 15 Alkaline Phosphatase 121 Total Protein 6.0 L Albumin 2.9 L Urine Color Light norris Urine Appearance Cloudy H Urine pH 5.5 Ur Specific [place] 1.017 Urine Protein 2+ H Urine Glucose (UA) Negative Urine Ketones Trace H Ur Blood (Man) 3+ H Urine Nitrate Negative Urine Bilirubin Negative Urine Urobilinogen 0.2 Ur Leukocyte Esterase 2+ H Urine RBC >100 H Urine WBC 51-100 Ur Squamous Epith Cells Moderate Urine Bacteria None seen Urine Casts 3-5 Blood Type O Negative Antibody Screen Not Reportable Screen Negative Baby's Blood Type O pos Baby's RHONDA Positive Doses of RhIg Required 1 Imaging Radiologist's impression: Impressions Abdomen/Pelvis CT 09/05/24 05:39 Impression: Enlarged presumed uterus with 5.2 x 4.3 cm area of blood products at the lower uterine segment/cervix. Moderate hemorrhagic ascites in the pelvis and left paracolic gutter. If there is concern for active bleeding, consider CT angiogram as indicated. Abdomen/Pelvis CTA 09/05/24 08:23 IMPRESSION: 1. Moderate hyperdense fluid in the abdomen and pelvis, possibly hemorrhage. No active site of hemorrhage is identified. 2: Enlarged uterus, likely postgravid. OB - PN A/P Plan day: 1 Comments: dr. bolton at bs to discuss surgical options Time Spent With Patient Time: Total time spent is greater than 50% in coordination of care (as documented) at patient's floor/unit and/or counseling patient: Review of Systems 2 Review of Systems: All systems reviewed & are unremarkable except as noted in HPI and below Exam 2 Const: General: cooperative Neck: Neck: normal visual inspection GI: Other: visually distended
--- NOTE | 2024-09-05 09:28 | PM.IMHP ---
H&P: HPI History of Present Illness Date/Time: 09/05/24 09:28 Chief Complaint: hemoperitoneum Narrative: 34-year-old female who is day 1. With severe abdominal pain and hemoperitoneum. We have agreed to perform diagnostic laparoscopy with evacuation of hematoma and possible bilateral salpingectomy. Patient understands the risks, benefits, and alternatives. She has completed the informed consent process is ready to proceed. The patient understands the details of the procedure. The procedure has been explained in detail. She understands the risks. She understands that injuries may occur that result in hospitalization, more surgery, and severe illness. She understands risk of hemorrhage and infection. She denies any chest pain or shortness of breath. She denies any nausea, vomiting, fever, chills. Review of Systems Review of Systems: All systems reviewed & are unremarkable except as noted in HPI and below Constitutional: Constitutional: Denies chills, Denies fatigue, Denies fever(s) and Denies weakness Eyes: Eyes: Denies blurry vision, Denies change in vision, Denies loss of peripheral vision, Denies loss of vision, Denies other visual disturbances and Denies eye pain ENT: Denies vertigo, Denies dizziness, Denies hearing loss, Denies mouth pain, Denies nasal obstruction, Denies neck mass and Denies neck pain Cardiovascular: Cardiovascular: Denies chest pain, Denies diaphoresis, Denies syncope, Denies leg edema and Denies dyspnea Respiratory: Respiratory: Denies chest congestion, Denies cough, Denies hemoptysis, Denies dyspnea and Denies wheezing Gastrointestinal: Gastrointestinal: Denies abdominal pain, Denies constipation, Denies diarrhea, Denies nausea and Denies vomiting Genitourinary: Genitourinary: Denies hematuria, Denies change in libido, Denies nocturia, Denies genital lesions, Denies flank pain and Denies urinary urgency Musculoskeletal: Musculoskeletal: Denies abnormal gait, Denies back pain, Denies myalgias, Denies arthralgias, Denies joint swelling, Denies muscle weakness and Denies neck pain Integumentary/Breasts: Skin/Breast: Denies swelling, Denies breast pain, Denies breast mass, Denies dry skin, Denies nipple discharge, Denies unusual bruising and Denies jaundice Neurologic: Denies Neuro-related abnormal movements, Denies Abnormal speech present, Denies abnormal gait, Denies behavioral changes, Denies confusion, Denies vertigo, Denies dizziness, Denies syncope, Denies loss of vision, Denies memory loss, Denies convulsions and Denies weakness Psychiatric: Psychiatric: Denies abnormal sleep pattern, Denies behavioral changes, Denies change in libido, Denies confusion, Denies depression, Denies anhedonia and Denies memory loss Endocrine: Endocrine: Reports no additional endocrine complaints, Denies change in libido and Denies fatigue Hematologic/Lymphatic: Hematologic/Lymphatic: Reports no additional hematologic/lymphatic complaints Allergic/Immunologic: Allergic/Immunologic: Reports no additional allergic/immunologic complaints and Denies wheezing PMFSH Past Medical History Medical History Angina pectoris, unspecified Anemia Ovarian cyst Migraines Family History Family History Other Cancer Hyperglycemia Hypertension Migraines Social History Social History Smoking status: Never smoker Second hand tobacco smoke exposure: No Alcohol intake: never Substance use: never Substance use type: does not use Do You Feel Safe in your Home?: Yes Lack of Transportation: No Lack of Food: Never True Current Housing: I Have Housing Concerned About Future Housing: No Difficulty Paying Gas/Electric Bills: No Difficulty Paying for Meds: No Currently Unemployed: No Education: High School Diploma/GED Difficulty w/ Childcare or Family Care: No Gender identity (if verbalized by the patient): Female Spiritual care concerns: No Meds Home Medications and Allergies Home Medications ?Medication ?Instructions ?Recorded ?Confirmed ?Type acetaminophen 500 mg tablet 1,000 mg (2 x 500 mg) PO TID PRN 11/06/22 09/04/24 Rx ade 7 days #42 tabs sumatriptan succinate 25 mg tablet 25 mg PO 07/10/24 History ondansetron 8 mg disintegrating 8 mg PO Q12H PRN nausea and 07/30/24 08/05/24 History tablet vomiting pediatric multivitamin no.7-folic tablet PO 09/04/24 History acid 100 mcg chewable tablet (Flintstones Tab Chew) Allergies Allergy/AdvReac Type Severity Reaction Status Date / Time latex Allergy Intermediate Rash Verified 08/05/24 14:30 dexamethasone Allergy Unknown Anaphylaxis Verified 08/05/24 14:30 Sulfa (Sulfonamide Allergy Unknown Unknown Verified 08/05/24 14:30 Antibiotics) Vital Signs Vital Signs - 24 hr 09/04/24 09:30 09/04/24 09:33 09/04/24 09:36 Temperature Pulse Rate 77 79 72 Respiratory Rate Blood Pressure 125/67 122/59 L 117/59 L Pulse Oximetry 99 Oxygen Delivery 09/04/24 09:38 09/04/24 09:39 09/04/24 09:42 Temperature Pulse Rate 70 77 Respiratory Rate Blood Pressure 115/62 119/55 L Pulse Oximetry 99 Oxygen Delivery 09/04/24 09:43 09/04/24 09:45 09/04/24 09:48 Temperature Pulse Rate 68 77 Respiratory Rate Blood Pressure 114/61 131/98 H Pulse Oximetry 100 100 Oxygen Delivery 09/04/24 09:53 09/04/24 09:55 09/04/24 09:57 Temperature Pulse Rate 80 76 Respiratory Rate Blood Pressure 108/61 107/60 Pulse Oximetry 100 Oxygen Delivery 09/04/24 09:58 09/04/24 10:00 09/04/24 10:03 Temperature Pulse Rate 75 Respiratory Rate Blood Pressure 112/79 Pulse Oximetry 100 100 Oxygen Delivery 09/04/24 10:04 09/04/24 10:06 09/04/24 10:08 Temperature Pulse Rate 76 74 Respiratory Rate Blood Pressure 117/58 L 110/58 L Pulse Oximetry 100 Oxygen Delivery 09/04/24 10:13 09/04/24 10:18 09/04/24 10:23 Temperature Pulse Rate Respiratory Rate Blood Pressure Pulse Oximetry 100 100 100 Oxygen Delivery 09/04/24 10:28 09/04/24 10:31 09/04/24 10:33 Temperature Pulse Rate 99 Respiratory Rate Blood Pressure 111/87 Pulse Oximetry 100 100 Oxygen Delivery 09/04/24 10:38 09/04/24 10:43 09/04/24 10:48 Temperature Pulse Rate Respiratory Rate Blood Pressure Pulse Oximetry 100 100 100 Oxygen Delivery 09/04/24 10:53 09/04/24 10:56 09/04/24 10:59 Temperature Pulse Rate 89 179 H Respiratory Rate Blood Pressure 91/68 L 79/34 L Pulse Oximetry 100 100 Oxygen Delivery 09/04/24 11:01 09/04/24 11:02 09/04/24 11:06 Temperature Pulse Rate 75 Respiratory Rate Blood Pressure 85/32 L Pulse Oximetry 100 100 Oxygen Delivery 09/04/24 11:10 09/04/24 11:11 09/04/24 11:15 Temperature Pulse Rate 90 90 Respiratory Rate Blood Pressure 116/55 L 117/51 L Pulse Oximetry 99 Oxygen Delivery 09/04/24 11:21 09/04/24 11:25 09/04/24 11:31 Temperature Pulse Rate 146 H 111 H 85 Respiratory Rate Blood Pressure 107/69 113/83 112/56 L Pulse Oximetry Oxygen Delivery 09/04/24 11:35 09/04/24 11:41 09/04/24 11:42 Temperature Pulse Rate 280 H 104 H 80 Respiratory Rate Blood Pressure 119/71 83/32 L 107/55 L Pulse Oximetry Oxygen Delivery 09/04/24 11:45 09/04/24 12:00 09/04/24 12:16 Temperature Pulse Rate 84 80 Respiratory Rate Blood Pressure 83/64 L 99/75 L 97/67 L Pulse Oximetry Oxygen Delivery 09/04/24 12:31 09/04/24 12:46 09/04/24 17:18 Temperature 98.1 F Pulse Rate 102 H 118 H 107 H Respiratory Rate 12 Blood Pressure 168/149 H 113/63 106/67 Pulse Oximetry 99 Oxygen Delivery 09/04/24 17:40 09/04/24 21:15 09/04/24 21:15 Temperature 98.1 F Pulse Rate 108 H Respiratory Rate 20 Blood Pressure 97/45 L Pulse Oximetry 97 Oxygen Delivery Room Air Room Air 09/05/24 02:52 09/05/24 04:40 09/05/24 07:30 Temperature 98.1 F Pulse Rate 108 H 109 H 93 Respiratory Rate 18 16 Blood Pressure 133/58 L 109/87 Pulse Oximetry 100 100 100 Oxygen Delivery Room Air 09/05/24 07:30 Temperature 98.9 F Pulse Rate 93 Respiratory Rate 16 Blood Pressure 120/64 Pulse Oximetry 100 Oxygen Delivery Exam Const: General: cooperative, healthy appearing, comfortable and no acute distress Orientation/consciousness: oriented to person, oriented to place and oriented to time HENMT: Head: normal to inspection Ears: external ears normal Face/Nose/Sinus: Normal external nose present and normal facial exam Face and sinus: normal facial exam Eyes: General: appearance normal, both eyes and all related structures Neck: Neck: normal visual inspection, trachea midline and supple Resp: Auscultation: clear to auscultation bilaterally, no crackles, no rales, no rhonchi and no wheezes Cardio: Rate: regular rate Rhythm: regular rhythm Heart sounds: no click, no murmurs and no rubs GI: GI Palp: No abdominal tenderness, No Soft to palpation, No Tenderness to palpation present (GI) and No Palpable mass present Auscultation: normal bowel sounds Skin: General skin exam: normal color and no rashes or lesions noted Neuro: General: oriented to person, oriented to place and oriented to time Extrem: General: normal to inspection, no joint enlargement, no clubbing, cyanosis or edema, no pedal edema and no calf tenderness Psych: Appearance: grossly normal Mental Status: mental status grossly normal Speech and movement: Normal speech and movement present H&P: Results Labs Labs: Short CBC 09/05/24 Range/Units 04:37 Hgb 8.9 L (12.0-15.0) g/dL Hct 27.9 L (37.0-47.0) % BMP 09/05/24 05:47 Sodium 135 L Potassium 3.5 Chloride 107 Carbon Dioxide 22 BUN 5 L Creatinine 0.49 L Glucose 97 Calcium 8.5 Liver Function 09/05/24 Range/Units 05:47 Total Bilirubin 0.7 (0.2-1.3) mg/dL AST 28 (14-36) U/L ALT 15 (6-35) U/L Alkaline Phosphatase 121 (38-126) U/L Albumin 2.9 L (3.5-5.1) g/dL Urine 09/05/24 Range/Units 03:16 Urine Color Light norris (Yellow) Urine Appearance Cloudy H (Clear) Urine pH 5.5 (5.0-9.0) Ur Specific [place] 1.017 (1.001-1.035) Urine Protein 2+ H (Negative) mg/dL Urine Glucose (UA) Negative (Negative) mg/dL Assessment and Plan Assessment and plan (1) Abdominal pain: Code(s): R10.9 - Unspecified abdominal pain Status: Acute (2) Hemoperitoneum: Code(s): K66.1 - Hemoperitoneum Status: Acute (3) state: Code(s): Z39.2 - Encounter for routine follow-up Status: Acute Plan 34-year-old female who is day 1. With severe abdominal pain and hemoperitoneum. We have agreed to perform diagnostic laparoscopy with evacuation of hematoma and possible bilateral salpingectomy. Patient understands the risks, benefits, and alternatives. She has completed the informed consent process is ready to proceed.
--- NOTE | 2024-09-05 09:30 | WPDHPUPDATE1 ---
History and Physical Update Update Date/Time: 09/05/24 09:30 History and Physical has been reviewed, including an updated exam of the patient. There are NO changes in the patient's condition. Risks, benefits, and alternatives have been discussed and questions answered. Patient agrees to proceed with procedure.
[2024-09-05 09:49] LABS: Hematocrit 24.8 % (37.0-47.0); Hemoglobin 7.9 g/dL (12.0-15.0)
--- NOTE | 2024-09-05 10:16 | PC.NURSE ---
1016-Called [facility] RN, Amanda, to verify baby boy Jacky's blood type. Per Amanda, she jacqui a type and screen yesterday and baby is O+. Mother will be receiving Rhogam shot due to being O-.
[2024-09-05] MEDS: LACTATED RINGERS 1,000 ML 30 ML IV CONT ×2 (12:30→14:53)
--- NOTE | 2024-09-05 12:31 | PC.NURSE ---
1230-Patient to OR via wheelchair.
--- NOTE | 2024-09-05 12:49 | WPDANESEPPF ---
Anes - Initial Pre Proc Eval Procedure: Operation Date: 09/05/24 13:00 Proposed Procedures p Diagnostic Laparoscopy, Evacuation Hematoma, Possible Bilateral Salpingectomy - Ric White MD Date/Time: 09/05/24 12:49 Surgeon: Ric White MD Pre Op Diagnosis: IOL Patient Data Age: 34 Gender: F Height: 1.6 m Weight: 74 kg Last Vital Signs Temp 98.9 F 09/05/24 08:50 Pulse 95 09/05/24 08:50 Resp 16 09/05/24 08:50 BP 116/63 09/05/24 08:50 Pulse Ox 99 09/05/24 08:50 O2 Del Method Room Air 09/05/24 07:30 Allergies Allergy/AdvReac Type Severity Reaction Status Date / Time latex Allergy Intermediate Rash Verified 08/05/24 14:30 dexamethasone Allergy Unknown Anaphylaxis Verified 08/05/24 14:30 Sulfa (Sulfonamide Allergy Unknown Unknown Verified 08/05/24 14:30 Antibiotics) Home Medications ?Medication ?Instructions ?Recorded ?Confirmed ?Type acetaminophen 500 mg tablet 1,000 mg (2 x 500 mg) PO TID PRN 11/06/22 09/04/24 Rx ade 7 days #42 tabs sumatriptan succinate 25 mg tablet 25 mg PO 07/10/24 History ondansetron 8 mg disintegrating 8 mg PO Q12H PRN nausea and 07/30/24 08/05/24 History tablet vomiting pediatric multivitamin no.7-folic tablet PO 09/04/24 History acid 100 mcg chewable tablet (Flintstones Tab Chew) Laboratory Tests 09/05/24 09/05/24 09/05/24 03:16 04:37 05:47 Hgb 8.9 L g/dL (12.0-15.0) Hct 27.9 L % (37.0-47.0) Sodium 135 L mmol/L (137-145) Potassium 3.5 mmol/L (3.4-5.0) Chloride 107 mmol/L (98-107) Carbon Dioxide 22 mmol/L (22-30) Anion Gap 6 mmol/L (4-12) BUN 5 L mg/dL (7-17) Creatinine 0.49 L mg/dL (0.7-1.0) Estim Creat Clear Calc 131 ml/min Estimated GFR > 60 (59 - ) Glucose 97 mg/dL (65-110) Calcium 8.5 mg/dL (8.4-10.2) Total Bilirubin 0.7 mg/dL (0.2-1.3) AST 28 U/L (14-36) ALT 15 U/L (6-35) Alkaline Phosphatase 121 U/L (38-126) Total Protein 6.0 L g/dL (6.3-8.2) Albumin 2.9 L g/dL (3.5-5.1) Urine Color Light norris (Yellow) Urine Appearance Cloudy H (Clear) Urine pH 5.5 (5.0-9.0) Ur Specific [place] 1.017 (1.001-1.035) Urine Protein 2+ H mg/dL (Negative) Urine Glucose (UA) Negative mg/dL (Negative) Urine Ketones Trace H mg/dL (Negative) Ur Blood (Man) 3+ H (Negative) Urine Nitrate Negative (Negative) Urine Bilirubin Negative (Negative) Urine Urobilinogen 0.2 mg/dL (<2.0) Ur Leukocyte Esterase 2+ H ALFREDO/UL (Negative) Urine RBC >100 H /hpf (0-2) Urine WBC 51-100 /hpf (0-3) Ur Squamous Epith Cells Moderate /hpf (Few) Urine Bacteria None seen /hpf Urine Casts 3-5 Blood Type O Negative Antibody Screen Not Reportable Screen Negative Baby's Blood Type O pos Baby's RHONDA Positive Doses of RhIg Required 1 09/05/24 09:27 Hgb 7.9 L g/dL (12.0-15.0) Hct 24.8 L % (37.0-47.0) Sodium Potassium Chloride Carbon Dioxide Anion Gap BUN Creatinine Estim Creat Clear Calc Estimated GFR Glucose Calcium Total Bilirubin AST ALT Alkaline Phosphatase Total Protein Albumin Urine Color Urine Appearance Urine pH Ur Specific [place] Urine Protein Urine Glucose (UA) Urine Ketones Ur Blood (Man) Urine Nitrate Urine Bilirubin Urine Urobilinogen Ur Leukocyte Esterase Urine RBC Urine WBC Ur Squamous Epith Cells Urine Bacteria Urine Casts Blood Type Antibody Screen Screen Baby's Blood Type Baby's RHONDA Doses of RhIg Required Patient hx anesthesia problems: none Family hx anesthesia problems: none Results Review: All pre-operative results and documents have been reviewed as part of the pre-operative evaluation. [facility] Past Medical History Medical History Angina pectoris, unspecified Anemia Ovarian cyst Migraines Family History Family History Other Cancer Hyperglycemia Hypertension Migraines Social History Social History Smoking status: Never smoker Second hand tobacco smoke exposure: No Alcohol intake: never Substance use: never Substance use type: does not use Do You Feel Safe in your Home?: Yes Lack of Transportation: No Lack of Food: Never True Current Housing: I Have Housing Concerned About Future Housing: No Difficulty Paying Gas/Electric Bills: No Difficulty Paying for Meds: No Currently Unemployed: No Education: High School Diploma/GED Difficulty w/ Childcare or Family Care: No Gender identity (if verbalized by the patient): Female Spiritual care concerns: No Anes - Eval Final PreProcedure Day of Procedure 09/05/24 12:49 Patient weight: normal Heart: regular rate and rhythm Lungs: clear to auscultation Airway: Mallampati scale class II Neurological: alert and oriented Last oral intake: >/= 8 hours ASA classification: III Emergent: no Anesthetic plan: proceed Anesthesia type and monitoring: general ETT and standard monitoring Results Review: All pre-operative results and documents have been reviewed as part of the pre-operative evaluation. Informed Consent: The patient's anesthetic plan and its attendant risks and benefits were discussed with the patient/family/POA. Questions were solicited and answers provided to the satisfaction of the patient/family/POA.
--- NOTE | 2024-09-05 14:19 | S_PTH ---
PATIENT: Shayna Cantu LOC: [facility] U#:[id number] AGE/SX: 34/F ROOM: 279 RE09/04/[address]: Ric White MD : 1990 BED: 00 DIS: 09/08/2024 SPEC #: [id number] RECD: 09/06/24 11:36 STATUS: EVELYN REQ #: [id number] MARIA L: 09/05/24 14:[address]: Ric White DEPT: [facility] Surgical RECD BY: Sarah Henry ENTERED: 09/06/24 11:36 SP TYPE: Surgical OTHR DR: Bruna Gamino, [employer] OPERATOR Tissues: A - Fallopian Tube Bilateral Procedures: Gross and Microscopic Level 2 Hematoxylin and Eosin Stain
--- NOTE | 2024-09-05 14:58 | P.OP_ITS ---
Procedure Note - Detailed Date of Procedure 09/05/24 Pre-op Diagnosis Hemoperitoneum, abdominal pain, female sterilization Post-op Diagnosis Same (With Peritoneal laceration of the posterior cul-de-sac) Procedure Performed Diagnostic laparoscopy, evacuation of hematoma, cautery/treatment of hemorrhage, laparoscopic bilateral salpingectomy Surgeon Ric White MD Anesthesia General Indications Abdominal pain, hemoperitoneum Findings Laceration of the left posterior cul-de-sac located between the left ureter in the midline, anteriorly. Posterior lateral to cervix. Normal-appearing ovaries and fallopian tubes. Description of Procedure The patient was taken to the operating room. She was prepped and draped in the dorsal lithotomy position after induction general anesthesia. A 5 mm incision was made with a scalpel on the abdominal skin in the left upper quadrant of the abdomen. A 5 mm trocar was inserted into the intra-abdominal cavity under direct visualization the scope. In the same fashion a 5 mm left lower quadrant trocar was inserted and a 5 mm infraumbilical trocar was inserted. Reduction of hemoperitoneum. Free blood and clots were evacuated from the pelvis and upper abdomen. The upper abdomen was irrigated. All intra-abdominal blood was evacuated the centrally. Bleeding area was identified in the posterior cul-de-sac. Cautery was used to make hemostatic and hematoma was ap plied. The pneumoperitoneum was reduced. The trocars were removed. Skin was closed with subcuticular 4 micro. The patient's incisions were covered with Dermabond. She was taken recovery room in stable condition. Sponge lap and needle counts were correct x2. Pathology None sent Complications No immediate complications Condition Stable Disposition Floor
[2024-09-05] MEDS: HYDROmorphone HCL INJ (*CRX) 2 MG/ML VIAL 0.5 MG IV PUSH (15:50)
[2024-09-05] MEDS: DOCUSATE SODIUM 100 MG CAPSULE PO (16:48)
[2024-09-05] MEDS: POLYSACCHARIDE IRON COMPLEX 150 MG CAPSULE PO (16:48)
[2024-09-05] MEDS: HYDROcodone/acetaminophen (*CRX) 10-325 MG TABLET 1 TAB PO ×3 (16:49→23:39)
[2024-09-05] MEDS: ACETAMINOPHEN 325 MG TABLET 650 MG PO ×2 (16:50→22:46)
[2024-09-05] MEDS: KETOROLAC 15 MG/ML VIAL (*BKC) IV PUSH ×2 (16:51→22:47)
--- NOTE | 2024-09-05 17:10 | PC.NURSE ---
1450-Patient returned from OR via wheelchair. Patient tolerated surgery well.
[2024-09-05] MEDS: DEXTROSE 5%/0.45% SOD CHL 1,000 ML 125 ML IV CONT (19:18)
[2024-09-06 03:50] VITALS: BP 107/66; PULSE 104; RESP 18; TEMP 37.2; O2SAT 98
[2024-09-06] MEDS: KETOROLAC 15 MG/ML VIAL (*BKC) IV PUSH ×2 (04:25→10:17)
[2024-09-06] MEDS: HYDROcodone/acetaminophen (*CRX) 10-325 MG TABLET 1 TAB PO ×2 (04:26→08:26)
[2024-09-06] MEDS: ACETAMINOPHEN 325 MG TABLET 650 MG PO ×3 (04:26→17:57)
[2024-09-06 05:17] LABS: Basophils Percent Auto 0.2 % (0.2-1.2); Eosinophils Absolute Auto 0.1 K/mm3 (0-0.3); Hematocrit 24.7 % (37.0-47.0); Hemoglobin 7.7 g/dL (12.0-15.0); Immature Granulocyte Absolute 0.09 K/mm3 (0.00-0.031); Immature Granulocyte Percent A 0.8 % (0-0.5); Lymphocytes Absolute Auto 1.57 K/mm3 (0.9-3.2); Lymphocytes Percent Auto 14.6 % (18.3-44.2); Mean Corpuscular HGB Conc 31.2 g/dl (32-36); Mean Corpuscular Hemoglobin 29.7 pg (26-34); Mean Corpuscular Volume 95.4 fl (80-100); Mean Platelet Volume 9.6 fl (7.4-10.4); Monocytes Absolute Auto 0.8 K/mm3 (0.1-0.6); Monocytes Percent Auto 7.3 % (2.6-8.5); Neutrophils Absolute Auto 8.2 K/mm3 (1.3-6.7); Neutrophils Percent Auto 76.1 % (45.5-73.1); Platelet Count Result 185 k/mm3 (150-375); Red Blood Count 2.59 M/mm3 (4.2-5.4); Red Cell Distribution Width 14.6 % (11.5-14.5); White Blood Count 10.8 K/mm3 (4.5-10.0)
[2024-09-06 07:45] VITALS: BP 99/67; PULSE 89; RESP 18; TEMP 36.9; O2SAT 99
--- NOTE | 2024-09-06 07:55 | P.PNOB_ITS ---
OB - PN: Subj Subjective Date/time seen: 09/06/24 07:55 Interval history: pp day 2, post op day 1 reviewed CBC would prefer oral iron pain is getting better plan to move around today in room OB - PN: Obj Data Labs 09/06/24 03:46 09/05/24 05:47 Labs: Laboratory Results - last 24 hr 09/05/24 09/05/24 09/06/24 04:37 09:27 03:46 WBC 10.8 H RBC 2.59 L Hgb 7.9 L 7.7 L Hct 24.8 L 24.7 L MCV 95.4 MCH 29.7 MCHC 31.2 L RDW 14.6 H Plt Count 185 MPV 9.6 Immature Gran % (Auto) 0.8 H Neut % (Auto) 76.1 H Lymph % (Auto) 14.6 L [place] % (Auto) 7.3 Eos % (Auto) 1.0 Baso % (Auto) 0.2 Lymph # (Auto) 1.57 [place] # (Auto) 0.8 H Eos # (Auto) 0.1 Baso # (Auto) 0.0 Abs Immat Gran (auto) 0.09 H Absolute Neuts (auto) 8.2 H Absolute Nucleated RBC 0.000 Nucleated RBC % 0.0 Antibody Screen Not Reportable Screen Negative Doses of RhIg Required 1 Imaging Radiologist's impression: Impressions Abdomen/Pelvis CTA 09/05/24 08:23 IMPRESSION: 1. Moderate hyperdense fluid in the abdomen and pelvis, possibly hemorrhage. No active site of hemorrhage is identified. 2: Enlarged uterus, likely postgravid. OB - PN A/P Plan day: 2 Time Spent With Patient Time: Total time spent is greater than 50% in coordination of care (as documented) at patient's floor/unit and/or counseling patient: Review of Systems 2 Review of Systems: All systems reviewed & are unremarkable except as noted in HPI and below Exam 2 Const: General: cooperative and healthy appearing Resp: Effort & Inspection: normal respiratory effort GI: Other: still painful to examine with deep palpation, but was able to touch all over abd Skin: General skin exam: normal color
[2024-09-06 08:00] VITALS: PULSE 89; RESP 18; O2SAT 99
[2024-09-06] MEDS: SIMETHICONE 80 MG TAB.CHEW PO ×3 (08:16→17:47)
[2024-09-06] MEDS: DOCUSATE SODIUM 100 MG CAPSULE PO ×2 (08:16→17:49)
[2024-09-06] MEDS: MULTIVIT/MIN/PREN/FOL AC/IRON TABLET 1 TAB PO (08:16)
[2024-09-06] MEDS: POLYSACCHARIDE IRON COMPLEX 150 MG CAPSULE PO ×2 (08:17→17:48)
--- NOTE | 2024-09-06 09:20 | PC.NURSE ---
Met with mother to review pumping and make sure she doesn't have any questions or concerns. She had to go to surgery yesterday after delivery due to an internal bleed. She has pumped once yesterday and is going to pump after she eats breakfast today. Encouraged pumping 8 times a day, at least once at night. She hopes that baby will be able to eat in the next few days so we discussed refrigerating vs. freezing colostrum. She feels like her breasts are alejandro today. She breastfed her first child for a year 15 years ago and states she had an abundant milk supply. Encouraged her to call out if she has any pumping issues or questions. RN updated.
[2024-09-06] MEDS: RHO(D) IMMUNE GLOBULIN 300 MCG/2 ML SYRINGE IM (10:43)
[2024-09-06] MEDS: oxyCODONE HCL (*CRX) 5 MG TAB IR PO ×2 (15:50→19:55)
[2024-09-06] MEDS: LIDOCAINE 5% PATCH 1 PATCH TRANSDERM (15:59)
[2024-09-06] MEDS: IBUPROFEN 600 MG TABLET PO (17:50)
[2024-09-06 19:45] VITALS: BP 126/72; PULSE 104; RESP 18; TEMP 36.9; O2SAT 99
[2024-09-07] MEDS: IBUPROFEN 600 MG TABLET PO ×4 (00:06→18:57)
[2024-09-07] MEDS: ACETAMINOPHEN 325 MG TABLET 650 MG PO ×4 (00:06→18:57)
[2024-09-07] MEDS: oxyCODONE HCL (*CRX) 5 MG TAB IR PO ×4 (01:42→18:56)
[2024-09-07 01:50] VITALS: BP 121/70; PULSE 86
[2024-09-07 08:07] VITALS: BP 110/65; PULSE 80; RESP 16; TEMP 36.9; O2SAT 100
[2024-09-07] MEDS: SIMETHICONE 80 MG TAB.CHEW PO ×3 (08:33→16:44)
[2024-09-07] MEDS: POLYSACCHARIDE IRON COMPLEX 150 MG CAPSULE PO ×2 (08:33→16:44)
[2024-09-07] MEDS: DOCUSATE SODIUM 100 MG CAPSULE PO ×2 (08:34→16:44)
--- NOTE | 2024-09-07 10:43 | PM.GYNPNOP ---
QUALITY CONTROL - A/P Postoperative Procedures: Procedures Operation Date: 09/05/24 13:00 Actual Procedure Side Surgeon p Diagnostic Laparoscopy, Evacuation Hematoma, Bilateral Salpingectomy Ric White MD Postoperative day: 2 Postoperative status: doing well Postoperative plan: see orders Time Spent With Patient Time: Total time spent is greater than 50% in coordination of care (as documented) at patient's floor/unit and/or counseling patient: Time with patient: 15 - 25 minutes QUALITY CONTROL- PN:Subj Post-Op Subjective Date/time seen: 09/07/24 10:43 Interval history: pp day 2, post op day 1 reviewed CBC would prefer oral iron pain is getting better plan to move around today in room Subjective: patient reports feeling better, patient has no complaints and pain is well controlled Exam Const: General: healthy appearing, comfortable and no acute distress Resp: Auscultation: clear to auscultation bilaterally, no rales, no rhonchi and no wheezes Cardio: Rate: regular rate Heart sounds: no click, no murmurs and no rubs GI: Inspection: non-distended Auscultation: normal bowel sounds Extrem: General: normal to inspection, no pedal edema and no calf tenderness QUALITY CONTROL - PN: Obj Data Vital Signs Vital Signs: Vital Signs - 24 hr 09/06/24 19:45 09/06/24 19:45 09/07/24 01:50 Temperature 98.4 F Pulse Rate 104 H 86 Respiratory Rate 18 Blood Pressure 126/72 121/70 Pulse Oximetry 99 Oxygen Delivery Room Air 09/07/24 08:07 Temperature 98.4 F Pulse Rate 80 Respiratory Rate 16 Blood Pressure 110/65 Pulse Oximetry 100 Oxygen Delivery Intake/Output Intake/Output: Intake & Output 09/04/24 09/05/24 09/06/24 09/07/24 23:59 23:59 23:59 23:59 Intake Total 400 200 Output Total 80 200 Balance 320 0 Meds/Results Medications: Active Medications Generic Name Dose Route Start Last Admin Trade Name Freq PRN Reason Stop Dose Admin Acetaminophen 650 mg 09/05/24 18:00 09/07/24 06:28 Acetaminophen 325 Mg Tablet PO 650 mg Q6H PARKER Administration Bisacodyl 10 mg 09/05/24 16:09 Bisacodyl 10 Mg Suppository RECTAL ONCE PRN Constipation Docusate Sodium 100 mg 09/05/24 17:00 09/07/24 08:34 Docusate Sodium 100 Mg Capsule PO 100 mg BID PARKER Administration Emollient Ointment 1 applic 09/05/24 16:09 Lanolin (Lansinoh) 7.5 Gm Cream TOPICAL PRN PRN Sore Nipples Ibuprofen 600 mg 09/06/24 18:00 09/07/24 06:29 Ibuprofen 600 Mg Tablet PO 600 mg Q6H PARKER Administration Lidocaine 1 patch 09/05/24 16:09 09/06/24 15:59 Lidocaine 5% Patch TRANSDERM 1 patch DAILY PRN Administration Incision pain Morphine Sulfate 2 mg 09/05/24 16:09 Morphine Sulfate (*Crx) 2 Mg/Ml Inj IV PUSH Q4H PRN Breakthrough Pain Rated 7-10 Naloxone HCl 0.1 mg 09/05/24 16:09 Naloxone Hcl 0.4 Mg/Ml Vial IV PUSH Q2M PRN Opiate Reversal Ondansetron HCl 4 mg 09/05/24 16:09 Ondansetron Inj 4 Mg/2 Ml Vial IV PUSH Q6H PRN Nausea Oxycodone HCl 5 mg 09/06/24 15:18 09/07/24 06:32 Oxycodone Hcl (*Crx) 5 Mg Tab Ir PO 5 mg Q4H PRN Administration Pain Rated 7-10 Polysaccharide Iron Complex 150 mg 09/05/24 17:00 09/07/24 08:33 Polysaccharide Iron Complex 150 Mg Capsule PO 150 mg BIDWM PARKER Administration Vit/Calcium/Iron/Folic Ac 1 tab 09/06/24 09:00 09/06/24 08:16 Multivit/Min/Pren/Fol Ac/Iron Tablet PO 1 tab DAILY PARKER Administration Simethicone 80 mg 09/05/24 17:00 09/07/24 08:33 Simethicone 80 Mg Tab.Chew PO 80 mg T[facility]WM [facility] Administration Zolpidem Tartrate 5 mg 09/05/24 16:09 Zolpidem Tartrate (*Crx) 5 Mg Tablet PO HS PRN Insomnia Radiology Results: ITS Impressions Abdomen/Pelvis CT 09/05/24 05:39 Impression: Enlarged presumed uterus with 5.2 x 4.3 cm area of blood products at the lower uterine segment/cervix. Moderate hemorrhagic ascites in the pelvis and left paracolic gutter. If there is concern for active bleeding, consider CT angiogram as indicated. Abdomen/Pelvis CTA 09/05/24 08:23 IMPRESSION: 1. Moderate hyperdense fluid in the abdomen and pelvis, possibly hemorrhage. No active site of hemorrhage is identified. 2: Enlarged uterus, likely postgravid. Labs 09/06/24 03:46 09/05/24 05:47 Labs: Laboratory Results - last 24 hr 09/05/24 04:37 Blood Type O Negative Screen Negative Baby's Blood Type O pos Baby's RHONDA Positive Doses of RhIg Required 1
--- NOTE | 2024-09-07 12:45 | PC.NURSE ---
Patient called out with questions. She has a lower supply from the left breast and more from the right. She states that this happened with her last baby and eventually the left breast dried up and she exclusively fed from the right. Encouraged her to continue pumping equally and if still significantly uneven after a few days, increase time pumping on left and decrease time on right if needed to slow supply. When baby is able to go to breast she is encouraged to start on the left more often than the right so baby feeds most eagerly on the less productive side. She is able to pump 1-2 ounces this afternoon. RN updated.
[2024-09-07] MEDS: BISACODYL 10 MG SUPPOSITORY RECTAL (17:54)
[2024-09-07 18:48] VITALS: BP 109/61; PULSE 92; RESP 16; TEMP 36.9; O2SAT 99
[2024-09-07] MEDS: LIDOCAINE 5% PATCH 1 PATCH TRANSDERM (22:36)
[2024-09-08] MEDS: oxyCODONE HCL (*CRX) 5 MG TAB IR PO ×2 (00:17→10:54)
[2024-09-08] MEDS: ACETAMINOPHEN 325 MG TABLET 650 MG PO ×3 (00:58→13:36)
[2024-09-08] MEDS: IBUPROFEN 600 MG TABLET PO ×3 (00:58→13:37)
[2024-09-08 07:30] VITALS: BP 125/85; PULSE 91; RESP 18; TEMP 36.9
[2024-09-08] MEDS: SIMETHICONE 80 MG TAB.CHEW PO ×2 (07:32→10:55)
[2024-09-08] MEDS: POLYSACCHARIDE IRON COMPLEX 150 MG CAPSULE PO (09:18)
[2024-09-08] MEDS: DOCUSATE SODIUM 100 MG CAPSULE PO (09:18)
[2024-09-08] MEDS: WITCH HAZEL 40 PADS 1 PAD (09:19)
--- NOTE | 2024-09-08 10:24 | PM.OBDSVD ---
DS: Admitting Diagnosis Discharge Date 09/08/2024 Admitting Diagnosis Term DS: Discharge Diagnosis Discharge Diagnosis (1) Term delivered: Code(s): O80 - Encounter for full-term uncomplicated delivery Status: Acute (2) Laceration of pelvic region: Code(s): S31.010A - Laceration without foreign body of lower back and pelvis without penetration into retroperitoneum, initial encounter Status: Acute OB - DS: Summary OB Procedures : None OB Procedures Intrapartum: Spontaneous Vag Delivery OB Procedures: : Other (Diagnostic laparoscopy with vacuum region of hematoma and cauterization of bleeding) Peripartum Data Laceration Description: Other (clitoral barton- 2 sutures) Episiotomy description: None Procedures: Procedures Operation Date: 09/05/24 13:00 Actual Procedure Side Surgeon p Diagnostic Laparoscopy, Evacuation Hematoma, Bilateral Salpingectomy Ric White MD Time Spent with Patient Time attestation: Total time spent providing and/or coordinating discharge services: DS: Data Data Completed and Pending Pending studies at discharge: Pending at discharge 09/05/24 14:19 Surgical [PTH] Routine Discharge Plan Discharge Discharging Clinician: Ric White Patient Disposition: Home Activity: pelvic rest Diet: regular Discharge Instructions: FEEDING PLAN: You are exclusively pumping at discharge. It is important to pump regularly and consistently to help initiate your milk supply. Regular milk removal is necessary for continued milk production. You need to pump at least 8 times every 24 hours. You can use hands on pumping to get better results with pumping and to encourage your breasts to produce more milk. Hands on pumping instructions: 1.? Massage your breasts before applying the breast pump. 2.? Pump both breasts at once. Use your hands to massage and compress while you pump. 3.? Stop pumping when the milk stops flowing 4.? Massage your breasts again 5.? End the pumping session by pumping or hand expressing one breast at a time while massaging and compressing your breast. Go back and forth between each breast until the milk stops flowing. 6.? Allow 25 minutes to complete this routine ? It is important to be sure you have a well-fitted pump flange. Consult your pump manual for recommended flange sizing or consult a professional. YOU SHOULD SET YOUR PUMP TO THE HIGHEST COMFORTABLE LEVEL. INCREASE THE SUCTION GRADUALLY UNTIL YOU REACH THE CORRECT SETTING. PUMPING SHOULD NOT HURT. CONSULT YOUR PUMP MANUAL FOR GUIDANCE ON PUMP SETTINGS AND FUNCTIONS. MOST PUMPS RECOMMEND 1-2 MINUTES OF THE QUICK ?MASSAGE? MODE, THEN SWITCHING TO THE SLOWER ?EXPRESSION? MODE FOR THE REMAINDER OF THE PUMPING SESSION. Pump each breast for 10-15 minutes. Pumping will help stimulate your breasts to produce milk. ?Follow the collection and storage sheet given to you in the Mom and Baby Guide. Remember to keep track of all feedings/elimination on the blue worksheet provided. Clean your pump parts between each pumping session according to the guidelines in your pump manual. It is recommended that you use a basin that is reserved for washing pump parts that is separate from your sink to prevent contamination. If you are pumping for an ill or , you should disinfect your pump parts once a day by boiling them in hot water for 5 minutes after cleaning. Ways to increase your milk supply: ? Increase frequency of pumping (10-12 times every 24 hours) ? Lots of skin to skin (if infant is able), especially before pumping ? Use warm washcloths before pumping and gentle breast massage before and during pumping ? Reduce stress, relax with music, get plenty of rest, and drink to thirst ? Warm pump flanges with warm water before pumping ? Pump until the milk stops flowing, then pump for 2 more minutes to fully empty the breast ? Pump at least once through the night, milk shouldn't remain in the breast for longer than 4 hours ? Power pumping: Pump for 15-20 minutes, rest for 10 minutes, pump for 10, rest for 10, pump for 10. Do this routine 1-2 times a day for several days or until you notice an increase in milk supply. Pump normally between power pumping sessions. You may contact the Team at [phone] for questions and appointments. Patient Instructions: Antibiotic Form Patient Language: Mauritian Stand Alone Forms: General Discharge Information Follow-up/Referrals: Ric White MD [Physician] - Discharge Medications: New hydrocodone-acetaminophen 5-325 mg tablet 1 - 2 tablet PO Q6H PRN (Reason: pain) Qty: 14 0RF Continued acetaminophen 500 mg tablet 1,000 mg PO TID PRN (Reason: ade) 7 Days Qty: 42 0RF sumatriptan succinate 25 mg tablet 25 mg PO Flintstones Tab Chew 100 mcg tablet,chewable PO ondansetron 8 mg tablet,disintegrating 8 mg PO Q12H PRN (Reason: nausea and vomiting) Date of admission: 09/04/24 00:01 Primary Care Provider: StephaneBruna Admitting Provider: Ric White Attending physician on admission: Ric Wihte Condition: Stable
--- NOTE | 2024-09-08 10:29 | P.PNOB_ITS ---
OB - PN: Subj Subjective Date/time seen: 09/08/24 10:29 Interval history: pp day 3 , post op day 2 reviewed CBC would prefer oral iron pain is getting better plan to move more OB - PN: Obj Data Labs 09/06/24 03:46 09/05/24 05:47 OB - PN A/P Assessment and Plan (1) Hemoperitoneum: Code(s): K66.1 - Hemoperitoneum Status: Acute (2) Laceration of pelvic region: Code(s): S31.010A - Laceration without foreign body of lower back and pelvis without penetration into retroperitoneum, initial encounter Status: Acute Plan Continuing to improve, discharged home, stable Time Spent With Patient Time: Total time spent is greater than 50% in coordination of care (as documented) at patient's floor/unit and/or counseling patient: Exam 2 Const: General: healthy appearing, comfortable and no acute distress Resp: Auscultation: clear to auscultation bilaterally, no rales, no rhonchi and no wheezes Cardio: Rate: regular rate Heart sounds: no click, no murmurs and no rubs GI: Inspection: non-distended Auscultation: normal bowel sounds Extrem: General: normal to inspection, no pedal edema and no calf tenderness
[2024-09-11 10:22] VITALS: BP 117/78; PULSE 78; RESP 18; TEMP 37.1; O2SAT 100
== END 2024-09-08 15:35 | disposition home or self-care (01) | DRG 768 ==
LOC: ANHLDR 00:06 → ANHOB2 17:12
PROVIDERS: Advanced Practice Midwife; Admitting Provider Obstetrics & Gynecology; PCP Nurse Practitioner Family; Visit Provider Obstetrics & Gynecology
PROC: 0W3G4ZZ Control Bleeding in Peritoneal Cavity, Percutaneous Endoscopic Approach (ICD-10-PCS; CPT 49320; principal; 2024-09-05 13:00)
DX: O76 Abnormality in fetal heart rate and rhythm complicating labor and delivery (principal); Z37.0 Single live birth; K66.1 Hemoperitoneum; O77.0 Labor and delivery complicated by meconium in amniotic fluid; O71.82 Other specified trauma to perineum and vulva; Z3A.40 40 weeks gestation of pregnancy; O99.824 Streptococcus B carrier state complicating childbirth; Z30.2 Encounter for sterilization
CPT/HCPCS: 36415; 74174; 74176; 80053; 81001; 85014; 85018; 85025; 85461; 86593; 86703; 86850; 86880; 86900; 86901; 86902; 87086; 88302; 90384; A9270; G0432; J0290; J1171; J1885; J2003; J2250; J2371; J2405; J2590; J2704; J2790; J2795; J3010; J3360; J7030; J7120; Q9967

== ENCOUNTER 2024-09-23 23:14 | Emergency (ER) | payer BC, SELFPAY ==
[2024-09-23 23:15] VITALS: BP 124/80; PULSE 83; RESP 16; TEMP 36.8; O2SAT 99
--- OUTSIDE RECORDS SUMMARY | 2024-09-23 23:16 | XMS_ITS | Encounter Summary ---
Author Organization [facility] Healthcare Address [address] [place] [address] Care Team Providers Care Seafood Manager Name Role Phone Bruna Gamino STREET PHOTOGRAPHER Primary Care Provider [phone] Encounter Details Date Type Department Care Team (Late st Contact Info) Description 01/04/2024 Telephone [facility] Medical Group Internal Medicine at [place] [address] [place] [address] Bruna Gamino, STREET PHOTOGRAPHER [address] [place] [address] Social History Tobacco Use Types [...] on file Legal Sex Female 12:50 AM PHLEBOTOMY LAB ASSISTANT Gender Identity Not on file Sexual Orientation Not on file 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
--- OUTSIDE RECORDS SUMMARY | 2024-09-23 23:16 | XMS_ITS | Clinical Summary ---
Author Organization [facility] [address] [facility] Address [address] [place] [address] Care Team Providers Care Septic Technician Name Role Phone Bruna Gamino NP Primary Care Provider [phone] Allergies Active Allergy Reactions Criticality Noted Date [...] the right wrist, will fax order to [facility]. Will notify her of these results [...] fax order to [facility]. Will notify her of these results as they become available. De Quervain's disease (tenosynovitis) 11/11/2021 Assessment & Plan (11/11/2021 10:40 PM CDT): Her current symptoms seem most consistent with deeper veins tenosynovitis. Discussed the difference between a thumb spica and a cock-up splint. She will consider getting 1 off [employer]. Continue icing and anti-inflammatory. Avoid repetition which may be her video game. If she does not notice improvement in the next month or so can consider physical therapy versus referral to Hand Ortho. COVID-19 05/27/2021 Assessment & Plan (05/27/2021 5:48 PM MANUFACTURERS SERVICE REPRESENTATIVE): Patient has just started mdp, wanting to [...] 12/22/2021 Assessment & Plan (05/21/2021 3:28 PM MANUFACTURERS SERVICE REPRESENTATIVE): Will send patient to [place] for Covid-19 testing. The patient was advised [...] Encounters Date Type Department Care Team Description 09/04/2024 Orders Only [facility] Health Information Management [address] [place] [id number] Bruna Gamino, THERAPEUTIC CONSULTANT 07/24/2024 Orders Only [facility] Health Information Management [address] [place] [address] Bruna Horton NP from Last 3 Months Immunizations Immunization [...] on file Legal Sex Female 12:50 AM MANUFACTURERS SERVICE REPRESENTATIVE Gender Identity Not on file Sexual Orientation [...] Comments Blood Pressure 112/68 06/27/2023 2:40 PM MANUFACTURERS SERVICE REPRESENTATIVE Pulse 65 06/27/2023 2:40 PM MANUFACTURERS SERVICE REPRESENTATIVE Temperature 36.9 C (98.4 F) 06/27/2023 2:40 PM MANUFACTURERS SERVICE REPRESENTATIVE Respiratory Rate 16 10/19/2018 11:42 AM CDT Oxygen Saturation 99% 06/27/2023 2:40 PM MANUFACTURERS SERVICE REPRESENTATIVE Inhaled Oxygen Concentration - - Weight 59.6 kg (131 lb 8 oz) 06/27/2023 2:40 PM MANUFACTURERS SERVICE REPRESENTATIVE Height 162.6 cm (5' 4 ) 06/27/2023 2:40 PM MANUFACTURERS SERVICE REPRESENTATIVE Body Mass Index 22.57 06/27/2023 2:40 PM MANUFACTURERS SERVICE REPRESENTATIVE Plan of Treatment Health Maintenance Due Date Last Done Comments Cervical Cancer Screening 1991 Hepatitis C Screening 1991 Varicella Vaccines (1 of 2 - 13+ 2-dose series) 01/07/2004 Hepatitis B Screening 2009 Regular Well Visit/Exam 18-64 02/16/2023 02/16/2022 Covid-19 Vaccine ( season) 2024 08/24/2020, 08/06/2020 Depression Screening 06/27/2024 06/27/2023, 05/18/2023, 08/24/2022, Additional history exists Influenza Vaccine (Season Ended) 2025 02/06/2020 DTaP/Tdap/Td Vaccine (2 - Td or Tdap) 12/12/2027 12/11/2017 HPV Vaccines Aged Out No longer eligi ble based on patient's age to complete this topic Pneumococcal vaccine <65 Aged Out No longer eligible based on patient's age to complete this topic Procedures Procedure Name Priority Date/Time Associated Diagnosis Comments SCAN - RADIOLOGY/IMAGING 09/04/2024 SCAN - RADIOLOGY/IMAGING 07/24/2024 from Last 3 Months Results * SCAN - RADIOLOGY/IMAGING (09/04/2024) Anatomical Region Laterality Modality Other Bruna Gamino NP Final Result * SCAN - RADIOLOGY/IMAGING (07/24/2024) Anatomical Region Laterality Modality Other us Bruna Gamino NP Final Result from Last 3 Months Insurance [employer] Care Teams Septic Technician Relationship Specialty Start Date End Date Bruna Gamino, FAVIOLA PCP - General Internal Medicine 02/04/22
--- OUTSIDE RECORDS SUMMARY | 2024-09-23 23:16 | XMS_ITS | Continuity of Care Document ---
Author Organization [facility] Address [address] [place] [address] [place] [address] Phone Care Team Providers Care Teletypesetter Name Role Phone Alex Woods MD Unavailable [...] Providers Copied on Encounter OFFICE/OUTPA TIENT VISIT, [facility], [address], [place], [place], [id number], [place] tel:[phone] [facility] sinusitis1 (chief complaint) Acute sinusitisHeadache Chuck Johnson. [address], [place], [place], [address] , [place]. tel:[phone] Referring Provider: Alex Woods, [address], [place], [place], [id number]. tel:[phone] OFFICE/OUTPA TIENT VISIT, [facility], [address], [place], [place], [address], [place] tel:[phone] [facility] back pain1 (chief complaint) LumbagoSacroiliitis Chuck Johnson. [address], [place], [place], [address] , [place]. [phone] Referring Provider: Dedrick Garcia [address], [place], [place], [id number]. tel:[phone] OFFICE/OUTPA TIENT VISIT, EST [facility], [address], [place], [place], [address], [place] tel:[phone] [facility] brast lump1 (chief complaint) back pain1 (chief complaint) tinea1 (chief complaint) SacroiliitisLump in breastTinea corporis Sep-2 7 Chuck Johnson. [address], [address], [place], [place], [address] , [place]. [phone] Referring Provider: Dedrick Garcia [facility] [address], [place], [place], [id number]. tel:[phone] PREV VISIT, NEW, AGE 18-39 [facility], [address], [place], [place], [address], [place] tel:[phone] [facility] PHysical (chief complaint) Encounter for general adult medical exam w abnormal findingsTinea corporisFamily history of malignant neoplasm of ovary 7 Chuck Johnson. [address], [address], [place], [place], [address] , [place]. tel:[phone] Referring Provider: Dedrick Garcia [facility] [address], [place], [place], [id number]. tel:[phone] Family History Family Member Type Diagnosis Age [...] Referral Ordered: [place] KIDNEY ordered Referral Ordered: [facility] (related to Sacroiliitis) ordered Referral Ordered: LUMBAR XRAY AP AND LAT ONLY ordered Referral Referred To: [facility] [address] [place] [address], [id number] Ordered: Referrals: [facility]. Evaluate and treat ordered Referral Ordered: MAMMOGRAM, [...] Mental Status Date Cognitive Assessment Orientation - Hitchcock ed to time, place, person, situation.
--- OUTSIDE RECORDS SUMMARY | 2024-09-23 23:16 | XMS_ITS | Encounter Summary ---
Author Organization [facility] Facility Care Team Providers Care Smt Machine Operator Name Role Phone Mohamud Reyes MD Primary Care Provider [phone] Hansa Schulte Primary Care Provider [phone] Mohamud Reyes MD Primary Care Provider [phone] Bruna Gamino NP Primary Care Provider Encounter Details Date Type Department Care Team (Latest Contact Info) Description 05/29/2018 Orders Only [facility] Provider, MD Corin [address] [place] [address] Social History Tobacco Use Types Packs/Day Years Used Date Smoking Tobacco: Never Assessed Comments Unknown Sex and Gender Information Value Date Recorded Sex Assigned at Not on file Legal Sex Female 12:50 AM INSPECTORS AND REGULATORY OFFICERS Gender Identity Not on file Sexual Orientation Not on file documented as of this encounter Plan of Treatment Not on file documented as of this encounter Procedures Procedure Name Priority Date/Time Associated Diagnosis Comments SCAN - LABS 05/30/2018 12:00 AM INSPECTORS AND REGULATORY OFFICERS documented in this encounter Results * SCAN - LABS (05/30/2018 12:00 AM INSPECTORS AND REGULATORY OFFICERS) Narrative 05/30/2018 12:00 AM INSPECTORS AND REGULATORY OFFICERS Ordered by an unspecified provider. us Historical Provider Final Res ult documented in this encounter Visit Diagnoses Not on filedocumented in this encounter Additional Health Concerns Infection Onset Date Last Indicated Resolved Time COVID: Suspected 05/21/2021 05/21/2021 05/21/2021 6:55 PM INSPECTORS AND REGULATORY OFFICERS COVID19 05/21/2021 05/21/2021 05/31/2021 3:05 AM INSPECTORS AND REGULATORY OFFICERS COVID: Recovered Comment:Added based on recent COVID infection. 05/31/2021 08/01/2021 09/28/2021 3:07 AM C DT documented as of this encounter Care Teams Smt Machine Operator Relationship Specialty Start Date End Date Mohamud Reyes MD PCP - General Family Medicine 07/27/18 11/22/20 Hansa Schulte PA PCP - General Paperhanger Assistant 11/23/20 01/25/22 Mohamud Reyes MD PCP - General Family Medicine 01/26/22 02/03/22 Bruna Gamino NP PCP - General Internal Medicine 02/04/22 documented as of this encounter
--- OUTSIDE RECORDS SUMMARY | 2024-09-23 23:16 | XMS_ITS | Data Portability ---
Author Organization [facility] Address [address] [place] [address] [place] [address] Care Team Providers Care Warehouse Supervisor 3Rd Shift Name Role Phone FAROOQ DAWKINSZABETH Primary Care Provider Assessment Encounter Date Assessment Date Assessment LastModified by Organization Details LastModified Time 08/13/2024 08/13/2024 Patient is __36_weeks . Discussed plan. [email or web address] Not available 08/13/2024 13:08:13 08/23/2024 08/23/2024 Patient is ___weeks . Discussed plan. [email or web address] Not available 08/23/2024 14:22:04 08/27/2024 08/27/2024 Patient is __39_weeks . Discussed plan. Not available 08/28/2024 12:45:07 Plan of Treatment Reminders Order Date Submit Date Provider Last Modified By Organization Details Last Modified Time Details Appointments None recorded. Lab urinalysi s, dipstick 2024 025 [email or web address] [place], [address], [place], [address], 13:37:17 culture, urine 2024 025 [facility] (Lab), [address], [place], [address], 13:38:41 Referral None recorded. Procedures None recorded. Surgeries None recorded. Imaging None recorded. Medication Orders Macrobid 100 mg capsule 2024 [id number], [address], [place], [place], [id number], 13:38:58 Patient TargetsNo targets recorded. Patient InstructionsNo instructions [...] Type: Vagin al/Re ctal Speci men Date: 1730 Resul t Date: 1526 Resul t Statu s: Final resul t Abnor mal: Yes Resul ting Lab: [facility] [address] [facility] [facility] [address] Tel: CULTU RE ----- ----- ----- --- Posit christina for Strep tococ cus agala ctiae (Grou p B) (Abno rmal) Clind amyci n susce ptibl e, eryth romyc in resis tant. The clind amyci n induc tion test ( D-t est ) is negat christina, there fore clind amyci n shoul d be clini trevor effec tive again st this isola te. Not Available [facility] (Lab) [address], [place], [address], 08/11/2024 16:30:22 09/22/1909/21/2024 urina lysis , dipst ick Leukocytes +3 Not Available Cit[facility] l[facility] [address], [place], [address], 09/21/2024 13:36:04 09/22/19 25 09/21/2024 urina lysis , dipst ick Nitrite normal Not Available [place] [address], [place], [address], 09/21/2024 13:36:04 09/22/19 25 09/21/2024 urina lysis , dipst ick Urobilinogen normal Not Available [facility] [address], [place], [address], 09/21/2024 13:36:04 09/22/19 25 09/21/2024 urina lysis , dipst ick Protein +3 Not Available [place] [address], [place], [address], 09/21/2024 13:36:04 09/22/19 25 09/21/2024 urina lysis , dipst ick pH 5 Not Available [place] [address], [place], [address], 09/21/2024 13:36:04 09/22/19 25 09/21/2024 urina lysis , dipst ick Blood +++ Not Available [place] [address], [place], [address], 09/21/2024 13:36:04 09/22/19 25 09/21/2024 urina lysis , dipst ick Specific [place] 1.020 Not Available [facility] [address], [place], [address], 09/21/2024 13:36:04 09/22/19 25 09/21/2024 urina lysis , dipst ick Ketone +3 Not Available [place] [address], [place], [address], 09/21/2024 13:36:04 09/22/19 25 09/21/2024 urina lysis , dipst ick Bilirubin normal Not Available Tiffanie dooley [address], [place], [address], 09/21/2024 13:36:04 09/22/19 25 09/21/2024 urina lysis , dipst ick Glucose normal Not Available [place] [address], [place], [address], 09/21/2024 13:36:04 09/22/19 25 09/21/2024 urina lysis , dipst ick Appearance normal Not Available [facility] [address], [place], [address], 09/21/2024 13:36:04 09/22/19 25 09/21/2024 urina lysis , dipst ick Color normal Not Available [place] [address], [place], [address], 09/21/2024 13:36:04 07/25/19 25 07/24/2024 imagi ng/di agnos tic resul t No observ ation record ed. [address] [facility], [place], [address], 07/26/2024 18:13:59 07/25/19 25 07/24/2024 imagi ng/di agnos tic resul t No observ ation record ed. [facility] [facility], [place], [address], 08/12/2024 16:34:19 08/28/19 25 08/27/2024 non-s tress test No observ ation record ed. [place] [address] [facility] [address], [place], [address], 08/29/2024 09:46:58 09/06/19 25 09/05/2024 CT, abdom en + pelvi s, w/o contr ast No observ ation record ed. [address], [place], [address], 09/06/2024 12:35:11 09/06/19 25 09/05/2024 CT, abdom en + pelvi s, w/o contr ast No observ ation record ed. [email or web address] [facility] [address], [place], [address], 09/06/2024 12:02:26 09/06/19 25 09/05/2024 CT, abdom en + pelvi s, w/ contr ast No observ ation record ed. [email or web address] [facility] [address] [facility] [address], [place], [address], 09/09/2024 08:22:27 Result Notes None recorded. Problems Name Problem SNOMED Code Status Onset Date Resolution Date Notes Provider Name and Address Organization Details Recorded Time Bipolar disorder 98648079 Active 2020 Haley Alvarez MD [address], [place], [address], [facility] 1 17:15:10 Uterine adenomyo sis 670129697 Active 2020 suspecte d on US at Haley Alvarez MD [address], [place], [address], [facility] 1 17:15:35 Pregnanc y 82217177 Completed 202309/21/2024 Zahra Henry null, [facility] 5 13:02:58 Migraine 55618728 Completed kristian White MD [address], [place], [address], [facility] 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 5 18:18:47 Group B Streptoc occus carrier [id number] 103 Active + amp in labor Aisha howe, [facility] 18:18:47 Problem Notes None recorded. Procedures Surgical History Date Name Laterality Status Provider Name and Address Organization Details Recorded Time 09/06/19 25 Laparoscopy completed Zahra Henry [facility] 09/21/2024 13:06:09 11/25/19 21 Date of Last Pap Smear completed Zoila Crisostomo [facility] 07/23/2021 09:42:18 Imaging Results Imaging Date Name Status LastModified by Organiz ation Details LastModified Time 07/24/2024 imaging/diagn ostic result completed [address], [address], 07/26/2024 18:13:59 07/24/2024 imaging/diagn ostic result completed [address], [address], 08/12/2024 16:34:19 08/27/2024 non-stress test completed [address] [place] [address], [address], 08/29/2024 09:46:58 09/05/2024 CT, abdomen + pelvis, w/o contrast completed [address], [address], 09/06/2024 12:35:11 09/05/2024 CT, abdomen + pelvis, w/o contrast completed [address], [address], 09/06/2024 12:02:26 09/05/2024 CT, abdomen + pelvis, w/ contrast completed [address], [address], 09/09/2024 08:22:27 Procedure Notes None recorded. Medical Equipment None Reported. Allergies Allergen ID Allergen Name Allergen Category Reaction Reaction Severity Criticality Documentation Date Start Date Code Code System Note Provider Name and Address Organization Details Recorded Time 22002 latex environme nt,medica tion Not available Not available Not available 10/20/2020 02369 91 RxNorm Faye howe, [facility] 17:02:44 76448 Substance with sulfonami de structure and antibacte rial mechanism of action (substanc e) medicatio n Not available Not available Not available 10/20/2020 13856 8003 SNOMED Faye howe, [facility] 17:02:50 Medications Name Sig Start Date [...] Available Not Available sumatriptan 25 mg tablet 09/21 completed Not Available Not Available Not Available penicillin V potassium 500 mg tablet 07/23 completed Not Available Not Available Not Available ondansetron 8 mg disintegrat ing tablet Place 1 tablet every 6 hours by transling ual route as needed. 09/21 completed Not Available Not Available Not Available lamotrigine 25 mg tablet 07/23 completed Not Available Not Available Not Available ketorolac 10 mg tablet 02/20 completed Not Available Not Available Not Available Macrobid 100 mg capsule Take 1 capsule every 12 hours by oral route as directed for 7 days. 2024 active Not Available Not Available Not Avai lable amoxicillin 875 mg tablet 03/22 completed Not [...] completed Not Available Not Available Not Available Roxicodone 15 mg tablet 1/2 tablet for migraine every 8 as needed 2024 active Not Available Not Available Not Avai lable cyclobenzap rine 5 mg tablet Take 1 [...] Updated DateTime 08/13/2024 160.02 cm 28.7 kg/m2 72065.96 g 113 mm[Hg] 71 mm[Hg] Zahra Henry [facility] 12:25:50 Date Recorded Body weight Systolic blood pressure Diastolic blood pressure Provider Name and Address Organization Details Last Updated DateTime 08/23/2024 64391.5563 1 g 107 mm[Hg] 70 mm[Hg] JUAN Westfall [facility] 08/23/2024 14:23:18 Date Recorded Body weight Body mass index (BMI) Body height Systolic blood pressure Diastolic blood pressure Provider Name and Address Organization Details Last Updated DateTime 08/27/2024 73315.96 394 g 28.7 kg/m2 160.02 cm 119 mm[Hg] 78 mm[Hg] Zahra Henry [facility] 13:38:04 Date Recorded Body height Body mass index (BMI) Body weight Systolic blood pressure Diastolic blood pressure Provider Name and Address Organization Details Last Updated DateTime 09/21/2024 160.02 cm 25.9 kg/m2 69021.49 g 117 mm[Hg] 80 mm[Hg] Zahra Henry [facility] 13:04:28 Social History Question Answer Notes LastModified by Organizat ion Details LastModified Time Tobacco Smoking Status Never Smoker [facility] 10/20/2020 17:02:06 Are You Blind Or Do You Have Difficulty Seeing? No [email or web address] Information n ot available 01/31/2024 What Is Your Level Of Caffeine Consumption? Moderate [email or web address] Information not available 03/20/2024 How Much Tobacco Do You Chew? None [email or web address] Information not available 01/31/2024 In The 14 Days Before Symptom Onset, Have You Had Close Contact With A Laboratory-confirm ed COVID-19 While That Case Was Ill? No [email or web address] Information n ot available 01/31/2024 In The 14 Days Before Symptom Onset, Have You Had Close Contact With A Person Who Is Under Investigation For COVID-19 While That Person Was Ill? No Information not available 01/31/2024 Have You Been To An Area Known To Be High Risk For COVID-19? No [email or web address] Information not available 01/31/2024 Are You Deaf Or Do You Have Serious Difficulty Hearing? No [email or web address] Information not available 01/31/2024 What Type Of Diet Are You Following? REGULAR [email or web address] Information n ot available 01/31/2024 What Is The Highest Grade Or Level Of School You Have Completed Or The Highest Degree You Have Received? [id number] Information not available 01/31/2024 Are There Any Guns Present In Your Home? No Information not available 01/31/2024 Do You Use Protection During Sex? No [email or web address] Information not available 01/31/2024 Do You Use Your Seat Belt Or Car Seat Routinely? Yes [email or web address] Information not available 01/31/2024 Do You Have Smoke And Carbon Monoxide Detectors In Your Home? Yes [email or web address] Information not available 01/31/2024 How Much Tobacco Do You Smoke? No [email or web address] Information not available 01/31/2024 Do You Use Sunscreen Routinely? No [email or web address] Information not available 01/31/2024 Has Tobacco Cessation Counseling Been Provided? No Information not available 10/20/2020 Have You Used IV Drugs? No [email or web address] Information not available 01/31/2024 Do You Have Difficulty Walking Or Climbing Stairs? No [email or web address] Information not available 08/13/2024 Sex: Unknown Functional Status Question Answer Note LastModified by Organizat ion Details LastModified Time Do you use any illicit or recreational drugs? No Information not available 10/20/2020 Do you or have you ever used any other forms of tobacco or nicotine? No Information not available 10/20/2020 What is your level of alcohol consumption? None Information not available 10/20/2020 Are you able to walk? YESWOREST [email or web address] Information not available 01/31/2024 Are you able to care for yourself? 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 No [email or web address] Information not available 08/13/2024 What is your exercise level? Moderate [email or web address] Information not available 01/31/2024 Mental Status Question Answer Note LastModified by Organization D etails LastModified Time Do you feel stressed (tense, restless, nervous, or anxious, or unable to sleep at night)? [id number] [email or web address] Information not available 01/31/2024 Family History Relationship Description Onset Age of [...] Allergies (Food, seasonal, environmental ) N Other Y Breast Cancer N Drug/Latex Allergies/Reactions Y Blood Transfusion N Dermatologic Disorders N Lung Disease N Defects or Inherited Disease N Breast Problem N Gestational Diabetes N Hematologic disorders N Anesthesia Complications N History of STI N Deep Vein Thrombosis N Polycystic ovary syndrome N Anxiety Disorder Y Autoimmune disease N Arthritis N Infertility N Polyps N Acid Reflux (GERD) N History of abnormal pap N Cancer N Stroke N Varicosities N Neurologic/Epilepsy Y Endometriosis N High Cholesterol N Headaches Y Fibromyalgia N Kidney Disease N Heart Problems N Kidney or Bladder Problems N Thyroid Problems N GI Problems N Eating Disorder N Anemia Y Art (IVF or FET) N Psychiatric Illness Y Ovarian Cancer N Diabetes N Pulmonary (TB, Asthma) N Hepatitis/Liver Disease N No Past Medical History N Eczema N Urinary Tract Infection N Abuse/Domestic Violence N Asthma N Trauma/Violence N Depression/ depression Y Heart Disease N Pre-Eclampsia N Hypertension N Osteoporosis N Thrombophilias N Gynecological History Statement/Question Response Date of Last Mammogram Date of LMP 12/06/2023 On BCP's at Conception? N N Was last menstrual period normal Y STIs/STDs N HPV Vaccine N Duration of Flow (days) 5 9 Current Control Method Tubal Ligat ion Age at First Child 20 Frequency of Cycle (Q days) 29 Sexually Active? Y Unknown Menses Monthly N Date of DEXA bone scan Age of first menstrual cycle 10 Date of Last Pap Smear 11/24/2020 Sexual Problems? N LMP Definite N Obstetrics History GPAL:G 2 P 2 0 0 2 Type Value Full Term 2 Living 2 Total 2 Past Encounters Encounter ID Performer Location Encounter Start Date Encounter Closed Date Diagnosis/Indication Diagnosis SNOMED-CT Code Diagnosis ICD10 Code Diagnosis Note [id number] Haley Alvarez MD [place] [address],[place] [address] 10/20/2020 16:53:51 10/21/2020 16:11:01 Pelvic floor tension 210787257 R29.898 [id number] Haley Alvarez MD [place] [address],[place] [address] 11/24/2020 16:34:17 11/24/2020 17:09:48 Gynecologic examination 98944572 Z01.419 [id number] Ric White MD [place] [address],[place] [address] 07/23/2021 09:15:46 07/23/2021 14:21:43 Menorrhagia 492481533 N92.0 Pain in pelvis 62373148 R10.2 I spent over 35 minutes with the patient. We discussed her symptoms in detail. We reviewed radiology reports. We discussed disease processes regarding pelvic pain, ovarian cyst, adenomyosi s. We discussed evaluation and possible treatments of menorrhagi a and pelvic pain. We will proceed with pelvic ultrasound and the patient will return to discuss treatment plan. [id number] MD Diana [place] [address],[place] [address] 07/28/2021 09:42:58 07/28/2021 10:38:00 Pain in pelvis 88190511 R10.2 [id number] MD Diana [place] [address],[place] [address] 03/22/2022 17:25:20 03/23/2022 12:05:46 Amenorrhea 17244704 N91.2 Nausea 210050370 R11.0 Stomach cramps 51335233 R10.9 Trying to conceive 09329 9001 Z31.9 [id number] DANIEL VALENCIA MD [place] [address],[place] [address] 01/23/2024 14:58:52 01/23/2024 15:16:19 Urinary symptoms 715967008 R39.9 Acute urin ant tract infection 219515688 N39.0 [id number] DANIEL VALENCIA MD [place] [address],[place] [address] 01/31/2024 11:26:51 01/31/2024 11:51:43 [id number] DANIEL VALENCIA MD [place] [address],[place] [address] 01/31/2024 11:27:10 01/31/2024 15:32:00 Nausea and vomiting 82274032 R11.2 - will trial zofran PRN for nausea Migraine 22593117 G43.90 9 - hx of chronic migraines- has previously tried reglan, naproxen, sumatripta n, compazine, propranolo l, cyclobenza pine, zofran, toradol, exedrin migraines, dilaudid, ibuprofen, and norco with no improvemen t- will trial sumatripta n, tylenol and caffeine- will send neurology referral test positive 594290622 Z32.01 1. Exam today within normal limits.2. [...] desires at 10 weeks, orders given today. [id number] Ric White MD [place] [address],[place] [address] 02/21/2024 16:33:48 02/21/2024 17:08:55 screening 056792467 Z36.82 Z3A.12 [id number] Ric White MD [place] [address],[place] [address] 02/21/2024 16:34:43 02/22/2024 00:38:42 Migraine 89923692 G43.909 Routine an tenatal care 435443514 Z34.90 [id number] [facility] [address],[place] [address] 03/20/2024 16:34:46 03/20/2024 17:12:20 Routine care 069314669 Z34.92 Gestation period, 16 weeks 01890121 Z3A.16 [id number] Ric White MD [place] [address],[place] [address] 04/18/2024 16:26:44 04/18/2024 17:59:14 screening for malformation 753096033 Z36.3 Z3A.20 [id number] MD Maria Henriquez [address],[place] [address] 04/18/2024 16:29:40 04/19/2024 10:14:41 Routine care 063718446 Z34.90 [id number] DANIEL VALENCIA MD [place] [address],[place] [address] 05/17/2024 15:52:41 05/20/2024 18:25:26 Routine care 098855111 Z34.91 [id number] MD Maria Henriquez [address],[place] [address] 05/24/2024 12:31:27 05/24/2024 13:18:24 Abdominal pain in 234642510 O99.891 O26.852 Z3A.25 [id number] MD Maria Henriquez [address],[place] [address] 05/24/2024 12:32:04 05/24/2024 13:33:54 Urinary symptoms 162870166 R39.9 Traumatic injury during 782897513 T14.90XA [id number] MD Maria BALDERAS [address],[place] [address] 06/12/2024 14:31:43 06/13/2024 14:42:54 Routine care 856025416 Z34.91 [id number] MD Maria BALDERAS [address],[place] [address] 06/24/2024 16:15:04 06/26/2024 03:31:51 Candidiasis of vagina 24024942 B37.31 Routine an tenatal care 522133152 Z34.91 - continue PNV [id number] Ric White MD [place] [address],[place] [address] 07/08/2024 14:54:02 07/08/2024 15:52:50 Uterine size for dates discrepancy 836269785 O26.843 Z3A.31 [id number] MD Maria BALDERAS [address],[place] [address] 07/08/2024 14:54:26 07/11/2024 09:36:05 Routine care 910214135 Z34.91 - continue PNV [id number] DANIEL VALENCIA MD [place] [address],[place] [address] 07/24/2024 16:22:43 07/24/2024 17:48:09 Uterine contractions [id number]|2024-09-23 23:16:00|2024-09-23 23:15:00|XMS_ITS|BKG DAEMON|External Medical Summaries|[id number]|" Continuity of Care Document (C-CDA R2.1) (Encounter date: 02/06/2017 02:44 PM) Created on: September 23, 2024 Shayna Mcintyre : 1990 Sex: Female Author Organization [facility] Address [address] [facility] [address] [place] [address] Phone Care Team Providers Care Warehouse Supervisor 3Rd Shift Name Role Phone Lenora RIVAS CMPDilshad Cerna Unavailable Unavailable Procedures Procedure Date PT Evaluation Low Complexity Therapeutic Exercise Manual Therapy Advance Directives Directive Yes / No Effective Date File Name No Information Encounters Encounter Description Practice Location Reason(s) For Visit Diagnoses Date Provider Providers Copied on Encounter [facility], [address], [place], [place], [id number], tel:[phone] [place] No Information [address]shad. [address] [facility], [address], [place], [facility], . tel:[phone] [facility], [address], [place], [place], [address], tel:[phone] [place] Low back painThoracogenic scoliosis, thoracolumbar region 7 [address] Dilshad. [address] [facility], [address], [place], [facility], [place]. tel:[phone] Referring Provider: Alex Woods, [address] [facility] [address], [place], [address]. tel:[phone] Family History Family Member Type Diagnosis Age At Onset No Information Payers Payer name Insurance type Covered constitution party ID Eddy fuentes(s) [facility] [id number] Social History Type Description Quantity Date Captured [...] (start - stop) Status Members No Information "
--- OUTSIDE RECORDS SUMMARY | 2024-09-23 23:16 | XMS_ITS | Referral Summary ---
Author Organization [facility] [address] [facility] Address [address] [place] [address] Care Team Providers Care Commercial Credit Specialist Name Role Phone Bruna Gamino BULK CLERK Primary Care Provider [phone] Encounters Date Type Department Care Team Description 09/04/2024 Orders Only [facility] Information Management [address] [place] [address] Bruna Gamino NP 07/24/2024 Orders Only [facility] Information Management [address] [place] [address] Bruna Gamino NP from Last 3 Months [...] c spine, will fax order to [facility]. Will notify her of these results as they become available. De Quervain's disease (tenosynovitis) 11/11/2021 Assessment & Plan (11/11/2021 10:40 PM CDT): Her current symptoms seem most consistent with deeper veins tenosynovitis. Discussed the difference between a thumb spica and a cock-up splint. She will consider getting 1 off [employer]. Continue icing and anti-inflammatory. Avoid repetition which may be her video game. If she does not notice improvement in the next month or so can consider physical therapy versus referral to [facility]. 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 Not on file Not on file Not on file Last Filed Vital Signs Vital Sign Reading Time Taken Comments Blood Pressure 112/68 06/27/2023 2:40 PM PLANNER SCHEDULER Pulse 65 06/27/2023 2:40 PM PLANNER SCHEDULER Temperature 36.9 C (98.4 F) 06/27/2023 2:40 PM PLANNER SCHEDULER Respiratory Rate 16 10/19/2018 11:42 AM CDT Oxygen Saturation 99% 06/27/2023 2:40 PM PLANNER SCHEDULER Inhaled Oxygen Concentration - - Weight 59.6 kg (131 lb 8 oz) 06/27/2023 2:40 PM PLANNER SCHEDULER Height 162.6 cm (5' 4 ) 06/27/2023 2:40 PM PLANNER SCHEDULER Body Mass Index 22.57 06/27/2023 2:40 PM PLANNER SCHEDULER Plan of Treatment Not on file Procedures Procedure Name Priority Date/Time Associated Diagnosis Comments SCAN - RADIOLOGY/IMAGING 09/04/2024 SCAN - RADIOLOGY/IMAGING 07/24/2024 from Last 3 Months Results * SCAN - RADIOLOGY/IMAGING (09/04/2024) Anatomical Region Laterality Modality Other Bruna Gamino BULK CLERK Final Result * SCAN - RADIOLOGY/IMAGING (07/24/2024) Anatomical Region Laterality Modality Other Bruna Gamino BULK CLERK Final Result from Last 3 Months Insurance Offerti OOS Offerti OOS Care Teams Commercial Credit Specialist Relationship Specialty Start Date End Date Bruna Gamino NP PCP - General Internal Medicine 02/04/22
--- NOTE | 2024-09-23 23:19 | PC.NURSE ---
ED Charge aware of pt. This RN attempting to contact ob charge to find out if they would like pt there or here first.
[2024-09-23 23:45] LABS: Basophils Percent Auto 0.7 % (0.2-1.2); Eosinophils Absolute Auto 0.2 K/mm3 (0-0.3); Eosinophils Percent Auto 3.4 % (0-4.4); Hematocrit 35.4 % (37.0-47.0); Immature Granulocyte Absolute 0.01 K/mm3 (0.00-0.031); Immature Granulocyte Percent A 0.2 % (0-0.5); Lymphocytes Absolute Auto 2.05 K/mm3 (0.9-3.2); Lymphocytes Percent Auto 33.5 % (18.3-44.2); Mean Corpuscular HGB Conc 31.1 g/dl (32-36); Mean Corpuscular Hemoglobin 28.6 pg (26-34); Mean Corpuscular Volume 92.2 fl (80-100); Mean Platelet Volume 9.1 fl (7.4-10.4); Monocytes Absolute Auto 0.5 K/mm3 (0.1-0.6); Monocytes Percent Auto 8.3 % (2.6-8.5); Neutrophils Absolute Auto 3.3 K/mm3 (1.3-6.7); Neutrophils Percent Auto 53.9 % (45.5-73.1); Platelet Count Result 301 k/mm3 (150-375); Red Blood Count 3.84 M/mm3 (4.2-5.4); Red Cell Distribution Width 14.6 % (11.5-14.5); White Blood Count 6.1 K/mm3 (4.5-10.0)
[2024-09-24] VITALS: BP 115/81; PULSE 67; RESP 15; O2SAT 100
[2024-09-24 00:01] LABS: Alanine Aminotransferase 17 U/L (6-35); Alkaline Phosphatase 84 U/L (38-126); Anion Gap 8 mmol/L (4-12); Aspartate Amino Transferase 33 U/L (14-36); Bilirubin,Total 0.8 mg/dL (0.2-1.3); Blood Urea Nitrogen 6 mg/dL (7-17); Calcium 9.8 mg/dL (8.4-10.2); Carbon Dioxide 24 mmol/L (22-30); Chloride 108 mmol/L (98-107); Estimated CRCL calculation 92 ml/min; Estimated Glomerular Filt Rate > 60; Glucose 91 mg/dL (65-110); Potassium 3.7 mmol/L (3.4-5.0); Sodium 140 mmol/L (137-145)
--- OUTSIDE RECORDS SUMMARY | 2024-09-24 00:07 | XMS_ITS | Continuity of Care Document ---
Author Organization [facility] Address [address] [place] [address] [place] [address] Phone Care Team Providers Care Correctional Lieutenant Name Role Phone Alex Woods MD Unavailable [...] Copied on Encounter OFFICE/OUTPA TIENT VISIT, [facility], [address], [place], [place], [id number], [place] tel:[phone] [facility] sinusitis1 (chief complaint) Acute sinusitisHeadache Chuck Johnson. [address], [place], [place], [id number] , [place]. tel:[phone] Referring Provider: Alex Woods, [address], [place], [place], [id number]. tel:[phone] OFFICE/OUTPA TIENT VISIT, [facility], [address], [place], [place], [id number], [place] tel:[phone] [facility] back pain1 (chief complaint) LumbagoSacroiliitis Chuck Johnson. [address], [place], [place], [id number] , [place]. [phone] Referring Provider: Dedrick Garcia [address], [place], [place], [id number]. tel:[phone] OFFICE/OUTPA TIENT VISIT, EST [facility], [address], [place], [place], [id number], [place] tel:[phone] [facility] brast lump1 (chief complaint) back pain1 (chief complaint) tinea1 (chief complaint) SacroiliitisLump in breastTinea corporis Sep-2 7 Chuck Johnson. [address], [place], [place], [address] , [place]. [phone] Referring Provider: Dedrick Garcia [facility] [address], [place], [place], [id number]. tel:[phone] PREV VISIT, NEW, AGE 18-39 [facility], [address], [place], [place], [id number], [place] tel:[phone] [facility] PHysical (chief complaint) Encounter for general adult medical exam w abnormal findingsTinea corporisFamily history of malignant neoplasm of ovary 7 Chuck Johnson. [address], [place], [place], [id number] , [place]. tel:[phone] Referring Provider: Dedrick Garcia [facility] [address], [place], [place], [id number]. tel:[phone] Family History Family Member Type Diagnosis Age At Onset Father Problem (finding) Unknown Mother Problem (finding) ovarian CA at age 24 Brother Problem (finding) Alive and well Payers Payer name Insurance type Covered democrat ID Authoriza tion(s) No Information Social History [...] Referral Ordered: [place] [facility] ordered Referral Ordered: [facility] (related to Sacroiliitis) ordered Referral Ordered: LUMBAR XRAY AP AND LAT ONLY ordered Referral Referred To: [facility] [address] [place] [address], [id number] Ordered: Referrals: [facility]. Evaluate and treat ordered Referral Ordered: MAMMOGRAM, [...] Mental Status Date Cognitive Assessment Orientation - Dunnegan ed to time, place, person, situation.
--- OUTSIDE RECORDS SUMMARY | 2024-09-24 00:07 | XMS_ITS | Continuity of Care Document ---
Author Organization [facility] Address [address] [facility] [address] [place] [address] Phone Care Team Providers Care Emergency Room Clinician Name Role Phone Muehl MPT CMPT, Dilshad Unavailable Unavailable Procedures Procedure Date PT Evaluation Low Complexity Therapeutic Exercise Manual Therapy Advance Directives Directive Yes / No Effective Date File Name No Information Encounters Encounter Description Practice Location Reason(s) For Visit Diagnoses Date Provider Providers Copied on Encounter [facility] [address], [id number], tel:[phone] Roe No Information Feb-0 2201 7 Muehl Dilshad. [address] [facility], [address], [facility], [place]. tel:[phone] [facility], [address] [place] [address], [id number], tel:[phone] Roe Low back painThoracogenic scoliosis, thoracolumbar region Jan-2 6 7 Muehl Dilshad. [address] [facility], [facility] [address], [address], [place]. tel:[phone] Referring Provider: Alex Woods, [address] [facility] [place], [address]. tel:[phone] Family History Family Member Type Diagnosis Age At Onset No Information Payers Payer name Insurance type Covered constitution party ID Authoriza tigregory(s) [facility] [id number] Social History Type Description Quantity Date Captured [...]
--- NOTE | 2024-09-24 00:09 | ED_ITS ---
HPI - Recheck/Abnormal Lab/Rx General Chief Complaint: Recheck/Abnormal Lab/Rx Stated Complaint: bp 148/101 Time Seen by Provider: 09/23/24 23:24 History of Present Illness HPI narrative: Patient presenting here with concern that her blood pressure at home was elevated, she is 3 weeks , had been feeling kind of funny and very anxious at home. Took a blood pressure at home it was 150 so came in. Already feeling better now that she is here. Related Data Home Medications Medication Instructions Recorded Confirmed Last Taken Type sumatriptan succinate 25 mg tablet 25 mg PO 07/10/24 07/07/24 History 25 mg ondansetron 8 mg disintegrating 8 mg PO Q12H PRN nausea and 07/30/24 08/05/24 Unknown History tablet vomiting pediatric multivitamin no.7-folic tablet PO 09/04/24 Unknown History acid 100 mcg chewable tablet (Flintstones Tab Chew) Allergies Allergy/AdvReac Type Severity Reaction Status Date / Time latex Allergy Intermediate Rash Verified 09/05/24 13:53 dexamethasone Allergy Unknown Anaphylaxis Verified 09/05/24 13:53 Sulfa (Sulfonamide Allergy Unknown Unknown Verified 09/05/24 13:53 Antibiotics) Review of Systems 2 Review of Systems: All systems reviewed & are unremarkable except as noted in HPI and below PMFSH Past Medical History Medical History Angina pectoris, unspecified Anemia Ovarian cyst Migraines Family History Family History Other Cancer Hyperglycemia Hypertension Migraines Social History Social History Smoking status: Never smoker Second hand tobacco smoke exposure: No Alcohol intake: never Substance use: never Substance use type: does not use Do You Feel Safe in your Home?: Yes Lack of Transportation: No Lack of Food: Never True Current Housing: I Have Housing Concerned About Future Housing: No Difficulty Paying Gas/Electric Bills: No Difficulty Paying for Meds: No Currently Unemployed: No Education: High School Diploma/GED Difficulty w/ Childcare or Family Care: No Gender identity (if verbalized by the patient): Female Spiritual care concerns: No Exam 2 Narrative: EXAMINATION OF ORGAN SYSTEMS/BODY AREAS: Constitutional: Vital signs per nursing GENERAL: Slightly anxious appearing HEAD: Normal with no signs of head trauma. EYES: EOMI, conjunctiva normal ENT: Hearing grossly intact LUNGS: Nonlabored breathing. HEART: [Regular rate and rhythm] EXT: Normal range of motion SKIN: [No rashes or lesions.] NEURO: [Alert and oriented x 3. No gross focal sensory or strength deficits.] PSYCH: Slightly anxious affect Course Vital Signs Vital signs: Vital Signs Temperature 98.3 F 09/23/24 23:15 Pulse Rate 83 09/23/24 23:15 Respiratory Rate 16 09/23/24 23:15 Blood Pressure 124/80 09/23/24 23:15 Pulse Oximetry 99 09/23/24 23:15 Oxygen Delivery Room Air 09/23/24 23:15 Temperature 98.3 F 09/23/24 23:15 Pulse Rate 83 09/23/24 23:15 Respiratory Rate 16 09/23/24 23:15 Blood Pressure 124/80 09/23/24 23:15 Pulse Oximetry 99 09/23/24 23:15 Oxygen Delivery Room Air 09/23/24 23:15 MDM - Recheck/Abnormal Lab/Rx MDM Narrative Medical decision making narrative: Patient presenting here with concern for preeclampsia, she is 6 weeks , took a blood pressure at home does elevated so came in to be checked. She is feeling quite anxious. Now that she is here she feels much better and symptoms have resolved. I did obtain preeclamptic labs which are thankfully negative, no proteinuria, normal creatinine and LFTs. Normal platelets. Patient very reassured by this, symptoms now resolved, normal blood sugar, agreeable at to outpatient management and I have discussed return precautions. Lab Data 09/23/24 23:39 09/23/24 23:39 Labs: Lab Results 09/23/24 09/23/24 Range/Units 23:39 23:45 WBC 6.1 (4.5-10.0) K/mm3 RBC 3.84 L (4.2-5.4) M/mm3 Hgb 11.0 L D (12.0-15.0) g/dL Hct 35.4 L (37.0-47.0) % MCV 92.2 (80-100) fl MCH 28.6 (26-34) pg MCHC 31.1 L (32-36) g/dl RDW 14.6 H (11.5-14.5) % Plt Count 301 D (150-375) k/mm3 MPV 9.1 (7.4-10.4) fl Immature Gran % (Auto) 0.2 (0-0.5) % Neut % (Auto) 53.9 (45.5-73.1) % Lymph % (Auto) 33.5 (18.3-44.2) % Mckinley % (Auto) 8.3 (2.6-8.5) % Eos % (Auto) 3.4 (0-4.4) % Baso % (Auto) 0.7 (0.2-1.2) % Lymph # (Auto) 2.05 (0.9-3.2) K/mm3 Mckinley # (Auto) 0.5 (0.1-0.6) K/mm3 Eos # (Auto) 0.2 (0-0.3) K/mm3 Baso # (Auto) 0.0 (0.0-0.1) K/mm3 Abs Immat Gran (auto) 0.01 (0.00-0.031) K/mm3 Absolute Neuts (auto) 3.3 (1.3-6.7) K/mm3 Absolute Nucleated RBC 0.000 (0.0-0.012) K/mm3 Nucleated RBC % 0.0 (0.0-0.2) % Sodium 140 (137-145) mmol/L Potassium 3.7 (3.4-5.0) mmol/L Chloride 108 H (98-107) mmol/L Carbon Dioxide 24 (22-30) mmol/L Anion Gap 8 (4-12) mmol/L BUN 6 L (7-17) mg/dL Creatinine 0.61 L (0.7-1.0) mg/dL Estim Creat Clear Calc 92 ml/min Estimated GFR > 60 (59 - ) Glucose 91 (65-110) mg/dL Calcium 9.8 (8.4-10.2) mg/dL Total Bilirubin 0.8 (0.2-1.3) mg/dL AST 33 (14-36) U/L ALT 17 (6-35) U/L Alkaline Phosphatase 84 (38-126) U/L Total Protein 7.0 (6.3-8.2) g/dL Albumin 4.0 (3.5-5.1) g/dL Urine Color Yellow (Yellow) Urine Appearance Clear (Clear) Urine pH 6.5 (5.0-9.0) Ur Specific [place] 1.012 (1.001-1.035) Urine Protein Negative (Negative) mg/dL Urine Glucose (UA) Negative (Negative) mg/dL Urine Ketones Negative (Negative) mg/dL Ur Blood (Man) 3+ H (Negative) Urine Nitrate Negative (Negative) Urine Bilirubin Negative (Negative) Urine Urobilinogen 0.2 (<2.0) mg/dL Leukocyte Esterase Rfl 1+ H (Negative) ALFREDO/UL Urine RBC 21-50 H (0-2) /hpf Urine WBC 11-20 H (0-3) /hpf Ur Squamous Epith Cells None seen (Few) /hpf Urine Bacteria Trace /hpf Urine Casts 0-2 Discharge Plan Discharge Clinical Impression: state Patient Disposition: Home Condition: Stable Instructions: Normal Exam (ED) Additional Instructions: Please follow-up with your OBGYN. Your labs today look normal for post-. If you start having any new headaches, vision changes, chest pain, or anything else concerning, you can always come back to the emergency room. Patient Language: Eritrean Prescriptions: No Action acetaminophen 500 mg tablet 1,000 mg PO TID PRN (Reason: ade) 7 Days Qty: 42 0RF sumatriptan succinate 25 mg tablet 25 mg PO Flintstones Tab Chew 100 mcg tablet,chewable PO hydrocodone-acetaminophen 5-325 mg tablet 1 - 2 tablet PO Q6H PRN (Reason: pain) Qty: 14 0RF ondansetron 8 mg tablet,disintegrating 8 mg PO Q12H PRN (Reason: nausea and vomiting) Follow-up/Referrals: Hanny,FAVIOLA Mcfarland [Primary Care Provider] -
[2024-09-24 00:17] LABS: Add Urine Microscopic? YES; Appearance Urine Clear (Clear); Bilirubin Urine Negative (Negative); Blood Urine 3+ (Negative); Color Urine Yellow (Yellow); Glucose Urine UA Negative (Negative); Ketones Urine Negative (Negative); Leukocyte Esterase Ur 1+ LEU/UL (Negative); Nitrate Urine Negative (Negative); Non Pathogenic Casts 0-2; Protein Urine Negative (Negative); RBC Urine 21-50 /hpf (0-2); Specific Grav Ur 1.012 (1.001-1.035); Squamous Epithelial Cell Urine None Seen /hpf (Few); Urobilinogen Urine 0.2 mg/dL (<2.0); pH Urine 6.5 (5.0-9.0)
[2024-09-24 00:20] LABS: Bacteria Urine Trace /hpf
== END 2024-09-24 01:01 | disposition home or self-care (01) ==
PROVIDERS: Emergency Provider Emergency Medicine; PCP Nurse Practitioner Family
DX: O99.893 Other specified diseases and conditions complicating puerperium (principal); R03.0 Elevated blood-pressure reading, without diagnosis of hypertension; O99.03 Anemia complicating the puerperium; D64.9 Anemia, unspecified
CPT/HCPCS: 36415; 80053; 81001; 85025; 87086; 99283

== ENCOUNTER 2024-10-02 18:59 | Emergency (ER) | payer BC, SELFPAY ==
--- OUTSIDE RECORDS SUMMARY | 2024-10-02 19:02 | XMS_ITS | Referral Summary ---
Author Organization [facility] [address] [facility] Address [address] [place] [address] Care Team Providers Care Eligibility Worker Name Role Phone Bruna Gamino HEADLINE WRITER Primary Care Provider [phone] Encounters Date Type Department Care Team Description 09/04/2024 Orders Only [facility] Health Information Management [address] [place] [address] Bruna Gamino NP 07/24/2024 Orders Only [facility] Health Information Management [address] [place] [address] Bruna Gamino NP from Last 3 Months [...] 05/27/2021 Assessment & Plan (05/27/2021 5:48 PM PRODUCT SAFETY TEST ENGINEER): Patient has just started mdp, wanting to [...] 12/22/2021 Assessment & Plan (05/21/2021 3:28 PM PRODUCT SAFETY TEST ENGINEER): Will send patient to [place] for Covid-19 testing. 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 Not on file Not on file Not on file Last Filed Vital Signs Vital Sign Reading Time Taken Comments Blood Pressure 112/68 06/27/2023 2:40 PM PRODUCT SAFETY TEST ENGINEER Pulse 65 06/27/2023 2:40 PM PRODUCT SAFETY TEST ENGINEER Temperature 36.9 C (98.4 F) 06/27/2023 2:40 PM PRODUCT SAFETY TEST ENGINEER Respiratory Rate 16 10/19/2018 11:42 AM CDT Oxygen Saturation 99% 06/27/2023 2:40 PM PRODUCT SAFETY TEST ENGINEER Inhaled Oxygen Concentration - - Weight 59.6 kg (131 lb 8 oz) 06/27/2023 2:40 PM PRODUCT SAFETY TEST ENGINEER Height 162.6 cm (5' 4) 06/27/2023 2:40 PM PRODUCT SAFETY TEST ENGINEER Body Mass Index 22.57 06/27/2023 2:40 PM PRODUCT SAFETY TEST ENGINEER Plan of Treatment Not on file Procedures Procedure Name Priority Date/Time Associated Diagnosis Comments SCAN - RADIOLOGY/IMAGING 09/04/2024 SCAN - RADIOLOGY/IMAGING 07/24/2024 from Last 3 Months Results * SCAN - RADIOLOGY/IMAGING (09/04/2024) Anatomical Region Laterality Modality Other Bruna Gamino HEADLINE WRITER Final Result * SCAN - RADIOLOGY/IMAGING (07/24/2024) Anatomical Region Laterality Modality Other Bruna Gamino HEADLINE WRITER Final Result from Last 3 Months Insurance Offees OOS [facility] Address: [facility] [address] [place] [address] Offees OOS Care Teams Eligibility Worker Relationship Specialty Start Date End Date Bruna Gamino NP PCP - General Internal Medicine 02/04/22
--- OUTSIDE RECORDS SUMMARY | 2024-10-02 19:02 | XMS_ITS | Encounter Summary ---
Author Organization [facility] Facility Care Team Providers Care Professor Of Surgery Name Role Phone Mohamud Reyes MD Primary Care Provider [phone] Hansa Schulte Primary Care Provider [phone] Mohamud Reyes MD Primary Care Provider [phone] Bruna Gamino NP Primary Care Provider [phone] Encounter Details Date Type Department Care Team (Latest Contact Info) Description 05/29/2018 Orders Only [facility] Provider, MD Corin [address] [place] [address] Social History Tobacco Use Types Packs/Day Years Used Date Smoking Tobacco: Never Assessed Comments Unknown Sex and Gender Information Value Date Recorded Sex Assigned at Not on file Legal Sex Female 12:50 AM PAGEANT DIRECTOR Gender Identity Not on file Sexual Orientation Not on file documented as of this encounter Plan of Treatment Not on file documented as of this encounter Procedures Procedure Name Priority Date/Time Associated Diagnosis Comments SCAN - LABS 05/30/2018 12:00 AM PAGEANT DIRECTOR documented in this encounter Results * SCAN - LABS (05/30/2018 12:00 AM PAGEANT DIRECTOR) Narrative 05/30/2018 12:00 AM PAGEANT DIRECTOR Ordered by an unspecified provider. us Historical Provider Final Res ult documented in this encounter Visit Diagnoses Not on filedocumented in this encounter Additional Health Concerns Infection Onset Date Last Indicated Resolved Time COVID: Suspected 05/21/2021 05/21/2021 05/21/2021 6:55 PM PAGEANT DIRECTOR COVID19 05/21/2021 05/21/2021 05/31/2021 3:05 AM PAGEANT DIRECTOR COVID: Recovered Comment:Added based on recent COVID infection. 05/31/2021 08/01/2021 09/28/2021 3:07 AM C DT documented as of this encounter Care Teams Professor Of Surgery Relationship Specialty Start Date End Date Mohamud Reyes MD PCP - General Family Medicine 07/27/18 11/22/20 Hansa Schulte PA PCP - General Lens Edger 11/23/20 01/25/22 Mohamud Reyes MD PCP - General Family Medicine 01/26/22 02/03/22 Bruna Gamino NP PCP - General Internal Medicine 02/04/22 documented as of this encounter
--- OUTSIDE RECORDS SUMMARY | 2024-10-02 19:02 | XMS_ITS | Data Portability ---
Author Organization [facility] Address [address] [place] [address] [place] [address] Care Team Providers Care Oceanology Teacher Name Role Phone JUANCHO, MICAH Primary Care Provider Assessment Encounter Date Assessment Date Assessment LastModified by Organization Details LastModified Time 08/13/2024 08/13/2024 Patient is __36_weeks . Discussed plan. [email or web address] Not available 08/13/2024 13:08:13 08/23/2024 08/23/2024 Patient is ___weeks . Discussed plan. [email or web address] Not available 08/23/2024 14:22:04 08/27/2024 08/27/2024 Patient is __39_weeks . Discussed plan. [email or web address] Not available 08/28/2024 12:45:07 Plan of Treatment Reminders Order Date Submit Date Provider Last Modified By Organization Details Last Modified Time Details Appointments None recorded. Lab urinalysis , dipstick 2024 025 [email or web address] [address] [facility], [address], [place], [address], 13:37:17 culture, urine 2024 025 [facility] (Lab), [address], [place], [address], 09:13:26 Referral None recorded. Procedures None recorded. Surgeries None recorded. Imaging None recorded. Medication Orders Macrobid 100 mg capsule 2024 [id number], [address], [place], [place], [id number], 13:38:58 Patient TargetsNo targets recorded. Patient InstructionsNo [...] t Abnor mal: Yes Resul ting Lab: [facility] [address] [facility] [address] Tel: CULTU RE ----- ----- ----- --- Posit christina for Strep tococ cus agala ctiae (Grou p B) (Abno rmal) Clind amyci n susce ptibl e, eryth romyc in resis tant. The clind amyci n induc tion test (D-t est) is negat christina, there fore clind amyci n shoul d be clini trevor effec tive again st this isola te. Not Available [facility] (Lab) [address], [place], [address], 08/11/2024 16:30:22 09/22/1909/21/2024 urina lysis , dipst ick Leukocytes +3 Not Available [facility] [address], [place], [address], 09/21/2024 13:36:04 09/22/1929 0909/21/2024 urina lysis , dipst ick Nitrite normal Not Available [facility] [address], [place], [address], 09/21/2024 13:36:04 09/22/19 25 09/21/2024 urina lysis , dipst ick Urobilinogen normal Not Available [facility] [address], [place], [address], 09/21/2024 13:36:04 09/22/19 25 09/21/2024 urina lysis , dipst ick Protein +3 Not Available [facility] [address], [place], [address], 09/21/2024 13:36:04 09/22/19 25 09/21/2024 urina lysis , dipst ick pH 5 Not Available [facility] [address], [place], [address], 09/21/2024 13:36:04 09/22/19 25 09/21/2024 urina lysis , dipst ick Blood +++ Not Available [facility] [address], [place], [address], 09/21/2024 13:36:04 09/22/19 25 09/21/2024 urina lysis , dipst ick Specific [place] 1.020 Not Available [facility] [address], [place], [address], 09/21/2024 13:36:04 09/22/19 25 09/21/2024 urina lysis , dipst ick Ketone +3 Not Available [facility] [address], [place], [address], 09/21/2024 13:36:04 09/22/19 25 09/21/2024 urina lysis , dipst ick Bilirubin normal Not Available [facility] [address], [place], [address], 09/21/2024 13:36:04 09/22/19 25 09/21/2024 urina lysis , dipst ick Glucose normal Not Available [facility] [address], [place], [address], 09/21/2024 13:36:04 09/22/19 25 09/21/2024 urina lysis , dipst ick Appearance normal Not Available [facility] jessica [address], [place], [address], 09/21/2024 13:36:04 09/22/19 25 09/21/2024 urina lysis , dipst ick Color normal Not Available [facility] [address], [place], [address], 09/21/2024 13:36:04 09/24/19 25 09/23/2024 CULTU RE: URINE result report SEE RESULT S BELOW abnormal Test: Cultu re: Urine Speci men Sourc e: Urine - Clean Catch Speci men Type: Urine Speci men Date: 2024 1139 Resul t Date: 2024 0809 Resul t Statu s: Final resul t Abnor mal: Yes Gladys lux Lab: [facility] [address] [facility] [address] Tel: [phone] CULTU RE ----- ----- ----- --- 25,00 0-50, 000 CFU/m l Esche brittany a coli (Abno rmal) VIRA PTIBI LITY ----- ----- ----- --- Esche brittany a coli METHO D ROSIO ----- ----- ----- ----- ----- ---- ----- ----- ----- ----- ----- AMPIC ILLIN <=8 ug/mL Susce ptibl e AMPIC ILLIN /SULB ACTAM <=4 ug/mL Susce ptibl e AZTRE ONAM <=4 ug/mL Susce ptibl e CEFAZ MAYCO <=2 ug/mL Susce ptibl e CEFEP SAMREEN <=2 ug/mL Susce ptibl e CEFTA ZIDIM E <=1 ug/mL Susce ptibl e CEFTR IAXON E <=1 ug/mL Susce ptibl e CIPRO FLOXA ARMIDA <=0.2 5 ug/mL Susce ptibl e GENTA MICIN <=2 ug/mL Susce ptibl e LEVOF LOXAC IN <=0.5 ug/mL Susce ptibl e MEROP ENEM <=1 ug/mL Susce ptibl e NITRO FURAN TOIN <=32 ug/mL Susce ptibl e PIPER ACILL IN/TA ZOBAC HINDS <=8 ug/mL Susce ptibl e TOBRA MYCIN <=2 ug/mL Susce ptibl e TRIME THOPR IM/BENAVIDES LFAME THOXA ZOLE <=0.5 ug/mL Susce ptibl e Not Available [facility] (Lab) [address], [place], [address], 09/26/2024 09:13:26 07/25/19 25 07/24/2024 imagi ng/di agnos tic resul t No observ ation record ed. [address] [place] [address], [address], 07/26/2024 18:13:59 07/25/19 25 07/24/2024 imagi ng/di agnos tic resul t No observ ation record ed. [facility] [address], [address], 08/12/2024 16:34:19 08/28/19 25 08/27/2024 non-s tress test No observ ation record ed. [address], [place], [address], 08/29/2024 09:46:58 09/06/1909/05/2024 CT, abdom en + pelvi s, w/o contr ast No observ ation record ed. [address], [place], [address], 09/06/2024 12:35:11 09/06/19 25 09/05/2024 CT, abdom en + pelvi s, w/o contr ast No observ ation record ed. [address], [place], [address], 09/06/2024 12:02:26 09/06/1909/05/2024 CT, abdom en + pelvi s, w/ contr ast No observ ation record ed. [email or web address] [address], [place], [address], 09/09/2024 08:22:27 Result Notes None recorded. Problems Name Problem SNOMED Code Status Onset Date Resolution Date Notes Provider Name and Address Organization Details Recorded Time Bipolar disorder 35482713 Active 2020 Haley Alvarez MD [address], [place], [address], [facility] 1 17:15:10 Uterine adenomyo sis 317098297 Active 2020 suspecte d on US at Haley Alvarez MD [address], [place], [address], [facility] 1 17:15:35 Pregnanc y 74583864 Completed 202309/21/2024 Zahra howe, [facility] 5 13:02:58 Migraine 95224079 Completed kristian White MD [address], [place], [address], [facility] 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 5 18:18:47 Group B Streptoc occus carrier 0008231327 103 Active + amp in labor Aisha Cramer [facility] 5 18:18:47 Problem Notes None recorded. Procedures Surgical History Date Name Laterality Status Provider Name and Address Organization Details Recorded Time 09/06/19 25 Laparoscopy completed Zahra Henry [facility] 09/21/2024 13:06:09 11/25/19 21 Date of Last Pap Smear completed Zoila Crisostomo [facility] 07/23/2021 09:42:18 Imaging Results None recorded. Procedure Notes None recorded. Medical Equipment None Reported. Allergies Allergen ID Allergen Name Allergen Category Reaction Reaction Severity Criticality Documentation Date Start Date Code Code System Note Provider Name and Address Organization Details Recorded Time 95087 latex environme nt,medica tion Not available Not available Not available 10/20/2020 78385 91 RxNorm Faye [facility] 17:02:44 83897 Substance with sulfonami de structure and antibacte rial mechanism of action (substanc e) medicatio n Not available Not available Not available 10/20/2020 80227 8003 SNOMED [facility] 17:02:50 Medications Name Sig Start Date [...] Updated DateTime 08/13/2024 160.02 cm 28.7 kg/m2 93036.96 g 113 mm[Hg] 71 mm[Hg] Zahra Henry [facility] 12:25:50 Date Recorded Body weight Systolic blood pressure Diastolic blood pressure Provider Name and Address Organization Details Last Updated DateTime 08/23/2024 64033.5563 1 g 107 mm[Hg] 70 mm[Hg] JUAN Malou [facility] 08/23/2024 14:23:18 Date Recorded Body weight Body mass index (BMI) Body height Systolic blood pressure Diastolic blood pressure Provider Name and Address Organization Details Last Updated DateTime 08/27/2024 85778.96 394 g 28.7 kg/m2 160.02 cm 119 mm[Hg] 78 mm[Hg] Zahra Henry [facility] 13:38:04 Date Recorded Body height Body mass index (BMI) Body weight Systolic blood pressure Diastolic blood pressure Provider Name and Address Organization Details Last Updated DateTime 09/21/2024 160.02 cm 25.9 kg/m2 23416.49 g 117 mm[Hg] 80 mm[Hg] Zahra Henry [facility] 13:04:28 Social History Question Answer Notes LastModified by Organizat ion Details LastModified Time Tobacco Smoking Status Never Smoker Faye howe [facility] 10/20/2020 17:02:06 Are You Blind Or Do You Have Difficulty Seeing? No [email or web address] Information n ot available 01/31/2024 What Is Your Level Of Caffeine Consumption? Moderate [email or web address] Information not available 03/20/2024 How Much Tobacco Do You Chew? None [email or web address] Information not available 01/31/2024 In The 14 Days Before Symptom Onset, Have You Had Close Contact With A Laboratory-confirm ed COVID-19 While That Case Was Ill? No [email or web address] Information n ot available 01/31/2024 In The 14 Days Before Symptom Onset, Have You Had Close Contact With A Person Who Is Under Investigation For COVID-19 While That Person Was Ill? No Information not available 01/31/2024 Have You Been To An Area Known To Be High Risk For COVID-19? No [email or web address] Information not available 01/31/2024 Are You Deaf Or Do You Have Serious Difficulty Hearing? No [email or web address] Information not available 01/31/2024 What Type Of Diet Are You Following? REGULAR [email or web address] Information n ot available 01/31/2024 What Is The Highest Grade Or Level Of School You Have Completed Or The Highest Degree You Have Received? [id number] [email or web address] Information not available 01/31/2024 Are There Any Guns Present In Your Home? No [email or web address] Information not available 01/31/2024 Do You Use Protection During Sex? No [email or web address] Information not available 01/31/2024 Do You Use Your Seat Belt Or Car Seat Routinely? Yes [email or web address] Information not available 01/31/2024 Do You Have Smoke And Carbon Monoxide Detectors In Your Home? Yes [email or web address] Information not available 01/31/2024 How Much Tobacco Do You Smoke? No [email or web address] Information not available 01/31/2024 Do You Use Sunscreen Routinely? No [email or web address] Information not available 01/31/2024 Has Tobacco Cessation Counseling Been Provided? No Information not available 10/20/2020 Have You Used IV Drugs? No [email or web address] Information not available 01/31/2024 Do You Have Difficulty Walking Or Climbing Stairs? No [email or web address] Information not available 08/13/2024 Sex: Unknown Functional [...] 10/20/2020 Are you able to walk? YESWOREST [email or web address] Information not available 01/31/2024 Are you able to care for yourself? 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 No [email or web address] Information not available 08/13/2024 What is your exercise level? Moderate [email or web address] Information not available 01/31/2024 Mental Status Question Answer Note LastModified by Organization D etails LastModified Time Do you feel stressed (tense, restless, nervous, or anxious, or unable to sleep at night)? IV6274-9 [email or web address] Information not available 01/31/2024 Family History Relationship [...] N Drug/Latex Allergies/Reactions Y Blood Transfusion N Lung Disease N Dermatologic Disorders N Defects or Inherited Disease N Breast Problem N Gestational Diabetes N Hematologic disorders N Anesthesia Complications N History of STI N Deep Vein Thrombosis N Polycystic ovary syndrome N Anxiety Disorder Y Autoimmune disease N Arthritis N Polyps N Infertility N History of abnormal pap N Acid Reflux (GERD) N Cancer N Varicosities N Stroke N Neurologic/Epilepsy Y Endometriosis N High Cholesterol N Fibromyalgia N [...] SNOMED-CT Code Diagnosis ICD10 Code Diagnosis Note [id number] MD Maria Singleton [address] [address] 10/20/2020 16:53:51 10/21/2020 16:11:01 Pelvic floor tension 066235514 R29.898 [id number] MD Maria Singleton [address] [address] 11/24/2020 16:34:17 11/24/2020 17:09:48 Gynecologic examination 45787368 Z01.419 [id number] MD Maria Henriquez [address],[place] [address] 07/23/2021 09:15:46 07/23/2021 14:21:43 Menorrhagia 246598507 N92.0 Pain in pelvis 29701886 R10.2 I spent over 35 minutes with the patient. We discussed her symptoms in detail. We reviewed radiology reports. We discussed disease processes regarding pelvic pain, ovarian cyst, adenomyosi s. We discussed evaluation and possible treatments of menorrhagi a and pelvic pain. We will proceed with pelvic ultrasound and the patient will return to discuss treatment plan. [id number] Haley Alvarez MD [facility] [address],[place] [address] 07/28/2021 09:42:58 07/28/2021 10:38:00 Pain in pelvis 62644989 R10.2 [id number] Haley Alvarez MD [facility] [address] [address] 03/22/2022 17:25:20 03/23/2022 12:05:46 Amenorrhea 57505989 N91.2 Nausea 359843099 R11.0 Stomach cramps 59515255 R10.9 Trying to conceive 79386 9001 Z31.9 [id number] DANIEL VALENCIA MD [facility] [address],[place] [address] 01/23/2024 14:58:52 01/23/2024 15:16:19 Urinary symptoms 886530669 R39.9 Acute urin ant tract infection 870371305 N39.0 [id number] DANIEL VALENCIA MD [facility] [address] [address] 01/31/2024 11:26:51 01/31/2024 11:51:43 [id number] DANIEL VALENCIA MD [facility] [address] [address] 01/31/2024 11:27:10 01/31/2024 15:32:00 Nausea and vomiting 91983672 R11.2 - will trial zofran PRN for nausea Migraine 24301109 G43.90 9 - hx of chronic migraines- has previously tried reglan, naproxen, sumatripta n, compazine, propranolo l, cyclobenza pine, zofran, toradol, exedrin migraines, dilaudid, ibuprofen, and norco with no improvemen t- will trial sumatripta n, tylenol and caffeine- will send neurology referral test positive 646163731 Z32.01 1. Exam today within normal limits.2. [...] desires at 10 weeks, orders given today. [id number] Ric White MD [facility] [address],[place] [address] 02/21/2024 16:33:48 02/21/2024 17:08:55 screening 242542029 Z36.82 Z3A.12 [id number] Ric White MD [facility] [address],[place] [address] 02/21/2024 16:34:43 02/22/2024 00:38:42 Migraine 14975458 G43.909 Routine an tenatal care 572183806 Z34.90 [id number] Mayda Garibay [facility] [address],[place] [address] 03/20/2024 16:34:46 03/20/2024 17:12:20 Routine care 808924364 Z34.92 Gestation period, 16 weeks 39215520 Z3A.16 [id number] Ric White MD [facility] [address] [address] 04/18/2024 16:26:44 04/18/2024 17:59:14 screening for malformation 166237548 Z36.3 Z3A.20 [id number] Ric White MD [facility] [address],[place] [address] 04/18/2024 16:29:40 04/19/2024 10:14:41 Routine care 287486628 Z34.90 [id number] MD Maria BALDERAS [address],[place] [address] 05/17/2024 15:52:41 05/20/2024 18:25:26 Routine care 307664993 Z34.91 [id number] MD Maria Henriquez [address],[place] [address] 05/24/2024 12:31:27 05/24/2024 13:18:24 Abdominal pain in 887546712 O99.891 O26.852 Z3A.25 [id number] MD Maria Henriquez [address],[place] [address] 05/24/2024 12:32:04 05/24/2024 13:33:54 Urinary symptoms 490640458 R39.9 Traumatic injury during 408312684 T14.90XA [id number] MD Maria BALDERAS [address],[place] [address] 06/12/2024 14:31:43 06/13/2024 14:42:54 Routine care 539941449 Z34.91 [id number] MD Maria BALDERAS [address],[place] [address] 06/24/2024 16:15:04 06/26/2024 03:31:51 Candidiasis of vagina 34143797 B37.31 Routine an tenatal care 568520497 Z34.91 - continue PNV [id number] MD Maria Henriquez [address] [address] 07/08/2024 14:54:02 07/08/2024 15:52:50 Uterine size for dates discrepancy 195306353 O26.843 Z3A.31 [id number] MD Maria BALDERAS [address] [address] 07/08/2024 14:54:26 07/11/2024 09:36:05 Routine care 225084810 Z34.91 - continue PNV [id number] DANIEL VALENCIA MD [facility] [address] [address] 07/24/2024 16:22:43 07/24/2024 17:48:09 Uterine contractions present 130784984 O80 Gestation period, 34 weeks 74279658 Z3A.34 [id number] DANIEL VALENCIA MD [facility] [address] [address] 08/07/2024 16:58:41 08/09/2024 00:41:23 Routine care 908091452 Z34.91 - continue PNV [id number] Mayda Garibay [facility] [address] [address] 08/13/2024 11:42:00 08/13/2024 13:09:29 Gestation period, 36 weeks 62970653 Z3A.36 [id number] Ric White MD [facility] [address] [address] 08/23/2024 14:17:08 08/23/2024 14:34:09 care status 122705369 Z34.80 [id number] [facility] [address] [address] 08/27/2024 12:46:40 08/28/2024 13:45:09 Gestation period, 39 weeks 86008928 Z3A.39 [id number] Mayda Garibay CN[facility] [address] [address] 09/04/2024 08:49:36 09/04/2024 09:03:41 [id number] Ric White MD [facility] [address] [address] 09/21/2024 12:43:12 09/24/2024 10:44:03 Postoperative visit 077467131 Z48.89 this patient is a 31-year-ol d female is 2 weeks postop from a laparoscop ic surgery. She was , immediate , when the procedure occurred. She had a ruptured peritoneal surface that was bleeding in the posterior cul-de-sac , Left parametriu m. She is recovering normally. Her incisions are clean dry and intact. She has some urinary symptoms. To check her urine Urinary tr act infectious disease 84640876 N39.0 R31.9 Urinary symptoms 1067054 08 R39.9 Acute urin ant tract infection 782463038 N39.0 Health Concerns Section Related Observation LastModified by Organization Detai ls LastModified Time None Recorded Concern Status LastModified by Organization Details LastModified Time None Recorded Advance Directives Directive None Recorded Payers Encounter Date Sequence Insurance Name Policy Number Policy Childs Covered Member ID Childs Member ID Guarantor Name 08/13/2024 1 [employer] [id number] Jorje Cantu [id number] Jorje Cantu 08/23/2024 1 [place] [id number] Jorje Cantu [id number] Jorje Cantu 08/27/2024 1 [place] [id number] Jorje Cantu [id number] Jorje Cantu 09/04/2024 1 [place] [id number] Jorje Cantu [id number] Jorje Cantu 09/21/2024 1 [place] [id number] Jorje Cantu [id number] Jorje Cantu Notes Date Note Type Note Provider Name and Address Organization Details Recorded Time 09/21/2024 text/html this patient is a 31-year-old female is 2 weeks postop from a laparoscopic surgery. She was , immediate , when the procedure occurred. She had a ruptured peritoneal surface that was bleeding in the posterior cul-de-sac, Left parametrium. She is recovering normally. Her incisions are clean dry and intact. She has some urinary symptoms. To check her urine Zahra howe, [facility] 09/21/2024 13:39:13 OBGyn Episode Ob Episode Information Episode Created Date Number of Fetuses Patient Bloodtype Patient rh Status Prepregnancy Weight lbs Domestic Partner Domestic Partner Phone Father Name Acoustic Engineer Status 10/21/19 21 1 CLOSED Fetus Data First Name Last Name Admitted to NICU Weight (g) Sex Living Outcome Pediatric Complications Fetus ID Race Codes Race Delivery Type 2919.77 1704 M [id number] Vaginal Delivery Mark Calculation Initial Mark Date [...] Domestic Partner Domestic Partner Phone Father Name Acoustic Engineer Status 02/21/20 24 1 O Negative CLOSED Fetus Data First Name Last Name Admitted to NICU Weight (g) Sex Living Outcome Pediatric Complications Fetus ID Race Codes Race Delivery Type true 3260.19 25 M true Full Term thought had brain issue was transfered to NICU 84845 Vaginal Delivery Problems Problem Notes Problem Name Start Date End Date Resolution Snomed Code Not e Group B Streptococcus carrier [id number] + amp in labor Migraine 60226231 aura Mark Calculation Initial Mark Date Initial [...] Weight in lbs Pre/Post Dialysis Refused Weight 128.192820745616 BP Diastolic BP Location Tested BP Systolic [...] Type Weight in lbs Pre/Post Dialysis Refused 129.561674785729 BP Diastolic BP Location Tested BP Systolic [...] Type Weight in lbs Pre/Post Dialysis Refused 136.008610916552 BP Diastolic BP Location Tested BP Systolic [...] in lbs Pre/Post Dialysis Refused With clothes 142.840070696218 BP Diastolic BP Location Tested BP Systolic [...] Type Weight in lbs Pre/Post Dialysis Refused 142.730044387759 BP Diastolic BP Location Tested BP Systolic [...] Type Weight in lbs Pre/Post Dialysis Refused 148.154821385606 BP Diastolic BP Location Tested BP Systolic [...] Weight in lbs Pre/Post Dialysis Refused Weight 152.963116683292 BP Diastolic BP Location Tested BP Systolic [...] Weight in lbs Pre/Post Dialysis Refused Weight 157.737996493263 BP Diastolic BP Location Tested BP Systolic [...] Weight in lbs Pre/Post Dialysis Refused Weight 158.029542913155 BP Diastolic BP Location Tested BP Systolic [...] Weight in lbs Pre/Post Dialysis Refused Weight 160.826649918674 BP Diastolic BP Location Tested BP Systolic [...] Weight in lbs Pre/Post Dialysis Refused Weight 162.902374615764 BP Diastolic BP Location Tested BP Systolic [...] Type Weight in lbs Pre/Post Dialysis Refused 163.824709378866 BP Diastolic BP Location Tested BP Systolic [...] Type Weight in lbs Pre/Post Dialysis Refused 162.332159643777 BP Diastolic BP Location Tested BP Systolic BP Type 78 119 Fetus Heart Rate Present Fetus Movement A Yes Comments Patient has had upset stomac h with loose stools, contractions, discharge, swelling and pressure. ok for imodium, doing well +FM, cervix 1 cm, education and precautions f/u IOL as scheduled Flowsheet Date 09/04/2024 Bojorquez Score Blood Edema Fundus Height Fundus Units Glucose Ketones Leukocytes Nitrite Labor Signs Protein Cervic Dilation Cervic Effacement Cervic Station Type Weight in lbs Pre/Post Dialysis Refused BP Diastolic BP Location Tested BP Systolic BP Type Fetus Heart Rate Present Fetus Movement Comments Flowsheet Date 09/21/2024 Bojorquez Score Blood Edema Fundus Height Fundus Units Glucose Ketones Leukocytes Nitrite Labor Signs Protein Cervic Dilation Cervic Effacement Cervic Station Type Weight in lbs Pre/Post Dialysis Refused Weight 146.202988511627 BP Diastolic BP Location Tested BP Systolic BP Type 80 117 Fetus Heart Rate Present Fetus Movement Comments Menstrual History Last Menstrual Date Menses Monthly On Bcp Conception Prior Menses Frequency Hcg Plus Date Menarche Onset Age 0712/06/2023 Delivery Information Delivery Date Delivery Type Labor Anesthesia Weeks Gestation Incision Type Labor Labor Length Hrs Delivered By Post Complications Tubal Sterilization Discharge Date Comments 5 40 Mayda Hemorrhage true pat ient had post hemorrage and had to have laparosco py surgery done 09/05/2024 for the bleeding also had tubal done at that time Discharge Information Feeding Method Contraceptive Method Maternal HG B and HCT Levels
--- OUTSIDE RECORDS SUMMARY | 2024-10-02 19:02 | XMS_ITS | Clinical Summary ---
Author Organization [facility] [address] [facility] Address [address] [place] [address] Care Team Providers Care Surface Boss Name Role Phone Bruna Gamino NP Primary Care Provider [phone] Allergies Active Allergy Reactions Criticality Noted Date [...] the right wrist, will fax order to [facility] care. Will notify her of these [...] spine, will fax order to [facility]. Will notify her of these results as they become available. De Quervain's disease (tenosynovitis) 11/11/2021 Assessment & Plan (11/11/2021 10:40 PM CDT): Her current symptoms seem most consistent with deeper veins tenosynovitis. Discussed the difference between a thumb spica and a cock-up splint. She will consider getting 1 off [employer]. Continue icing and anti-inflammatory. Avoid repetition which may be her video game. If she does not notice improvement in the next month or so can consider physical therapy versus referral to Hand Orth[facility]. COVID-19 05/27/2021 Assessment & Plan (05/27/2021 5:48 PM BAKERY PRODUCTS CHECKER): Patient has just started mdp, wanting to [...] 12/22/2021 Assessment & Plan (05/21/2021 3:28 PM BAKERY PRODUCTS CHECKER): Will send patient to [place] for Covid-19 testing. The patient was advised [...] Department Care Team Description 09/04/2024 Orders Only [facility] Health Information Management [address] [place] [address] Bruna Gamino, WEATHER FORECASTER 07/24/2024 Orders Only [facility] Health Information Management [address] [place] [address] Bruna Horton NP from Last 3 Months [...] on file Legal Sex Female 12:50 AM BAKERY PRODUCTS CHECKER Gender Identity Not on file Sexual Orientation [...] Comments Blood Pressure 112/68 06/27/2023 2:40 PM BAKERY PRODUCTS CHECKER Pulse 65 06/27/2023 2:40 PM BAKERY PRODUCTS CHECKER Temperature 36.9 C (98.4 F) 06/27/2023 2:40 PM BAKERY PRODUCTS CHECKER Respiratory Rate 16 10/19/2018 11:42 AM CDT Oxygen Saturation 99% 06/27/2023 2:40 PM BAKERY PRODUCTS CHECKER Inhaled Oxygen Concentration - - Weight 59.6 kg (131 lb 8 oz) 06/27/2023 2:40 PM BAKERY PRODUCTS CHECKER Height 162.6 cm (5' 4) 06/27/2023 2:40 PM BAKERY PRODUCTS CHECKER Body Mass Index 22.57 06/27/2023 2:40 PM BAKERY PRODUCTS CHECKER Plan of Treatment Health Maintenance Due Date [...] Final Result from Last 3 Months Insurance [employer] ACCESS OOS [employer] ACCESS OOS Care Teams Surface Boss Relationship Specialty Start Date End Date Bruna Gamino, FAVIOLA PCP - General Internal Medicine 02/04/22
--- OUTSIDE RECORDS SUMMARY | 2024-10-02 19:02 | XMS_ITS | Continuity of Care Document ---
Author Organization [facility] Address [address] [facility] [address] [place] [address] Phone Care Team Providers Care Apprentice Carpenter Name Role Phone Muehl MPT CMPT, Dilshad Unavailable Unavailable Procedures Procedure Date PT Evaluation Low Complexity Therapeutic Exercise Manual Therapy Advance Directives Directive Yes / No Effective Date File Name No Information Encounters Encounter Description Practice Location Reason(s) For Visit Diagnoses Date Provider Providers Copied on Encounter [facility] [address], [id number], tel:[phone] [place] No Information Feb-0 2201 7 Muehl Dilshad. [address] [facility], [address], [facility], [place]. [phone] [facility], [address] [place] [address], [id number], tel:[phone] [place] Low back painThoracogenic scoliosis, thoracolumbar region Jan-2 6 7 Muehl Dilshad. [address] [facility], [facility] [address], [place], [address], [place]. tel:[phone] Referring Provider: Alex Woods, [address] [facility] [place], [address]. tel:[phone] Family History Family Member Type Diagnosis Age At Onset No Information Payers Payer name Insurance type Covered alliance party ID Authoriza tigregory(s) [facility] [id number] Social History Type Description Quantity Date Captured [...]
--- OUTSIDE RECORDS SUMMARY | 2024-10-02 19:02 | XMS_ITS | Encounter Summary ---
Author Organization [facility] Healthcare Address [address] [place] [address] Care Team Providers Care Swim Coach Name Role Phone Bruna Gamino METROLOGY ENGINEER Primary Care Provider [phone] Encounter Details Date Type Department Care Team (Late st Contact Info) Description 01/04/2024 Telephone [facility] Internal Medicine at [place] [address] [place] [address] Bruna Gamino, METROLOGY ENGINEER [address] [place] [address] Social History Tobacco Use Types [...] on file Legal Sex Female 12:50 AM JOB COUNSELOR Gender Identity Not on file Sexual Orientation Not on file 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
--- OUTSIDE RECORDS SUMMARY | 2024-10-02 19:02 | XMS_ITS | Continuity of Care Document ---
Author Organization [facility] Address [address] [place] [address] [place] [address] Phone Care Team Providers Care Metal Sash Setter Name Role Phone Alex Woods MD Unavailable [...] Providers Copied on Encounter OFFICE/OUTPA TIENT VISIT, [facility], [address], [place], [place], [id number], [place] tel:[phone] [facility] sinusitis1 (chief complaint) Acute sinusitisHeadache Chuck Johnson. [address], [place], [place], [id number] , [place]. tel:[phone] Referring Provider: Alex Woods, [address], [place], [place], [id number]. tel:[phone] OFFICE/OUTPA TIENT VISIT, [facility], [address], [place], [place], [id number], [place] tel:[phone] [facility] back pain1 (chief complaint) LumbagoSacroiliitis Chuck Johnson. [address], [place], [place], [address] , [place]. [phone] Referring Provider: Dedrick Garcia [address], [place], [place], [id number]. tel:[phone] OFFICE/OUTPA TIENT VISIT, EST [facility], [address], [place], [place], [id number], [place] tel:[phone] [facility] brast lump1 (chief complaint) back pain1 (chief complaint) tinea1 (chief complaint) SacroiliitisLump in breastTinea corporis Sep-2 7 Chuck Johnson. [address], [place], [place], [id number] , [place]. [phone] Referring Provider: Dedrick Garcia [facility] [address], [place], [place], [id number]. tel:[phone] PREV VISIT, NEW, AGE 18-39 [facility], [address], [place], [place], [id number], [place] tel:[phone] [facility] PHysical (chief complaint) Encounter for general adult medical exam w abnormal findingsTinea corporisFamily history of malignant neoplasm of ovary 7 Chuck Johnson. [address], [place], [place], [id number] , [place]. tel:[phone] Referring Provider: Dedrick Garcia [facility] [address], [place], [place], [id number]. tel:[phone] Family History Family Member Type Diagnosis Age [...] Referral Ordered: [place] KIDNEY ordered Referral Ordered: [facility] (related to Sacroiliitis) ordered Referral Ordered: LUMBAR XRAY AP AND LAT ONLY ordered Referral Referred To: [facility] [address] [place] [address], [address] Ordered: Referrals: [facility]. Evaluate and treat ordered Referral Ordered: MAMMOGRAM, [...] Mental Status Date Cognitive Assessment Orientation - [place] ed to time, place, person, situation.
[2024-10-02 19:04] VITALS: BP 131/90; PULSE 100; RESP 16; TEMP 36.6; O2SAT 100
--- NOTE | 2024-10-02 19:10 | PC.NURSE ---
Pt is on the phone with her OB doctor in triage at this time. Per pt her OB doctor states if pt was septic she would be severely sick and not able to get around. Per pt her OB states that they will order some new meds for her pain and UTI. Per Pt her OB states that she is good to go home and take the new medicine. Pt states if her OB feels okay with her going home then shes feels good with going home as well. Pt states I just want to go home. Pt left ED without being seen by provider.
--- OUTSIDE RECORDS SUMMARY | 2024-10-02 22:10 | XMS_ITS | Encounter Summary ---
Author Organization [facility] Healthcare Address [address] [place] [address] Care Team Providers Care Equipment Operator Warehouse Name Role Phone Bruna Gamino ELECTRIC MULE DRIVER Primary Care Provider [phone] Encounter Details Date Type Department Care Team (Late st Contact Info) Description 01/04/2024 Telephone [facility] Medical [facility] Internal Medicine at [place] [address] [place] [address] Bruna Gamino, ELECTRIC MULE DRIVER [address] [place] [address] Social History Tobacco Use Types [...] on file Legal Sex Female 12:50 AM MANAGER IT TRAINING Gender Identity Not on file Sexual Orientation Not on file 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
--- OUTSIDE RECORDS SUMMARY | 2024-10-02 22:10 | XMS_ITS | Continuity of Care Document ---
Author Organization [facility] Address [address] [facility] [address] [place] [address] Phone Care Team Providers Care Export Clerk Name Role Phone Muehl MPT CMPT, Dilshad Unavailable Unavailable Procedures Procedure Date PT Evaluation Low Complexity Therapeutic Exercise Manual Therapy Advance Directives Directive Yes / No Effective Date File Name No Information Encounters Encounter Description Practice Location Reason(s) For Visit Diagnoses Date Provider Providers Copied on Encounter [facility] [address], [id number], tel:[phone] [place] No Information Feb-0 2201 7 Muehl Dilshad. [address] [facility], [address], [facility], [place]. tel:[phone] [facility], [address] [place] [address], [id number], tel:[phone] [place] Low back painThoracogenic scoliosis, thoracolumbar region Jan-2 6 7 Muehl Dilshad. [address] [facility], [facility] [address], [place], [address], [place]. tel:[phone] Referring Provider: Alex Woods, [address] [facility] [place], [address]. tel:[phone] Family History Family Member Type Diagnosis Age At Onset No Information Payers Payer name Insurance type Covered green party ID Authoriza tigregory(s) [facility] [id number] Social History Type Description Quantity Date Captured [...]
--- OUTSIDE RECORDS SUMMARY | 2024-10-02 22:10 | XMS_ITS | Referral Summary ---
Author Organization [facility] [address] [facility] Address [address] [place] [address] Care Team Providers Care Can Worker Name Role Phone Brnua Gamino FOX RAISER Primary Care Provider [phone] Encounters Date Type Department Care Team Description 09/04/2024 Orders Only [facility] Health Information Management [address] [place] [address] Bruna Gamino NP 07/24/2024 Orders Only [facility] Health Information Management [address] [place] [address] Bruna Gamino NP from Last 3 Months [...] 05/27/2021 Assessment & Plan (05/27/2021 5:48 PM LEAD SHIPPER): 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 Not on file Not on file Not on file Last Filed Vital Signs Vital Sign Reading Time Taken Comments Blood Pressure 112/68 06/27/2023 2:40 PM LEAD SHIPPER Pulse 65 06/27/2023 2:40 PM LEAD SHIPPER Temperature 36.9 C (98.4 F) 06/27/2023 2:40 PM LEAD SHIPPER Respiratory Rate 16 10/19/2018 11:42 AM CDT Oxygen Saturation 99% 06/27/2023 2:40 PM LEAD SHIPPER Inhaled Oxygen Concentration - - Weight 59.6 kg (131 lb 8 oz) 06/27/2023 2:40 PM LEAD SHIPPER Height 162.6 cm (5' 4) 06/27/2023 2:40 PM LEAD SHIPPER Body Mass Index 22.57 06/27/2023 2:40 PM LEAD SHIPPER Plan of Treatment Not on file Procedures Procedure Name Priority Date/Time Associated Diagnosis Comments SCAN - RADIOLOGY/IMAGING 09/04/2024 SCAN - RADIOLOGY/IMAGING 07/24/2024 from Last 3 Months Results * SCAN - RADIOLOGY/IMAGING (09/04/2024) Anatomical Region Laterality Modality Other Bruna Gamino FOX RAISER Final Result * SCAN - RADIOLOGY/IMAGING (07/24/2024) Anatomical Region Laterality Modality Other Bruna Gamino FOX RAISER Final Result from Last 3 Months Insurance [employer] OOS [employer] Care Teams Can Worker Relationship Specialty Start Date End Date Bruna Gamino NP PCP - General Internal Medicine 02/04/22
--- OUTSIDE RECORDS SUMMARY | 2024-10-02 22:10 | XMS_ITS | Continuity of Care Document ---
Author Organization [facility] Address [address] [place] [address] [place] [address] Phone Care Team Providers Care General Farm Manager Name Role Phone Alex Woods MD [...] Providers Copied on Encounter OFFICE/OUTPA TIENT VISIT, [facility], [address], [place], [place], [id number], [place] tel:[phone] [facility] sinusitis1 (chief complaint) Acute sinusitisHeadache Chuck Johnson. [address], [place], [place], [id number] , [place]. tel:[phone] Referring Provider: Alex Woods, [address], [place], [place], [id number]. tel:[phone] OFFICE/OUTPA TIENT VISIT, [facility], [address], [place], [place], [id number], [place] tel:[phone] [facility] back pain1 (chief complaint) LumbagoSacroiliitis Chuck Johnson. [address], [place], [place], [id number] , [place]. [phone] Referring Provider: Dedrick Garcia [address], [place], [place], [id number]. tel:[phone] OFFICE/OUTPA TIENT VISIT, EST [facility], [address], [place], [place], [id number], [place] tel:[phone] [facility] brast lump1 (chief complaint) back pain1 (chief complaint) tinea1 (chief complaint) SacroiliitisLump in breastTinea corporis Sep-2 7 Chuck Johnson. [address], [place], [place], [id number] , [place]. [phone] Referring Provider: Dedrick Garcia [email or web address] A, [place], [place], [id number]. tel:[phone] PREV VISIT, NEW, AGE 18-39 [facility], [address], [place], [place], [id number], [place] tel:[phone] [facility] PHysical (chief complaint) Encounter for general adult medical exam w abnormal findingsTinea corporisFamily history of malignant neoplasm of ovary 7 Chuck Johnson. [address], [place], [place], [address] , [place]. tel:[phone] Referring Provider: Dedrick Garcia [facility] [[email or web address]] A, [place], [place], [id number]. tel:[phone] Family History Family Member Type Diagnosis Age [...] Referral Ordered: [place] KIDNEY ordered Referral Ordered: [facility] (related to Sacroiliitis) ordered Referral Ordered: LUMBAR XRAY AP AND LAT ONLY ordered Referral Referred To: [facility] [address] [place] [address], [address] Ordered: Referrals: [facility]. Evaluate and treat ordered Referral Ordered: MAMMOGRAM, [...] Mental Status Date Cognitive Assessment Orientation - [place] ed to time, place, person, situation.
--- OUTSIDE RECORDS SUMMARY | 2024-10-02 22:10 | XMS_ITS | Encounter Summary ---
Author Organization [facility] Care Team Providers Care Marketing Performance Analyst Name Role Phone Mohamud Reyes MD Primary Care Provider [phone] Hansa Schulte Primary Care Provider [phone] Mohamud Reyes MD Primary Care Provider [phone] Bruna Gamino NP Primary Care Provider [phone] Encounter Details Date Type Department Care Team (Latest Contact Info) Description 05/29/2018 Orders Only [facility] Provider, MD Corin [address] [place] [address] Social History Tobacco Use Types Packs/Day Years Used Date Smoking Tobacco: Never Assessed Comments Unknown Sex and Gender Information Value Date Recorded Sex Assigned at Not on file Legal Sex Female 12:50 AM HOT END OPERATOR Gender Identity Not on file Sexual Orientation Not on file documented as of this encounter Plan of Treatment Not on file documented as of this encounter Procedures Procedure Name Priority Date/Time Associated Diagnosis Comments SCAN - LABS 05/30/2018 12:00 AM HOT END OPERATOR documented in this encounter Results * SCAN - LABS (05/30/2018 12:00 AM HOT END OPERATOR) Narrative 05/30/2018 12:00 AM HOT END OPERATOR Ordered by an unspecified provider. us Historical Provider Final Res ult documented in this encounter Visit Diagnoses Not on filedocumented in this encounter Additional Health Concerns Infection Onset Date Last Indicated Resolved Time COVID: Suspected 05/21/2021 05/21/2021 05/21/2021 6:55 PM HOT END OPERATOR COVID19 05/21/2021 05/21/2021 05/31/2021 3:05 AM HOT END OPERATOR COVID: Recovered Comment:Added based on recent COVID infection. 05/31/2021 08/01/2021 09/28/2021 3:07 AM C DT documented as of this encounter Care Teams Marketing Performance Analyst Relationship Specialty Start Date End Date Mohamud Reyes MD PCP - General Family Medicine 07/27/18 11/22/20 Hansa Schulte PA PCP - General Material Stockkeeper Yard 11/23/20 01/25/22 Mohamud Reyes MD PCP - General Family Medicine 01/26/22 02/03/22 Bruna Gamino NP PCP - General Internal Medicine 02/04/22 documented as of this encounter
--- OUTSIDE RECORDS SUMMARY | 2024-10-02 22:10 | XMS_ITS | Clinical Summary ---
Author Organization [facility] [address] [facility] Address [address] [place] [address] Care Team Providers Care Motor Driver Name Role Phone Bruna Gamino NP Primary Care Provider [phone] Allergies Active Allergy Reactions Criticality Noted Date [...] the right wrist, will fax order to [facility] care. Will notify her of these [...] the c spine, will fax order to [facility]. Will notify her of these results as they become available. De Quervain's disease (tenosynovitis) 11/11/2021 Assessment & Plan (11/11/2021 10:40 PM CDT): Her current symptoms seem most consistent with deeper veins tenosynovitis. Discussed the difference between a thumb spica and a cock-up splint. She will consider getting 1 off [employer]. Continue icing and anti-inflammatory. Avoid repetition which may be her video game. If she does not notice improvement in the next month or so can consider physical therapy versus referral to [facility]. COVID-19 05/27/2021 Assessment & Plan (05/27/2021 5:48 PM HOT SHOT): Patient has just started mdp, wanting to [...] 12/22/2021 Assessment & Plan (05/21/2021 3:28 PM HOT SHOT): Will send patient to [place] for Covid-19 testing. The patient was advised [...] Department Care Team Description 09/04/2024 Orders Only [facility] Health Information Management [address] [place] [address] Bruna Gamino, WIRE COATER 07/24/2024 Orders Only [facility] Health Information Management [address] [place] [address] Bruna Horton NP from Last 3 Months [...] file Legal Sex Female 12:50 AM HOT SHOT Gender Identity Not on file Sexual Orientation [...] Comments Blood Pressure 112/68 06/27/2023 2:40 PM HOT SHOT Pulse 65 06/27/2023 2:40 PM HOT SHOT Temperature 36.9 C (98.4 F) 06/27/2023 2:40 PM HOT SHOT Respiratory Rate 16 10/19/2018 11:42 AM CDT Oxygen Saturation 99% 06/27/2023 2:40 PM HOT SHOT Inhaled Oxygen Concentration - - Weight 59.6 kg (131 lb 8 oz) 06/27/2023 2:40 PM HOT SHOT Height 162.6 cm (5' 4) 06/27/2023 2:40 PM HOT SHOT Body Mass Index 22.57 06/27/2023 2:40 PM HOT SHOT Plan of Treatment Health Maintenance Due Date [...] Final Result from Last 3 Months Insurance [employer] ACCESS OOS [employer] OOS Care Teams Motor Driver Relationship Specialty Start Date End Date Bruna Gamino, FAVIOLA PCP - General Internal Medicine 02/04/22
== END 2024-10-02 22:41 | disposition left against medical advice (07) ==
LOC: ANHED 22:08
PROVIDERS: PCP Nurse Practitioner Family
DX: R30.0 Dysuria (principal)
CPT/HCPCS: 99199

== ENCOUNTER 2025-03-25 15:28 | Emergency (ER) | payer BC, SELFPAY ==
--- NOTE | ~2025-03-25 | CT_ITS ---
EXAMINATION: CT abdomen pelvis w con DATE: 03/25/2025 19:10 INDICATION: 35 year-old with left lower abdominal pain. History of salpingectomy. Endometriosis. TECHNIQUE: Computed tomography (CT) of the abdomen and pelvis was performed 100 cc intravenous contrast. Automated exposure control and iterative reconstruction technique were employed. The dose-length product was 205.78 mGy-cm. COMPARISON: CT abdomen and pelvis dated 09/05/2024 FINDINGS: Lung bases do not show any acute findings. No focal lesions of the liver and spleen. The gallbladder, bile ducts, pancreas do not show acute findings. Kidneys do not show calculi or obstruction. No evidence of small bowel obstruction. Bulky uterus is noted measuring the length of 9 cm in width of 4.5 cm. Enlargement of left ovary with 4.3 cm size cystic mass of the left ovary is noted. No free fluid in the pelvis. No right adnexal mass. IMPRESSION: 1. No acute findings in the upper abdomen. 2. Bulky uterus. 4.3 cm cyst of the left ovary. No free fluid in the pelvis. Reviewed, dictated and finalized at location [facility] ORDER
[2025-03-25 15:48] VITALS: BP 119/93; PULSE 87; RESP 18; TEMP 36.6; O2SAT 99
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
[2025-03-25 18:16] VITALS: BP 155/120; PULSE 91; RESP 18; TEMP 36.6; O2SAT 100
[2025-03-25 18:26] LABS: BEDSIDEPREGUCG Negative (Negative)
[2025-03-25 18:39] LABS: Add Urine Microscopic? YES; Appearance Urine Cloudy (Clear); Glucose Urine UA Negative (Negative); Leukocyte Esterase Ur 1+ LEU/UL (Negative); Nitrate Urine Negative (Negative); Specific Grav Ur 1.028 (1.001-1.035)
[2025-03-25 18:51] LABS: Hematocrit 43.7 % (37.0-47.0); Hemoglobin 15.1 g/dL (12.0-15.0); Immature Granulocyte Percent A 0.3 % (0-0.5); Lymphocytes Absolute Auto 2.47 K/mm3 (0.9-3.2); Mean Corpuscular HGB Conc 34.6 g/dl (32-36); Mean Corpuscular Hemoglobin 31.9 pg (26-34); Mean Corpuscular Volume 92.2 fl (80-100); Nucleated Red Blood Cells Absolute Auto 0.000 K/mm3 (0.0-0.012); Nucleated Red Blood Cells Perc 0.0 % (0.0-0.2); Platelet Count Result 246 k/mm3 (150-375); Red Blood Count 4.74 M/mm3 (4.2-5.4); White Blood Count 8.7 K/mm3 (4.5-10.0)
[2025-03-25 18:53] LABS: Alanine Aminotransferase 12 U/L (6-35); Albumin Level 4.6 g/dL (3.5-5.1); Alkaline Phosphatase 84 U/L (38-126); Anion Gap 10 mmol/L (4-12); Aspartate Amino Transferase 29 U/L (14-36); Bilirubin,Total 1.4 mg/dL (0.2-1.3); Blood Urea Nitrogen 9 mg/dL (7-17); Calcium 8.8 mg/dL (8.4-10.2); Carbon Dioxide 25 mmol/L (22-30); Chloride 105 mmol/L (98-107); Estimated CRCL calculation 85 ml/min; Estimated Glomerular Filt Rate > 60; Glucose 94 mg/dL (65-110); Lipase 110 U/L (23-300); Potassium 3.7 mmol/L (3.4-5.0); Sodium 140 mmol/L (137-145); Total Protein 7.8 g/dL (6.3-8.2)
[2025-03-25] MEDS: CEPHALEXIN 500 MG CAPSULE PO (20:20)
[2025-03-25 20:46] VITALS: BP 130/88; PULSE 88; RESP 16; TEMP 36.6; O2SAT 99
--- OUTSIDE RECORDS SUMMARY | 2025-03-26 03:00 | XMS_ITS | Clinical Summary ---
Author Organization [facility] [address] [facility] Address [address] [place] [address] Care Team Providers Care News Library Director Name Role Phone Bruna Gamino NP Primary Care Provider [phone] Allergies Active Allergy Reactions Criticality Noted Date [...] needed for allergies 15 mL 1 4 Active celecoxib (CeleBREX) 200 mg capsuleIndications :Chronic [...] splint. She will consider getting 1 off eReceipts. Continue icing and anti-inflammatory. Avoid repetition which may be her video game. If she does not notice improvement in the next month or so can consider physical therapy versus referral to [facility]. COVID-19 05/27/2021 Assessment & Plan (05/27/2021 5:48 PM THERAPY SITE COORDINATOR): Patient has just started mdp, wanting to [...] 12/22/2021 Assessment & Plan (05/21/2021 3:28 PM THERAPY SITE COORDINATOR): Will send patient to [place] for Covid-19 testing. The patient was advised [...] Encounters Date Type Department Care Team Description 03/25/2025 Telephone [facility] Family Medicine [address] [address] Bruna Gamino NP from Last 3 Months [...] on file Legal Sex Female 12:50 AM THERAPY SITE COORDINATOR Gender Identity Not on file Sexual Orientation [...] Comments Blood Pressure 112/68 06/27/2023 2:40 PM THERAPY SITE COORDINATOR Pulse 65 06/27/2023 2:40 PM THERAPY SITE COORDINATOR Temperature 36.9 C (98.4 F) 06/27/2023 2:40 PM THERAPY SITE COORDINATOR Respiratory Rate 16 10/19/2018 11:42 AM CDT Oxygen Saturation 99% 06/27/2023 2:40 PM THERAPY SITE COORDINATOR Inhaled Oxygen Concentration - - Weight 59.6 kg (131 lb 8 oz) 06/27/2023 2:40 PM THERAPY SITE COORDINATOR Height 162.6 cm (5' 4) 06/27/2023 2:40 PM THERAPY SITE COORDINATOR Body Mass Index 22.57 06/27/2023 2:40 PM THERAPY SITE COORDINATOR Plan of Treatment Health Maintenance Due Date Last Done Comments Cervical Cancer Screening 1991 Hepatitis C Screening 1991 Varicella Vaccines (1 of 2 - 13+ 2-dose series) 01/07/2004 Hepatitis B Screening 2009 HPV Vaccines (1 - 3-dose SCDM series) 2018 Regular Well Visit/Exam 18-64 02/16/2023 02/16/2022 Depression Screening 06/27/2024 06/27/2023, 05/18/2023, 08/24/2022, Additional history exists Covid-19 Vaccine ( - season) 2025 08/24/2020, 08/06/2020 Influenza Vaccine (#1) 2025 02/06/2020 DTaP/Tdap/Td Vaccine (2 - Td or Tdap) 12/12/2027 12/11/2017 Pneumococcal vaccine <65 Aged Out No longer eligible based on patient's age to complete this topic Insurance [employer] OOS [employer] O[employer] Care Teams News Library Director Relationship Specialty Start Date End Date Bruna Gamino NP PCP - General Internal Medicine 02/04/22
--- OUTSIDE RECORDS SUMMARY | 2025-03-26 03:01 | XMS_ITS | Encounter Summary ---
Author Organization [facility] Care Team Providers Care Executor Of Estate Name Role Phone Mohamud Reyes MD Primary Care Provider [phone] Hansa Schulte Primary Care Provider [phone] Mohamud Reyes MD Primary Care Provider [phone] Bruna Gamino NP Primary Care Provider [phone] Encounter Details Date Type Department Care Team (Latest Contact Info) Description 05/29/2018 Orders Only [facility] Provider, MD Corin [address] [place] [id number] Social History Tobacco Use Types Packs/Day Years Used Date Smoking Tobacco: Never Assessed Comments Unknown Sex and Gender Information Value Date Recorded Sex Assigned at Not on file Legal Sex Female 12:[address] MEMBER Gender Identity Not on file Sexual Orientation Not on file documented as of this encounter Plan of Treatment Not on file documented as of this encounter Procedures Procedure Name Priority Date/Time Associated Diagnosis Comments SCAN - LABS 05/30/2018 12:[address]W MEMBER documented in this encounter Results * SCAN - LABS (05/30/2018 12:[address] CREW MEMBER) Narrative 05/30/2018 12:[address]W MEMBER Ordered by an unspecified provider. us Historical Provider Final Res ult documented in this encounter Visit Diagnoses Not on filedocumented in this encounter Additional Health Concerns Infection Onset Date Last Indicated Resolved Time COVID: Suspected 05/21/2021 05/21/2021 05/21/2021 6:[address]W MEMBER COVID19 05/21/2021 05/21/2021 05/31/2021 3:[address] [employer] MEMBER COVID: Recovered Comment:Added based on recent COVID infection. 05/31/2021 08/01/2021 09/28/2021 3:07 AM C DT documented as of this encounter Care Teams Executor Of Estate Relationship Specialty Start Date End Date Mohamud Reyes MD PCP - General Family Medicine 07/27/18 11/22/20 Hansa Schulte PA PCP - General Steel Rule Inspector 11/23/20 01/25/22 Mohamud Reyes MD PCP - General Family Medicine 01/26/22 02/03/22 Bruna Gamino NP PCP - General Internal Medicine 02/04/22 documented as of this encounter
--- OUTSIDE RECORDS SUMMARY | 2025-03-26 03:01 | XMS_ITS | Data Portability ---
Author Organization [facility] Address [address] [place] [address] [place] [address] Care Team Providers Care Manager Strategic Name Role Phone MICAH DAWKINS Primary Care Provider Assessment Encounter Date Assessment Date Assessment LastModified by Organization Details LastModified Time 08/23/2024 08/23/2024 Patient is ___weeks . Discussed plan. [email or web address] Not available 08/23/2024 14:22:04 08/27/2024 08/27/2024 Patient is __39_weeks . Discussed plan. Not available 08/28/2024 12:45:07 Plan of Treatment Reminders Order Date Submit Date Provider Last Modified By Organization Details Last Modified Time Details Appointments None recorded. Lab urinalysis , dipstick 2024 025 [email or web address] 1 [address], [address], [place], [address], 13:37:17 culture, urine 2024 025 [facility] (Lab), [address], [place], [address], 09:13:26 Referral None recorded. Procedures None recorded. Surgeries None recorded. Imaging None recorded. Medication Orders Macrobid 100 mg capsule 2024 025 [id number], [address], [place], [place], [id number], 12:30:44 Patient TargetsNo targets recorded. Patient InstructionsNo instructions recorded. Reason for Referral None Reported. Results Created Date Observation Date Name Description Value Unit Range Abnormal Flag Note LastModifiedBy Organization Detail LastModifiedTime 08/08/1908/07/2024 CULTU RE: GROUP B STREP SCREE N, REFLE X SUSCE PTIBI LITY result report SEE RESULT S BELOW abnormal Test: Cultu re: Group B Strep , Refle x Susce ptibi lity ([facility] ) Speci men Sourc e: Vagin a/Rec sean Speci men Type: Vagin al/Re ctal Speci men Date: 1730 Resul t Date: 1526 Resul t Statu s: Final resul t Abnor mal: Yes Resul ting Lab: [facility] [address] [address] Tel: CULTU RE ----- ----- ----- --- Posit christina for Strep tococ cus agala ctiae (Grou p B) (Abno rmal) Clind amyci n susce ptibl e, eryth romyc in resis tant. The clind amyci n induc tion test (D-t est) is negat christina, there fore clind amyci n shoul d be clini trevor effec tive again st this isola te. Not Available [facility] (Lab) [address], [place], [address], 08/11/2024 16:30:22 09/22/19 25 09/21/2024 urina lysis , dipst ick Leukocytes +3 Not Available [facility] [address], [place], [address], 09/21/2024 13:36:04 09/22/19 25 09/21/2024 urina lysis , dipst ick Nitrite normal Not Available [place] [address], [place], [address], 09/21/2024 13:36:04 09/22/19 25 09/21/2024 urina lysis , dipst ick Urobilinogen normal Not Available [facility] [place] [address], [place], [address], 09/21/2024 13:36:04 09/22/19 25 09/21/2024 urina lysis , dipst ick Protein +3 Not Available [place] [address], [place], [address], 09/21/2024 13:36:04 09/22/19 25 09/21/2024 urina lysis , dipst ick pH 5 Not Available [place] [address], [place], [address], 09/21/2024 13:36:04 09/22/19 25 09/21/2024 urina lysis , dipst ick Blood +++ Not Available [place] [address], [place], [address], 09/21/2024 13:36:04 09/22/19 25 09/21/2024 urina lysis , dipst ick Specific Moran 1.020 Not Available [facility] [address], [place], [address], 09/21/2024 13:36:04 09/22/19 25 09/21/2024 urina lysis , dipst ick Ketone +3 Not Available [place] [address], [place], [address], 09/21/2024 13:36:04 09/22/19 25 09/21/2024 urina lysis , dipst ick Bilirubin normal Not Available [facility] soumya [address], [place], [address], 09/21/2024 13:36:04 09/22/19 25 09/21/2024 urina lysis , dipst ick Glucose normal Not Available [place] [address], [place], [address], 09/21/2024 13:36:04 09/22/19 25 09/21/2024 urina lysis , dipst ick Appearance normal Not Available [facility] jessica [address], [place], [address], 09/21/2024 13:36:04 09/22/19 25 09/21/2024 urina lysis , dipst ick Color normal Not Available [place] [address], [place], [address], 09/21/2024 13:36:04 09/24/19 25 09/23/2024 CULTU RE: URINE result report SEE RESULT S BELOW abnormal Test: Cultu re: Urine Speci men Sourc e: Urine - Clean Catch Speci men Type: Urine Speci men Date: 2024 1139 Resul t Date: 2024 0809 Resul t Statu s: Final resul t [place] mal: Yes Gladys lux Lab: [facility] [address] [address] Tel: CULTU RE ----- ----- ----- --- 25,00 0-50, 000 CFU/m l Esche brittany a coli (Abno rmal) SUSCE PTIBI LITY ----- ----- ----- --- Esche [...] <=0.5 ug/mL Susce ptibl e Not Available [facility] (Lab) [address] [place], [address], 09/26/2024 09:13:26 07/25/19 25 07/24/2024 imagi ng/di agnos tic resul t No observ ation record ed. [address] [facility] [place], [address], 07/26/2024 18:13:59 07/25/1907/24/2024 imagi ng/di agnos tic resul t No observ ation record ed. [facility] [address] [place] [address], [place], [address], 08/12/2024 16:34:19 08/28/19 25 08/27/2024 non-s tress test No observ ation record ed. [address] [facility], [place], [address], 08/29/2024 09:46:58 09/06/19 25 09/05/2024 CT, abdom en + pelvi s, w/o contr ast No observ ation record ed. [place] [id number] [facility] [address], [place], [address], 09/06/2024 12:35:11 09/06/19 25 09/05/2024 CT, abdom en + pelvi s, w/o contr ast No observ ation record ed. [address], [place], [address], 09/06/2024 12:02:26 09/06/19 25 09/05/2024 CT, abdom en + pelvi s, w/ contr ast No observ ation record ed. [email or web address] [address], [place], [address], 09/09/2024 08:22:27 Result Notes None recorded. Problems Name Problem SNOMED Code Status Onset Date Resolution Date Notes Provider Name and Address Organization Details Recorded Time Migraine 51659425 Completed aura Zahra howe, [facility] 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 5 22:19:32 Group B Streptoc occus carrier 5837434947 103 Active + amp in labor Zahra howe, [facility] 5 22:19:32 Bipolar disorder 63188484 Active 2020 Haley Alvarez MD [address], [place], [address], [facility] 1 17:15:10 Uterine adenomyo sis 170381054 Active 2020 suspecte d on US at Haley Alvarez MD [address], [place], [address], [facility] 17:15:35 Pregnanc y 22332535 Completed 202309/21/[address] [facility] 5 13:02:58 Problem Notes None recorded. Procedures Surgical History Date Name Laterality Status Provider Name and Address Organization Details Recorded Time 09/06/19 25 Laparoscopy completed Zahra Henry [facility] 09/21/2024 13:06:09 11/25/19 21 Date of Last Pap Smear completed Zoila Crisostomo [facility] 07/23/2021 09:42:18 Imaging Results None recorded. Procedure Notes None recorded. Medical Equipment None Reported. Allergies Allergen ID Allergen Name Allergen Category Reaction Reaction Severity Criticality Documentation Date Start Date Code Code System Note Provider Name and Address Organization Details Recorded Time 68508 latex environme nt,medica tion Not available Not available Not available 10/20/2020 27532 91 RxNorm Faye Metcalf [facility] 17:02:44 58787 Substance with sulfonami de structure and antibacte rial mechanism of action (substanc e) medicatio n Not available Not available Not available 10/20/2020 69925 8003 SNOMED Faye [facility] [place] [facility] 17:02:50 Medications Name Sig Start [...] completed Not Available Not Available Not Available fosfomycin tromethamin e 3 gram oral packet Take 1 packet by oral route for 1 day. 01/30 completed Not Available Not Available Not Available IBU 800 mg tablet Take 1 tablet 3 times a day by oral route. active Not Available Not Available No t Available fluconazole 150 mg tablet Take 1 [...] oral route as directed for 7 days. 10/28 completed Not Available Not Available Not Available amoxicillin 875 mg tablet 03/22 completed Not Available Not Available Not Available baclofen 10 mg tablet 02/20 completed Not Available Not Available Not Available cephalexin 500 mg capsule Take 1 capsule every 6 hours by oral route as directed for 5 days. 06/12 completed Not Available Not Available Not Available olopatadine 0.1 % eye drops 02/20 completed Not Available Not Available Not Available cephalexin 500 mg tablet Take 1 tablet every 6 hours by oral route. 2024 active Not Available Not Available Not Avai lable amoxicillin 400 mg/5 mL oral suspension 07/24 [...] completed Not Available Not Available Not Available iron active Not Available Not Availa ble Not Available lamotrigine 11/24 completed Not Available Not Available Not Available active Not Available Not Avai lable Not Available Fioricet 50 mg-300 mg-40 mg capsule Take 1 capsule every 4 hours by oral route. 08/13 completed Not Available Not Available Not Available Vitals Date Recorded Body weight Systolic And Diastolic Provider Name and Address Organization Details Last Updated DateTime 08/23/2024 10249.16277 g 107/70 mm[Hg] [facility] 08/23/2024 14:23:18 Date Recorded Body weight Body mass index (BMI) Body height Systolic And Diastolic Provider Name and Address Organization Details Last Updated DateTime 08/27/2024 24019.963 94 g 28.7 kg/m2 160.02 cm 119/78 mm[Hg] [facility] 08/27/2024 13:38:04 Date Recorded Body height Body mass index (BMI) Body weight Systolic And Diastolic Provider Name and Address Organization Details Last Updated DateTime 09/21/2024 160.02 cm 25.9 kg/m2 09454.49 g 117/80 mm[Hg] [facility] 09/21/2024 13:04:28 Date Recorded Body height Body mass index (BMI) Body weight Systolic And Diastolic Provider Name and Address Organization Details Last Updated DateTime 10/28/2024 160.02 cm 24.7 kg/m2 03335.78 g 110/76 mm[Hg] [facility] 10/28/2024 12:30:07 Social History Question Answer Notes LastModified by Organizat ion Details LastModified Time Tobacco Smoking Status Never Smoker Faye Metcalf [facility] 10/20/2020 17:02:06 Are You Blind Or Do You Have Difficulty Seeing? No Information n ot available 01/31/2024 What Is Your Level Of Caffeine Consumption? Moderate [email or web address] Information not available 03/20/2024 How Much Tobacco Do You Chew? None [email or web address] Information not available 01/31/2024 In The 14 Days Before Symptom Onset, Have You Had Close Contact With A Laboratory-confirm ed COVID-19 While That Case Was Ill? No [email or web address] Information n ot available 01/31/2024 In The 14 Days Before Symptom Onset, Have You Had Close Contact With A Person Who Is Under Investigation For COVID-19 While That Person Was Ill? No [email or web address] Information not available 01/31/2024 Have You Been To An Area Known To Be High Risk For COVID-19? No [email or web address] Information not available 01/31/2024 Are You Deaf Or Do You Have Serious Difficulty Hearing? No [email or web address] Information not available 01/31/2024 What Type Of Diet Are You Following? REGULAR Information n ot available 01/31/2024 What Is The Highest Grade Or Level Of School You Have Completed Or The Highest Degree You Have Received? [id number] [email or web address] Information not available 01/31/2024 Are There Any Guns Present In Your Home? No Information not available 01/31/2024 Do You Use Protection During Sex? No Information not available 01/31/2024 Do You Use Your Seat Belt Or Car Seat Routinely? Yes [email or web address] Information not available 01/31/2024 Do You Have Smoke And Carbon Monoxide Detectors In Your Home? Yes [email or web address] Information not available 01/31/2024 How Much Tobacco Do You Smoke? No [email or web address] Information not available 01/31/2024 Do You Use Sunscreen Routinely? No [email or web address] Information not available 01/31/2024 Has Tobacco Cessation Counseling Been Provided? No Information not available 10/20/2020 Have You Used IV Drugs? No [email or web address] Information not available 01/31/2024 Do You Have Difficulty Walking Or Climbing Stairs? No [email or web address] Information not available 08/13/2024 Sex: Unknown Functional [...] not available 10/20/2020 Are you able to walk independently without assistance or assistive devices? YESWOREST [email or web address] Information not available 01/31/2024 Are you able to care for yourself independently? 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 No [email or web address] Information not available 08/13/2024 What is your exercise level? Moderate Information not available 01/31/2024 Mental Status Question Answer Note LastModified by Organization D etails LastModified Time Do you feel stressed (tense, restless, nervous, or anxious, or unable to sleep at night)? [id number] Information not available 01/31/2024 Family History Relationship [...] N Thrombophilias N Gynecological History Statement/Question Response Abnormal Pap N Date of Last Mammogram Date of LMP 12/06/2023 N On BCP's at Conception? N STIs/STDs N Was last menstrual period normal Y HPV Vaccine N Duration of Flow (days) 5 9 Current Control Method Tubal Ligat ion Age at First Child 20 Date of Last Colonoscopy Frequency of Cycle (Q days) 29 Sexually [...] Diagnosis SNOMED-CT Code Diagnosis ICD10 Code Diagnosis IMO Codes Diagnosis Note [id number] Haley Alvarez MD [place] [address] [address] 10/20/2020 16:53:51 10/21/2020 16:11:01 Pelvic floor tension 895058899 R29.898 [id number] Haley Alvarez MD [place] [address],[place] [address] 11/24/2020 16:34:17 11/24/2020 17:09:48 Gynecologic examination 31919430 Z01.419 [id number] Rci White MD [place] [address],[place] [address] 07/23/2021 09:15:46 07/23/2021 14:21:43 Menorrhagia 361181223 N92.0 Pain in pelvis 44305669 R10.2 I spent over 35 minutes with the patient. We discussed her symptoms in detail. We reviewed radiology reports. We discussed disease processes regarding pelvic pain, ovarian cyst, adenomyosi s. We discussed evaluation and possible treatments of menorrhagi a and pelvic pain. We will proceed with pelvic ultrasound and the patient will return to discuss treatment plan. [id number] Haley Alvarez MD [place] [address],[place] [address] 07/28/2021 09:42:58 07/28/2021 10:38:00 Pain in pelvis 91771858 R10.2 [id number] Haley Alvarez MD [place] [address],[place] [address] 03/22/2022 17:25:20 03/23/2022 12:05:46 Amenorrhea 20572809 N91.2 Nausea 657253844 R11.0 Stomach cramps 31445767 R10.9 Trying to conceive 20991 9001 Z31.9 [id number] DANIEL VALENCIA MD [place] [address],[place] [address] 01/23/2024 14:58:52 01/23/2024 15:16:19 Urinary symptoms 996020621 R39.9 Acute urin ant tract infection 007353657 N39.0 [id number] MD Maria BALDERAS [address],[place] [address] 01/31/2024 11:26:51 01/31/2024 11:51:43 [id number] DANIEL VALENCIA MD [place] [address],[place] [address] 01/31/2024 11:27:10 01/31/2024 15:32:00 Nausea and vomiting 21412155 R11.2 - will trial zofran PRN for nausea Migraine 90469987 G43.90 9 - hx of chronic migraines- has previously tried reglan, naproxen, sumatripta n, compazine, propranolo l, cyclobenza pine, zofran, toradol, exedrin migraines, dilaudid, ibuprofen, and norco with no improvemen t- will trial sumatripta n, tylenol and caffeine- will send neurology referral test positive 945583404 Z32.01 1. Exam today within normal limits.2. [...] desires at 10 weeks, orders given today. [id number] Ric White MD [place] [address],[place] [address] 02/21/2024 16:33:48 02/21/2024 17:08:55 screening 908344769 Z36.82 Z3A.12 [id number] Ric White MD [place] [address],[place] [address] 02/21/2024 16:34:43 02/22/2024 00:38:42 Migraine 46307545 G43.909 Routine an tenatal care 915401000 Z34.90 [id number] Mayda Garibay CNM [place] [address],[place] [address] 03/20/2024 16:34:46 03/20/2024 17:12:20 Routine care 879346365 Z34.92 Gestation period, 16 weeks 90275993 Z3A.16 [id number] Ric White MD [place] [address],[place] [address] 04/18/2024 16:26:44 04/18/2024 17:59:14 screening for malformation 519081675 Z36.3 Z3A.20 [id number] MD Maria Henriquez [address],[place] [address] 04/18/2024 16:29:40 04/19/2024 10:14:41 Routine care 153030352 Z34.90 [id number] MD Maria BALDERAS [address],[place] [address] 05/17/2024 15:52:41 05/20/2024 18:25:26 Routine care 561525967 Z34.91 [id number] MD Maria Henriquez [address],[place] [address] 05/24/2024 12:31:27 05/24/2024 13:18:24 Abdominal pain in 695884703 O99.891 O26.852 Z3A.25 [id number] MD Maria Henriquez [address],[place] [address] 05/24/2024 12:32:04 05/24/2024 13:33:54 Urinary symptoms 101530636 R39.9 Traumatic injury during 392719904 T14.90XA [id number] MD Maria BALDERAS [address],[place] [address] 06/12/2024 14:31:43 06/13/2024 14:42:54 Routine care 298927914 Z34.91 [id number] MD Maria BALDERAS [address],[place] [address] 06/24/2024 16:15:04 06/26/2024 03:31:51 Candidiasis of vagina 28467498 B37.31 Routine an tenatal care 359097246 Z34.91 - continue PNV [id number] MD Maria Henriquez [address],[place] [address] 07/08/2024 14:54:02 07/08/2024 15:52:50 Uterine size for dates discrepancy 444113754 O26.843 Z3A.31 [id number] DANIEL VALENCIA MD [place] [address],[place] [address] 07/08/2024 14:54:26 07/11/2024 09:36:05 Routine care 655373694 Z34.91 - continue PNV [id number] DANIEL VALENCIA MD [place] [address],[place] [address] 07/24/2024 16:22:43 07/24/2024 17:48:09 Uterine contractions present 837461349 O80 Gestation period, 34 weeks 14054759 Z3A.34 [id number] DANIEL VALENCIA MD [place] [address],[place] [address] 08/07/2024 16:58:41 08/09/2024 00:41:23 Routine care 389796157 Z34.91 - continue PNV [id number] [facility] [address],[place] [address] 08/13/2024 11:42:00 08/13/2024 13:09:29 Gestation period, 36 weeks 56418832 Z3A.36 [id number] Ric White MD [place] [address],[place] [address] 08/23/2024 14:17:08 08/23/2024 14:34:09 care status 703492198 Z34.80 2521021186 [id number] [facility] [address],[place] [address] 08/27/2024 12:46:40 08/28/2024 13:45:09 Gestation period, 39 weeks 89883994 Z3A.39 0728085 [id number] [facility] [address],[place] [address] 09/04/2024 08:49:36 09/04/2024 09:03:41 [id number] Ric White MD [place] [address] [address] 09/21/2024 12:43:12 09/24/2024 10:44:03 Postoperative visit 870918954 Z48.89 [id number] this patient is a 31-year-ol d female [...] her urine Urinary tr act infectious disease 27420079 N39.0 R31.9 404910786 Urinary symptoms 7138789 08 R39.9 18986 Acute urin ant tract infection 289401147 N39.0 [id number] [id number] DANIEL VALENCIA MD [place] [address] [address] 10/28/2024 12:21:18 10/28/2024 17:19:52 care status 811661852 Z39.2 8207589 S/p 6 weeks ago here today for a visit.1. Patient recovering well2. Plans to continue breast feeding3. S/p PP tubal ligation4. Patient instructed to follow up in 6 months for well woman exam unless need arises prior Health Concerns Section Related Observation LastModified by Organization Detai ls LastModified Time None Recorded Concern Status LastModified by Organization Details LastModified Time None Recorded Advance Directives Directive None Recorded Payers Insurance Date Sequence Insurance Name Policy Number Policy Childs Covered Member ID Childs Member ID Guarantor Name 10/26/2024 1 [facility] [id number] Jorje Cantu [id number] Jorje Cantu Notes Date Note Type Note Provider Name and Address Organization Details Recorded Time 08/23/2024 text/html Generic HPI TemplateReported by Patient Ric White MD [address], [place], [address], [facility] 08/23/2024 14:33:45 08/27/2024 text/html Generic HPI TemplateReported by Patient Mayda DoradoRadha Garibay CNM [address], [place], [address], [facility] 08/28/2024 12:45:27 09/21/2024 text/html this patient is a 31-year-old female is 2 weeks postop from a laparoscopic surgery. She was , immediate , when the procedure occurred. She had a ruptured peritoneal surface that was bleeding in the posterior cul-de-sac, Left parametrium. She is recovering normally. Her incisions are clean dry and intact. She has some urinary symptoms. To check her urine Zahra howe, [facility] 09/21/2024 13:39:13 10/28/2024 text/html S/P on 09/04 at 40 weeks gestation. was overall uncomplicated. Complications with delivery: internal bleeding from peritoneal tear due to endometriosis scar tissue. Underwent diagnostic laparoscopy, repair of peritoneal tissue, and bilateral salpingectomy. Patient denies any specific problems since delivery. Patient overall feeling well. Patient is without problems. Pain controlled. Has not had a period yet. No bleeding. Bowel and bladder function are normal. Pap due 2024. Denies any signs or symptoms of depression. Is coping with parenting well. Patient has not been sexually active since delivery. DANIEL VALENCIA MD [address], [place], [address], [facility] 10/28/2024 17:18:21 OBGyn Episode Ob Episode Information Episode Created Date Number of Fetuses Patient Bloodtype Patient rh Status Prepregnancy Weight lbs Domestic Partner Domestic Partner Phone Father Name Lab Director Status 10/21/19 21 1 CLOSED Fetus Data First Name Last Name Admitted to NICU Weight (g) Sex Living Outcome Pediatric Complications Fetus ID Race Codes Race Delivery Type 2919.77 1704 M [id number] Vaginal Delivery Mark Calculation Initial Mark Date [...] Domestic Partner Domestic Partner Phone Father Name Lab Director Status 02/21/20 24 1 O Negative CLOSED Fetus Data First Name Last Name Admitted to NICU Weight (g) Sex Living Outcome Pediatric Complications Fetus ID Race Codes Race Delivery Type true 3260.19 25 M true Full Term thought had brain issue was transfered to NICU 77831 Vaginal Delivery Problems Problem Notes Problem Name Start Date End Date Resolution Snomed Code Not e Group B Streptococcus carrier [id number] + amp in labor Migraine 91795283 aura Mark Calculation Initial Mark Date Initial [...] Weight in lbs Pre/Post Dialysis Refused Weight 128.134920949409 BP Diastolic BP Location Tested BP Systolic [...] Type Weight in lbs Pre/Post Dialysis Refused 129.687870048077 BP Diastolic BP Location Tested BP Systolic [...] Type Weight in lbs Pre/Post Dialysis Refused 136.809278161601 BP Diastolic BP Location Tested BP Systolic [...] in lbs Pre/Post Dialysis Refused With clothes 142.727423519478 BP Diastolic BP Location Tested BP Systolic [...] Type Weight in lbs Pre/Post Dialysis Refused 142.961302601113 BP Diastolic BP Location Tested BP Systolic [...] Type Weight in lbs Pre/Post Dialysis Refused 148.198940565241 BP Diastolic BP Location Tested BP Systolic [...] Weight in lbs Pre/Post Dialysis Refused Weight 152.588164580595 BP Diastolic BP Location Tested BP Systolic [...] Weight in lbs Pre/Post Dialysis Refused Weight 157.034611919047 BP Diastolic BP Location Tested BP Systolic [...] Weight in lbs Pre/Post Dialysis Refused Weight [id number] BP Diastolic BP Location Tested BP Systolic [...] Weight in lbs Pre/Post Dialysis Refused Weight 160.761164901559 BP Diastolic BP Location Tested BP Systolic [...] Weight in lbs Pre/Post Dialysis Refused Weight 162.544488373865 BP Diastolic BP Location Tested BP Systolic [...] Type Weight in lbs Pre/Post Dialysis Refused 163.749859651825 BP Diastolic BP Location Tested BP Systolic [...] Type Weight in lbs Pre/Post Dialysis Refused 162.801407646083 BP Diastolic BP Location Tested BP Systolic [...] Weight in lbs Pre/Post Dialysis Refused Weight 146.313673121155 BP Diastolic BP Location Tested BP Systolic [...] Complications Tubal Sterilization Discharge Date Comments 5 Induce d 41 Mayda bryan Hemorrhage true patient had post hemorrhag e and had to have laparosco py surgery done 09/05/2024 for the bleeding also had tubal done at that time +GBS Discharge Information Feeding Method Contraceptive Method Maternal HG B and HCT Levels
--- OUTSIDE RECORDS SUMMARY | 2025-03-26 03:01 | XMS_ITS | Patient Health Record ---
Author Organization [facility] [employer] [facility] Address [address] [place] [address] Care Team Providers Care Crew Leader/Control Room Operator Name Role Phone Zackery Humphrey Unavailable [phone] Reason For Referral No Information Medications Medication SIG (Take, Route, Frequency, Duration) Notes Start Date End Date Status Ibuprofen 600 MG Tablet Oral 12/23/2020 Active lamoTRIgine 25 MG Tablet Oral 12/23/2020 Active ZyrTEC *Reorder from [employer] for eRx and Interaction Alerts* 12/23/2020 Active Triazolam 0.25 MG Tablet Oral 12/23/2020 Active Clindamycin HCl 300 MG Capsule Oral 12/23/2020 Active lamoTRIgine 100 MG Tablet Oral 12/23/2020 Active Penicillin V Potassium 500 MG Tablet Oral 12/23/2020 Active hydrOXYzine HCl 10 MG Tablet Oral 12/23/2020 Active diazePAM 10 MG Tablet Oral 12/23/2020 Active Immunizations Vaccine Route Administration Date Status Comme nts Pfizer Biontech Covid-19 Vac cine 2nd dose Unknown 08/06/2020 Administered Pfizer Biontech Covid-19 Vac cine 2nd dose Unknown 08/24/2020 Administered Tdap Unknown 12/11/2017 Administered Social History Social History Additional Details Category Social Info Options Details Migrated Social History Migrated Social History Alcohol Intake: Occasional 10/08/2020,Tobacco Years: Never smoker 10/08/2020 Plan Of Treatment No Information Insurance Providers Payer Name Payer Address Payer Phone Subscriber Number Group Number Insured Name Patient Relationship to Insured Coverage Start Date Coverage End Date [employer] Ppo [address] [place] [address] [id number] BETH [id number] Spouse - patient is the spouse of the insured
--- OUTSIDE RECORDS SUMMARY | 2025-03-26 03:02 | XMS_ITS | Encounter Summary ---
Author Organization [facility] Healthcare Address [address] [place] [address] Care Team Providers Care Furniture Upholsterer Name Role Phone Bruna Gamino LINE PRODUCER Primary Care Provider [phone] Encounter Details Date Type Department Care Team (Late st Contact Info) Description 03/25/2025 Telephone [facility] Family Medicine [address] [place] [address] Bruna Gamino, FAVIOLA [address] [place] [address] Social History Tobacco Use Types [...] on file Legal Sex Female 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 START DIRECTOR documented in this encounter Plan of Treatment Not on file documented as of this encounter Visit Diagnoses Not on filedocumented in this encounter Care Teams Furniture Upholsterer Relationship Specialty Start Date End Date Bruna Gamino NP PCP - General Internal Medicine 02/04/22 documented as of this encounter
== END 2025-03-25 20:48 | disposition home or self-care (01) ==
PROVIDERS: Physician Assistant; Emergency Provider Registered Nurse; PCP Nurse Practitioner Family
DX: N39.0 Urinary tract infection, site not specified (principal); N83.202 Unspecified ovarian cyst, left side; D64.9 Anemia, unspecified
CPT/HCPCS: 36415; 74177; 80053; 81001; 81025; 83690; 85025; 99284; A9270; Q9967